=== PATIENT | female | born 1950 | race Caucasian/White ===

== ENCOUNTER 2016-04-11 07:01 | Emergency (ER) | payer BC ==
[2016-04-11] MEDS ORDERED: SODIUM CHLORIDE 0.9% 1,000 ML IV STA (07:50)
[2016-04-11] MEDS ORDERED: KETOROLAC 30 MG/ML 1 ML VIAL IVP STA ×2 (07:50→09:29)
--- NOTE | 2016-04-11 07:54 | ED ---
Abdominal Pain HPI - General Chief Complaint: Abdominal Pain Stated Complaint: Lt Sided Flank Pain Time Seen by Provider: 04/11/16 07:30 Source: patient, RN notes reviewed Mode of arrival: wheelchair Limitations: no limitations - History of Present Illness Initial Comments: This is a 65-year-old female with a history of a cholecystectomy in the past also history of a lap band for many years who states she had the onset at about 4:30 this morning of severe sharp left-sided flank pain and left upper quadrant area pain. She states it was very severe she has some nausea with it. Somewhat better now is currently 7/10. She states she had diaphoretic at the time of the pain onset. She states it doesn't really get any worse with movements or deep breathing. She had no fevers or chills no dysuria no hematuria no cough or phlegm production. Complaint: flank pain - Related Data Home Medications Medication Instructions Recorded Confirmed Ascorbic Acid [Vitamin C] 500 mg PO DAILY 04/11/16 04/11/16 Cholecalciferol [Vitamin D3] 3,000 unit PO DAILY 04/11/16 04/11/16 Cyanocobalamin [Vitamin B-12] 500 mcg PO DAILY 04/11/16 04/11/16 Levothyroxine Sodium [Synthroid] 125 mcg PO DAILY 04/11/16 04/11/16 Multivitamins, Thera [Multivitamin] 1 tab PO DAILY 04/11/16 04/11/16 PARoxetine HCL 30 mg PO DAILY 04/11/16 04/11/16 Swim Ear Drying Aid 4 drops BOTH EARS DAILY PRN 04/11/16 04/11/16 Previous Rx's Medication Instructions Recorded Ibuprofen [Motrin] 800 mg PO Q6HR PRN #20 tab 04/11/16 Tamsulosin HCl [Flomax] 0.4 mg PO DAILY #7 cap.er.24h 04/11/16 Allergies Allergy/AdvReac Type Severity Reaction Status Date / Time sulfamethoxazole Allergy Rash/Hives Verified 04/11/16 07:50 [From Bactrim] trimethoprim [From Bactrim] Allergy Rash/Hives Verified 04/11/16 07:50 Review of Systems ROS Statement: Those systems with pertinent positive or pertinent negative responses have been documented in the HPI. ROS Other: All systems not noted in ROS Statement are negative. Past Medical History Past Medical History: Thyroid Disorder History of Any Multi-Drug Resistant Organisms: None Reported Past Surgical History: Bariatric Surgery, Cholecystectomy, Tonsillectomy Additional Past Surgical History / Comment(s): breast Past Psychological History: Anxiety Smoking Status: Never smoker Past Alcohol Use History: None Reported Past Drug Use History: None Reported General Exam - General Exam Comments Initial Comments: This is a well-developed well-nourished awake alert oriented 3 Limitations: no limitations General appearance: alert, anxious, in distress Head exam: Present: atraumatic, normocephalic, normal inspection Eye exam: Present: normal appearance, PERRL, EOMI. Absent: scleral icterus, conjunctival injection, periorbital swelling ENT exam: Present: normal exam, mucous membranes moist Neck exam: Present: normal inspection. Absent: tenderness, meningismus, lymphadenopathy Respiratory exam: Present: normal lung sounds bilaterally. Absent: respiratory distress, wheezes, rales, rhonchi, stridor Cardiovascular Exam: Present: regular rate, normal rhythm, normal heart sounds. Absent: systolic murmur, diastolic murmur, rubs, gallop, clicks GI/Abdominal exam: Present: soft, tenderness (Slight left flank tenderness), normal bowel sounds. Absent: distended, guarding, rebound, rigid, bruit, pulsatile mass, hernia Rectal exam: Present: deferred Extremities exam: Present: normal inspection, full ROM, normal capillary refill. Absent: tenderness, pedal edema, joint swelling, calf tenderness Back exam: Present: normal inspection, CVA tenderness (L) Neurological exam: Present: alert, oriented X3, CN II-XII intact Psychiatric exam: Present: normal affect, normal mood Skin exam: Present: warm, dry, intact, normal color. Absent: rash Course Vital Signs 04/11/16 07:09 Temperature 97.2 F L Pulse Rate 65 Respiratory 20 Rate Blood Pressure 124/73 O2 Sat by Pulse 100 Oximetry - Reevaluation(s) Reevaluation #1: 04/11/16 09:26 Reevaluation of the patient prior to the discharge reveals she was pain-free after the IV Toradol. Medical Decision Making - Medical Decision Making Patient is pain-free disseminated discuss findings with her. She will be discharged on appropriate medication will follow-up with her doctor did discuss the case with Dr. Holt if the patient is a LAP-BAND patient this has nothing to do with the LAP-BAND. - Lab Data Result diagrams: 04/11/16 07:40 04/11/16 07:40 Lab Results 04/11/16 04/11/16 04/11/16 Range/Units 07:40 07:40 07:40 WBC 11.3 H (3.8-10.6) k/uL RBC 4.63 (3.80-5.40) m/uL Hgb 13.7 (11.4-16.0) gm/dL Hct 43.0 (34.0-46.0) % MCV 93.0 (80.0-100.0) fL MCH 29.6 (25.0-35.0) pg MCHC 31.8 (31.0-37.0) g/dL RDW 13.0 (11.5-15.5) % Plt Count 283 (150-450) k/uL Neutrophils % 80 % Lymphocytes % 13 % Monocytes % 3 % Eosinophils % 3 % Basophils % 1 % Neutrophils # 9.0 H (1.3-7.7) k/uL Lymphocytes # 1.4 (1.0-4.8) k/uL Monocytes # 0.4 (0-1.0) k/uL Eosinophils # 0.3 (0-0.7) k/uL Basophils # 0.1 (0-0.2) k/uL Sodium 146 H (137-145) mmol/L Potassium 4.3 (3.5-5.1) mmol/L Chloride 107 (98-107) mmol/L Carbon Dioxide 26 (22-30) mmol/L Anion Gap 13 mmol/L BUN 19 H (7-17) mg/dL Creatinine 0.70 (0.52-1.04) mg/dL Est GFR (MDRD) Af Amer >60 (>60 ml/min/1.73 sqM) Est GFR (MDRD) Non-Af >60 (>60 ml/min/1.73 sqM) Glucose 105 H (74-99) mg/dL Calcium 9.6 (8.4-10.2) mg/dL Total Bilirubin 0.4 (0.2-1.3) mg/dL AST 22 (14-36) U/L ALT 40 (9-52) U/L Alkaline Phosphatase 61 (38-126) U/L Total Creatine Kinase 33 (30-135) U/L CK-MB (CK-2) 0.7 (0.0-2.4) ng/mL CK-MB (CK-2) Rel Index 2.1 Troponin I <0.012 (0.000-0.034) ng/mL Total Protein 7.9 (6.3-8.2) g/dL Albumin 4.4 (3.5-5.0) g/dL Amylase 98 (30-110) U/L Lipase 169 (23-300) U/L Urine Color Urine Appearance (Clear) Urine pH (5.0-8.0) Ur Specific [place] (1.001-1.035) Urine Protein (Negative) Urine Glucose (UA) (Negative) Urine Ketones (Negative) Urine Blood (Negative) Urine Nitrate (Negative) Urine Bilirubin (Negative) Urine Urobilinogen (<2.0) mg/dL Ur Leukocyte Esterase (Negative) Urine RBC (0-5) /hpf Urine WBC (0-5) /hpf Ur Squamous Epith Cells (0-4) /hpf Urine Mucus (None) /hpf 04/11/16 Range/Units 07:40 WBC (3.8-10.6) k/uL RBC (3.80-5.40) m/uL Hgb (11.4-16.0) gm/dL Hct (34.0-46.0) % MCV (80.0-100.0) fL MCH (25.0-35.0) pg MCHC (31.0-37.0) g/dL RDW (11.5-15.5) % Plt Count (150-450) k/uL Neutrophils % % Lymphocytes % % Monocytes % % Eosinophils % % Basophils % % Neutrophils # (1.3-7.7) k/uL Lymphocytes # (1.0-4.8) k/uL Monocytes # (0-1.0) k/uL Eosinophils # (0-0.7) k/uL Basophils # (0-0.2) k/uL Sodium (137-145) mmol/L Potassium (3.5-5.1) mmol/L Chloride (98-107) mmol/L Carbon Dioxide (22-30) mmol/L Anion Gap mmol/L BUN (7-17) mg/dL Creatinine (0.52-1.04) mg/dL Est GFR (MDRD) Af Amer (>60 ml/min/1.73 sqM) Est GFR (MDRD) Non-Af (>60 ml/min/1.73 sqM) Glucose (74-99) mg/dL Calcium (8.4-10.2) mg/dL Total Bilirubin (0.2-1.3) mg/dL AST (14-36) U/L ALT (9-52) U/L Alkaline Phosphatase (38-126) U/L Total Creatine Kinase (30-135) U/L CK-MB (CK-2) (0.0-2.4) ng/mL CK-MB (CK-2) Rel Index Troponin I (0.000-0.034) ng/mL Total Protein (6.3-8.2) g/dL Albumin (3.5-5.0) g/dL Amylase (30-110) U/L Lipase (23-300) U/L Urine Color Yellow Urine Appearance Clear (Clear) Urine pH 5.5 (5.0-8.0) Ur Specific [place] 1.020 (1.001-1.035) Urine Protein Trace H (Negative) Urine Glucose (UA) Negative (Negative) Urine Ketones Negative (Negative) Urine Blood Moderate H (Negative) Urine Nitrate Negative (Negative) Urine Bilirubin Negative (Negative) Urine Urobilinogen <2.0 (<2.0) mg/dL Ur Leukocyte Esterase Negative (Negative) Urine RBC >182 H (0-5) /hpf Urine WBC 1 (0-5) /hpf Ur Squamous Epith Cells <1 (0-4) /hpf Urine Mucus Rare H (None) /hpf - Radiology Data Radiology results: report reviewed (I did review the imaging and report or is evidence of a ureterolithiasis as well as nephrolithiasis. 3 mm focus as well as a 6 mm focus in the kidney a 6 mm calculus measuring about 6 mm in the proximal left ureter.), image reviewed Disposition Clinical Impression: Kidney stone on left side, Renal colic on left side Disposition: HOME SELF-CARE Condition: Good Instructions: Flank Pain (ED), How to Strain Your Urine (ED), Renal Colic (ED) , Kidney Stones (ED) Prescriptions: Ibuprofen [Motrin] 800 mg PO Q6HR PRN #20 tab PRN Reason: Pain Tamsulosin HCl [Flomax] 0.4 mg PO DAILY #7 cap.er.24h
[2016-04-11 08:04] LABS: Basophils # (A) 0.1 k/uL (0-0.2); Basophils % (A) 1 %; CH 29.6; Eosinophils # (A) 0.3 k/uL (0-0.7); Eosinophils % (A) 3 %; HDW 2.14; HGB 13.7 gm/dL (11.4-16.0); Luc % (Auto) 1; Lymphocytes # (A) 1.4 k/uL (1.0-4.8); Lymphocytes % (A) 13 %; MCH 29.6 pg (25.0-35.0); MCHC 31.8 g/dL (31.0-37.0); Mean Platelet Volume 7.2; Monocytes # (A) 0.4 k/uL (0-1.0); Monocytes % (A) 3 %; Neutrophils % (A) 80 %; RBC 4.63 m/uL (3.80-5.40); WBC 11.3 k/uL (3.8-10.6); WBC (Perox) 11.26
[2016-04-11 08:18] LABS: Appearance,Urine Clear (Clear); Bilirubin,Urine Negative (Negative); Glucose,Urine (UA) Negative (Negative); Ketones,Urine Negative (Negative); Leukocyte Esterase,Urine Negative (Negative); Mucus,Urine Rare /hpf; Nitrite,Urine Negative (Negative); PH, Urine 5.5 (5.0-8.0); Particle Count 2001; Protein,Urine Trace (Negative); RBC,Urine >182 /hpf (0-5); Squamous Epithelial Cell,Urine <1 /hpf (0-4); UA Billing (MACRO vs. MICRO) MICRO; Urobilinogen,Urine <2.0 mg/dL (<2.0); WBC,Urine 1 /hpf (0-5)
[2016-04-11 08:20] LABS: ALT 40 U/L (9-52); AST 22 U/L (14-36); Alkaline Phosphatase 61 U/L (38-126); Amylase 98 U/L (30-110); Anion Gap 13 mmol/L; Blood Urea Nitrogen 19 mg/dL (7-17); Calcium 9.6 mg/dL (8.4-10.2); Carbon Dioxide 26 mmol/L (22-30); Chloride 107 mmol/L (98-107); Glucose 105 mg/dL (74-99); Non-African American GFR(MDRD) >60 (>60 ml/min/1.73 sqM); Potassium 4.3 mmol/L (3.5-5.1); Sodium 146 mmol/L (137-145); Total Bilirubin 0.4 mg/dL (0.2-1.3); Total Protein 7.9 g/dL (6.3-8.2)
[2016-04-11 08:37] LABS: Creatine Kinase 33 U/L (30-135)
--- NOTE | 2016-04-11 08:50 | CT ---
EXAMINATION TYPE: CT abdomen pelvis wo con DATE OF EXAM: 04/11/2016 8:42 AM COMPARISON: NONE HISTORY: Left sided abdominal pain CT DLP: 317.70 mGycm Automated exposure control for dose reduction was used. TECHNIQUE: Helical acquisition of images from the lung bases through the pelvis. FINDINGS: There is some thickening of the distal esophagus, patient is status post lap band which may cause this appearance of a prominent distal esophageal pouch. LUNG BASES: No significant abnormality is appreciated. AORTA: No significant abnormality is appreciated, retroaortic left renal vein. LIVER/GB: Patient is status post cholecystectomy. Liver unremarkable PANCREAS: No significant abnormality is seen. SPLEEN: No significant abnormality is seen. ADRENALS: No significant abnormality is seen. KIDNEYS: There is left-sided hydronephrosis. Nonobstructive calculi present, 3 mm focus at the lower pole, 6 mm focus midpole. Proximal left ureteral calculus is present measuring approximately 6 mm. Ri ght kidney unremarkable. REPRODUCTIVE ORGANS: No significant abnormality is seen. URINARY BLADDER: No significant abnormality is seen. BOWEL: No significant abnormality is seen. FREE AIR: No Free Air is visible. ASCITES: None visible. PELVIC ADENOPATHY: None visualized. RETROPERITONEAL ADENOPATHY: No Retroperitoneal Adenopathy visible. OSSEOUS STRUCTURES: Degenerative disc changes are present in the lower lumbar spine. There is a spin al curvature. IMPRESSION: PROXIMAL LEFT URETERAL CALCULUS WITH HYDRONEPHROSIS, LEFT-SIDED NEPHROLITHIASIS. POSTOP CHANGES. NONC ONTRAST EXAM. ADDITIONAL FINDINGS ABOVE.
[2016-04-11 08:51] LABS: Creatine Kinase MB 0.7 ng/mL (0.0-2.4); Troponin I <0.012 ng/mL (0.000-0.034)
[2016-04-11] MEDS ORDERED: TAMSULOSIN 0.4 MG CAP.ER.24H PO STA (09:10)
[2016-04-11 09:43] VITALS: BP 114/76; PULSE 66; RESP 16; TEMP 97.1
== END 2016-04-11 10:22 | disposition home or self-care (01) ==
LOC: EC 07:01
DX: N20.0 Calculus of kidney (principal); R10.11 Right upper quadrant pain; E07.9 Disorder of thyroid, unspecified; F41.9 Anxiety disorder, unspecified; Z79.52 Long term (current) use of systemic steroids; Z79.899 Other long term (current) drug therapy; Z88.2 Allergy status to sulfonamides; Z98.84 Bariatric surgery status; Z90.49 Acquired absence of other specified parts of digestive tract
CPT/HCPCS: 99284; 96374; 96376; 96361 ×2; 36415; 80053; 82150; 82550; 82553; 83690; 84484; 85025; 81001; 74176; J1885

== ENCOUNTER → 2016-04-24 | Outpatient (CLI) | payer BC ==
--- NOTE | 2016-04-24 12:04 | XR ---
EXAMINATION TYPE: XR KUB DATE OF EXAM: 04/24/2016 11:55 AM HISTORY: Pain Comparison: 03/13/[address] of the abdomen and pelvis dated 04/11/2016 Single KUB is submitted for interpretation. Findings: Right renal calculi: None Visualized. Right ureteral calculi: None Visualized. Left renal calculi: Suspect left renal calculi as identified on CT with 6 mm calculus mid pole left kidney and 3 mm lower pole calculus. Left ureteral calculi: 5.5 mm calculus is noted at the left L3 level. Pelvic calcifications: None Visualized. Bowel gas pattern is unremarkable. No free air. No mass effects. IMPRESSION: 1. 5.5 mm calculus is noted at the left L3 level.
== END ==
LOC: RADXRMAIN 11:42
PROVIDERS: ATTEND Urology
DX: N20.1 Calculus of ureter (principal)
CPT/HCPCS: 74000

== ENCOUNTER → 2016-05-02 | Outpatient (CLI) | payer BC ==
[2016-05-02 11:05] LABS: EKG EKG PERFORMED
[2016-05-02 11:31] LABS: Basophils # (A) 0.1 k/uL (0-0.2); Basophils % (A) 1 %; CH 29.6; CHCM 31.8; Eosinophils # (A) 0.2 k/uL (0-0.7); Eosinophils % (A) 4 %; HCT 41.7 % (34.0-46.0); HDW 2.19; HGB 13.2 gm/dL (11.4-16.0); Luc # (Auto) 0.16; Luc % (Auto) 3; Lymphocytes # (A) 1.2 k/uL (1.0-4.8); Lymphocytes % (A) 19 %; MCH 29.7 pg (25.0-35.0); MCHC 31.7 g/dL (31.0-37.0); MCV 93.5 fL (80.0-100.0); Mean Platelet Volume 7.2; Monocytes # (A) 0.3 k/uL (0-1.0); Monocytes % (A) 5 %; Neutrophils # (A) 4.3 k/uL (1.3-7.7); Neutrophils % (A) 69 %; RBC 4.46 m/uL (3.80-5.40); WBC 6.2 k/uL (3.8-10.6); WBC (Perox) 6.41
[2016-05-02 11:37] LABS: Partial Thromboplastin Time 23.7 sec (22.0-30.0); Prothrombin Time 9.8 sec (9.0-12.0)
[2016-05-02 11:47] LABS: Blood Urea Nitrogen 22 mg/dL (7-17); Non-African American GFR(MDRD) >60 (>60 ml/min/1.73 sqM)
== END ==
LOC: LABPAT 10:22
PROVIDERS: ATTEND Urology
DX: N20.1 Calculus of ureter (principal)
CPT/HCPCS: 82565; 84520; 85025; 85610; 85730; 93005

== ENCOUNTER 2016-05-08 10:02 | Day surgery (SDC) | payer BC ==
[2016-05-05 10:49] VITALS: BMI 24.3
[~2016-05-08 10:02] MED LIST: DEXAMETHASONE SOD PHOSPHATE 10 MG/ML 1 ML VIAL IV ONE; HYDROmorphone 1 MG/ML 1 ML SYRINGE IVP PRN; LIDOCAINE 1% 20 ML VIAL (10MG/ML) FOR IV START INTRADERMA PRN; ONDANSETRON 4 MG/2 ML VIAL IVP ONE; Pre Op ABX Message 1 EACH MISC MISCELLANE ONE; SCOPOLAMINE 1.5MG/72HR PATCH TRANSDERM ONE
--- NOTE | 2016-05-08 10:08 | XR ---
EXAMINATION TYPE: XR KUB DATE OF EXAM: 05/08/2016 9:55 AM CLINICAL HISTORY: Presurgical study for kidney stones. TECHNIQUE: 2 supine KUB images of the abdomen are obtained. COMPARISON: Abdominal x-ray April 24, [address] abdomen and pelvis April 11, 2016. FINDINGS: There is redemonstration of 7 mm proximal left ureter calculus at level of left L4 transver se process felt slightly progressed distally from recent CT and x-ray. There are 2 small calculi lowe r pole level left kidney measuring up to 5 mm in size redemonstrated. No right-sided renal calculi id entified. Lap band device and angle position redemonstrated and stable. Increase angle redemonstrated. Overall nonobstructive bowel gas pattern. Lung bases are clear. Slight underlying levoconvex scoliotic curvat ure is noted. IMPRESSION: Left-sided nephrolithiasis redemonstrated felt stable with 7 mm proximal ureter calculus slightly pro gressed distally in position since prior studies.
[2016-05-08 10:18] VITALS: RESP 16; TEMP 98
[2016-05-08] MEDS: LACTATED RINGERS 1,000 ML IV SCH ×2 (10:24→10:44)
[2016-05-08] MEDS ORDERED: PROPOFOL 10 MG/ML 20 ML VIAL IV ONE (10:45)
[2016-05-08] MEDS ORDERED: MIDAZOLAM 2 MG/2 ML VIAL ONE (10:45)
[2016-05-08] MEDS ORDERED: fentaNYL (PF) 50 MCG/ML 2 ML AMP ONE (10:45)
--- NOTE | 2016-05-08 11:19 | P.OP ---
Date of Procedure: 05/08/16 Preoperative Diagnosis: Left proximal ureteral stone Postoperative Diagnosis: Same Procedure(s) Performed: Extracorporeal shockwave lithotripsy left, 2500 shocks at energy level IV Anesthesia: DAPHNE HAMLIN Surgeon: Slava Banda Pathology: none sent Condition: stable Disposition: PACU Indications for Procedure: The patient is a 65-year-old female with a 7 mm proximal ureteral stone causing obstruction and pain she comes for shockwave lithotripsy Description of Procedure: Patient was brought to the operating suite and given a sedative anesthetic on the lithotripsy table. The stone was seen in 2 views of fluoroscopy. 2500 shocks at energy level IV administered. The stone appears to fracture. At the end of procedure the patient's awakened and returned recovery room good condition she'll be discharged home upon recovery.
[2016-05-08] MEDS ORDERED: IV FLUID CONTINUATION 1,000 ML IV ONE (11:24)
[2016-05-08 12:28] VITALS: BP 124/65; PULSE 100
== END 2016-05-08 13:06 | disposition home or self-care (01) ==
LOC: ORWHC2ENDO 10:02
PROVIDERS: ATTEND Urology
DX: N20.2 Calculus of kidney with calculus of ureter (principal); E05.90 Thyrotoxicosis, unspecified without thyrotoxic crisis or storm; J45.909 Unspecified asthma, uncomplicated; Z79.1 Long term (current) use of non-steroidal anti-inflammatories (NSAID); Z79.899 Other long term (current) drug therapy; Z88.1 Allergy status to other antibiotic agents; Z88.2 Allergy status to sulfonamides
CPT/HCPCS: 74000; 50590; J2250; J1100; J2405; J3010; J2704

== ENCOUNTER → 2016-05-15 | Outpatient (CLI) | payer BC ==
--- NOTE | 2016-05-15 10:18 | XR ---
EXAMINATION TYPE: XR KUB DATE OF EXAM ORDERED: 05/15/2016 9:45 AM HISTORY: N20.1 L ureteral calculus. COMPARISON: Previous study dated 05/08/2016. FINDINGS: There is a lap band in place, unchanged from previous. There has been a previous cholecyst ectomy. There is a 4.8 mm calculus overlying the lower pole of the left kidney. There is a linear ish cification overlying the psoas shadow which appears to be outside of the expected course of the urete r. No definite right-sided calcifications are seen. There is a mild levoscoliosis. IMPRESSION: LEFT-SIDED NEPHROLITHIASIS.
== END | disposition home or self-care (01) ==
LOC: RADXRMAIN 09:33
PROVIDERS: ATTEND Urology
DX: N20.0 Calculus of kidney (principal)
CPT/HCPCS: 74000

== ENCOUNTER 2016-08-04 04:14 | Emergency (ER) | payer BC ==
[2016-08-04 04:23] VITALS: PULSE 56
[2016-08-04] MEDS ORDERED: SODIUM CHLORIDE 0.9% 1,000 ML IV ONE (04:28)
[2016-08-04] MEDS ORDERED: MORPHINE SULFATE 4 MG/ML SYRINGE IVP STA (04:28)
--- NOTE | 2016-08-04 04:30 | ED ---
Abdominal Pain HPI - General Chief Complaint: Abdominal Pain Stated Complaint: abd pain Time Seen by Provider: 08/04/16 04:22 Source: patient Mode of arrival: ambulatory Limitations: no limitations - History of Present Illness Initial Comments: This is a 65-year-old female with a history of kidney stones and lap band surgery who presents emergency department for abdominal pain. She states it started approximately one week ago however acutely worsened at 2 AM today. She states is located in her left upper and left lower quadrant radiates to her left flank. She states it does not feel like her previous kidney stone that she had in March of this year. She denies any associated nausea or vomiting or diarrhea. No blood in the stool. She states that she did pass quite a bunch of gas earlier. No lightheadedness. She does admit to a small amount of dysuria but no frequency or hematuria. No other complaints. - Related Data Home Medications Medication Instructions Recorded Confirmed Ascorbic Acid [Vitamin C] 500 mg PO DAILY 04/11/16 05/08/16 Cholecalciferol [Vitamin D3] 3,000 unit PO DAILY 04/11/16 05/08/16 Cyanocobalamin [Vitamin B-12] 500 mcg PO DAILY 04/11/16 05/08/16 Levothyroxine Sodium [Synthroid] 125 mcg PO DAILY 04/11/16 05/08/16 Multivitamins, Thera [Multivitamin] 1 tab PO DAILY 04/11/16 05/08/16 PARoxetine HCL 30 mg PO DAILY 04/11/16 05/08/16 Swim Ear Drying Aid 4 drops BOTH EARS DAILY PRN 04/11/16 05/08/16 Loratadine [Claritin] 10 mg PO DAILY PRN 05/05/16 05/08/16 Potassium 99 mg PO DAILY 05/05/16 05/08/16 Previous Rx's Medication Instructions Recorded Ibuprofen [Motrin] 800 mg PO Q6HR PRN #20 tab 04/11/16 HYDROcodone/APAP 5-325MG [[place] 1 tab PO Q4HR PRN #20 tab 05/08/16 5-325] HYDROcodone/APAP 5-325MG [[place] 1 - 2 tab PO Q4H PRN #15 tab 08/04/16 5-325] Allergies Allergy/AdvReac Type Severity Reaction Status Date / Time sulfamethoxazole Allergy Rash/Hives Verified 08/04/16 04:21 [From Bactrim] trimethoprim [From Bactrim] Allergy Rash/Hives Verified 08/04/16 04:21 Review of Systems ROS Statement: Those systems with pertinent positive or pertinent negative responses have been documented in the HPI. ROS Other: All systems not noted in ROS Statement are negative. Past Medical History Past Medical History: Thyroid Disorder History of Any Multi-Drug Resistant Organisms: None Reported Past Surgical History: Bariatric Surgery, Cholecystectomy, Tonsillectomy Additional Past Surgical History / Comment(s): breast Past Psychological History: Anxiety Smoking Status: Never smoker Past Alcohol Use History: None Reported Past Drug Use History: None Reported General Exam - General Exam Comments Initial Comments: Constitutional: Awake alert Appears comfortable Head: Normocephalic atraumatic Eyes: no conjunctival injection No scleral icterus EOMI Neck: No JVD Supple Heart: Regular rate rhythm normal S1-S2 no murmurs Lungs: Clear to auscultation bilaterally No wheezing No rales Abdomen: Soft nondistended tenderness to palpation in the left upper and left lower quadrants with some guarding Extremities: Non edematous DP pulses intact Radial pulses intact Neuro: A&Ox3 No focal neurologic deficits Psych: Appropriate mood and affect Limitations: no limitations Course Vital Signs 08/04/16 04:18 Temperature 97.1 F L Pulse Rate 56 L Respiratory 18 Rate Blood Pressure 154/79 O2 Sat by Pulse 100 Oximetry Medical Decision Making - Medical Decision Making This is a 65-year-old female who presented for left-sided abdominal pain and flank pain. She was found have a 7 mm stone. Her pain was much improved after medications. The patient does not have evidence for urinary tract infection or acute kidney injury. She is going to go home and follow up with Dr. Ward. I gave her [place] for home. She can also use Motrin. The patient has an ALLERGY to Flomax so she can be given this. She is going to follow-up with Dr. Ward's office. - Lab Data Result diagrams: 08/04/16 04:32 08/04/16 04:32 Lab Results 08/04/16 08/04/16 08/04/16 Range/Units 04:32 04:32 04:32 WBC 8.5 (3.8-10.6) k/uL RBC 4.70 (3.80-5.40) m/uL Hgb 13.9 (11.4-16.0) gm/dL Hct 43.7 (34.0-46.0) % MCV 92.9 (80.0-100.0) fL MCH 29.7 (25.0-35.0) pg MCHC 31.9 (31.0-37.0) g/dL RDW 13.5 (11.5-15.5) % Plt Count 298 (150-450) k/uL Neutrophils % 65 % Lymphocytes % 23 % Monocytes % 5 % Eosinophils % 4 % Basophils % 1 % Neutrophils # 5.5 (1.3-7.7) k/uL Lymphocytes # 2.0 (1.0-4.8) k/uL Monocytes # 0.4 (0-1.0) k/uL Eosinophils # 0.4 (0-0.7) k/uL Basophils # 0.1 (0-0.2) k/uL Sodium 142 (137-145) mmol/L Potassium 4.5 (3.5-5.1) mmol/L Chloride 106 (98-107) mmol/L Carbon Dioxide 24 (22-30) mmol/L Anion Gap 12 mmol/L BUN 23 H (7-17) mg/dL Creatinine 0.60 (0.52-1.04) mg/dL Est GFR (MDRD) Af Amer >60 (>60 ml/min/1.73 sqM) Est GFR (MDRD) Non-Af >60 (>60 ml/min/1.73 sqM) Glucose 107 H (74-99) mg/dL Plasma Lactic Acid [place] 1.9 (0.7-2.0) mmol/L Calcium 9.8 (8.4-10.2) mg/dL Total Bilirubin 0.4 (0.2-1.3) mg/dL AST 25 (14-36) U/L ALT 28 (9-52) U/L Alkaline Phosphatase 56 (38-126) U/L Total Protein 7.5 (6.3-8.2) g/dL Albumin 4.5 (3.5-5.0) g/dL Amylase 111 H (30-110) U/L Lipase 270 (23-300) U/L Urine Color Urine Appearance (Clear) Urine pH (5.0-8.0) Ur Specific [place] (1.001-1.035) Urine Protein (Negative) Urine Glucose (UA) (Negative) Urine Ketones (Negative) Urine Blood (Negative) Urine Nitrite (Negative) Urine Bilirubin (Negative) Urine Urobilinogen (<2.0) mg/dL Ur Leukocyte Esterase (Negative) Urine RBC (0-5) /hpf Urine WBC (0-5) /hpf Ur Squamous Epith Cells (0-4) /hpf Urine Bacteria (None) /hpf Hyaline Casts (0-2) /lpf Urine Mucus (None) /hpf 08/04/16 Range/Units 04:32 WBC (3.8-10.6) k/uL RBC (3.80-5.40) m/uL Hgb (11.4-16.0) gm/dL Hct (34.0-46.0) % MCV (80.0-100.0) fL MCH (25.0-35.0) pg MCHC (31.0-37.0) g/dL RDW (11.5-15.5) % Plt Count (150-450) k/uL Neutrophils % % Lymphocytes % % Monocytes % % Eosinophils % % Basophils % % Neutrophils # (1.3-7.7) k/uL Lymphocytes # (1.0-4.8) k/uL Monocytes # (0-1.0) k/uL Eosinophils # (0-0.7) k/uL Basophils # (0-0.2) k/uL Sodium (137-145) mmol/L Potassium (3.5-5.1) mmol/L Chloride (98-107) mmol/L Carbon Dioxide (22-30) mmol/L Anion Gap mmol/L BUN (7-17) mg/dL Creatinine (0.52-1.04) mg/dL Est GFR (MDRD) Af Amer (>60 ml/min/1.73 sqM) Est GFR (MDRD) Non-Af (>60 ml/min/1.73 sqM) Glucose (74-99) mg/dL Plasma Lactic Acid [place] (0.7-2.0) mmol/L Calcium (8.4-10.2) mg/dL Total Bilirubin (0.2-1.3) mg/dL AST (14-36) U/L ALT (9-52) U/L Alkaline Phosphatase (38-126) U/L Total Protein (6.3-8.2) g/dL Albumin (3.5-5.0) g/dL Amylase (30-110) U/L Lipase (23-300) U/L Urine Color Yellow Urine Appearance Clear (Clear) Urine pH 5.5 (5.0-8.0) Ur Specific [place] 1.021 (1.001-1.035) Urine Protein 1+ H (Negative) Urine Glucose (UA) Negative (Negative) Urine Ketones Negative (Negative) Urine Blood Small H (Negative) Urine Nitrite Negative (Negative) Urine Bilirubin Negative (Negative) Urine Urobilinogen <2.0 (<2.0) mg/dL Ur Leukocyte Esterase Trace H (Negative) Urine RBC 34 H (0-5) /hpf Urine WBC 8 H (0-5) /hpf Ur Squamous Epith Cells 1 (0-4) /hpf Urine Bacteria Rare H (None) /hpf Hyaline Casts 7 H (0-2) /lpf Urine Mucus Rare H (None) /hpf Disposition Clinical Impression: Ureterolithiasis Disposition: HOME SELF-CARE Condition: Stable Prescriptions: HYDROcodone/APAP 5-325MG [[place] 5-325] 1 - 2 tab PO Q4H PRN #15 tab PRN Reason: Pain Referrals: Bettina Navarrete MD [Primary Care Provider] - 1-2 days Rubio Ward MD [STAFF PHYSICIAN] - 1-2 days
[2016-08-04 04:47] LABS: Basophils # (A) 0.1 k/uL (0-0.2); Basophils % (A) 1 %; CH 29.3; CHCM 31.7; Eosinophils # (A) 0.4 k/uL (0-0.7); Eosinophils % (A) 4 %; HCT 43.7 % (34.0-46.0); HDW 2.12; HGB 13.9 gm/dL (11.4-16.0); Luc # (Auto) 0.17; Luc % (Auto) 2; Lymphocytes % (A) 23 %; MCH 29.7 pg (25.0-35.0); MCHC 31.9 g/dL (31.0-37.0); MCV 92.9 fL (80.0-100.0); Mean Platelet Volume 6.5; Monocytes # (A) 0.4 k/uL (0-1.0); Monocytes % (A) 5 %; Neutrophils # (A) 5.5 k/uL (1.3-7.7); Neutrophils % (A) 65 %; RDW 13.5 % (11.5-15.5); WBC 8.5 k/uL (3.8-10.6); WBC (Perox) 8.83
[2016-08-04] MEDS ORDERED: ONDANSETRON 4 MG/2 ML VIAL IVP STA (04:49)
[2016-08-04 04:59] LABS: ALT 28 U/L (9-52); AST 25 U/L (14-36); Alkaline Phosphatase 56 U/L (38-126); Amylase 111 U/L (30-110); Anion Gap 12 mmol/L; Blood Urea Nitrogen 23 mg/dL (7-17); Calcium 9.8 mg/dL (8.4-10.2); Carbon Dioxide 24 mmol/L (22-30); Chloride 106 mmol/L (98-107); Glucose 107 mg/dL (74-99); Non-African American GFR(MDRD) >60 (>60 ml/min/1.73 sqM); Potassium 4.5 mmol/L (3.5-5.1); Sodium 142 mmol/L (137-145); Total Bilirubin 0.4 mg/dL (0.2-1.3); Total Protein 7.5 g/dL (6.3-8.2)
--- NOTE | 2016-08-04 05:14 | CT ---
EXAM: CT Abdomen and Pelvis Without Intravenous Contrast CLINICAL HISTORY: LUQ/LLQ Pain, h/o lap band TECHNIQUE: Axial computed tomography images of the abdomen and pelvis without intravenous contrast. CTDI is 6.10 mGy and DLP is 271.40 mGy-cm. This CT exam was performed using one or more of the following dose reduction techniques: automated exposure control, adjustment of the mA and/or kV according to patient size, and/or use of iterative reconstruction technique. COMPARISON: CT abdomen pelvis dated 04/11/2016 FINDINGS: Lower thorax: Moderate amount of fluid noted within the distal esophagus. ABDOMEN: Liver: Unremarkable. Gallbladder and bile ducts: The gallbladder is surgically absent. Pancreas: Unremarkable. Spleen: Unremarkable. Adrenals: Unremarkable. Kidneys and ureters: 7 mm calculi within the distal left ureter which causes mild hydroureteronephrosis. There are additional nonobstructing calculi within both kidneys. Stomach and bowel: Gastric lap band is noted. Appendix: No findings to suggest acute appendicitis. PELVIS: Bladder: Unremarkable. Reproductive: Unremarkable as visualized. ABDOMEN and PELVIS: Intraperitoneal space: Unremarkable. Bones/joints: No acute fracture. No dislocation. Soft tissues: Unremarkable. Vasculature: Vascular calcifications. Lymph nodes: Unremarkable. IMPRESSION: 1. 7 mm calculi within the distal left ureter which causes mild hydroureteronephrosis. 2. There are additional nonobstructing calculi within both kidneys.
[2016-08-04] MEDS ORDERED: KETOROLAC 30 MG/ML 1 ML VIAL IVP STA (05:25)
[2016-08-04 05:26] LABS: Appearance,Urine Clear (Clear); Bacteria,Urine Rare /hpf; Bilirubin,Urine Negative (Negative); Glucose,Urine (UA) Negative (Negative); Ketones,Urine Negative (Negative); Leukocyte Esterase,Urine Trace (Negative); Mucus,Urine Rare /hpf; Nitrite,Urine Negative (Negative); PH, Urine 5.5 (5.0-8.0); Particle Count 2064; Protein,Urine 1+ (Negative); RBC,Urine 34 /hpf (0-5); Specific Gravity,Urine 1.021 (1.001-1.035); Squamous Epithelial Cell,Urine 1 /hpf (0-4); UA Billing (MACRO vs. MICRO) MICRO; Urobilinogen,Urine <2.0 mg/dL (<2.0); WBC,Urine 8 /hpf (0-5)
[2016-08-04 06:09] VITALS: BP 115/64; RESP 16; TEMP 98
== END 2016-08-04 06:10 | disposition home or self-care (01) ==
LOC: EC 04:14
DX: N20.1 Calculus of ureter (principal); E07.9 Disorder of thyroid, unspecified; F41.9 Anxiety disorder, unspecified; R30.0 Dysuria; Z79.899 Other long term (current) drug therapy; Z88.2 Allergy status to sulfonamides; Z90.49 Acquired absence of other specified parts of digestive tract; Z98.84 Bariatric surgery status
CPT/HCPCS: 36415; 80053; 82150; 83605; 83690; 85025; 81001; 87086; 74176; 99284; 96374; 96375 ×2; 96361; J2270; J2405; J1885

== ENCOUNTER 2016-08-05 09:44 | Emergency (ER) | payer BC ==
[2016-08-05] MEDS ORDERED: ONDANSETRON 4 MG/2 ML VIAL IVP STA (09:51)
[2016-08-05] MEDS ORDERED: HYDROmorphone 1 MG/ML 1 ML SYRINGE IVP STA (09:51)
[2016-08-05] MEDS ORDERED: SODIUM CHLORIDE 0.9% 1,000 ML IV STA (09:51)
[2016-08-05] MEDS ORDERED: KETOROLAC 30 MG/ML 1 ML VIAL IVP STA (09:51)
--- NOTE | 2016-08-05 09:57 | ED ---
General Adult HPI - General Chief complaint: Abdominal Pain Stated complaint: revisit kidney stone Time Seen by Provider: 08/05/16 09:51 Source: patient, RN notes reviewed Mode of arrival: ambulatory Limitations: no limitations - History of Present Illness Initial comments: Patient 65-year-old female significant past medical history for kidney stones, who presents emergency room today with a chief complaint of increased left flank plain. Does admit that she was seen here 2 days ago had a CT which did show a 7 mm stone in the left side. She did see her urologist yesterday who told her he was hoping she will be able to pass the stone and if not would do a procedure on Sunday. Patient states increased pain having difficult time sleeping. Does admit to increased nausea vomiting. Denies any other symptoms or complaints at this time. Patient denies any recent fever, chills, shortness of breath, chest pain, numbness or tingling, dysuria or hematuria, constipation or diarrhea, headaches or visual changes, or any other complaints. - Related Data Home Medications Medication Instructions Recorded Confirmed Ascorbic Acid [Vitamin C] 500 mg PO DAILY 04/11/16 08/05/16 Cholecalciferol [Vitamin D3] 3,000 unit PO DAILY 04/11/16 08/05/16 Cyanocobalamin [Vitamin B-12] 500 mcg PO DAILY 04/11/16 08/05/16 Levothyroxine Sodium [Synthroid] 125 mcg PO DAILY 04/11/16 08/05/16 Multivitamins, Thera [Multivitamin] 1 tab PO DAILY 04/11/16 08/05/16 PARoxetine HCL 30 mg PO DAILY 04/11/16 08/05/16 Loratadine [Claritin] 10 mg PO DAILY 05/05/16 08/05/16 Potassium 99 mg PO DAILY 05/05/16 08/05/16 Ibuprofen [Motrin] 800 mg PO BID 08/05/16 08/05/16 Previous Rx's Medication Instructions Recorded Ondansetron Odt [Zofran ODT] 4 mg PO Q8HR PRN #20 tab 08/05/16 Allergies Allergy/AdvReac Type Severity Reaction Status Date / Time sulfamethoxazole Allergy Rash/Hives Verified 08/05/16 11:32 [From Bactrim] tamsulosin [From Flomax] Allergy Itching Verified 08/05/16 11:32 trimethoprim [From Bactrim] Allergy Rash/Hives Verified 08/05/16 11:32 Review of Systems ROS Statement: Those systems with pertinent positive or pertinent negative responses have been documented in the HPI. ROS Other: All systems not noted in ROS Statement are negative. Past Medical History Past Medical History: Thyroid Disorder History of Any Multi-Drug Resistant Organisms: None Reported Past Surgical History: Bariatric Surgery, Cholecystectomy, Tonsillectomy Additional Past Surgical History / Comment(s): breast Past Psychological History: Anxiety Smoking Status: Never smoker Past Alcohol Use History: None Reported Past Drug Use History: None Reported General Exam - General Exam Comments Initial Comments: General: The patient is awake and alert, in moderate distress. Eye: Pupils are equal, round and reactive to light, extra-ocular movements are intact. No nystagmus. There is normal conjunctiva bilaterally. No signs of icterus. Ears, nose, mouth and throat: There are moist mucous membranes and no oral lesions. Neck: The neck is supple, there is no tenderness or JVD. Cardiovascular: There is a regular rate and rhythm. No murmur, rub or gallop is appreciated. Respiratory: Lungs are clear to auscultation, respirations are non-labored, breath sounds are equal. No wheezes, stridor, rales, or rhonchi. Gastrointestinal: No appearance the abdomen. Normal bowel sounds. Abdomen soft on palpation. Patient does have tenderness in the left flank. No rebound tenderness. No guarding. Musculoskeletal: Normal ROM, no tenderness. Strength 5/5. Sensation intact. Pulses equal bilaterally 2+. Neurological: A&O x 3. CN II-XII intact, There are no obvious motor or sensory deficits. Coordination appears grossly intact. Speech is normal. Skin: Skin is warm and dry and no rashes or lesions are noted. Psychiatric: Cooperative, appropriate mood & affect, normal judgment. Limitations: no limitations Course Vital Signs 08/05/16 09:46 Temperature 97.5 F L Pulse Rate 101 H Respiratory 20 Rate Blood Pressure 132/75 O2 Sat by Pulse 99 Oximetry Medical Decision Making - Medical Decision Making Is resting comfortably. Shows no signs of distress. States feeling better. Patient labs reviewed and are unremarkable. Patient will be discharged home with nausea medication she does have pain medicine at home that she can use. Advised return if any symptoms increase or worsen or for any other concerns. - Lab Data Result diagrams: 08/05/16 10:00 08/05/16 10:00 Lab Results 08/05/16 08/05/16 08/05/16 Range/Units 10:00 10:00 11:30 WBC 11.3 H (3.8-10.6) k/uL RBC 4.64 (3.80-5.40) m/uL Hgb 13.8 (11.4-16.0) gm/dL Hct 41.0 (34.0-46.0) % MCV 88.5 (80.0-100.0) fL MCH 29.7 (25.0-35.0) pg MCHC 33.5 (31.0-37.0) g/dL RDW 13.1 (11.5-15.5) % Plt Count 287 (150-450) k/uL Neutrophils % 86 % Lymphocytes % 9 % Monocytes % 4 % Eosinophils % 1 % Basophils % 0 % Neutrophils # 9.6 H (1.3-7.7) k/uL Lymphocytes # 1.0 (1.0-4.8) k/uL Monocytes # 0.4 (0-1.0) k/uL Eosinophils # 0.1 (0-0.7) k/uL Basophils # 0.0 (0-0.2) k/uL Sodium 144 (137-145) mmol/L Potassium 4.8 (3.5-5.1) mmol/L Chloride 108 H (98-107) mmol/L Carbon Dioxide 23 (22-30) mmol/L Anion Gap 13 mmol/L BUN 20 H (7-17) mg/dL Creatinine 0.95 (0.52-1.04) mg/dL Est GFR (MDRD) Af Amer >60 (>60 ml/min/1.73 sqM) Est GFR (MDRD) Non-Af 59 (>60 ml/min/1.73 sqM) Glucose 134 H (74-99) mg/dL Calcium 9.7 (8.4-10.2) mg/dL Total Bilirubin 0.7 (0.2-1.3) mg/dL AST 24 (14-36) U/L ALT 30 (9-52) U/L Alkaline Phosphatase 73 (38-126) U/L Total Protein 7.5 (6.3-8.2) g/dL Albumin 4.5 (3.5-5.0) g/dL Lipase 149 (23-300) U/L Urine Color Yellow Urine Appearance Cloudy H (Clear) Urine pH 5.5 (5.0-8.0) Ur Specific [place] 1.026 (1.001-1.035) Urine Protein Trace H (Negative) Urine Glucose (UA) Negative (Negative) Urine Blood Negative (Negative) Urine Nitrite Negative (Negative) Urine Bilirubin Negative (Negative) Urine Urobilinogen <2.0 (<2.0) mg/dL Ur Leukocyte Esterase Trace H (Negative) Urine RBC 52 H (0-5) /hpf Urine WBC 2 (0-5) /hpf Ur Squamous Epith Cells 2 (0-4) /hpf Urine Mucus Few H (None) /hpf Urine Yeast (Budding) Occasional H (None) /hpf Disposition Clinical Impression: Kidney stone Disposition: HOME SELF-CARE Condition: Good Instructions: Kidney Stones (ED) Additional Instructions: Please use medication as discussed. Please follow-up with Urologist/family doctor in the next 2 days of symptoms have not improved. Please return to emergency room if the symptoms increase or worsen or for any other concerns. Prescriptions: Ondansetron Odt [Zofran ODT] 4 mg PO Q8HR PRN #20 tab PRN Reason: Nausea Referrals: Bettina Navarrete MD [Primary Care Provider] - 1-2 days Rubio Ward MD [STAFF PHYSICIAN] - 1-2 days Time of Disposition: 12:27
[2016-08-05 10:22] LABS: Basophils % (A) 0 %; CH 29.4; CHCM 33.4; Eosinophils # (A) 0.1 k/uL (0-0.7); Eosinophils % (A) 1 %; HDW 2.32; HGB 13.8 gm/dL (11.4-16.0); Luc # (Auto) 0.11; Luc % (Auto) 1; Lymphocytes % (A) 9 %; MCH 29.7 pg (25.0-35.0); MCHC 33.5 g/dL (31.0-37.0); MCV 88.5 fL (80.0-100.0); Mean Platelet Volume 6.3; Monocytes # (A) 0.4 k/uL (0-1.0); Monocytes % (A) 4 %; Neutrophils # (A) 9.6 k/uL (1.3-7.7); Neutrophils % (A) 86 %; RBC 4.64 m/uL (3.80-5.40); RDW 13.1 % (11.5-15.5); WBC 11.3 k/uL (3.8-10.6); WBC (Perox) 11.64
[2016-08-05 10:36] LABS: ALT 30 U/L (9-52); AST 24 U/L (14-36); Alkaline Phosphatase 73 U/L (38-126); Anion Gap 13 mmol/L; Blood Urea Nitrogen 20 mg/dL (7-17); Calcium 9.7 mg/dL (8.4-10.2); Carbon Dioxide 23 mmol/L (22-30); Chloride 108 mmol/L (98-107); Glucose 134 mg/dL (74-99); Non-African American GFR(MDRD) 59 (>60 ml/min/1.73 sqM); Potassium 4.8 mmol/L (3.5-5.1); Sodium 144 mmol/L (137-145); Total Bilirubin 0.7 mg/dL (0.2-1.3); Total Protein 7.5 g/dL (6.3-8.2)
[2016-08-05] MEDS ORDERED: ASPIRIN 325 MG TAB PO STA (10:47)
--- NOTE | 2016-08-05 10:53 | XR ---
EXAMINATION TYPE: XR KUB DATE OF EXAM: 08/05/2016 COMPARISON: 05/15/2016 HISTORY: Pain TECHNIQUE: One view abdominal series FINDINGS: The osseous structures are intact. The bowel gas pattern is nonspecific. Lung bases are clear. LAP- BAND noted. Surgical change right upper quadrant. Fecal debris retained within colon. Scoliotic curva ture of the spine. IMPRESSION: 1. Nonspecific abdomen.
[2016-08-05 12:07] LABS: Appearance,Urine Cloudy (Clear); Bilirubin,Urine Negative (Negative); Glucose,Urine (UA) Negative (Negative); Ketones,Urine 2+ (Negative); Leukocyte Esterase,Urine Trace (Negative); Mucus,Urine Few /hpf; Nitrite,Urine Negative (Negative); PH, Urine 5.5 (5.0-8.0); Particle Count 7723; Protein,Urine Trace (Negative); RBC,Urine 52 /hpf (0-5); Specific Gravity,Urine 1.026 (1.001-1.035); Squamous Epithelial Cell,Urine 2 /hpf (0-4); UA Billing (MACRO vs. MICRO) MICRO; Urobilinogen,Urine <2.0 mg/dL (<2.0); WBC,Urine 2 /hpf (0-5)
[2016-08-05 12:39] VITALS: BP 118/65; PULSE 80; RESP 18; TEMP 97.8
[2016-08-06] MEDS ORDERED: ASPIRIN 325 MG TAB PO SCH (09:00)
== END 2016-08-05 12:38 | disposition home or self-care (01) ==
LOC: EC 09:44
DX: N20.0 Calculus of kidney (principal); E07.9 Disorder of thyroid, unspecified; Z90.49 Acquired absence of other specified parts of digestive tract; Z88.2 Allergy status to sulfonamides; Z88.8 Allergy status to other drugs, medicaments and biological substances; Z79.1 Long term (current) use of non-steroidal anti-inflammatories (NSAID); Z79.899 Other long term (current) drug therapy
CPT/HCPCS: 99283; 96374; 96375 ×2; 96361 ×2; 36415; 80053; 83690; 85025; 81001; 87086; 74000; J2405; J1885; J1170

== ENCOUNTER 2016-08-07 10:07 | Day surgery (SDC) | payer BC ==
[2016-08-07 10:31] VITALS: TEMP 97.5
[2016-08-07 10:41] VITALS: BMI 24.9
[2016-08-07] MEDS ORDERED: SCOPOLAMINE 1.5MG/72HR PATCH TRANSDERM ONE (10:54)
[2016-08-07] MEDS ORDERED: ONDANSETRON 4 MG/2 ML VIAL IVP ONE (10:54)
[2016-08-07] MEDS ORDERED: DEXAMETHASONE SOD PHOSPHATE 10 MG/ML 1 ML VIAL IV ONE (10:54)
[2016-08-07] MEDS ORDERED: LACTATED RINGERS 1,000 ML IV SCH (11:00)
[2016-08-07] MEDS ORDERED: LIDOCAINE 1% 20 ML VIAL (10MG/ML) FOR IV START INTRADERMA ONE (11:10)
--- NOTE | 2016-08-07 11:10 | XR ---
EXAMINATION TYPE: XR KUB DATE OF EXAM: 08/07/2016 10:58 AM CLINICAL HISTORY: Left-sided renal calculus TECHNIQUE: Single supine KUB image of the abdomen is obtained. COMPARISON: Abdominal x-ray from [address] abdomen and pelvis from 3 days ago. FINDINGS: Two small calculi lower pole level left kidney measuring up to 3 mm in size are redemonstra josh. Right-sided upper pole small calculi on CT are less well seen on plain films. The distal 6 mm ca lculus is felt likely stable deep to left hip joint. Overlying lap band redemonstrated. Abnormal phi angle redemonstrated and stable. Cholecystectomy clip s are again seen. Overall nonobstructive bowel gas pattern noted. Levoconvex scoliosis centered at L3 -L4 level. IMPRESSION: Suspect stable 6 mm distal left ureter calculus.
[2016-08-07] MEDS ORDERED: fentaNYL (PF) 50 MCG/ML 2 ML AMP ONE (12:46)
[2016-08-07] MEDS ORDERED: PROPOFOL 10 MG/ML 20 ML VIAL IV ONE (12:46)
[2016-08-07] MEDS ORDERED: LIDOCAINE 1% INJ 10MG/ML (20 ML MDV) ONE (12:46)
[2016-08-07] MEDS ORDERED: MIDAZOLAM 2 MG/2 ML VIAL ONE (12:46)
[2016-08-07 14:01] VITALS: RESP 16
[2016-08-07 14:28] VITALS: BP 113/71; PULSE 68
--- NOTE | 2016-08-08 05:51 | OP ---
DATE OF SERVICE: 08/07/2016 SURGEON: CAIO HO MD PREOPERATIVE DIAGNOSIS: Distal left ureteral calculus. POSTOPERATIVE DIAGNOSIS: Distal left ureteral calculus. OPERATION: Extracorporeal shockwave lithotripsy of distal left ureteral calculus. ANESTHESIA: IV sedation. The patient is a 65-year-old female with a history of urolithiasis who developed severe left flank and left lower quadrant pain last week. She was discovered to have a 3.5 x 6 mm distal left ureteral calculus. The patient continues to have pain and was seen in the emergency room yesterday due to recurrence of the pain. The calculus remains in the distal ureter on a KUB. After reviewing treatment options, the patient has elected to proceed with ESWL. PROCEDURE: The patient was taken the operating suite where adequate intravenous sedation was given. Patient was placed in the supine position on the fluoroscopy table. The distal left ureteral calculus was localized using biplanar fluoroscopy. Lithotripsy was performed using the Dornier compact delta unit. Patient received 3000 shocks at level 6 at a rate of 60 shocks per minute. There appeared to be fragmentation of the calculus. Anesthesia was reversed and the patient was returned to the recovery room, awake and in satisfactory condition. She will be seen back in the office in one week. YONNY
== END 2016-08-07 14:43 | disposition home or self-care (01) ==
LOC: ORWHC2ENDO 10:07
PROVIDERS: ATTEND Urology
DX: N20.2 Calculus of kidney with calculus of ureter (principal); J45.909 Unspecified asthma, uncomplicated; E05.90 Thyrotoxicosis, unspecified without thyrotoxic crisis or storm; F32.9 Major depressive disorder, single episode, unspecified; Z79.899 Other long term (current) drug therapy; Z88.1 Allergy status to other antibiotic agents; Z88.2 Allergy status to sulfonamides; Z88.8 Allergy status to other drugs, medicaments and biological substances
CPT/HCPCS: 74000; 50590; J2250; J1100; J2405; J2001; J3010; J2704

== ENCOUNTER 2016-08-13 23:41 | Inpatient (IN) | payer BC ==
[2016-08-14] MEDS ORDERED: ONDANSETRON 4 MG/2 ML VIAL IVP STA (00:20)
[2016-08-14] MEDS ORDERED: HYDROmorphone 1 MG/ML 1 ML SYRINGE IVP STA ×2 (00:20→02:35)
[2016-08-14] MEDS ORDERED: SODIUM CHLORIDE 0.9% 1,000 ML IV STA ×2 (00:20)
--- NOTE | 2016-08-14 01:43 | ED ---
Abdominal Pain HPI - General Source: patient, RN notes reviewed, old records reviewed Mode of arrival: ambulatory Limitations: no limitations <Kelsie Banks - Last Filed: 08/14/16 05:14> <Serjio Escobar - Last Filed: 08/14/16 05:35> - General Chief Complaint: Abdominal Pain Stated Complaint: pain from kidney stone removal Time Seen by Provider: 08/13/16 23:54 - History of Present Illness Initial Comments: 65-year-old female presents the ED chief complaint of left flank pain and left upper and epigastric pain. Patient reports that she had a kidney stone removed on 08/08/2015 via Shockwave lithotripsy by Dr. Ward. Patient reports she called him on Sunday concerned about the pain. She reports that she is concerned there may be something going on after the surgery. Patient reports that they removed a 7 mm stone. Patient reports is also has a history of lap band surgery. Denies any vomiting. She reports she does feel nauseated. She is also concerned that she's had increased diarrhea. She states that she's had some loss of her bowel control, states that she has had mucus-like stools for the past few days. Patient reports that she continually feels the urge to have to use the bathroom. Denies any difficulty with ambulation. Patient reports that he has no fever or chills. Patient reports her pain is a 10 out of 10. ( Kelsie Banks) - Related Data Home Medications Medication Instructions Recorded Confirmed Ascorbic Acid [Vitamin C] 500 mg PO DAILY 04/11/16 08/07/16 Cholecalciferol [Vitamin D3] 3,000 unit PO DAILY 04/11/16 08/07/16 Cyanocobalamin [Vitamin B-12] 500 mcg PO DAILY 04/11/16 08/07/16 Levothyroxine Sodium [Synthroid] 125 mcg PO DAILY 04/11/16 08/07/16 Multivitamins, Thera [Multivitamin] 1 tab PO DAILY 04/11/16 08/07/16 PARoxetine HCL 30 mg PO DAILY 04/11/16 08/07/16 Loratadine [Claritin] 10 mg PO DAILY 05/05/16 08/07/16 Potassium 99 mg PO DAILY 05/05/16 08/07/16 Ibuprofen [Motrin] 800 mg PO BID 08/05/16 08/07/16 Previous Rx's Medication Instructions Recorded Ondansetron Odt [Zofran ODT] 4 mg PO Q8HR PRN #20 tab 08/05/16 Ciprofloxacin HCl [Cipro] 500 mg PO Q12HR #20 tablet 08/14/16 HYDROcodone/APAP 10-325MG [[place] 1 tab PO Q4HR PRN #15 tab 08/14/16 10-325] metroNIDAZOLE [Flagyl] 500 mg PO BID #20 tab 08/14/16 Allergies Allergy/AdvReac Type Severity Reaction Status Date / Time sulfamethoxazole Allergy Rash/Hives Verified 08/13/16 23:47 [From Bactrim] tamsulosin [From Flomax] Allergy Itching Verified 08/13/16 23:47 trimethoprim [From Bactrim] Allergy Rash/Hives Verified 08/13/16 23:47 Review of Systems ROS Other: All systems not noted in ROS Statement are negative. <Kelsie Banks - Last Filed: 08/14/16 05:14> ROS Other: All systems not noted in ROS Statement are negative. <Serjio Escobar - Last Filed: 08/14/16 05:35> ROS Statement: Those systems with pertinent positive or pertinent negative responses have been documented in the HPI. Past Medical History Past Medical History: GERD/Reflux, Thyroid Disorder Additional Past Medical History / Comment(s): kidney stones History of Any Multi-Drug Resistant Organisms: None Reported Past Surgical History: Bariatric Surgery, Cholecystectomy, Tonsillectomy Additional Past Surgical History / Comment(s): LAP BAND, CYST REMOVED FROM BILATERAL breast, HAND AND MOUTH. ALSO FROM OVARY, lithotripsy Past Anesthesia/Blood Transfusion Reactions: Motion Sickness, Postoperative Nausea & Vomiting (PONV) Past Psychological History: Anxiety Smoking Status: Never smoker Past Alcohol Use History: None Reported Past Drug Use History: None Reported - Past Family History Mother Family Medical History: No Reported History Father Family Medical History: Myocardial Infarction ([place]) <Kelsie Banks - Last Filed: 08/14/16 05:14> General Exam Limitations: no limitations General appearance: alert, in no apparent distress Head exam: Present: atraumatic, normocephalic, normal inspection Eye exam: Present: normal appearance, PERRL, EOMI. Absent: scleral icterus, conjunctival injection, periorbital swelling ENT exam: Present: normal exam, mucous membranes moist Neck exam: Present: normal inspection. Absent: tenderness, meningismus, lymphadenopathy Respiratory exam: Present: normal lung sounds bilaterally. Absent: respiratory distress, wheezes, rales, rhonchi, stridor Cardiovascular Exam: Present: regular rate, normal rhythm, normal heart sounds. Absent: systolic murmur, diastolic murmur, rubs, gallop, clicks GI/Abdominal exam: Present: soft, tenderness (LUQ tenderness, left flank pain to palpation. ), normal bowel sounds. Absent: distended, guarding, rebound, rigid Extremities exam: Present: normal inspection, full ROM, normal capillary refill. Absent: tenderness, pedal edema, joint swelling, calf tenderness Back exam: Present: normal inspection Neurological exam: Present: alert, oriented X3, CN II-XII intact Psychiatric exam: Present: normal affect, normal mood Skin exam: Present: warm, dry, intact, normal color. Absent: rash <Kelsie Banks - Last Filed: 08/14/16 05:14> <eSrjio Escobar - Last Filed: 08/14/16 05:35> - General Exam Comments Initial Comments: 65-year-old female. is crying. (Kelsie Banks) Course <Kelsie Banks - Last Filed: 08/14/16 05:14> <Serjio Escobar - Last Filed: 08/14/16 05:35> Vital Signs 08/13/16 08/14/16 08/14/16 23:44 02:52 05:20 Temperature 99.1 F 97.9 F Pulse Rate 75 75 74 Respiratory 18 16 16 Rate Blood Pressure 146/80 159/84 134/84 O2 Sat by Pulse 100 100 98 Oximetry - Reevaluation(s) Reevaluation #1: 08/14/16 02:36 Patient at this time was evaluated. Patient had a sudden severe belching episode. Patient then became very anxious and was hyperventilating. I discussed slow deep breaths. This patient continued to have multiple episodes of belching. (Kelsie Banks) Reevaluation #2: 08/14/16 04:36 Patient will be discharged to Dr. Escobar of 4:36 AM. (Kelsie Banks) Medical Decision Making - Lab Data Result diagrams: 08/14/16 01:15 08/14/16 01:15 - Radiology Data Radiology results: report reviewed <Kelsie Banks - Last Filed: 08/14/16 05:14> - Lab Data Result diagrams: 08/14/16 01:15 08/14/16 01:15 <Serjoi Escobar - Last Filed: 08/14/16 05:35> - Medical Decision Making 65-year-old female presents the ED chief complaint of left flank pain and left upper and epigastric pain. Patient reports that she had a kidney stone removed on 08/08/2015 via Shockwave lithotripsy by Dr. Ward. Patient reports she called him on Sunday concerned about the pain. She reports that she is concerned there may be something going on after the surgery. Patient reports that they removed a 7 mm stone. Patient reports is also has a history of lap band surgery. Denies any vomiting. She reports she does feel nauseated. She is also concerned that she's had increased diarrhea. Patient's lab work was reviewed. Urinalysis did shows possible mild urinary tract infection with 25 white blood cells. There is the labs do appear to be normal. When I went to reevaluate the patient and discussed these findings with her patient had a severe belching episode. Patient was then becoming anxious and hyperventilating. Patient was started on oxygen and given 1 of Ativan, Reglan, Benadryl as well as pain medication. Discussed the case with Dr. Escobar. Given patient's history of lap band surgery we did order a CAT scan with oral and IV contrast. Patient's CAT scan shows evidence of colitis. Patient was initially stating that she wants to go home however on reevaluation she reports that she wants to be kept in reports that her abdominal pain is worsening again. Discussed this case again with Dr. Escobar. He does recommend that he can admit the patient. We'll do IV hydration and IV antibiotic. (Kelsie Banks) Patient reevaluated by myself, Dr. Escobar. Patient resting comfortably in bed. Patient does have mild to moderate tenderness left flank. Computed tomography scan more consistent with colitis. Case was discussed with Dr. castro, who will admit for Dr. Navarrete. (Serjio Escobar) - Lab Data Lab Results 08/14/16 08/14/16 08/14/16 Range/Units 01:15 01:15 01:35 WBC 10.3 (3.8-10.6) k/uL RBC 4.58 (3.80-5.40) m/uL Hgb 13.4 (11.4-16.0) gm/dL Hct 42.4 (34.0-46.0) % MCV 92.7 (80.0-100.0) fL MCH 29.2 (25.0-35.0) pg MCHC 31.5 (31.0-37.0) g/dL RDW 13.3 (11.5-15.5) % Plt Count 351 (150-450) k/uL Neutrophils % 75 % Lymphocytes % 14 % Monocytes % 7 % Eosinophils % 2 % Basophils % 0 % Neutrophils # 7.8 H (1.3-7.7) k/uL Lymphocytes # 1.5 (1.0-4.8) k/uL Monocytes # 0.7 (0-1.0) k/uL Eosinophils # 0.2 (0-0.7) k/uL Basophils # 0.0 (0-0.2) k/uL Sodium 142 (137-145) mmol/L Potassium 3.9 (3.5-5.1) mmol/L Chloride 105 (98-107) mmol/L Carbon Dioxide 25 (22-30) mmol/L Anion Gap 12 mmol/L BUN 20 H (7-17) mg/dL Creatinine 0.70 (0.52-1.04) mg/dL Est GFR (MDRD) Af Amer >60 (>60 ml/min/1.73 sqM) Est GFR (MDRD) Non-Af >60 (>60 ml/min/1.73 sqM) Glucose 96 (74-99) mg/dL Calcium 9.8 (8.4-10.2) mg/dL Total Bilirubin 0.2 (0.2-1.3) mg/dL AST 16 (14-36) U/L ALT 29 (9-52) U/L Alkaline Phosphatase 70 (38-126) U/L Total Protein 7.4 (6.3-8.2) g/dL Albumin 4.5 (3.5-5.0) g/dL Amylase 85 (30-110) U/L Lipase 200 (23-300) U/L Urine Color Yellow Urine Appearance Cloudy H (Clear) Urine pH 5.5 (5.0-8.0) Ur Specific [place] 1.023 (1.001-1.035) Urine Protein Trace H (Negative) Urine Glucose (UA) Negative (Negative) Urine Ketones Negative (Negative) Urine Blood Negative (Negative) Urine Nitrite Negative (Negative) Urine Bilirubin Negative (Negative) Urine Urobilinogen 2.0 (<2.0) mg/dL Ur Leukocyte Esterase Moderate H (Negative) Urine WBC 25 H (0-5) /hpf Ur Squamous Epith Cells 5 H (0-4) /hpf Calcium Oxalate Crystal Few H (None) /hpf Urine Bacteria Many H (None) /hpf Urine Mucus Rare H (None) /hpf - Radiology Data KUB x-ray Increased finding of the gastric bands just female positioning of her stable from 03/2116. I instructed bowel gas pattern. Moderate amount of retained stool [place] the Suggesting constipation. (Kelsie Banks) Disposition Time of Disposition: 04:57 <Kelsie Banks - Last Filed: 08/14/16 05:14> <Serjio Escobar - Last Filed: 08/14/16 05:35> Clinical Impression: Colitis Disposition: ADMITTED IP TO THIS HOSP Condition: Good Instructions: Colitis (ED) Additional Instructions: Patient advised to complete antibiotic prescriptions. Follow-up with primary care provider. Also patient advised to take a stool softener. Return to the emergency department if any alarming signs or symptoms occur. Prescriptions: Ciprofloxacin HCl [Cipro] 500 mg PO Q12HR #20 tablet HYDROcodone/APAP 10-325MG [[place] 10-325] 1 tab PO Q4HR PRN #15 tab PRN Reason: Pain metroNIDAZOLE [Flagyl] 500 mg PO BID #20 tab Referrals: Bettina Navarrete MD [Primary Care Provider] - 1-2 days
[2016-08-14 01:45] LABS: Basophils % (A) 0 %; CH 29.7; CHCM 32.2; Eosinophils # (A) 0.2 k/uL (0-0.7); Eosinophils % (A) 2 %; HCT 42.4 % (34.0-46.0); HDW 2.13; HGB 13.4 gm/dL (11.4-16.0); Luc # (Auto) 0.16; Luc % (Auto) 2; Lymphocytes # (A) 1.5 k/uL (1.0-4.8); Lymphocytes % (A) 14 %; MCH 29.2 pg (25.0-35.0); MCHC 31.5 g/dL (31.0-37.0); MCV 92.7 fL (80.0-100.0); Mean Platelet Volume 6.3; Monocytes # (A) 0.7 k/uL (0-1.0); Monocytes % (A) 7 %; Neutrophils # (A) 7.8 k/uL (1.3-7.7); Neutrophils % (A) 75 %; RBC 4.58 m/uL (3.80-5.40); RDW 13.3 % (11.5-15.5); WBC 10.3 k/uL (3.8-10.6)
[2016-08-14 01:55] LABS: Appearance,Urine Cloudy (Clear); Bacteria,Urine Many /hpf; Bilirubin,Urine Negative (Negative); Calcium Oxalate Crystals,Urine Few /hpf; Glucose,Urine (UA) Negative (Negative); Ketones,Urine Negative (Negative); Leukocyte Esterase,Urine Moderate (Negative); Mucus,Urine Rare /hpf; Nitrite,Urine Negative (Negative); PH, Urine 5.5 (5.0-8.0); Particle Count 4319; Protein,Urine Trace (Negative); Specific Gravity,Urine 1.023 (1.001-1.035); Squamous Epithelial Cell,Urine 5 /hpf (0-4); UA Billing (MACRO vs. MICRO) MICRO; WBC,Urine 25 /hpf (0-5)
[2016-08-14 02:04] LABS: ALT 29 U/L (9-52); AST 16 U/L (14-36); Alkaline Phosphatase 70 U/L (38-126); Amylase 85 U/L (30-110); Anion Gap 12 mmol/L; Blood Urea Nitrogen 20 mg/dL (7-17); Calcium 9.8 mg/dL (8.4-10.2); Carbon Dioxide 25 mmol/L (22-30); Chloride 105 mmol/L (98-107); Glucose 96 mg/dL (74-99); Non-African American GFR(MDRD) >60 (>60 ml/min/1.73 sqM); Potassium 3.9 mmol/L (3.5-5.1); Sodium 142 mmol/L (137-145); Total Bilirubin 0.2 mg/dL (0.2-1.3); Total Protein 7.4 g/dL (6.3-8.2)
[2016-08-14] MEDS ORDERED: LORazepam 2 MG/ML SYRINGE IV STA (02:35)
[2016-08-14] MEDS ORDERED: METOCLOPRAMIDE 5 MG/ML 2 ML VIAL IVP STA (02:40)
[2016-08-14] MEDS ORDERED: diphenhydrAMINE 50 MG/ML 1 ML VIAL IVP STA (02:40)
--- NOTE | 2016-08-14 02:47 | XR ---
EXAM: XR Abdomen, 1 View CLINICAL HISTORY: Reason: abdominal pain TECHNIQUE: Frontal supine view of the abdomen/pelvis. COMPARISON: Abdominal radiographs 08/07/16, CT abdomen and pelvis 08/04/16 and 04/11/16 FINDINGS: Lower thorax: Imaged lung bases are clear. Intraperitoneal space: No free air. Gastrointestinal tract: Increased Phi angle of the gastric band, suggesting malpositioning. However, this is stable dating back to 04/11/16. Nonobstructive bowel gas pattern. Moderate amount of retained stool in the colon, suggesting constipation. Organs: Cholecystectomy clips. IMPRESSION: 1. Increased Phi angle of the gastric band, suggesting malpositioning. However, this is stable dating back to 04/11/16. 2. Nonobstructive bowel gas pattern. 3. Moderate amount of retained stool in the colon, suggesting constipation.
[2016-08-14] MEDS ORDERED: IOHEXOL 350 MG/ML 25 ML BOTTLE (ORAL USE) PO PRN (02:48)
[2016-08-14] MEDS ORDERED: RX INFO: IV CONTRAST WAS GIVEN 1 EACH MISC MISCELLANE PRN (02:48)
--- NOTE | 2016-08-14 04:42 | CT ---
EXAM: CT Abdomen and Pelvis With Intravenous Contrast CLINICAL HISTORY: Reason: Pain TECHNIQUE: Axial computed tomography images of the abdomen and pelvis with intravenous contrast. Coronal and sagittal reformats were obtained. CTDI is 6.00 MGy and DLP is 395.90 MGy-cm. This CT exam was performed using one or more of the following dose reduction techniques: automated exposure control, adjustment of the mA and/or kV according to patient size, and/or use of iterative reconstruction technique. COMPARISON: CT abdomen and pelvis images without report 08/04/16 FINDINGS: Lower thorax: No acute findings. ABDOMEN: Liver: Unremarkable. No mass. Gallbladder and bile ducts: Gallbladder is surgically absent. Mild biliary prominence is likely due to cholecystectomy status. Pancreas: Unremarkable. No mass. No ductal dilation. Spleen: Unremarkable. No splenomegaly. Adrenals: Unremarkable. No mass. Kidneys and ureters: Previously seen distal left ureteral calculus and left hydronephrosis have resolved. 3 mm nonobstructing left renal calculus. Stomach and bowel: Bowel wall thickening and adjacent inflammatory change extending from the mid descending colon to the rectum, compatible with proctocolitis. Increased PHI angle of the gastric band, suggesting malpositioning but stable since 04/11/16. Unchanged distention of the distal esophagus/gastric pouch with contrast, proximal to the band. Appendix: No findings to suggest acute appendicitis. PELVIS: Bladder: Unremarkable. Reproductive: Unremarkable as visualized. ABDOMEN and PELVIS: Intraperitoneal space: Small amount of free fluid in the pelvis. No free air. Bones/joints: No acute fracture Soft tissues: Small hernia. Vasculature: Unremarkable. No abdominal aortic aneurysm. Lymph nodes: Unremarkable. No enlarged lymph nodes. IMPRESSION: 1. Bowel wall thickening and adjacent inflammatory change extending from the mid descending colon to the rectum, compatible with proctocolitis. 2. Previously seen distal left ureteral calculus and left hydronephrosis have resolved. 3. 3 mm nonobstructing left renal calculus. 4. Increased PHI angle of the gastric band, suggesting malpositioning but stable since 04/11/16.
[2016-08-14] MEDS ORDERED: CIPROFLOXACIN HCL 500 MG TAB PO STA (04:59)
[2016-08-14] MEDS ORDERED: metroNIDAZOLE 500 MG TAB PO STA (04:59)
[2016-08-14] MEDS ORDERED: LEVOFLOXACIN 750MG-D5W PMX 750 MG in DEXTROSE/WATER 1 150ML.BAG IVPB STA (05:15)
[2016-08-14] MEDS ORDERED: BISACODYL 5 MG TABLET.DR PO PRN (05:16)
[2016-08-14] MEDS ORDERED: ACETAMINOPHEN TAB 325 MG TAB PO PRN (05:16)
[2016-08-14] MEDS ORDERED: NALOXONE 0.4 MG/ML 1 ML VIAL IV PRN (05:16)
[2016-08-14] MEDS ORDERED: LORazepam 2 MG/ML SYRINGE IV PRN (05:16)
[2016-08-14 06:34] VITALS: BMI 24.0
[2016-08-14] MEDS: metroNIDAZOLE-NS PMX 500 MG in SALINE 1 100ML.BAG IVPB STA ×2 (07:37→09:09)
[2016-08-14] MEDS: PANTOPRAZOLE 40 MG/10 ML VIAL IV SCH (08:29)
[2016-08-14] MEDS: PARoxetine 10 MG TAB PO SCH (08:29)
[2016-08-14] MEDS: POTASSIUM CHLORIDE ER 10 MEQ TAB.ER.PRT PO SCH (08:29)
[2016-08-14] MEDS: LORATADINE 10 MG TAB PO SCH (08:30)
[2016-08-14] MEDS: LEVOTHYROXINE 125 MCG TAB PO SCH (08:30)
[2016-08-14] MEDS: SODIUM CHLORIDE 0.9% 1,000 ML IV SCH ×3 (08:34→21:58)
[2016-08-14] MEDS: ONDANSETRON 4 MG/2 ML VIAL IVP PRN (12:25)
[2016-08-14] MEDS: HYDROcodone/APAP 5-325MG 1 EACH TAB PO PRN (12:46)
[2016-08-14] MEDS: ASCORBIC ACID 500 MG TAB PO SCH (12:47)
[2016-08-14] MEDS: HYDROmorphone 1 MG/ML 1 ML SYRINGE IV PRN ×3 (14:08→21:58)
[2016-08-14] MEDS ORDERED: metroNIDAZOLE 500 MG TAB PO SCH (16:00)
[2016-08-14] MEDS: metroNIDAZOLE-NS PMX 500 MG in SALINE 1 100ML.BAG IVPB SCH ×2 (16:38→23:45)
[2016-08-14] MEDS: PIPERACILLIN-TAZOBACTAM 3.375 GM in DEXTROSE/WATER 1 50ML.BAG IVPB SCH ×2 (17:41→23:48)
--- NOTE | 2016-08-14 18:03 | P.CNPUL ---
History of Present Illness Consult date: 08/14/16 Chief complaint: Abdominal pain History of present illness: A 65-year-old male patient, a primary of Dr. Navarrete, came in to the ED today for left lower quadrant pain. The patient has been having difficulties with mucoid and frequent loose bowel movements for the past 7-10 days. She's been having abdominal cramping along with some pain in the left lower quadrant area along with some nausea without vomiting. Denies having any fever or chills. Her symptoms have gotten worse and for that reason she presented to the ED. Upon arrival she had no fever or chills and she was hemodynamic is stable however her pain was quite extensive and she was complaining of pain which was 10 out of 10 in severity. Note that she has history of nephrolithiasis and she has undergone a shock wave lithotripsy by Dr. Todd on 08/08/2015. She was not given any antibiotics. No history of any complicated urinary tract infections and based on that no antibiotic use. Note that the white cell count at time of admission was 10.3. Hemoglobin was 13.4. Electrodes are all within normal limits. Lipase was at 200. The urine analysis showed a white cell count of 25 along with calcium oxalate crystals and many bacteria. No diverticulosis. No previous known colonoscopies. The patient has a LAP-BAND and this has been done by Dr. Conte and the patient had successful weight loss. CAT scan of the abdomen was done and the burst department and the patient was found to have evidence of bowel wall thickening in the descending colon to the rectum consistent with proctocolitis. Previously described hydronephrosis on the left ureteral stone had recovered. Review of Systems All systems: negative Constitutional: Denies chills, Denies fever Eyes: denies blurred vision, denies pain Ears, nose, mouth and throat: Denies headache, Denies sore throat Cardiovascular: Denies chest pain, Denies shortness of breath Respiratory: Denies cough Gastrointestinal: Denies abdominal pain, Denies diarrhea, Denies nausea, Denies vomiting Genitourinary: Denies dysuria, Denies hematuria Musculoskeletal: Denies myalgias Integumentary: Denies pruritus, Denies rash Neurological: Denies numbness, Denies weakness Psychiatric: Denies anxiety, Denies depression Endocrine: Denies fatigue, Denies weight change Past Medical History Past Medical History: GERD/Reflux, Thyroid Disorder Additional Past Medical History / Comment(s): Nephro Lithiasis status post shock wave lithotripsy, hypothyroidism History of Any Multi-Drug Resistant Organisms: None Reported Past Surgical History: Bariatric Surgery, Cholecystectomy, Orthopedic Surgery, Tonsillectomy Additional Past Surgical History / Comment(s): LAP BAND, CYST REMOVED FROM BILATERAL breast, HAND AND MOUTH. ALSO FROM OVARY, lithotripsy, left knee replacement Past Anesthesia/Blood Transfusion Reactions: Motion Sickness, Postoperative Nausea & Vomiting (PONV) Past Psychological History: Anxiety Smoking Status: Never smoker - Past Family History Mother Family Medical History: No Reported History Father Family Medical History: Myocardial Infarction ([place]) Medications and Allergies Home Medications Medication Instructions Recorded Confirmed Type Ascorbic Acid [Vitamin C] 500 mg PO DAILY 04/11/16 08/14/16 History Cyanocobalamin [Vitamin B-12] 500 mcg PO DAILY 04/11/16 08/14/16 History Levothyroxine Sodium [Synthroid] 125 mcg PO DAILY 04/11/16 08/14/16 History Multivitamins, Thera [Multivitamin] 1 tab PO DAILY 04/11/16 08/14/16 History PARoxetine HCL 30 mg PO DAILY 04/11/16 08/14/16 History Loratadine [Claritin] 10 mg PO DAILY 05/05/16 08/14/16 History Potassium 99 mg PO DAILY 05/05/16 08/14/16 History Ibuprofen [Motrin] 800 mg PO BID PRN 08/05/16 08/14/16 History Allergies Allergy/AdvReac Type Severity Reaction Status Date / Time sulfamethoxazole Allergy Rash/Hives Verified 08/14/16 08:32 [From Bactrim] tamsulosin [From Flomax] Allergy Itching Verified 08/14/16 08:32 trimethoprim [From Bactrim] Allergy Rash/Hives Verified 08/14/16 08:32 Physical Exam Vitals: Vital Signs Temp Pulse Pulse Resp BP BP Pulse Ox 08/14/16 15:00 97.9 F 71 16 111/59 96 08/14/16 07:00 98.2 F 61 16 112/58 100 08/14/16 06:26 97.9 F 69 16 140/71 100 08/14/16 05:20 97.9 F 74 16 134/84 98 08/14/16 02:52 75 16 159/84 100 08/13/16 23:44 99.1 F 75 18 146/80 100 Intake and Output 08/14/16 08/14/16 08/14/16 06:59 14:59 22:59 Intake Total 240 Balance 240 Intake: Intake, IV Titration 240 Amount Sodium Chloride 0.9% 1, 240 000 ml @ 120 mls/hr IV . Q8H20M [facility] Rx#:[id number] Other: Voiding Method Toilet Weight 63.503 kg The patient appeared well nourished and normally developed. Vital signs as documented. Head exam is unremarkable. No scleral icterus or corneal arcus noted. Neck is without jugular venous distension, thyromegaly, or carotid bruits. Carotid upstrokes are brisk bilaterally. Lungs are clear to auscultation and percussion. Cardiac exam reveals the PMI to be normally sized and situated. Rhythm is regular. First and second heart sounds normal. No murmurs, rubs or gallops. Abdominal exam reveals direct tenderness in the left lower quadrant area. No rebound tenderness. Bowel sounds are hypoactive. No organomegaly.. Extremities are nonedematous and both femoral and pedal pulses are normal. Results - Laboratory Findings CBC and BMP: 08/14/16 01:15 08/14/16 01:15 Abnormal lab findings: Abnormal Labs 08/14/16 08/14/16 08/14/16 01:15 01:15 01:35 Neutrophils # 7.8 H BUN 20 H Urine Appearance Cloudy H Urine Protein Trace H Ur Leukocyte Esterase Moderate H Urine WBC 25 H Ur Squamous Epith Cells 5 H Calcium Oxalate Crystal Few H Urine Bacteria Many H Urine Mucus Rare H Assessment and Plan Plan: Assessment 1 left lower quadrant pain along with evidence of diffuse colitis/bowel wall thickening extending from the mid descending colon to the rectum and this is compatible with proctocolitis. Rule out underlying diverticulitis/diverticular disease. Rule out C. diff colitis. 2 nephrolithiasis with recent shock wave lithotripsy. The patient's most recent CAT scan showed that the previously seen distally left ureteral calculus and the left-sided hydronephrosis has resolved. The patient has a 3 mm nonobstructive calculus in the left kidney 3 history of obesity with previous gastric band/LAP-BAND 4 hypothyroidism 5 anxiety/depression 6 osteoarthritis 7 left-sided hydronephrosis, recovered Plan We'll check a lactic acid level. Broaden the antibiotic coverage to include a combination of IV Zosyn and IV Flagyl. Zosyn to cover gram-negative and anaerobes in the setting of proctocolitis. Flagyl to cover C. diff pending stool analysis for C. diff by PCR. Meanwhile we'll also consult general surgery regarding the above-mentioned. We'll hydrate the patient. Monitor pain and provide adequate pain control. Heparin subcu for DVT prophylaxis. Check baseline lactic acid level.
--- NOTE | 2016-08-14 19:31 | P.HPIM ---
History of Present Illness H&P Date: 08/14/16 Mrs. Che with recent history of left ureteral calculus status post lithotripsy comes in to the hospital with severe left-sided abdominal pain that has been ongoing for the last 4 days. Patient states that she has been having watery diarrhea with some associated pain during evacuation. Patient has noted some blood during wiping States to have history of hemorrhoids in the past Patient has had an antibiotic treatment over 8-9 days ago A computed tomography scan of the abdomen revealed inflammation along the left colon with significant proctocolitis Patient does not have any history of inflammatory disease Denies having fevers headaches blurry vision nausea vomiting chest pain. Patient also has a history of a gastric band. It was reviewed as not in appropriate place however patient does not have any symptoms at this time Review of Systems All systems: negative (Noted in HPI) Past Medical History Past Medical History: GERD/Reflux, Thyroid Disorder Additional Past Medical History / Comment(s): Nephro Lithiasis status post shock wave lithotripsy, hypothyroidism History of Any Multi-Drug Resistant Organisms: None Reported Past Surgical History: Bariatric Surgery, Cholecystectomy, Orthopedic Surgery, Tonsillectomy Additional Past Surgical History / Comment(s): LAP BAND, CYST REMOVED FROM BILATERAL breast, HAND AND MOUTH. ALSO FROM OVARY, lithotripsy, left knee replacement Past Anesthesia/Blood Transfusion Reactions: Motion Sickness, Postoperative Nausea & Vomiting (PONV) Past Psychological History: Anxiety Smoking Status: Never smoker - Past Family History Mother Family Medical History: No Reported History Father Family Medical History: Myocardial Infarction ([place]) Medications and Allergies Home Medications Medication Instructions Recorded Confirmed Type Ascorbic Acid [Vitamin C] 500 mg PO DAILY 04/11/16 08/14/16 History Cyanocobalamin [Vitamin B-12] 500 mcg PO DAILY 04/11/16 08/14/16 History Levothyroxine Sodium [Synthroid] 125 mcg PO DAILY 04/11/16 08/14/16 History Multivitamins, Thera [Multivitamin] 1 tab PO DAILY 04/11/16 08/14/16 History PARoxetine HCL 30 mg PO DAILY 04/11/16 08/14/16 History Loratadine [Claritin] 10 mg PO DAILY 05/05/16 08/14/16 History Potassium 99 mg PO DAILY 05/05/16 08/14/16 History Ibuprofen [Motrin] 800 mg PO BID PRN 08/05/16 08/14/16 History Allergies Allergy/AdvReac Type Severity Reaction Status Date / Time sulfamethoxazole Allergy Rash/Hives Verified 08/14/16 08:32 [From Bactrim] tamsulosin [From Flomax] Allergy Itching Verified 08/14/16 08:32 trimethoprim [From Bactrim] Allergy Rash/Hives Verified 08/14/16 08:32 Physical Exam Vitals: Vital Signs Temp Pulse Pulse Resp BP BP Pulse Ox 08/14/16 15:00 97.9 F 71 16 111/59 96 08/14/16 07:00 98.2 F 61 16 112/58 100 08/14/16 06:26 97.9 F 69 16 140/71 100 08/14/16 05:20 97.9 F 74 16 134/84 98 08/14/16 02:52 75 16 159/84 100 08/13/16 23:44 99.1 F 75 18 146/80 100 Intake and Output 08/14/16 08/14/16 08/14/16 06:59 14:59 22:59 Intake Total 240 Balance 240 Intake: Intake, IV Titration 240 Amount Sodium Chloride 0.9% 1, 240 000 ml @ 120 mls/hr IV . Q8H20M [facility] Rx#:[id number] Other: Voiding Method Toilet Toilet # Voids 3 Weight 63.503 kg Physical exam Gen. appearance oriented 3 in no distress Neck is supple no JVD Lungs good air entry clear to auscultation no rhonchi or wheezing Heart S1-S2 heard regular rate and rhythm no murmurs appreciated Abdomen itender ness along the left hemiabdomen no rebound tenderness Neurologically cranial nerves II-12 grossly intact no focal motor or sensory deficits noted Skin no abnormalities appreciated Results CBC & Chem 7: 08/14/16 01:15 08/14/16 01:15 Labs: Abnormal Lab Results - Last 24 Hours (Table) 08/14/16 08/14/16 08/14/16 Range/Units 01:15 01:15 01:35 Neutrophils # 7.8 H (1.3-7.7) k/uL BUN 20 H (7-17) mg/dL Urine Appearance Cloudy H (Clear) Urine Protein Trace H (Negative) Ur Leukocyte Esterase Moderate H (Negative) Urine WBC 25 H (0-5) /hpf Ur Squamous Epith Cells 5 H (0-4) /hpf Calcium Oxalate Crystal Few H (None) /hpf Urine Bacteria Many H (None) /hpf Urine Mucus Rare H (None) /hpf Thrombosis Risk Factor Assmnt - Choose All That Apply Any of the Below Risk Factors Present?: Yes Other Risk Factors: Yes Each Risk Factor Represents 2 Points: Age 61-74 years Other congenital or acquired thrombophilia - If yes, enter type in comment: No Thrombosis Risk Factor Assessment Total Risk Factor Score: 2 Thrombosis Risk Factor Assessment Level: Low Risk Assessment and Plan Plan: #1 abdominal pain secondary to proctocolitis which is likely associated with a, Adrianna urinary tract infection #2 external hemorrhoids #3 history of renal calculi with calcium oxalate uria #4 history of gastric band or graft #5 sepsis secondary to urinary tract infection #6 essential hypertension Plan Continue ongoing care. Patient will be started on intra-abdominal coverage with Rocephin and Flagyl Rule out C. diff Sitz bath will be started\\ DVT prophylaxis This was discussed with the patient's primary care physician and the family
[2016-08-14] MEDS: HEPARIN SODIUM,PORCINE 5,000 UNIT/ML 1 ML VIAL SQ SCH ×2 (21:56→23:45)
[2016-08-15] MEDS: HYDROmorphone 1 MG/ML 1 ML SYRINGE IV PRN ×6 (02:41→20:49)
[2016-08-15] MEDS: LEVOTHYROXINE 125 MCG TAB PO SCH (06:05)
[2016-08-15] MEDS: SODIUM CHLORIDE 0.9% 1,000 ML IV SCH ×3 (06:25→20:49)
[2016-08-15] MEDS: ONDANSETRON 4 MG/2 ML VIAL IVP PRN ×2 (06:25→22:33)
--- NOTE | 2016-08-15 08:09 | P.GSCN ---
History of Present Illness Consult date: 08/14/16 Reason for Consult: Colitis History of present illness: This is a 65-year-old female well-known to myself. Patient was admitted to the hospital. She is worked up for abdominal pain found evidence of proctocolitis on CAT scan. Patient states that she has had pain for the last 24-48 hours. The pain is crampy and radiates towards her pelvis Past Medical History Past Medical History: GERD/Reflux, Thyroid Disorder Additional Past Medical History / Comment(s): Nephro Lithiasis status post shock wave lithotripsy, hypothyroidism History of Any Multi-Drug Resistant Organisms: None Reported Past Surgical History: Bariatric Surgery, Cholecystectomy, Orthopedic Surgery, Tonsillectomy Additional Past Surgical History / Comment(s): LAP BAND, CYST REMOVED FROM BILATERAL breast, HAND AND MOUTH. ALSO FROM OVARY, lithotripsy, left knee replacement Past Anesthesia/Blood Transfusion Reactions: Motion Sickness, Postoperative Nausea & Vomiting (PONV) Past Psychological History: Anxiety Smoking Status: Never smoker - Past Family History Mother Family Medical History: No Reported History Father Family Medical History: Myocardial Infarction ([place]) Medications and Allergies Home Medications Medication Instructions Recorded Confirmed Type Ascorbic Acid [Vitamin C] 500 mg PO DAILY 04/11/16 08/14/16 History Cyanocobalamin [Vitamin B-12] 500 mcg PO DAILY 04/11/16 08/14/16 History Levothyroxine Sodium [Synthroid] 125 mcg PO DAILY 04/11/16 08/14/16 History Multivitamins, Thera [Multivitamin] 1 tab PO DAILY 04/11/16 08/14/16 History PARoxetine HCL 30 mg PO DAILY 04/11/16 08/14/16 History Loratadine [Claritin] 10 mg PO DAILY 05/05/16 08/14/16 History Potassium 99 mg PO DAILY 05/05/16 08/14/16 History Ibuprofen [Motrin] 800 mg PO BID PRN 08/05/16 08/14/16 History Allergies Allergy/AdvReac Type Severity Reaction Status Date / Time sulfamethoxazole Allergy Rash/Hives Verified 08/14/16 08:32 [From Bactrim] tamsulosin [From Flomax] Allergy Itching Verified 08/14/16 08:32 trimethoprim [From Bactrim] Allergy Rash/Hives Verified 08/14/16 08:32 Surgical - Exam Vital Signs Temp Pulse Resp BP Pulse Ox 99.1 F 75 18 146/80 100 08/13/16 23:44 08/13/16 23:44 08/13/16 23:44 08/13/16 23:44 08/13/16 23:44 - General well developed, no distress - Eyes PERRL - ENT normal pinna - Neck no masses - Respiratory normal expansion - Cardiovascular Rhythm: regular - Abdomen Moderate tenderness some left-sided abdomen. There is no rebound or guarding. Abdomen: soft Results - Labs 08/14/16 01:15 08/14/16 01:15 - Imaging CT scan - abdomen: report reviewed (Evidence of inflammation of the descending colon to the level rectum.) Assessment and Plan Plan: Left colon colitis. Patient will receive IV antibiotics. We will plan for colonoscopy once stable.
[2016-08-15] MEDS: PARoxetine 10 MG TAB PO SCH (08:14)
[2016-08-15] MEDS: PANTOPRAZOLE 40 MG/10 ML VIAL IV SCH (08:14)
[2016-08-15] MEDS: metroNIDAZOLE-NS PMX 500 MG in SALINE 1 100ML.BAG IVPB SCH ×2 (08:14→15:53)
[2016-08-15] MEDS: HEPARIN SODIUM,PORCINE 5,000 UNIT/ML 1 ML VIAL SQ SCH ×2 (08:15→15:53)
[2016-08-15] MEDS: LORATADINE 10 MG TAB PO SCH ×2 (08:25→13:57)
[2016-08-15] MEDS: POTASSIUM CHLORIDE ER 10 MEQ TAB.ER.PRT PO SCH (08:25)
--- NOTE | 2016-08-15 08:55 | CDI ---
In responding to this query, please exercise your independent professional judgment. The [facility] Coding Staff and Clinical Documentation Specialists appreciate your assistance in clarifying documentation, maintaining compliance with coding guidelines, accurately documenting patients condition and capturing severity of illness. The fact that a question is asked does not imply that any particular answer is desired or expected. Communication forms are a method of clarifying documentation and are not made part of the Legal Health Record. Thank you in advance for your clarification. Last Revision, May 2016 Katelynn Fernández [address] [place] [address] Documentation Clarification Form Date: 08/15/2016 8:33:00 AM From: Yanira Graff RN, CDS Admit Date: 08/14/2016 5:35:00 AM Patient Name: Samara Che Visit Number: [id number] Dr. Jef Denson, 65 year old patient presents for left flank and left upper epigastric pain. Had Lithotripsy performed 08/07/2016 for left ureteral calculus. Admitted for Proctocolitis, Urinary Tract Infection. Per your H&P "patient has had an antibiotic treatment over 8-9 days ago", "abdominal pain secondary to proctocolitis which is likely associated wth a urinary tract infection", " sepsis secondary to urinary tract infection" History/Risk Factors: Gerd, Recent ureteral calculus/hydronephrosis, Obesity, Lap Band Clinical Indicators: WBC 10.3, VS: 99.1 75 18 146/80 100ra, CT ABD: "inflammatory change mid descending colon to rectum c/w proctocolitis, 3mm non obstructing renal calculus", KUB: gastric band suggesting malpositioning stable from 03/2016, nonobstructive bowel gas pattern, moderate amount retained stool in colon suggesting constipation" WBC/Left Shift: no Lactic acid: none Blood cultures: none Treatment: IV Rocephin x1, IV Zosyn, IV Flagyl, NS @120, Surgery consult IV Bolus: Normal Saline x 1 Liter In your professional opinion, please clarify if these findings signify one of the following conditions, whether the condition is POA, and cause, if known: Sepsis, ruled out SIRS, without underlying infectious process Sepsis Unable to determine Other, please specify Present on Admission: Yes No * Identify the (suspected) organism SIRS Criteria: 2 or more of the following may indicate SIRS Temperature < 96.8F(36C) or > 101.0F (38C) Heart Rate > 90 bpm Respiratory Rate > 20 breaths/min or PaCO2 < 32 mmHg White Blood Cell Count > 12,000 or < 4,000 cells/mm3 or > 10% bands Lactate >2.0 mmol/L (>4.0 is equivalent to septic shock) Please document in your progress notes and discharge summary in order to capture severity of illness and risk of mortality. Include clinical findings that support your diagnosis. FYI: Press F11 to launch patient chart. Place X here if this finding has no clinical significance, is not applicable or if you are not able to provide any additional documentation. YONNY
[2016-08-15] MEDS: PIPERACILLIN-TAZOBACTAM 3.375 GM in DEXTROSE/WATER 1 50ML.BAG IVPB SCH ×2 (09:21→16:58)
--- NOTE | 2016-08-15 10:10 | XR ---
EXAMINATION TYPE: XR abdomen acute w cxr, 3 VIEWS DATE OF EXAM ORDERED: 08/15/2016 HISTORY: abdominal pain. COMPARISON: CT scan of the abdomen and pelvis dated 08/14/2016 demonstrating colonic wall thickening a nd nonobstructing calculi.. FINDINGS: The lungs are clear. Pleural spaces are clear. Heart size is upper limits of normal. Within the abdomen, there is a lap band in place. The lap band is slightly more horizontal than usual . There is been a previous cholecystectomy. There is contrast in the colon from a CT scan of the abdomen from yesterday. There is no evidence of obstruction or free air. No unusual calcifications are seen. IMPRESSION: 1. MALPOSITIONING OF THE PATIENT'S LAP BAND. 2. NO ACUTE INTRA-ABDOMINAL ABNORMALITY.
[2016-08-15 10:53] LABS: Anion Gap 11 mmol/L; Calcium 8.7 mg/dL (8.4-10.2); Carbon Dioxide 19 mmol/L (22-30); Chloride 110 mmol/L (98-107); Glucose 114 mg/dL (74-99); Non-African American GFR(MDRD) >60 (>60 ml/min/1.73 sqM); Sodium 140 mmol/L (137-145); Total Bilirubin 0.7 mg/dL (0.2-1.3); Total Protein 6.4 g/dL (6.3-8.2)
[2016-08-15 10:57] LABS: AST 104 U/L (14-36); Alkaline Phosphatase 74 U/L (38-126); Blood Urea Nitrogen 6 mg/dL (7-17); Potassium 3.7 mmol/L (3.5-5.1)
[2016-08-15 10:58] LABS: ALT 115 U/L (9-52)
[2016-08-15 11:12] LABS: Basophils % (A) 0 %; CH 28.7; CHCM 31.5; Eosinophils # (A) 0.1 k/uL (0-0.7); Eosinophils % (A) 1 %; HCT 36.3 % (34.0-46.0); HDW 2.23; HGB 12.2 gm/dL (11.4-16.0); Luc # (Auto) 0.08; Luc % (Auto) 1; Lymphocytes # (A) 0.6 k/uL (1.0-4.8); Lymphocytes % (A) 7 %; MCH 30.8 pg (25.0-35.0); MCHC 33.6 g/dL (31.0-37.0); MCV 91.6 fL (80.0-100.0); Mean Platelet Volume 6.3; Monocytes # (A) 0.4 k/uL (0-1.0); Monocytes % (A) 4 %; Neutrophils # (A) 8.2 k/uL (1.3-7.7); Neutrophils % (A) 88 %; RBC 3.97 m/uL (3.80-5.40); RDW 12.9 % (11.5-15.5); WBC 9.3 k/uL (3.8-10.6); WBC (Perox) 10.58
--- NOTE | 2016-08-15 11:52 | P.PN ---
Subjective A 65-year-old male patient, a primary of Dr. Navarrete, came in to the ED today for left lower quadrant pain. The patient has been having difficulties with mucoid and frequent loose bowel movements for the past 7-10 days. She's been having abdominal cramping along with some pain in the left lower quadrant area along with some nausea without vomiting. Denies having any fever or chills. Her symptoms have gotten worse and for that reason she presented to the ED. Upon arrival she had no fever or chills and she was hemodynamic is stable however her pain was quite extensive and she was complaining of pain which was 10 out of 10 in severity. Note that she has history of nephrolithiasis and she has undergone a shock wave lithotripsy by Dr. Todd on 08/08/2015. She was not given any antibiotics. No history of any complicated urinary tract infections and based on that no antibiotic use. Note that the white cell count at time of admission was 10.3. Hemoglobin was 13.4. Electrodes are all within normal limits. Lipase was at 200. The urine analysis showed a white cell count of 25 along with calcium oxalate crystals and many bacteria. No diverticulosis. No previous known colonoscopies. The patient has a LAP-BAND and this has been done by Dr. Conte and the patient had successful weight loss. CAT scan of the abdomen was done and the burst department and the patient was found to have evidence of bowel wall thickening in the descending colon to the rectum consistent with proctocolitis. Previously described hydronephrosis on the left ureteral stone had recovered. On 08/15/2016 the patient is essentially the same. She still having quite a bit of tenderness in her left lower quadrant area. She is taking only clear liquids. Some mild nausea and no vomiting. No fever. No chills. Repeat blood work today showed a white cell count 9.3. No significant bandemia. Stool for C. diff was negative. Flat abdominal series was done that showed no acute intra-abdominal abnormalities. There is no evidence of any obstruction or any free air. General surgeries on the case. The patient remains on IV Zosyn and Flagyl. Objective - Vital Signs Vital signs: Vital Signs Temp 98.0 F 08/15/16 07:00 Pulse 60 08/15/16 07:00 Resp 18 08/15/16 07:00 BP 103/58 08/15/16 07:00 Pulse Ox 96 08/15/16 07:00 Intake & Output 08/14/16 08/15/16 08/15/16 18:59 06:59 18:59 Intake Total 1350 Output Total 200 Balance 1150 Intake: Intake, IV Titration 990 Amount Piperacillin-Tazobactam 3 50 .375 gm In Dextrose/Water 1 50ml.bag @ 12.5 mls/hr IVPB Q8HR [facility] Rx#: [id number] Sodium Chloride 0.9% 1, 840 000 ml @ 120 mls/hr IV . Q8H20M [facility] Rx#:[id number] metroNIDAZOLE-NS PMX 500 100 mg In Saline 1 100ml.bag @ 100 mls/hr IVPB Q8HR [facility] Rx#:[id number] Oral 360 Output: Urine 200 Other: Voiding Method Toilet Toilet Toilet # Voids 3 2 - Exam The patient appeared well nourished and normally developed. Vital signs as documented. Head exam is unremarkable. No scleral icterus or corneal arcus noted. Neck is without jugular venous distension, thyromegaly, or carotid bruits. Carotid upstrokes are brisk bilaterally. Lungs are clear to auscultation and percussion. Cardiac exam reveals the PMI to be normally sized and situated. Rhythm is regular. First and second heart sounds normal. No murmurs, rubs or gallops. Abdominal exam reveals direct tenderness in the left lower quadrant area. No rebound tenderness. Bowel sounds are hypoactive. No organomegaly.. Extremities are nonedematous and both femoral and pedal pulses are normal. - Labs CBC & Chem 7: 08/15/16 10:19 08/15/16 10:19 Labs: Abnormal Lab Results - Last 24 Hours (Table) 08/15/16 08/15/16 Range/Units 10:19 10:19 Neutrophils # 8.2 H (1.3-7.7) k/uL Lymphocytes # 0.6 L (1.0-4.8) k/uL Chloride 110 H (98-107) mmol/L Carbon Dioxide 19 L (22-30) mmol/L BUN 6 L (7-17) mg/dL Glucose 114 H (74-99) mg/dL AST 104 H (14-36) U/L ALT 115 H (9-52) U/L Microbiology - Last 24 Hours (Table) 08/14/16 22:40 Urine Culture - Preliminary Urine,Clean Catch Assessment and Plan Plan: Assessment 1 left lower quadrant pain along with evidence of diffuse colitis/bowel wall thickening extending from the mid descending colon to the rectum and this is compatible with proctocolitis. Rule out underlying diverticulitis/diverticular disease. C. diff colitis has been ruled out based on a negative stool analysis. 2 nephrolithiasis with recent shock wave lithotripsy. The patient's most recent CAT scan showed that the previously seen distally left ureteral calculus and the left-sided hydronephrosis has resolved. The patient has a 3 mm nonobstructive calculus in the left kidney 3 history of obesity with previous gastric band/LAP-BAND 4 hypothyroidism 5 anxiety/depression 6 osteoarthritis 7 left-sided hydronephrosis, recovered Plan Continued IV antibiotics. General surgery follow-up. Acute abdominal series was noted and there is no evidence of any free air or any bowel obstruction at this point. White cell count is not elevated. The patient remains significantly tender in the left lower quadrant area still. We'll continue to follow.
[2016-08-15] MEDS: ASCORBIC ACID 500 MG TAB PO SCH (13:56)
[2016-08-15] MEDS ORDERED: MELATONIN 5 MG TABLET PO PRN (16:05)
--- NOTE | 2016-08-15 17:42 | P.PN ---
Subjective Mrs. Che with recent history of left ureteral calculus status post lithotripsy comes in to the hospital with severe left-sided abdominal pain that has been ongoing for the last 4 days. Patient states that she has been having watery diarrhea with some associated pain during evacuation. Patient has noted some blood during wiping States to have history of hemorrhoids in the past Patient has had an antibiotic treatment over 8-9 days ago A computed tomography scan of the abdomen revealed inflammation along the left colon with significant proctocolitis Patient does not have any history of inflammatory disease Denies having fevers headaches blurry vision nausea vomiting chest pain. Patient also has a history of a gastric band. It was reviewed as not in appropriate place however patient does not have any symptoms at this time 08/15/2016 Patient continues to have left-sided abdominal pain has loose stools and complains of pain during defecation No nausea chest pain difficulty breathing headaches blurry vision is reported No blood is reported in her stools as well Objective - Vital Signs Vital signs: Vital Signs Temp 97.9 F 08/15/16 14:58 Pulse 67 08/15/16 14:58 Resp 18 08/15/16 14:58 BP 123/58 08/15/16 14:58 Pulse Ox 96 08/15/16 14:58 Intake & Output 08/14/16 08/15/16 08/15/16 18:59 06:59 18:59 Intake Total 1350 Output Total 200 Balance 1150 Intake: Intake, IV Titration 990 Amount Piperacillin-Tazobactam 3 50 .375 gm In Dextrose/Water 1 50ml.bag @ 12.5 mls/hr IVPB Q8HR JANELLE Rx#: [id number] Sodium Chloride 0.9% 1, 840 000 ml @ 120 mls/hr IV . Q8H20M JANELLE Rx#:[id number] metroNIDAZOLE-NS PMX 500 100 mg In Saline 1 100ml.bag @ 100 mls/hr IVPB Q8HR JANELLE Rx#:[id number] Oral 360 Output: Urine 200 Other: Voiding Method Toilet Toilet Toilet # Voids 3 2 - Exam Physical exam Gen. appearance oriented 3 in no distress Neck is supple no JVD Lungs good air entry clear to auscultation no rhonchi or wheezing Heart S1-S2 heard regular rate and rhythm no murmurs appreciated Abdomen soft significant left-sided tenderness no rebound tenderness is appreciated bowel sounds are intact Neurologically cranial nerves II-12 grossly intact no focal motor or sensory deficits noted Skin no abnormalities appreciated - Labs CBC & Chem 7: 08/15/16 10:19 08/15/16 10:19 Labs: Abnormal Lab Results - Last 24 Hours (Table) 08/15/16 08/15/16 Range/Units 10:19 10:19 Neutrophils # 8.2 H (1.3-7.7) k/uL Lymphocytes # 0.6 L (1.0-4.8) k/uL Chloride 110 H (98-107) mmol/L Carbon Dioxide 19 L (22-30) mmol/L BUN 6 L (7-17) mg/dL Glucose 114 H (74-99) mg/dL AST 104 H (14-36) U/L ALT 115 H (9-52) U/L Microbiology - Last 24 Hours (Table) 08/14/16 22:40 Urine Culture - Preliminary Urine,Clean Catch Assessment and Plan Plan: #1 abdominal pain secondary to proctocolitis which is likely associated with urinary tract infection #2 external hemorrhoids #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 Patient will be started on intra-abdominal coverage Rule out C. diff Sitz bath will be started\\ DVT prophylaxis Will need colonoscopy after resolution of acute inflammation
--- NOTE | 2016-08-15 18:47 | P.PN ---
Subjective Principal diagnosis: Colitis The patient states that she still has left-sided abdominal pain. She states her rectal pressure is improved. Objective - Vital Signs Vital signs: Vital Signs Temp 97.9 F 08/15/16 14:58 Pulse 67 08/15/16 14:58 Resp 18 08/15/16 14:58 BP 123/58 08/15/16 14:58 Pulse Ox 96 08/15/16 14:58 Intake & Output 08/14/16 08/15/16 08/15/16 18:59 06:59 18:59 Intake Total 1350 Output Total 200 Balance 1150 Intake: Intake, IV Titration 990 Amount Piperacillin-Tazobactam 3 50 .375 gm In Dextrose/Water 1 50ml.bag @ 12.5 mls/hr IVPB Q8HR JANELLE Rx#: [id number] Sodium Chloride 0.9% 1, 840 000 ml @ 120 mls/hr IV . Q8H20M JANELLE Rx#:[id number] metroNIDAZOLE-NS PMX 500 100 mg In Saline 1 100ml.bag @ 100 mls/hr IVPB Q8HR JANELLE Rx#:[id number] Oral 360 Output: Urine 200 Other: Voiding Method Toilet Toilet Toilet # Voids 3 2 - Constitutional General appearance: Present: cooperative - Gastrointestinal Gastrointestinal Comment(s): Abdomen soft. There is mild left-sided abdominal pain. There is no rebound or guarding. - Labs CBC & Chem 7: 08/15/16 10:19 08/15/16 10:19 Labs: Abnormal Lab Results - Last 24 Hours (Table) 08/15/16 08/15/16 Range/Units 10:19 10:19 Neutrophils # 8.2 H (1.3-7.7) k/uL Lymphocytes # 0.6 L (1.0-4.8) k/uL Chloride 110 H (98-107) mmol/L Carbon Dioxide 19 L (22-30) mmol/L BUN 6 L (7-17) mg/dL Glucose 114 H (74-99) mg/dL AST 104 H (14-36) U/L ALT 115 H (9-52) U/L Microbiology - Last 24 Hours (Table) 08/14/16 22:40 Urine Culture - Preliminary Urine,Clean Catch Assessment and Plan Plan: Colitis. Continue IV antibiotic. We will schedule for outpatient colonoscopy when stable.
[2016-08-16] MEDS: HEPARIN SODIUM,PORCINE 5,000 UNIT/ML 1 ML VIAL SQ SCH ×3 (00:24→15:33)
[2016-08-16] MEDS: metroNIDAZOLE-NS PMX 500 MG in SALINE 1 100ML.BAG IVPB SCH ×3 (00:24→15:33)
[2016-08-16] MEDS: PIPERACILLIN-TAZOBACTAM 3.375 GM in DEXTROSE/WATER 1 50ML.BAG IVPB SCH ×3 (01:38→17:35)
[2016-08-16] MEDS: HYDROmorphone 1 MG/ML 1 ML SYRINGE IV PRN (01:50)
[2016-08-16] MEDS: LEVOTHYROXINE 125 MCG TAB PO SCH (06:13)
[2016-08-16] MEDS: SODIUM CHLORIDE 0.9% 1,000 ML IV SCH ×2 (06:14→17:34)
[2016-08-16] MEDS: PANTOPRAZOLE 40 MG/10 ML VIAL IV SCH (07:30)
[2016-08-16] MEDS: LORATADINE 10 MG TAB PO SCH (07:30)
[2016-08-16] MEDS: PARoxetine 10 MG TAB PO SCH (07:30)
[2016-08-16] MEDS: POTASSIUM CHLORIDE ER 10 MEQ TAB.ER.PRT PO SCH (07:30)
[2016-08-16] MEDS: HYDROcodone/APAP 5-325MG 1 EACH TAB PO PRN ×2 (07:31→15:33)
[2016-08-16] MEDS: ONDANSETRON 4 MG/2 ML VIAL IVP PRN ×2 (07:31→17:44)
[2016-08-16] MEDS: ASCORBIC ACID 500 MG TAB PO SCH (13:05)
--- NOTE | 2016-08-16 14:47 | P.PN ---
Subjective A 65-year-old male patient, a primary of Dr. Navarrete, came in to the ED today for left lower quadrant pain. The patient has been having difficulties with mucoid and frequent loose bowel movements for the past 7-10 days. She's been having abdominal cramping along with some pain in the left lower quadrant area along with some nausea without vomiting. Denies having any fever or chills. Her symptoms have gotten worse and for that reason she presented to the ED. Upon arrival she had no fever or chills and she was hemodynamic is stable however her pain was quite extensive and she was complaining of pain which was 10 out of 10 in severity. Note that she has history of nephrolithiasis and she has undergone a shock wave lithotripsy by Dr. Todd on 08/08/2015. She was not given any antibiotics. No history of any complicated urinary tract infections and based on that no antibiotic use. Note that the white cell count at time of admission was 10.3. Hemoglobin was 13.4. Electrodes are all within normal limits. Lipase was at 200. The urine analysis showed a white cell count of 25 along with calcium oxalate crystals and many bacteria. No diverticulosis. No previous known colonoscopies. The patient has a LAP-BAND and this has been done by Dr. Conte and the patient had successful weight loss. CAT scan of the abdomen was done and the burst department and the patient was found to have evidence of bowel wall thickening in the descending colon to the rectum consistent with proctocolitis. Previously described hydronephrosis on the left ureteral stone had recovered. On 08/15/2016 the patient is essentially the same. She still having quite a bit of tenderness in her left lower quadrant area. She is taking only clear liquids. Some mild nausea and no vomiting. No fever. No chills. Repeat blood work today showed a white cell count 9.3. No significant bandemia. Stool for C. diff was negative. Flat abdominal series was done that showed no acute intra-abdominal abnormalities. There is no evidence of any obstruction or any free air. General surgeries on the case. The patient remains on IV Zosyn and Flagyl. On 08/16/2016 the patient is doing slightly better compared to yesterday. The left side of the abdomen is slightly less tender compared to yesterday. She is having on and off some nausea. No emesis. No fever or chills. No change in mental status. She remains on a combination of IV Zosyn and Flagyl. His custody case with the hospitalist. I thought it reasonable to repeat the stool PCR for C. diff infection. Note that the original stool evaluation was negative. Acute abdominal series from yesterday was nonspecific. The white cell count was done elevated. No all of labs are available from today. General surgeries on the case. Clinically however her abdomen is less tender compared to yesterday. She still producing mucoid bowel movements. Objective - Vital Signs Vital signs: Vital Signs Temp 97.9 F 08/16/16 07:00 Pulse 74 08/16/16 07:00 Resp 16 08/16/16 07:50 BP 132/62 08/16/16 07:00 Pulse Ox 94 L 08/16/16 07:00 Intake & Output 08/15/16 08/16/16 08/16/16 18:59 06:59 18:59 Intake Total 1490 Output Total 50 Balance 1440 Intake: IV 1440 Sodium Chloride 0.9% 1, 1440 000 ml @ 120 mls/hr IV . Q8H20M JANELLE Rx#:[id number] Intake, IV Titration 50 Amount Piperacillin-Tazobactam 3 50 .375 gm In Dextrose/Water 1 50ml.bag @ 12.5 mls/hr IVPB Q8HR JANELLE Rx#: [id number] Output: Emesis 50 Other: Voiding Method Toilet Toilet Toilet # Voids 1 - Exam The patient appeared well nourished and normally developed. Vital signs as documented. Head exam is unremarkable. No scleral icterus or corneal arcus noted. Neck is without jugular venous distension, thyromegaly, or carotid bruits. Carotid upstrokes are brisk bilaterally. Lungs are clear to auscultation and percussion. Cardiac exam reveals the PMI to be normally sized and situated. Rhythm is regular. First and second heart sounds normal. No murmurs, rubs or gallops. Abdominal exam reveals direct tenderness in the left lower quadrant area. No rebound tenderness. Bowel sounds are hypoactive. No organomegaly.. Extremities are nonedematous and both femoral and pedal pulses are normal. - Labs CBC & Chem 7: 08/15/16 10:19 08/15/16 10:19 Labs: Microbiology - Last 24 Hours (Table) 08/14/16 22:40 Urine Culture - Final Urine,Clean Catch Assessment and Plan Plan: Assessment 1 left lower quadrant pain along with evidence of diffuse colitis/bowel wall thickening extending from the mid descending colon to the rectum and this is compatible with proctocolitis. Rule out underlying diverticulitis/diverticular disease. C. diff colitis has been ruled out based on a negative stool analysis. 2 nephrolithiasis with recent shock wave lithotripsy. The patient's most recent CAT scan showed that the previously seen distally left ureteral calculus and the left-sided hydronephrosis has resolved. The patient has a 3 mm nonobstructive calculus in the left kidney 3 history of obesity with previous gastric band/LAP-BAND 4 hypothyroidism 5 anxiety/depression 6 osteoarthritis 7 left-sided hydronephrosis, recovered Plan Continued IV antibiotics. Repeat the stool for C. diff evaluation. The same antibiotic coverage. Clinically somewhat better compared to yesterday. The patient is having episodes of nausea. No vomiting. She is on clear liquids diet. We'll advance diet as tolerated however for today we'll keep her liquid diet still. General surgeries on the case. Check also stool for ova and parasites.
--- NOTE | 2016-08-16 17:52 | P.PN ---
Subjective Mrs. Che with recent history of left ureteral calculus status post lithotripsy comes in to the hospital with severe left-sided abdominal pain that has been ongoing for the last 4 days. Patient states that she has been having watery diarrhea with some associated pain during evacuation. Patient has noted some blood during wiping States to have history of hemorrhoids in the past Patient has had an antibiotic treatment over 8-9 days ago A computed tomography scan of the abdomen revealed inflammation along the left colon with significant proctocolitis Patient does not have any history of inflammatory disease Denies having fevers headaches blurry vision nausea vomiting chest pain. Patient also has a history of a gastric band. It was reviewed as not in appropriate place however patient does not have any symptoms at this time 08/15/2016 Patient continues to have left-sided abdominal pain has loose stools and complains of pain during defecation No nausea chest pain difficulty breathing headaches blurry vision is reported No blood is reported in her stools as well 08/09/1999 Abdominal pain appears to be improved Continues to have bowel movements that are painful Some nauseous reported no fevers headaches chest pain difficulty breathing lower extremity edema or tenderness is reported Objective - Vital Signs Vital signs: Vital Signs Temp 98.1 F 08/16/16 15:00 Pulse 65 08/16/16 15:00 Resp 18 08/16/16 15:00 BP 118/63 08/16/16 15:00 Pulse Ox 100 08/16/16 15:00 Intake & Output 08/15/16 08/16/16 08/16/16 18:59 06:59 18:59 Intake Total 1490 1390 Output Total 50 3 Balance 1440 1387 Intake: IV 1440 700 Sodium Chloride 0.9% 1, 1440 700 000 ml @ 120 mls/hr IV . Q8H20M JANELLE Rx#:[id number] Intake, IV Titration 50 150 Amount Piperacillin-Tazobactam 3 50 50 .375 gm In Dextrose/Water 1 50ml.bag @ 12.5 mls/hr IVPB Q8HR JANELLE Rx#: [id number] metroNIDAZOLE-NS PMX 500 100 mg In Saline 1 100ml.bag @ 100 mls/hr IVPB Q8HR JANELLE Rx#:[id number] Oral 540 Output: Urine 3 Emesis 50 Other: Voiding Method Toilet Toilet Toilet # Voids 1 - Exam Physical exam Gen. appearance oriented 3 in no distress Neck is supple no JVD Lungs good air entry clear to auscultation no rhonchi or wheezing Heart S1-S2 heard regular rate and rhythm no murmurs appreciated Abdomen soft significant left-sided tenderness no rebound tenderness is appreciated bowel sounds are intact Neurologically cranial nerves II-12 grossly intact no focal motor or sensory deficits noted Skin no abnormalities appreciated - Labs CBC & Chem 7: 08/15/16 10:19 08/15/16 10:19 Labs: Microbiology - Last 24 Hours (Table) 08/14/16 22:40 Urine Culture - Final Urine,Clean Catch Assessment and Plan Plan: #1 abdominal pain secondary to proctocolitis which is likely associated with urinary tract infection #2 external hemorrhoids #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 Patient will be started on intra-abdominal coverage Repeat C. diff toxin Flagyl Sitz bath DVT prophylaxis Will need colonoscopy after resolution of acute inflammation
--- NOTE | 2016-08-16 18:47 | P.PN ---
Subjective Principal diagnosis: Colitis The patient feels better. She has less pain in her rectum. She has still has pain on the left side of her abdomen. Her diarrhea slightly improved. Objective - Vital Signs Vital signs: Vital Signs Temp 98.1 F 08/16/16 15:00 Pulse 65 08/16/16 15:00 Resp 18 08/16/16 15:00 BP 118/63 08/16/16 15:00 Pulse Ox 100 08/16/16 15:00 Intake & Output 08/15/16 08/16/16 08/16/16 18:59 06:59 18:59 Intake Total 1490 1390 Output Total 50 3 Balance 1440 1387 Intake: IV 1440 700 Sodium Chloride 0.9% 1, 1440 700 000 ml @ 120 mls/hr IV . Q8H20M JANELLE Rx#:[id number] Intake, IV Titration 50 150 Amount Piperacillin-Tazobactam 3 50 50 .375 gm In Dextrose/Water 1 50ml.bag @ 12.5 mls/hr IVPB Q8HR JANELLE Rx#: [id number] metroNIDAZOLE-NS PMX 500 100 mg In Saline 1 100ml.bag @ 100 mls/hr IVPB Q8HR JANELLE Rx#:[id number] Oral 540 Output: Urine 3 Emesis 50 Other: Voiding Method Toilet Toilet Toilet # Voids 1 - Constitutional General appearance: Present: cooperative - Gastrointestinal Gastrointestinal Comment(s): Abdomen is soft. There is tenderness left lower quadrant. There is no rebound or guarding. - Labs CBC & Chem 7: 08/15/16 10:19 08/15/16 10:19 Labs: Microbiology - Last 24 Hours (Table) 08/14/16 22:40 Urine Culture - Final Urine,Clean Catch Assessment and Plan Plan: Improving acute colitis. Patient wishes to go home and undergo colonoscopy as outpatient. If she improves she'll be discharged home next 24-48 hours. I will scheduled for outpatient colonoscopy next week.
[2016-08-17] MEDS: PIPERACILLIN-TAZOBACTAM 3.375 GM in DEXTROSE/WATER 1 50ML.BAG IVPB SCH ×2 (00:29→11:14)
[2016-08-17] MEDS: metroNIDAZOLE-NS PMX 500 MG in SALINE 1 100ML.BAG IVPB SCH ×2 (00:35→07:28)
[2016-08-17] MEDS: HEPARIN SODIUM,PORCINE 5,000 UNIT/ML 1 ML VIAL SQ SCH ×2 (00:39→07:28)
[2016-08-17] MEDS: ONDANSETRON 4 MG/2 ML VIAL IVP PRN (02:12)
[2016-08-17] MEDS: HYDROcodone/APAP 5-325MG 1 EACH TAB PO PRN (02:12)
[2016-08-17] MEDS: SODIUM CHLORIDE 0.9% 1,000 ML IV SCH ×2 (06:15→11:09)
[2016-08-17] MEDS: LEVOTHYROXINE 125 MCG TAB PO SCH (06:17)
[2016-08-17] MEDS: PARoxetine 10 MG TAB PO SCH (07:29)
[2016-08-17] MEDS: PANTOPRAZOLE 40 MG/10 ML VIAL IV SCH (07:29)
[2016-08-17] MEDS: LORATADINE 10 MG TAB PO SCH (07:29)
[2016-08-17] MEDS: POTASSIUM CHLORIDE ER 10 MEQ TAB.ER.PRT PO SCH (07:29)
[2016-08-17 07:32] LABS: Basophils % (A) 1 %; CH 29.8; CHCM 33.7; Eosinophils # (A) 0.2 k/uL (0-0.7); Eosinophils % (A) 3 %; HCT 35.5 % (34.0-46.0); HDW 2.28; HGB 11.5 gm/dL (11.4-16.0); Luc # (Auto) 0.08; Luc % (Auto) 1; Lymphocytes # (A) 1.3 k/uL (1.0-4.8); Lymphocytes % (A) 19 %; MCH 28.9 pg (25.0-35.0); MCHC 32.5 g/dL (31.0-37.0); MCV 88.8 fL (80.0-100.0); Mean Platelet Volume 7.3; Monocytes # (A) 0.4 k/uL (0-1.0); Monocytes % (A) 5 %; Neutrophils % (A) 72 %; RDW 13.2 % (11.5-15.5); WBC 6.9 k/uL (3.8-10.6); WBC (Perox) 7.57
[2016-08-17 07:57] VITALS: BP 120/60; PULSE 75; RESP 18; TEMP 98.1
[2016-08-17 08:09] LABS: ALT 52 U/L (9-52); AST 25 U/L (14-36); Alkaline Phosphatase 59 U/L (38-126); Anion Gap 13 mmol/L; Blood Urea Nitrogen 3 mg/dL (7-17); Calcium 8.7 mg/dL (8.4-10.2); Carbon Dioxide 22 mmol/L (22-30); Chloride 106 mmol/L (98-107); Glucose 75 mg/dL (74-99); Non-African American GFR(MDRD) >60 (>60 ml/min/1.73 sqM); Potassium 3.3 mmol/L (3.5-5.1); Sodium 141 mmol/L (137-145); Total Bilirubin 0.5 mg/dL (0.2-1.3); Total Protein 5.8 g/dL (6.3-8.2)
[2016-08-17] MEDS ORDERED: POTASSIUM CHLORIDE ER 20 MEQ TAB.ER PO STA (11:23)
[2016-08-17] MEDS: ASCORBIC ACID 500 MG TAB PO SCH (13:46)
--- NOTE | 2016-08-17 16:40 | P.PN ---
Subjective A 65-year-old male patient, a primary of Dr. Navarrete, came in to the ED today for left lower quadrant pain. The patient has been having difficulties with mucoid and frequent loose bowel movements for the past 7-10 days. She's been having abdominal cramping along with some pain in the left lower quadrant area along with some nausea without vomiting. Denies having any fever or chills. Her symptoms have gotten worse and for that reason she presented to the ED. Upon arrival she had no fever or chills and she was hemodynamic is stable however her pain was quite extensive and she was complaining of pain which was 10 out of 10 in severity. Note that she has history of nephrolithiasis and she has undergone a shock wave lithotripsy by Dr. Todd on 08/08/2015. She was not given any antibiotics. No history of any complicated urinary tract infections and based on that no antibiotic use. Note that the white cell count at time of admission was 10.3. Hemoglobin was 13.4. Electrodes are all within normal limits. Lipase was at 200. The urine analysis showed a white cell count of 25 along with calcium oxalate crystals and many bacteria. No diverticulosis. No previous known colonoscopies. The patient has a LAP-BAND and this has been done by Dr. Conte and the patient had successful weight loss. CAT scan of the abdomen was done and the burst department and the patient was found to have evidence of bowel wall thickening in the descending colon to the rectum consistent with proctocolitis. Previously described hydronephrosis on the left ureteral stone had recovered. On 08/15/2016 the patient is essentially the same. She still having quite a bit of tenderness in her left lower quadrant area. She is taking only clear liquids. Some mild nausea and no vomiting. No fever. No chills. Repeat blood work today showed a white cell count 9.3. No significant bandemia. Stool for C. diff was negative. Flat abdominal series was done that showed no acute intra-abdominal abnormalities. There is no evidence of any obstruction or any free air. General surgeries on the case. The patient remains on IV Zosyn and Flagyl. On 08/16/2016 the patient is doing slightly better compared to yesterday. The left side of the abdomen is slightly less tender compared to yesterday. She is having on and off some nausea. No emesis. No fever or chills. No change in mental status. She remains on a combination of IV Zosyn and Flagyl. His custody case with the hospitalist. I thought it reasonable to repeat the stool PCR for C. diff infection. Note that the original stool evaluation was negative. Acute abdominal series from yesterday was nonspecific. The white cell count was done elevated. No all of labs are available from today. General surgeries on the case. Clinically however her abdomen is less tender compared to yesterday. She still producing mucoid bowel movements. On 08/17/2016 the patient is feeling given much better. Stool was again checked for C. diff and was negative. The patient's pain has subsided. No fever. No chills. No leukocytosis. The rest of the blood work is within normal limits. The patient is tolerating diet and she is gradually advancing her diet. Objective - Vital Signs Vital signs: Vital Signs Temp 98.1 F 08/17/16 07:00 Pulse 75 08/17/16 07:00 Resp 18 08/17/16 07:00 BP 120/60 08/17/16 07:00 Pulse Ox 98 08/17/16 07:00 Intake & Output 08/16/16 08/17/16 08/17/16 18:59 06:59 18:59 Intake Total 1390 1200 612.5 Output Total 3 60 Balance 1387 1140 612.5 Weight 63.503 kg Intake: IV 700 960 500 Sodium Chloride 0.9% 1, 700 960 500 000 ml @ 120 mls/hr IV . Q8H20M JANELLE Rx#:[id number] Intake, IV Titration 150 112.5 Amount Piperacillin-Tazobactam 3 50 12.5 .375 gm In Dextrose/Water 1 50ml.bag @ 12.5 mls/hr IVPB Q8HR JANELLE Rx#: [id number] metroNIDAZOLE-NS PMX 500 100 100 mg In Saline 1 100ml.bag @ 100 mls/hr IVPB Q8HR JANELLE Rx#:[id number] Oral 540 240 Output: Urine 3 Stool 60 Other: Voiding Method Toilet Toilet Toilet # Voids 3 - Exam The patient appeared well nourished and normally developed. Vital signs as documented. Head exam is unremarkable. No scleral icterus or corneal arcus noted. Neck is without jugular venous distension, thyromegaly, or carotid bruits. Carotid upstrokes are brisk bilaterally. Lungs are clear to auscultation and percussion. Cardiac exam reveals the PMI to be normally sized and situated. Rhythm is regular. First and second heart sounds normal. No murmurs, rubs or gallops. Abdominal exam reveals direct tenderness in the left lower quadrant area. No rebound tenderness. Bowel sounds are hypoactive. No organomegaly.. Extremities are nonedematous and both femoral and pedal pulses are normal. - Labs CBC & Chem 7: 08/17/16 06:56 08/17/16 06:56 Labs: Abnormal Lab Results - Last 24 Hours (Table) 08/17/16 Range/Units 06:56 Potassium 3.3 L (3.5-5.1) mmol/L BUN 3 L (7-17) mg/dL Total Protein 5.8 L (6.3-8.2) g/dL Albumin 3.2 L (3.5-5.0) g/dL Microbiology - Last 24 Hours (Table) 08/16/16 21:10 Stool for WBCs - Final Stool 08/14/16 22:40 Urine Culture - Final Urine,Clean Catch Assessment and Plan Plan: Assessment 1 left lower quadrant pain along with evidence of diffuse colitis/bowel wall thickening extending from the mid descending colon to the rectum and this is compatible with proctocolitis. Rule out underlying diverticulitis/diverticular disease. C. diff colitis has been ruled out based on a negative stool analysis. 2 nephrolithiasis with recent shock wave lithotripsy. The patient's most recent CAT scan showed that the previously seen distally left ureteral calculus and the left-sided hydronephrosis has resolved. The patient has a 3 mm nonobstructive calculus in the left kidney 3 history of obesity with previous gastric band/LAP-BAND 4 hypothyroidism 5 anxiety/depression 6 osteoarthritis 7 left-sided hydronephrosis, recovered Plan Patient is improved significantly. The patient will be discharged home on a combination of Cipro and Flagyl. To be followed up by Dr. Carreon from general surgery. Gradually advance diet as tolerated.
--- NOTE | 2016-08-20 11:57 | DS ---
The patient is admitted with colitis, possibility of infectious colitis. The patient has ( ) because of which the patient will be discharged on Augmentin for seven days. The patient's abdominal pain improved but still there. The patient has hemorrhoids, because of which I am discharging her on Anusol cream. The patient will be discharged today. The patient was seen and examined on the day of discharge. Vital signs stable. ( ). Abdominal exam: Minimal left lower quadrant tenderness still appreciated. The patient has proctocolitis. The patient will need outpatient colonoscopy. ASSESSMENT AND PLAN: 1. Abdominal pain secondary to proctocolitis, probably infectious colitis. Maybe the origin of associated urinary tract infection which cannot be ruled out. 2. Hemorrhoids. 3. Ureteral calculi in the past. 4. Gastric band surgery. 5. Sepsis, secondary to urinary tract infection on admission. 6. Essential hypertension. 7. The patient's Clostridium difficile is negative. The patient will be discharged today. Please refer to my depart summary for further details of discharge. Activity as tolerated. Cardiac diet. Follow up with Dr. Bettina Navarrete September 26 at 1:00 p.m., Dr. Clifford Holt in about a week. Spent greater than 35 minutes in total discharge process. The patient declined to take potassium supplementation. MTDD
== END 2016-08-17 14:15 | disposition home or self-care (01) | DRG 872 ==
LOC: EC 23:41 → 5MS5E 08-14 05:35
PROVIDERS: ADMIT Internal Medicine; ATTEND Internal Medicine
DX: A41.9 Sepsis, unspecified organism (principal); N39.0 Urinary tract infection, site not specified; A09 Infectious gastroenteritis and colitis, unspecified; K64.4 Residual hemorrhoidal skin tags; K21.9 Gastro-esophageal reflux disease without esophagitis; I10 Essential (primary) hypertension; E03.9 Hypothyroidism, unspecified; M19.91 Primary osteoarthritis, unspecified site; F32.9 Major depressive disorder, single episode, unspecified; F41.9 Anxiety disorder, unspecified; Z96.652 Presence of left artificial knee joint; Z87.442 Personal history of urinary calculi; Z98.84 Bariatric surgery status; Z90.49 Acquired absence of other specified parts of digestive tract; Z79.899 Other long term (current) drug therapy
CPT/HCPCS: 36415; 74000; 74022; 74177; 80053; 81001; 82150; 82272; 83605; 83690; 85025; 87086; 87324; 89055; 96361; 96365; 96375; 96376; 99285

== ENCOUNTER 2016-08-21 03:46 | Emergency (ER) | payer BC ==
[2016-08-21 03:53] VITALS: RESP 18
[2016-08-21] MEDS ORDERED: MORPHINE SULFATE 4 MG/ML SYRINGE IV STA (05:05)
[2016-08-21] MEDS ORDERED: ONDANSETRON 4 MG/2 ML VIAL IVP STA (05:05)
[2016-08-21] MEDS ORDERED: SODIUM CHLORIDE 0.9% 500 ML IV STA (05:05)
[2016-08-21 05:32] LABS: Basophils # (A) 0.1 k/uL (0-0.2); Basophils % (A) 1 %; CH 29.4; CHCM 33.3; Eosinophils # (A) 0.1 k/uL (0-0.7); Eosinophils % (A) 2 %; HDW 2.38; HGB 12.5 gm/dL (11.4-16.0); Luc # (Auto) 0.11; Luc % (Auto) 2; Lymphocytes # (A) 1.2 k/uL (1.0-4.8); Lymphocytes % (A) 17 %; MCH 29.2 pg (25.0-35.0); MCHC 32.8 g/dL (31.0-37.0); MCV 88.8 fL (80.0-100.0); Mean Platelet Volume 6.5; Monocytes # (A) 0.4 k/uL (0-1.0); Monocytes % (A) 6 %; Neutrophils # (A) 5.4 k/uL (1.3-7.7); Neutrophils % (A) 73 %; RBC 4.28 m/uL (3.80-5.40); RDW 13.7 % (11.5-15.5); WBC 7.4 k/uL (3.8-10.6); WBC (Perox) 7.36
[2016-08-21 05:44] LABS: Appearance,Urine Cloudy (Clear); Bilirubin,Urine Negative (Negative); Glucose,Urine (UA) Negative (Negative); Ketones,Urine 2+ (Negative); Leukocyte Esterase,Urine Small (Negative); Mucus,Urine Many /hpf; Nitrite,Urine Negative (Negative); Particle Count 14418; Protein,Urine 1+ (Negative); RBC,Urine 5 /hpf (0-5); Specific Gravity,Urine 1.022 (1.001-1.035); Squamous Epithelial Cell,Urine 3 /hpf (0-4); UA Billing (MACRO vs. MICRO) MICRO; Uric Acid Crystals,Urine Many /hpf; WBC,Urine 11 /hpf (0-5)
[2016-08-21 05:52] LABS: ALT 63 U/L (9-52); AST 36 U/L (14-36); Alkaline Phosphatase 52 U/L (38-126); Amylase 68 U/L (30-110); Anion Gap 14 mmol/L; Blood Urea Nitrogen 16 mg/dL (7-17); Calcium 9.4 mg/dL (8.4-10.2); Carbon Dioxide 26 mmol/L (22-30); Chloride 108 mmol/L (98-107); Glucose 112 mg/dL (74-99); Non-African American GFR(MDRD) >60 (>60 ml/min/1.73 sqM); Sodium 148 mmol/L (137-145); Total Bilirubin 0.5 mg/dL (0.2-1.3); Total Protein 6.9 g/dL (6.3-8.2)
[2016-08-21] MEDS ORDERED: KETOROLAC 30 MG/ML 1 ML VIAL IVP STA (05:52)
[2016-08-21] MEDS ORDERED: POTASSIUM BICARB-CITRIC ACID 25 MEQ TABLET.EFF PO STA (06:48)
[2016-08-21] MEDS ORDERED: DICYCLOMINE 20 MG TAB PO STA (07:01)
--- NOTE | 2016-08-21 07:01 | ED ---
Abdominal Pain HPI - General Chief Complaint: Abdominal Pain Stated Complaint: left side pain Time Seen by Provider: 08/21/16 04:28 Source: patient Mode of arrival: ambulatory Limitations: no limitations - Related Data Home Medications Medication Instructions Recorded Confirmed Ascorbic Acid [Vitamin C] 500 mg PO DAILY 04/11/16 08/14/16 Cyanocobalamin [Vitamin B-12] 500 mcg PO DAILY 04/11/16 08/14/16 Levothyroxine Sodium [Synthroid] 125 mcg PO DAILY 04/11/16 08/14/16 Multivitamins, Thera [Multivitamin] 1 tab PO DAILY 04/11/16 08/14/16 PARoxetine HCL 30 mg PO DAILY 04/11/16 08/14/16 Loratadine [Claritin] 10 mg PO DAILY 05/05/16 08/14/16 Potassium 99 mg PO DAILY 05/05/16 08/14/16 Ibuprofen [Motrin] 800 mg PO BID PRN 08/05/16 08/14/16 Previous Rx's Medication Instructions Recorded HYDROcodone/APAP 10-325MG [[place] 1 tab PO Q4HR PRN #15 tab 08/14/16 10-325] Amoxic-Pot Clav 875-125Mg 1 tab PO Q12HR #14 tablet 08/17/16 [Augmentin 875-125] Hydrocortisone Suppository 25 mg RECTAL BID #30 supp 08/17/16 [Anusol-Hc] Dicyclomine [Bentyl] 20 mg PO QID #15 tablet 08/21/16 Potassium Chloride ER [K-Dur 20] 20 meq PO DAILY #7 tab 08/21/16 Allergies Allergy/AdvReac Type Severity Reaction Status Date / Time sulfamethoxazole Allergy Rash/Hives Verified 08/21/16 03:53 [From Bactrim] tamsulosin [From Flomax] Allergy Itching Verified 08/21/16 03:53 trimethoprim [From Bactrim] Allergy Rash/Hives Verified 08/21/16 03:53 Review of Systems ROS Statement: Those systems with pertinent positive or pertinent negative responses have been documented in the HPI. ROS Other: All systems not noted in ROS Statement are negative. 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 ALSO FROM OVARY, lithotripsy, left knee replacement Past Anesthesia/Blood Transfusion Reactions: Motion Sickness, Postoperative Nausea & Vomiting (PONV) Past Psychological History: Anxiety Smoking Status: Never smoker Past Alcohol Use History: None Reported Past Drug Use History: None Reported - Past Family History Mother Family Medical History: No Reported History Father Family Medical History: Myocardial Infarction ([place]) General Exam Limitations: no limitations Course Vital Signs 08/21/16 08/21/16 08/21/16 03:51 04:35 05:05 Temperature 96.8 F L Pulse Rate 102 H Respiratory 18 Rate Blood Pressure 123/71 157/89 143/79 O2 Sat by Pulse 100 Oximetry 08/21/16 06:01 Temperature Pulse Rate 61 Respiratory 18 Rate Blood Pressure 127/91 O2 Sat by Pulse 99 Oximetry Medical Decision Making - Lab Data Result diagrams: 08/21/16 04:25 08/21/16 04:25 Lab Results 08/21/16 08/21/16 08/21/16 Range/Units 04:25 04:25 04:25 WBC 7.4 (3.8-10.6) k/uL RBC 4.28 (3.80-5.40) m/uL Hgb 12.5 (11.4-16.0) gm/dL Hct 38.0 (34.0-46.0) % MCV 88.8 (80.0-100.0) fL MCH 29.2 (25.0-35.0) pg MCHC 32.8 (31.0-37.0) g/dL RDW 13.7 (11.5-15.5) % Plt Count 419 (150-450) k/uL Neutrophils % 73 % Lymphocytes % 17 % Monocytes % 6 % Eosinophils % 2 % Basophils % 1 % Neutrophils # 5.4 (1.3-7.7) k/uL Lymphocytes # 1.2 (1.0-4.8) k/uL Monocytes # 0.4 (0-1.0) k/uL Eosinophils # 0.1 (0-0.7) k/uL Basophils # 0.1 (0-0.2) k/uL Sodium 148 H (137-145) mmol/L Potassium 3.0 L* (3.5-5.1) mmol/L Chloride 108 H (98-107) mmol/L Carbon Dioxide 26 (22-30) mmol/L Anion Gap 14 mmol/L BUN 16 (7-17) mg/dL Creatinine 0.58 (0.52-1.04) mg/dL Est GFR (MDRD) Af Amer >60 (>60 ml/min/1.73 sqM) Est GFR (MDRD) Non-Af >60 (>60 ml/min/1.73 sqM) Glucose 112 H (74-99) mg/dL Plasma Lactic Acid Maciel 1.1 (0.7-2.0) mmol/L Calcium 9.4 (8.4-10.2) mg/dL Total Bilirubin 0.5 (0.2-1.3) mg/dL AST 36 (14-36) U/L ALT 63 H (9-52) U/L Alkaline Phosphatase 52 (38-126) U/L Total Protein 6.9 (6.3-8.2) g/dL Albumin 4.1 (3.5-5.0) g/dL Amylase 68 (30-110) U/L Lipase 160 (23-300) U/L Urine Color Urine Appearance (Clear) Urine pH (5.0-8.0) Ur Specific Luke (1.001-1.035) Urine Protein (Negative) Urine Glucose (UA) (Negative) Urine Ketones (Negative) Urine Blood (Negative) Urine Nitrite (Negative) Urine Bilirubin (Negative) Urine Urobilinogen (<2.0) mg/dL Ur Leukocyte Esterase (Negative) Urine RBC (0-5) /hpf Urine WBC (0-5) /hpf Ur Squamous Epith Cells (0-4) /hpf Uric Acid Crystals (None) /hpf Hyaline Casts (0-2) /lpf Urine Mucus (None) /hpf 08/21/16 Range/Units 04:28 WBC (3.8-10.6) k/uL RBC (3.80-5.40) m/uL Hgb (11.4-16.0) gm/dL Hct (34.0-46.0) % MCV (80.0-100.0) fL MCH (25.0-35.0) pg MCHC (31.0-37.0) g/dL RDW (11.5-15.5) % Plt Count (150-450) k/uL Neutrophils % % Lymphocytes % % Monocytes % % Eosinophils % % Basophils % % Neutrophils # (1.3-7.7) k/uL Lymphocytes # (1.0-4.8) k/uL Monocytes # (0-1.0) k/uL Eosinophils # (0-0.7) k/uL Basophils # (0-0.2) k/uL Sodium (137-145) mmol/L Potassium (3.5-5.1) mmol/L Chloride (98-107) mmol/L Carbon Dioxide (22-30) mmol/L Anion Gap mmol/L BUN (7-17) mg/dL Creatinine (0.52-1.04) mg/dL Est GFR (MDRD) Af Amer (>60 ml/min/1.73 sqM) Est GFR (MDRD) Non-Af (>60 ml/min/1.73 sqM) Glucose (74-99) mg/dL Plasma Lactic Acid Maciel (0.7-2.0) mmol/L Calcium (8.4-10.2) mg/dL Total Bilirubin (0.2-1.3) mg/dL AST (14-36) U/L ALT (9-52) U/L Alkaline Phosphatase (38-126) U/L Total Protein (6.3-8.2) g/dL Albumin (3.5-5.0) g/dL Amylase (30-110) U/L Lipase (23-300) U/L Urine Color Yellow Urine Appearance Cloudy H (Clear) Urine pH 6.0 (5.0-8.0) Ur Specific Luke 1.022 (1.001-1.035) Urine Protein 1+ H (Negative) Urine Glucose (UA) Negative (Negative) Urine Ketones 2+ H (Negative) Urine Blood Negative (Negative) Urine Nitrite Negative (Negative) Urine Bilirubin Negative (Negative) Urine Urobilinogen 4.0 (<2.0) mg/dL Ur Leukocyte Esterase Small H (Negative) Urine RBC 5 (0-5) /hpf Urine WBC 11 H (0-5) /hpf Ur Squamous Epith Cells 3 (0-4) /hpf Uric Acid Crystals Many H (None) /hpf Hyaline Casts 7 H (0-2) /lpf Urine Mucus Many H (None) /hpf Disposition Clinical Impression: Abdominal pain, Colitis Disposition: HOME SELF-CARE Condition: Fair Instructions: Abdominal Pain (ED) Prescriptions: Dicyclomine [Bentyl] 20 mg PO QID #15 tablet Potassium Chloride ER [K-Dur 20] 20 meq PO DAILY #7 tab Referrals: Bettina Navarrete MD [Primary Care Provider] - 1-2 days
[2016-08-21 07:14] VITALS: BP 122/76; PULSE 74; TEMP 98.3
[2016-08-21] MEDS ORDERED: POTASSIUM CHLORIDE ER 20 MEQ TAB.ER PO STA (07:15)
== END 2016-08-21 07:10 | disposition home or self-care (01) ==
LOC: EC 03:46
DX: K52.9 Noninfective gastroenteritis and colitis, unspecified (principal); E03.9 Hypothyroidism, unspecified; F41.9 Anxiety disorder, unspecified; Z90.49 Acquired absence of other specified parts of digestive tract; Z88.2 Allergy status to sulfonamides; Z88.8 Allergy status to other drugs, medicaments and biological substances; Z79.899 Other long term (current) drug therapy
CPT/HCPCS: 99284; 96374; 96375; 96361; 36415; 80053; 82150; 83605; 83690; 85025; 81001; J2405; J1885

== ENCOUNTER 2016-08-27 21:04 | Emergency (ER) | payer BC ==
[2016-08-27 21:11] VITALS: BP 129/77; PULSE 90; RESP 24; TEMP 96.7
[2016-08-27] MEDS ORDERED: ONDANSETRON 4 MG/2 ML VIAL IVP STA (21:12)
[2016-08-27] MEDS ORDERED: DICYCLOMINE 10 MG/ML 2 ML AMP IM STA (21:31)
[2016-08-27] MEDS ORDERED: SODIUM CHLORIDE 0.9% 500 ML IV STA (21:31)
[2016-08-27] MEDS ORDERED: SODIUM CHLORIDE 0.9% 1,000 ML IV STA ×2 (21:31)
[2016-08-27] MEDS ORDERED: LORazepam 2 MG/ML SYRINGE IV STA (21:31)
[2016-08-27] MEDS ORDERED: PANTOPRAZOLE 40 MG/10 ML VIAL IVP STA (21:32)
[2016-08-27] MEDS ORDERED: KETOROLAC 30 MG/ML 1 ML VIAL IVP STA (21:32)
--- NOTE | 2016-08-27 21:35 | ED ---
General Adult HPI - General Chief complaint: Nausea/Vomiting/Diarrhea Stated complaint: Nausea/Vomiting Time Seen by Provider: 08/27/16 21:31 Source: patient, EMS, RN notes reviewed, old records reviewed Mode of arrival: EMS Limitations: no limitations - History of Present Illness Initial comments: This is a 65-year-old female ER for evaluation. Patient was asleep reevaluation of abdominal pain, nausea, anxiety. Patient has history of anxiety , patient currently going to bowel prep for colonoscopy, is very concerned and nervous results as well as not feeling while doing the bowel prep. She feels nauseous feels like she is not vomit. - Related Data Home Medications Medication Instructions Recorded Confirmed Levothyroxine Sodium [Synthroid] 125 mcg PO QAM 04/11/16 08/28/16 PARoxetine HCL 30 mg PO QAM 04/11/16 08/28/16 Loratadine [Claritin] 10 mg PO DAILY 05/05/16 08/28/16 Potassium Chloride [K-Tab ER] 10 meq PO BID 08/28/16 08/28/16 Allergies Allergy/AdvReac Type Severity Reaction Status Date / Time sulfamethoxazole Allergy Rash/Hives Verified 08/27/16 21:05 [From Bactrim] tamsulosin [From Flomax] Allergy Itching Verified 08/27/16 21:05 trimethoprim [From Bactrim] Allergy Rash/Hives Verified 08/27/16 21:05 citric acid [From Prepopik] AdvReac Nausea & Verified 08/28/16 09:38 Vomiting magnesium oxide AdvReac Nausea & Verified 08/28/16 09:38 [From Prepopik] Vomiting sodium picosulfate AdvReac Nausea & Verified 08/28/16 09:38 [From Prepopik] Vomiting Review of Systems ROS Statement: Those systems with pertinent positive or pertinent negative responses have been documented in the HPI. ROS Other: All systems not noted in ROS Statement are negative. 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 ALSO FROM OVARY , lithotripsy, left knee replacement Past Anesthesia/Blood Transfusion Reactions: Motion Sickness, Postoperative Nausea & Vomiting (PONV) Past Psychological History: Anxiety Smoking Status: Never smoker Past Alcohol Use History: None Reported Past Drug Use History: Marijuana - Past Family History Mother Family Medical History: No Reported History Father Family Medical History: Myocardial Infarction ([place]) General Exam Limitations: no limitations General appearance: alert, in no apparent distress, anxious Head exam: Present: atraumatic, normocephalic, normal inspection Eye exam: Present: normal appearance, PERRL, EOMI. Absent: scleral icterus, conjunctival injection, periorbital swelling ENT exam: Present: normal exam, mucous membranes moist Neck exam: Present: normal inspection. Absent: tenderness, meningismus, lymphadenopathy Respiratory exam: Present: normal lung sounds bilaterally. Absent: respiratory distress, wheezes, rales, rhonchi, stridor Cardiovascular Exam: Present: regular rate, normal rhythm, normal heart sounds. Absent: systolic murmur, diastolic murmur, rubs, gallop, clicks GI/Abdominal exam: Present: soft, normal bowel sounds. Absent: distended, tenderness, guarding, rebound, rigid Extremities exam: Present: normal inspection, full ROM, normal capillary refill. Absent: tenderness, pedal edema, joint swelling, calf tenderness Back exam: Present: normal inspection Neurological exam: Present: alert, oriented X3, CN II-XII intact Psychiatric exam: Present: normal affect, normal mood Skin exam: Present: warm, dry, intact, normal color. Absent: rash Course Vital Signs 08/27/16 21:05 Temperature 96.7 F L Pulse Rate 90 Respiratory 24 Rate Blood Pressure 129/77 O2 Sat by Pulse 100 Oximetry EKG Findings - EKG Comments: EKG Findings:: EKG shows sinus rhythm rate of 80, DE 180, QRS 82, QTC 492 Medical Decision Making - Medical Decision Making 65 female the ER with anxiety regarding recent urgent colonoscopy tomorrow, patient feeling much better with symptoms treatment and IV hydration, patient would like to be discharged home, lab work is otherwise normal. Patient's rehydrated and okay for discharge - Lab Data Result diagrams: 08/27/16 22:00 08/27/16 22:00 Lab Results 08/27/16 08/27/16 08/27/16 Range/Units 22:00 22:00 22:00 WBC 11.9 H (3.8-10.6) k/uL RBC 4.53 (3.80-5.40) m/uL Hgb 13.6 (11.4-16.0) gm/dL Hct 40.9 (34.0-46.0) % MCV 90.4 (80.0-100.0) fL MCH 30.0 (25.0-35.0) pg MCHC 33.2 (31.0-37.0) g/dL RDW 13.4 (11.5-15.5) % Plt Count 428 (150-450) k/uL Neutrophils % 86 % Lymphocytes % 10 % Monocytes % 2 % Eosinophils % 2 % Basophils % 0 % Neutrophils # 10.2 H (1.3-7.7) k/uL Lymphocytes # 1.1 (1.0-4.8) k/uL Monocytes # 0.3 (0-1.0) k/uL Eosinophils # 0.2 (0-0.7) k/uL Basophils # 0.0 (0-0.2) k/uL PT (9.0-12.0) sec INR (<1.1) APTT (22.0-30.0) sec Sodium 143 (137-145) mmol/L Potassium 3.7 (3.5-5.1) mmol/L Chloride 107 (98-107) mmol/L Carbon Dioxide 20 L (22-30) mmol/L Anion Gap 16 mmol/L BUN 16 (7-17) mg/dL Creatinine 0.70 (0.52-1.04) mg/dL Est GFR (MDRD) Af Amer >60 (>60 ml/min/1.73 sqM) Est GFR (MDRD) Non-Af >60 (>60 ml/min/1.73 sqM) Glucose 157 H (74-99) mg/dL Calcium 10.3 H (8.4-10.2) mg/dL Phosphorus 2.0 L (2.5-4.5) mg/dL Magnesium 3.8 H (1.6-2.3) mg/dL Total Bilirubin 0.8 (0.2-1.3) mg/dL AST 24 (14-36) U/L ALT 36 (9-52) U/L Alkaline Phosphatase 66 (38-126) U/L Total Creatine Kinase 43 (30-135) U/L CK-MB (CK-2) 0.8 (0.0-2.4) ng/mL CK-MB (CK-2) Rel Index 1.9 Troponin I <0.012 (0.000-0.034) ng/mL Total Protein 7.1 (6.3-8.2) g/dL Albumin 4.3 (3.5-5.0) g/dL 08/27/16 Range/Units 22:00 WBC (3.8-10.6) k/uL RBC (3.80-5.40) m/uL Hgb (11.4-16.0) gm/dL Hct (34.0-46.0) % MCV (80.0-100.0) fL MCH (25.0-35.0) pg MCHC (31.0-37.0) g/dL RDW (11.5-15.5) % Plt Count (150-450) k/uL Neutrophils % % Lymphocytes % % Monocytes % % Eosinophils % % Basophils % % Neutrophils # (1.3-7.7) k/uL Lymphocytes # (1.0-4.8) k/uL Monocytes # (0-1.0) k/uL Eosinophils # (0-0.7) k/uL Basophils # (0-0.2) k/uL PT 10.2 (9.0-12.0) sec INR 1.0 (<1.1) APTT 20.0 L (22.0-30.0) sec Sodium (137-145) mmol/L Potassium (3.5-5.1) mmol/L Chloride (98-107) mmol/L Carbon Dioxide (22-30) mmol/L Anion Gap mmol/L BUN (7-17) mg/dL Creatinine (0.52-1.04) mg/dL Est GFR (MDRD) Af Amer (>60 ml/min/1.73 sqM) Est GFR (MDRD) Non-Af (>60 ml/min/1.73 sqM) Glucose (74-99) mg/dL Calcium (8.4-10.2) mg/dL Phosphorus (2.5-4.5) mg/dL Magnesium (1.6-2.3) mg/dL Total Bilirubin (0.2-1.3) mg/dL AST (14-36) U/L ALT (9-52) U/L Alkaline Phosphatase (38-126) U/L Total Creatine Kinase (30-135) U/L CK-MB (CK-2) (0.0-2.4) ng/mL CK-MB (CK-2) Rel Index Troponin I (0.000-0.034) ng/mL Total Protein (6.3-8.2) g/dL Albumin (3.5-5.0) g/dL Disposition Clinical Impression: Abdominal pain, Dehydration, Nausea & vomiting, Anxiety Disposition: Left Against Medical Advice Condition: Fair Referrals: Bettina Navarrete MD [Primary Care Provider] - 1-2 days
[2016-08-27 22:13] LABS: Basophils % (A) 0 %; CHCM 32.2; Eosinophils # (A) 0.2 k/uL (0-0.7); Eosinophils % (A) 2 %; HCT 40.9 % (34.0-46.0); HDW 2.37; HGB 13.6 gm/dL (11.4-16.0); Luc # (Auto) 0.07; Luc % (Auto) 1; Lymphocytes # (A) 1.1 k/uL (1.0-4.8); Lymphocytes % (A) 10 %; MCHC 33.2 g/dL (31.0-37.0); MCV 90.4 fL (80.0-100.0); Mean Platelet Volume 6.7; Monocytes # (A) 0.3 k/uL (0-1.0); Monocytes % (A) 2 %; Neutrophils # (A) 10.2 k/uL (1.3-7.7); Neutrophils % (A) 86 %; RBC 4.53 m/uL (3.80-5.40); RDW 13.4 % (11.5-15.5); WBC 11.9 k/uL (3.8-10.6); WBC (Perox) 12.36
[2016-08-27 22:24] LABS: ALT 36 U/L (9-52); AST 24 U/L (14-36); Alkaline Phosphatase 66 U/L (38-126); Anion Gap 16 mmol/L; Blood Urea Nitrogen 16 mg/dL (7-17); Calcium 10.3 mg/dL (8.4-10.2); Carbon Dioxide 20 mmol/L (22-30); Chloride 107 mmol/L (98-107); Glucose 157 mg/dL (74-99); Magnesium 3.8 mg/dL (1.6-2.3); Non-African American GFR(MDRD) >60 (>60 ml/min/1.73 sqM); Sodium 143 mmol/L (137-145); Total Bilirubin 0.8 mg/dL (0.2-1.3); Total Protein 7.1 g/dL (6.3-8.2)
[2016-08-27 22:38] LABS: Prothrombin Time 10.2 sec (9.0-12.0)
[2016-08-27 22:40] LABS: Potassium 3.7 mmol/L (3.5-5.1)
[2016-08-27 22:46] LABS: Creatine Kinase 43 U/L (30-135)
[2016-08-27 22:59] LABS: Creatine Kinase MB 0.8 ng/mL (0.0-2.4); Troponin I <0.012 ng/mL (0.000-0.034)
[2016-08-27] MEDS ORDERED: SODIUM CHLORIDE 0.9% 1,000 ML IV ONE (22:59)
[2016-08-28] MEDS ORDERED: ENOXAPARIN 40 MG/0.4 ML SYRINGE SQ SCH (09:00)
== END 2016-08-27 23:34 | disposition left against medical advice (07) ==
LOC: EC 21:04
DX: R10.9 Unspecified abdominal pain (principal); E86.0 Dehydration; R11.2 Nausea with vomiting, unspecified; R19.7 Diarrhea, unspecified; R41.9 Unspecified symptoms and signs involving cognitive functions and awareness; E03.9 Hypothyroidism, unspecified; K21.9 Gastro-esophageal reflux disease without esophagitis; Z79.899 Other long term (current) drug therapy; Z88.2 Allergy status to sulfonamides; Z88.8 Allergy status to other drugs, medicaments and biological substances; Z87.19 Personal history of other diseases of the digestive system; Z90.49 Acquired absence of other specified parts of digestive tract; Z98.84 Bariatric surgery status
CPT/HCPCS: 36415; 93005; 80053; 82550; 82553; 83735; 84100; 84484; 85025; 85610; 85730; 99284; 96374; 96375 ×3; 96361 ×2; 96372; J2060; J0500; J2405; J1885; C9113

== ENCOUNTER 2016-08-28 08:08 | Day surgery (SDC) | payer BC ==
[2016-08-25 10:36] VITALS: BMI 24.9
[~2016-08-28 08:08] MED LIST changes: -DEXAMETHASONE SOD PHOSPHATE 10 MG/ML 1 ML VIAL IV ONE; -HYDROmorphone 1 MG/ML 1 ML SYRINGE IVP PRN; +LACTATED RINGERS 1,000 ML IV SCH; -LIDOCAINE 1% 20 ML VIAL (10MG/ML) FOR IV START INTRADERMA PRN; -ONDANSETRON 4 MG/2 ML VIAL IVP ONE; -Pre Op ABX Message 1 EACH MISC MISCELLANE ONE; -SCOPOLAMINE 1.5MG/72HR PATCH TRANSDERM ONE
[2016-08-28 09:09] VITALS: TEMP 97
[2016-08-28 09:22] LABS: Glucose,Whole Blood 106 mg/dL (75-99)
[2016-08-28] MEDS ORDERED: LIDOCAINE 1% 20 ML VIAL (10MG/ML) FOR IV START INTRADERMA ONE (09:31)
[2016-08-28] MEDS ORDERED: MIDAZOLAM 2 MG/2 ML VIAL IV ONE (09:32)
--- NOTE | 2016-08-28 09:34 | P.GSHP ---
History of Present Illness H&P Date: 08/28/16 Chief Complaint: Left-sided colitis This a 65-year-old female who presents today for colonoscopy. Patient has had complaints of left-sided abdominal pain. Recent CAT scan shows evidence of left -sided colitis. 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 ALSO FROM OVARY , lithotripsy, left knee replacement Past Anesthesia/Blood Transfusion Reactions: Motion Sickness, Postoperative Nausea & Vomiting (PONV) Past Psychological History: Anxiety Smoking Status: Never smoker Past Alcohol Use History: None Reported Past Drug Use History: Marijuana - Past Family History Mother Family Medical History: No Reported History Father Family Medical History: Myocardial Infarction ([place]) Medications and Allergies Home Medications Medication Instructions Recorded Confirmed Type Levothyroxine Sodium [Synthroid] 125 mcg PO QAM 04/11/16 08/25/16 History Multivitamins, Thera [Multivitamin] 1 tab PO DAILY 04/11/16 08/25/16 History PARoxetine HCL 30 mg PO QAM 04/11/16 08/25/16 History Loratadine [Claritin] 10 mg PO DAILY 05/05/16 08/25/16 History Potassium Chloride ER [K-Dur 20] 20 meq PO BID 08/25/16 08/25/16 History Allergies Allergy/AdvReac Type Severity Reaction Status Date / Time sulfamethoxazole Allergy Rash/Hives Verified 08/27/16 21:05 [From Bactrim] tamsulosin [From Flomax] Allergy Itching Verified 08/27/16 21:05 trimethoprim [From Bactrim] Allergy Rash/Hives Verified 08/27/16 21:05 Surgical - Exam Vital Signs Temp Pulse Resp BP Pulse Ox 97 F L 98 20 186/89 100 08/28/16 09:08 08/28/16 09:08 08/28/16 09:08 08/28/16 09:08 08/28/16 09:08 - General well developed, no distress - Eyes PERRL - ENT normal pinna - Neck no masses - Respiratory normal expansion - Cardiovascular Rhythm: regular - Abdomen Mild left-sided pain Abdomen: soft Results - Labs Abnormal Lab Results - Last 24 Hours (Table) 08/28/16 Range/Units 09:05 POC Glucose (mg/dL) 106 H (75-99) mg/dL Assessment and Plan Plan: Left-sided colitis. We'll perform colonoscopy.
[2016-08-28] MEDS ORDERED: PROPOFOL 10 MG/ML 20 ML VIAL IV ONE (09:38)
[2016-08-28] MEDS ORDERED: MIDAZOLAM 2 MG/2 ML VIAL ONE (09:38)
[2016-08-28] MEDS ORDERED: fentaNYL (PF) 50 MCG/ML 2 ML AMP ONE (09:38)
[2016-08-28] MEDS ORDERED: LIDOCAINE 1% INJ 10MG/ML (20 ML MDV) ONE (09:38)
--- NOTE | 2016-08-28 09:58 | P.OP ---
Date of Procedure: 08/28/16 Preoperative Diagnosis: Colitis Postoperative Diagnosis: Mild inflammatory change of left colon Very poor colonic prep with large amount liquid stool Procedure(s) Performed: Colonoscopy Implants: Anesthesia: MAC Surgeon: Clifford Holt Pathology: other (Left colon) Condition: stable Disposition: PACU Indications for Procedure: Operative Findings: Description of Procedure: The patient's placed on the endoscopy table in the lateral position. She received IV sedation. Digital rectal exam was performed which revealed no abnormalities. The flexible colonoscope was then placed patient anus passed throughout the the colon. In the mid transverse colon there is a large amount of liquid stool. The scope could not be passed beyond this. Scope was withdrawn. The distal transverse colon appeared normal. In the mid descending colon appeared to be some minimal inflammation this area is biopsied. The sigmoid colon appeared mildly edematous. No obvious inflammation was seen. The rectum appeared normal. The scope was withdrawn for patient.
[2016-08-28 10:35] VITALS: RESP 16
[2016-08-28 11:09] VITALS: BP 152/86; PULSE 80
== END 2016-08-28 11:20 | disposition home or self-care (01) ==
LOC: ORWHC2ENDO 08:08
PROVIDERS: ATTEND Surgery
DX: K52.9 Noninfective gastroenteritis and colitis, unspecified (principal); K63.5 Polyp of colon; K21.9 Gastro-esophageal reflux disease without esophagitis; E03.9 Hypothyroidism, unspecified; F41.9 Anxiety disorder, unspecified; J45.909 Unspecified asthma, uncomplicated; F32.9 Major depressive disorder, single episode, unspecified; Z98.84 Bariatric surgery status; Z79.899 Other long term (current) drug therapy; Z88.1 Allergy status to other antibiotic agents; Z88.2 Allergy status to sulfonamides; Z88.8 Allergy status to other drugs, medicaments and biological substances
CPT/HCPCS: 88305; 45380; J2250; J2001; J3010; J2704

== ENCOUNTER 2016-08-28 16:20 | Observation (INO) | payer BC ==
--- NOTE | 2016-08-28 16:42 | ED ---
Abdominal Pain HPI - General Chief Complaint: Abdominal Pain Stated Complaint: Difficulty Breathing Time Seen by Provider: 08/28/16 16:27 Source: patient Mode of arrival: wheelchair Limitations: no limitations - History of Present Illness Initial Comments: Patient is a 65-year-old female presents with a chief complaint of abdominal pain. Patient was in the hospital this morning was supposed to have a colonoscopy but did not get it done secondary to not being able to tolerate the bowel prep, and having an anxiety attack. He states that she has had abdominal pain going on for months. She's been evaluated for this before, but has not been given a specific diagnosis yet as to what is causing her pain. Patient was positive for colonoscopy today however the procedure did not happen. The patient states that her pain today is not any worse than it has been MD Complaint: abdominal pain Onset/Timin -: month(s) Location: diffuse Radiation: none Severity: severe Severity scale (1-10): 10 Quality: cramping, sharp Consistency: constant Improves With: nothing Worsens With: nothing Associated Symptoms: nausea, vomiting, chills - Related Data Home Medications Medication Instructions Recorded Confirmed Levothyroxine Sodium [Synthroid] 125 mcg PO QAM 04/11/16 08/28/16 PARoxetine HCL 30 mg PO QAM 04/11/16 08/28/16 Loratadine [Claritin] 10 mg PO DAILY 05/05/16 08/28/16 Potassium Chloride [K-Tab ER] 10 meq PO BID 08/28/16 08/28/16 Allergies Allergy/AdvReac Type Severity Reaction Status Date / Time sulfamethoxazole Allergy Rash/Hives Verified 08/27/16 21:05 [From Bactrim] tamsulosin [From Flomax] Allergy Itching Verified 08/27/16 21:05 trimethoprim [From Bactrim] Allergy Rash/Hives Verified 08/27/16 21:05 citric acid [From Prepopik] AdvReac Nausea & Verified 08/28/16 09:38 Vomiting magnesium oxide AdvReac Nausea & Verified 08/28/16 09:38 [From Prepopik] Vomiting sodium picosulfate AdvReac Nausea & Verified 08/28/16 09:38 [From Prepopik] Vomiting Review of Systems ROS Statement: Those systems with pertinent positive or pertinent negative responses have been documented in the HPI. ROS Other: All systems not noted in ROS Statement are negative. Respiratory: Reports: dyspnea Gastrointestinal: Reports: abdominal pain, nausea, vomiting Genitourinary: Reports: dysuria Psychiatric: Reports: anxiety Past Medical History Past Medical History: GERD/Reflux, Thyroid Disorder Additional Past Medical History / Comment(s): freq watery stools and loss of control of stools-,Colitis,Nephro Lithiasis status post shock wave lithotripsy, hypothyroidism CAME TO ER LAST NIGHT 08/27 16 FOR ABD PAIN ONLY ABLE TO TAKE PART OF PREP History of Any Multi-Drug Resistant Organisms: None Reported Past Surgical History: Bariatric Surgery, Cholecystectomy, Orthopedic Surgery, Tonsillectomy Additional Past Surgical History / Comment(s): LAP BAND-last fluid fill approx 14 yrs ago, CYST REMOVED FROM BILATERAL breast, HAND AND MOUTH. ALSO FROM OVARY , lithotripsy, left knee replacement Past Anesthesia/Blood Transfusion Reactions: Motion Sickness, Postoperative Nausea & Vomiting (PONV) Past Psychological History: Anxiety Smoking Status: Never smoker Past Alcohol Use History: None Reported Past Drug Use History: Marijuana - Past Family History Mother Family Medical History: No Reported History Father Family Medical History: Myocardial Infarction ([place]) General Exam Limitations: no limitations General appearance: alert, anxious, in distress Head exam: Present: atraumatic, normocephalic Eye exam: Present: normal appearance ENT exam: Present: normal exam Neck exam: Present: normal inspection Respiratory exam: Present: normal lung sounds bilaterally Cardiovascular Exam: Present: normal rhythm, tachycardia GI/Abdominal exam: Present: soft, tenderness (Patient is diffusely tender) Rectal exam: Present: deferred Extremities exam: Present: normal inspection Neurological exam: Present: alert, oriented X3 Psychiatric exam: Present: agitated, anxious Course Vital Signs 08/28/16 08/28/16 08/28/16 16:29 17:35 18:49 Temperature 98.3 F Pulse Rate 119 H 85 91 Respiratory 25 H 18 18 Rate Blood Pressure 143/88 144/85 148/71 O2 Sat by Pulse 99 100 99 Oximetry Medical Decision Making - Medical Decision Making 4:29pm patient presents to room 11 via wheelchair in moderate distress secondary to abdominal pain. The patient was helped over to the cart and continued to writhe in pain saying that her left-sided abdomen hurt. I spoke with Dr. Holt who is familiar with this patient. He states that she was supposed to have a colonoscopy today however she did not tolerate the bowel prep , and that she hadn't anxiety attack and left. This time he is requesting that we obtain a computed tomography scan of the abdomen and pelvis with oral contrast, treat her pain and anxiety, and admit her to the hospital. 6:24pm Laboratory evaluation of this patient shows a leukocytosis of 17,000, with left shift. Likely due to the patient's known colitis. At this time, patient is refusing to take by mouth contrast for computed tomography scan. Patient will be sent for an acute abdominal series, and the need for computed tomography scan can be determined by the inpatient treating team. After analgesia, and nausea control the patient is feeling better. Her vital signs normalized. This case was discussed with Luz Bill, nurse practitioner with Dr. White, who accepts admission of this patient. Initial admission orders have been written, patient is stable for transport to floor. 7:28pm Computed tomography scan reviewed. Compared to study done in July of this year , there are no hyperacute changes. Patient still shows signs of left-sided mild inflammation patient is on Cipro, and Flagyl at home. I started the patient on IV Rocephin, and Flagyl. Patient was made nothing by mouth. - Lab Data Result diagrams: 08/28/16 17:17 08/28/16 17:17 Lab Results 08/28/16 08/28/16 08/28/16 Range/Units 17:17 17:17 18:57 WBC 17.2 H (3.8-10.6) k/uL RBC 4.27 (3.80-5.40) m/uL Hgb 12.9 (11.4-16.0) gm/dL Hct 38.7 (34.0-46.0) % MCV 90.7 (80.0-100.0) fL MCH 30.3 (25.0-35.0) pg MCHC 33.4 (31.0-37.0) g/dL RDW 13.8 (11.5-15.5) % Plt Count 332 (150-450) k/uL Neutrophils % 91 % Lymphocytes % 4 % Monocytes % 4 % Eosinophils % 1 % Basophils % 0 % Neutrophils # 15.6 H (1.3-7.7) k/uL Lymphocytes # 0.6 L (1.0-4.8) k/uL Monocytes # 0.7 (0-1.0) k/uL Eosinophils # 0.2 (0-0.7) k/uL Basophils # 0.0 (0-0.2) k/uL Sodium 143 (137-145) mmol/L Potassium 4.9 (3.5-5.1) mmol/L Chloride 108 H (98-107) mmol/L Carbon Dioxide 20 L (22-30) mmol/L Anion Gap 15 mmol/L BUN 20 H (7-17) mg/dL Creatinine 0.58 (0.52-1.04) mg/dL Est GFR (MDRD) Af Amer >60 (>60 ml/min/1.73 sqM) Est GFR (MDRD) Non-Af >60 (>60 ml/min/1.73 sqM) Glucose 119 H (74-99) mg/dL Calcium 9.1 (8.4-10.2) mg/dL Total Bilirubin 1.3 (0.2-1.3) mg/dL AST 37 H (14-36) U/L ALT 22 (9-52) U/L Alkaline Phosphatase 60 (38-126) U/L Total Protein 7.6 (6.3-8.2) g/dL Albumin 4.4 (3.5-5.0) g/dL Lipase 80 (23-300) U/L Urine Color Yellow Urine Appearance Clear (Clear) Urine pH 6.0 (5.0-8.0) Urine Protein 1+ H (Negative) Urine Glucose (UA) Negative (Negative) Urine Blood Negative (Negative) Urine Nitrite Negative (Negative) Urine Bilirubin 1+ H (Negative) Urine Urobilinogen 3.0 (<2.0) mg/dL Ur Leukocyte Esterase Negative (Negative) Urine RBC 1 (0-5) /hpf Urine WBC 2 (0-5) /hpf Ur Squamous Epith Cells 1 (0-4) /hpf Urine Mucus Few H (None) /hpf Disposition Clinical Impression: Intractable abdominal pain, Colitis, Nausea and vomiting Disposition: ADMITTED IP TO THIS [facility] Referrals: Bettina Navarrete MD [Primary Care Provider] - 1-2 days
[2016-08-28] MEDS ORDERED: IOHEXOL 350 MG/ML 25 ML BOTTLE (ORAL USE) PO PRN (16:44)
[2016-08-28] MEDS ORDERED: ONDANSETRON 4 MG/2 ML VIAL IVP STA (16:44)
[2016-08-28] MEDS ORDERED: MORPHINE SULFATE 10 MG/ML SYRINGE IVP STA (16:44)
[2016-08-28] MEDS ORDERED: ALPRAZolam 0.5 MG TAB PO STA (16:44)
[2016-08-28] MEDS ORDERED: RX INFO: IV CONTRAST WAS GIVEN 1 EACH MISC MISCELLANE PRN (16:44)
[2016-08-28 17:32] LABS: Basophils % (A) 0 %; CH 29.6; CHCM 32.8; Eosinophils # (A) 0.2 k/uL (0-0.7); Eosinophils % (A) 1 %; HCT 38.7 % (34.0-46.0); HDW 2.46; HGB 12.9 gm/dL (11.4-16.0); Luc # (Auto) 0.04; Luc % (Auto) 0; Lymphocytes # (A) 0.6 k/uL (1.0-4.8); Lymphocytes % (A) 4 %; MCH 30.3 pg (25.0-35.0); MCHC 33.4 g/dL (31.0-37.0); MCV 90.7 fL (80.0-100.0); Mean Platelet Volume 7.2; Monocytes # (A) 0.7 k/uL (0-1.0); Monocytes % (A) 4 %; Neutrophils # (A) 15.6 k/uL (1.3-7.7); Neutrophils % (A) 91 %; RBC 4.27 m/uL (3.80-5.40); RDW 13.8 % (11.5-15.5); WBC 17.2 k/uL (3.8-10.6); WBC (Perox) 17.09
[2016-08-28 17:46] LABS: ALT 22 U/L (9-52); AST 37 U/L (14-36); Alkaline Phosphatase 60 U/L (38-126); Anion Gap 15 mmol/L; Blood Urea Nitrogen 20 mg/dL (7-17); Calcium 9.1 mg/dL (8.4-10.2); Carbon Dioxide 20 mmol/L (22-30); Chloride 108 mmol/L (98-107); Glucose 119 mg/dL (74-99); Non-African American GFR(MDRD) >60 (>60 ml/min/1.73 sqM); Potassium 4.9 mmol/L (3.5-5.1); Sodium 143 mmol/L (137-145); Total Bilirubin 1.3 mg/dL (0.2-1.3); Total Protein 7.6 g/dL (6.3-8.2)
[2016-08-28] MEDS ORDERED: NALOXONE 0.4 MG/ML 1 ML VIAL IV PRN (18:19)
[2016-08-28] MEDS ORDERED: metroNIDAZOLE-NS PMX 500 MG in SALINE 1 100ML.BAG IVPB STA (18:26)
[2016-08-28 19:05] LABS: Appearance,Urine Clear (Clear); Bilirubin,Urine 1+ (Negative); Glucose,Urine (UA) Negative (Negative); Ketones,Urine 4+ (Negative); Leukocyte Esterase,Urine Negative (Negative); Mucus,Urine Few /hpf; Nitrite,Urine Negative (Negative); Particle Count 4791; Protein,Urine 1+ (Negative); RBC,Urine 1 /hpf (0-5); Squamous Epithelial Cell,Urine 1 /hpf (0-4); UA Billing (MACRO vs. MICRO) MICRO; WBC,Urine 2 /hpf (0-5)
--- NOTE | 2016-08-28 19:21 | CT ---
EXAMINATION TYPE: CT abdomen pelvis w con DATE OF EXAM: 08/28/2016 COMPARISON: CT August 14, 2016 HISTORY: Pain with nausea and vomiting postcolonoscopy today, prior CT showed evidence of Proctocolit is. CT DLP: 998 mGycm Automated exposure control for dose reduction was used. TECHNIQUE: Helical acquisition of images was performed from the lung bases through the pelvis. CONTRAST: Performed with oral contrast and IV contrast; patient injected with 100 mL of Omnipaque 300. FINDINGS: LUNG BASES: Minimal added groundglass opacity at the left lung base is noted, nonspecific, but correl ate for developing pneumonitis. No other findings. LIVER/GB: No significant abnormality is appreciated. PANCREAS: No significant abnormality is seen. SPLEEN: No significant abnormality is seen. ADRENALS: No significant abnormality is seen. KIDNEYS: No significant abnormality is seen. RETROPERITONEAL ADENOPATHY: None visualized REPRODUCTIVE ORGANS: No significant abnormality is seen URINARY BLADDER: No significant abnormality is seen. PELVIC ADENOPATHY: None visualized. OSSEOUS STRUCTURES: No significant abnormality is seen. BOWEL: The previously seen descending mesocolon inflammatory changes have improved since the time of the August 14, 2016 CT, but there remains circumferential mild mural thickening over the length of the descending colon and rectosigmoid. There is dilation of the cecum and the descending and transverse c olon with the cecum during 9 cm diameter and the transverse colon during approximately 6 cm caliber p roximally and 4.5 cm distally. There is no dilation of the descending colon or rectosigmoid. No pneum atosis and no pneumoperitoneum. IMPRESSION: NO HYPERACUTE PROCESS POSTCOLONOSCOPY. DESCENDING COLON AND RECTOSIGMOID MILD INFLAMMATORY CHANGES NOTED. NONSPECIFIC LEFT LOWER LOBE OPACITY.
[2016-08-28] MEDS: LACTATED RINGERS 1,000 ML IV SCH (19:24)
[2016-08-28 19:39] LABS: Specific Gravity,Urine >1.050 (1.001-1.035)
[2016-08-28] MEDS: MORPHINE SULFATE 4 MG/ML SYRINGE IV PRN (19:55)
--- NOTE | 2016-08-28 20:25 | XR ---
EXAMINATION TYPE: XR KUB DATE OF EXAM: 08/28/2016 COMPARISON: August 14, 2016 radiographs, CT earlier today. HISTORY: Pain. Left-sided kidney stone, colitis TECHNIQUE: 2 standing upright AP views FINDINGS: There is contrast opacification of the upper and lower collecting systems, from the recent intravenous contrast given at the time of CT imaging. There is no obstructive uropathy. Air-fluid levels are noted throughout the colon and ascending and transverse colon and, as well as th e proximal descending colon. There is no pneumatosis. No pneumoperitoneum. This is lung bases and pleural spaces are negative. IMPRESSION: No acute process.
[2016-08-28 23:24] VITALS: BMI 23.1
[2016-08-29] MEDS: MORPHINE SULFATE 4 MG/ML SYRINGE IV PRN ×5 (00:39→20:44)
[2016-08-29] MEDS: ONDANSETRON 4 MG/2 ML VIAL IVP PRN ×2 (09:17→20:44)
[2016-08-29] MEDS: LACTATED RINGERS 1,000 ML IV SCH (12:15)
[2016-08-29] MEDS: LEVOFLOXACIN 500MG-D5W PMX 500 MG in DEXTROSE/WATER 1 100ML.BAG IVPB SCH (12:17)
[2016-08-29] MEDS: metroNIDAZOLE-NS PMX 500 MG in SALINE 1 100ML.BAG IVPB SCH ×3 (13:36→23:52)
[2016-08-29] MEDS: PARoxetine 10 MG TAB PO SCH (16:37)
--- NOTE | 2016-08-29 16:57 | CONS ---
This 65-year-old female patient who has been here a couple of times now. She presented to the emergency department with abdominal pain. The patient apparently recently had a colonoscopy. The colonoscopy was done, I believe, by Dr. Holt. She presents with nausea and pain and cramping. Apparently the prep caused her to have her a lot of distress and difficulty. Patient has been having abdominal discomfort for a long period of time and spent quite a bit of time here recently in the hospital. The patient had a KUB which was unremarkable. The patient also had a CT of the abdomen and pelvis which showed some very mild colitis in descending colon. No perforation or other abnormality. The patient is very tearful. Denies any shortness of breath, cough , wheezing, phlegm production, chest pain, fever, chills or any other complaints for that matter. The patient's home medications include levothyroxine, Paxil, loratadine, potassium chloride. ALLERGIES INCLUDE SULFA, FLOMAX, CITRIC ACID, MAGNESIUM OXIDE AND SODIUM BISULFATE. Medical history includes gastroesophageal reflux disease, hypothyroidism. The patient also has lots of issues with her bowels including symptoms and signs of irritable bowel syndrome and possibly colitis. She also has a previous history of kidney stones status post extracorporeal shockwave lithotripsy. She does have a history of hypothyroidism. Surgical history includes among other things bariatric surgery i.e. lap band procedure, cholecystectomy, tonsillectomy, orthopedic procedures and bilateral breast cyst removal. She has also had left knee replacement. Social history is negative for tobacco or alcohol. She used to smoke marijuana in the past. Family history is positive for myocardial infarction. REVIEW OF SYSTEMS: CONSTITUTIONAL: Negative. NEUROLOGIC: Negative. HEENT: Negative. CARDIOVASCULAR: Negative. PULMONARY: Negative. GI: As above, nausea, abdominal pain and cramping. : Negative. RHEUMATOLOGIC/HEMATOLOGIC: Negative. ENDOCRINOLOGIC: Negative. Current vital signs are reviewed. Temperature is 98.8. Heart rate 77, respiratory rate 18, blood pressure 143/86, mean 105, room air saturation is 97% . Appears in no acute distress. HEENT examination is grossly unremarkable. Mucous membranes are moist. No oral lesions. Neck supple. Full range of motion. No adenopathy or thyromegaly. Neck veins are flat. Cardiovascular examination reveals regular rhythm rate. S1, S2 normal. No S3, S3 or murmur. Lungs reveal clear breath sounds. No wheezes, rhonchi or crackles. Abdomen is soft. There is some tenderness on palpation. Bowel sounds are noted. No masses. Extremities are intact. No cyanosis, clubbing or edema. Skin without rash. Neurological examination is brief, but nonfocal. Lab data includes a white count of 17.2. Hemoglobin, hematocrit and platelet count are all normal. Sodium and potassium are normal. Chloride 108. CO2 is 20. Anion gap is 15. BUN and creatinine were 20 and 0.58. The rest of the labs look okay. ASSESSMENT: 1. Abdominal pain with nausea and vomiting, possibly related to underlying colitis. 2. Rule out functional bowel abnormality such as irritable bowel syndrome. 3. History of kidney stones, status post lithotripsy. 4. Hypothyroidism. 5. Gastroesophageal reflux disease. 6. Status post lap band procedure. PLAN: Will continue to follow. No additional recommendations are made. Lipase was normal. The rest of the labs look pretty good. Some of this could be from dehydration. She did have some mild prerenal azotemia and a very mild anion gap metabolic acidosis. She is getting fluid hydration. No pulmonary issues at this time. Her primary is Dr. Navarrete. YONNY
--- NOTE | 2016-08-29 20:17 | P.GSCN ---
History of Present Illness Consult date: 08/29/16 Reason for Consult: Colitis History of present illness: This a 65-year-old female who is readmitted to the hospital for left lower quadrant abdominal pain. Patient's history of colitis. She was initially diagnosed with colitis approximately 2 and Apley's ago. She underwent colonoscopy today. Patient had pain prior to her colonoscopy. After colonoscopy patient had significant pain. She presented back to the emergency room. She's had a CAT scan which confirms left-sided colitis. 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 ALSO FROM OVARY , lithotripsy, left knee replacement Past Anesthesia/Blood Transfusion Reactions: Motion Sickness, Postoperative Nausea & Vomiting (PONV) Past Psychological History: Anxiety Smoking Status: Never smoker Past Alcohol Use History: None Reported Past Drug Use History: Marijuana - Past Family History Mother Family Medical History: No Reported History Father Family Medical History: Myocardial Infarction ([place]) Medications and Allergies Home Medications Medication Instructions Recorded Confirmed Type Levothyroxine Sodium [Synthroid] 125 mcg PO QAM 04/11/16 08/28/16 History PARoxetine HCL 30 mg PO QAM 04/11/16 08/28/16 History Loratadine [Claritin] 10 mg PO DAILY 05/05/16 08/28/16 History Potassium Chloride [K-Tab ER] 10 meq PO BID 08/28/16 08/28/16 History Allergies Allergy/AdvReac Type Severity Reaction Status Date / Time sulfamethoxazole Allergy Rash/Hives Verified 08/27/16 21:05 [From Bactrim] tamsulosin [From Flomax] Allergy Itching Verified 08/27/16 21:05 trimethoprim [From Bactrim] Allergy Rash/Hives Verified 08/27/16 21:05 citric acid [From Prepopik] AdvReac Nausea & Verified 08/28/16 09:38 Vomiting magnesium oxide AdvReac Nausea & Verified 08/28/16 09:38 [From Prepopik] Vomiting sodium picosulfate AdvReac Nausea & Verified 08/28/16 09:38 [From Prepopik] Vomiting Surgical - Exam Vital Signs Temp Pulse Resp BP Pulse Ox 98.3 F 119 H 25 H 143/88 99 08/28/16 16:29 08/28/16 16:29 08/28/16 16:29 08/28/16 16:29 08/28/16 16:29 - General well developed, no distress - Eyes PERRL - ENT normal pinna - Neck no masses - Respiratory normal expansion - Cardiovascular Rhythm: regular - Abdomen Mild left lower quadrant tenderness. There is no rebound or guarding. Abdomen: soft Results - Labs 08/28/16 17:17 08/28/16 17:17 - Imaging CT scan - abdomen: report reviewed (Left colon inflammation. There is no evidence of perforation or free air.) Assessment and Plan Plan: Left-sided abdominal pain with history of colitis. Patient will be treated medically. We will continue to follow. No surgical intervention is planned.
[2016-08-29] MEDS: POTASSIUM CHLORIDE ER 10 MEQ TAB.ER.PRT PO SCH (20:47)
[2016-08-29 21:59] VITALS: RESP 16
[2016-08-29] MEDS: ALPRAZolam 0.25 MG TAB PO PRN (22:22)
[2016-08-30] MEDS: MORPHINE SULFATE 4 MG/ML SYRINGE IV PRN ×2 (00:58→06:07)
[2016-08-30] MEDS: LACTATED RINGERS 1,000 ML IV SCH ×2 (06:13→10:38)
[2016-08-30] MEDS ORDERED: LEVOTHYROXINE 125 MCG TAB PO SCH (06:30)
[2016-08-30 07:56] LABS: Basophils % (A) 1 %; CH 28.7; CHCM 31.1; Eosinophils # (A) 0.1 k/uL (0-0.7); Eosinophils % (A) 1 %; HCT 36.7 % (34.0-46.0); HDW 2.33; HGB 11.8 gm/dL (11.4-16.0); Hypochromasia Slight; Luc % (Auto) 1; Lymphocytes # (A) 1.3 k/uL (1.0-4.8); Lymphocytes % (A) 15 %; MCH 29.7 pg (25.0-35.0); MCHC 32.1 g/dL (31.0-37.0); MCV 92.6 fL (80.0-100.0); Mean Platelet Volume 6.7; Monocytes # (A) 0.5 k/uL (0-1.0); Monocytes % (A) 6 %; Neutrophils # (A) 6.6 k/uL (1.3-7.7); Neutrophils % (A) 77 %; RBC 3.96 m/uL (3.80-5.40); RDW 13.5 % (11.5-15.5); WBC 8.6 k/uL (3.8-10.6); WBC (Perox) 8.74
[2016-08-30 08:09] LABS: Anion Gap 12 mmol/L; Blood Urea Nitrogen 9 mg/dL (7-17); Calcium 8.7 mg/dL (8.4-10.2); Carbon Dioxide 25 mmol/L (22-30); Chloride 106 mmol/L (98-107); Glucose 74 mg/dL (74-99); Non-African American GFR(MDRD) >60 (>60 ml/min/1.73 sqM); Potassium 3.1 mmol/L (3.5-5.1); Sodium 143 mmol/L (137-145)
[2016-08-30 08:31] VITALS: BP 102/55; PULSE 67; TEMP 97.4
[2016-08-30] MEDS: metroNIDAZOLE-NS PMX 500 MG in SALINE 1 100ML.BAG IVPB SCH (08:44)
[2016-08-30] MEDS: PARoxetine 10 MG TAB PO SCH (08:46)
[2016-08-30] MEDS: POTASSIUM CHLORIDE ER 10 MEQ TAB.ER.PRT PO SCH (08:46)
[2016-08-30] MEDS: ALPRAZolam 0.25 MG TAB PO PRN (08:50)
[2016-08-30] MEDS ORDERED: LORATADINE 10 MG TAB PO SCH (09:00)
--- NOTE | 2016-08-30 10:02 | HP ---
DATE OF SERVICE: 08/29/2016 The chief complaints are abdominal pain as well a nausea and shortness of breath and panic episodes. HISTORY OF PRESENT ILLNESS: This is a 65-year-old woman with a past medical history of multiple medical problems including GERD, hypothyroidism, history of bariatric surgery, cholecystectomy, being followed by Dr. Navarrete in the outpatient setting is complaining of abdominal pain for the past several weeks. The patient was evaluated on multiple occasions. The patient was suppose to have colonoscopy but could not be completed by Dr. Holt. The patient also had panic episodes and patient started hypoventilating. Patient also had significant pain and swelling also. The CAT scan of the abdomen and pelvis was done in the ER which showed a descending colon and rectosigmoid inflammatory bowel changes. Otherwise, there is no history of fever, chills or rigors. No history of headache, loss of consciousness. PAST MEDICAL HISTORY: GERD, hypothyroidism, history of bariatric surgery, cholecystectomy. Medications prior to admission include, home medications are: 1. K-Tab 10 mEq p.o. b.i.d. 2. Paroxetine 30 mg q.a.m. 3. Claritin 10 mg p.o. daily. 4. Synthroid 125 mcg p.o. q.a.m. Allergies are BACTRIM, FLOMAX, CITRIC ACID, MAGNESIUM, SODIUM PHOSPHATE. FAMILY HISTORY: No history of heart disease or strokes in the family. SOCIAL HISTORY: No history of smoking, marijuana.per chart. REVIEW OF SYSTEMS: ENT: No diminished hearing, diminished vision. CARDIOVASCULAR: No angina or palpitations. RESPIRATORY: As mentioned earlier. GI: As mentioned earlier. : No dysuria. NERVOUS SYSTEM: No numbness or weakness. ALLERGY/IMMUNOLOGY: No asthma or hayfever. MUSCULOSKELETAL: As mentioned earlier. DERMATOLOGY: Negative. PSYCHIATRY: As mentioned earlier. ENDOCRINE: Hypothyroidism. CONSTITUTIONAL: As mentioned earlier. PHYSICAL EXAMINATION: Patient is alert and oriented x3. Pulse 77, blood pressure 145/70, respirations 18, temperature is 98.2, pulse ox 97% on room air. HEENT: Conjunctivae normal, oral mucosa moist. NECK: No jugular venous distension, no carotid bruit, no lymph node enlargement. CARDIOVASCULAR SYSTEM: S1, S3, muffled, no S3, no S4. RESPIRATORY: Breath sounds diminished at the bases. A few scattered rhonchi, no crackles. ABDOMEN: Soft, mild diffuse tenderness in the lower part of the abdomen. No guarding, no rigidity, no mass. There are bowel sounds present. No organomegaly. LEGS: No edema, no swelling. NERVOUS SYSTEM: Higher functions as mentioned, moves all 4 limbs, no focal motor deficits. LYMPHATICS: No lymph node enlargement in the neck, groin or axillae. SKIN: No ulcer, rash or bleeding. LABS: WBC is 17.2 and UA noted. ASSESSMENT: 1. Lower abdominal pain, possibly acute colitis with SIRS present on admission. 2. History of panic episodes. 3. History of gastroesophageal reflux disease. 4. Hypothyroidism. 5. History of nephrolithiasis. 6. History of bariatric surgery. 7. History of anxiety. RECOMMENDATION: In this 65-year-old woman who presented with multiple complex medical issues, will monitor the patient closely. Continue with the current medication and symptomatic treatment. I would recommend a broad spectrum IV antibiotic. Surgery and Gastroenterology will be consulted. Home medications will be continued and prognosis guarded because of the multiple complex medical issues and further recommendations to follow. See orders for further details. A copy of this will be forwarded to Dr. Navarrete who is the primary physician. YONNY
--- NOTE | 2016-08-30 10:05 | P.CN ---
Psychiatric Consult - . Consult date: 08/30/16 Consult:: 08/30/16 09:21 DATE OF SERVICE: 07/31/2016 9:55 AM IDENTIFYING DATA: This patient is a 65-year-old female admitted to the medical floor after having severe panic attack along with abdominal pain. . HISTORY OF PRESENT ILLNESS: The patient presents with the patient reports that she is had anxiety lifelong, and has been treated with Paxil for a long time but over the last week she had 3-4 anxiety attacks that scared her and now relates them to the abdominal pain that she was having. She states that she was given Xanax last night and this morning and that she feels better. As stated above patient has been treated with Paxil for a very long time she's taking 30 mg she states that a few months ago they attempted to increase it to 40 but she was too sedated during the daytime. She notes that she had begun to have some more anxiety last few months and wonders if she has become immune to Paxil She denies depression, she denies any past history of priscila/hypomania no history of psychosis and no history of suicide attempts nor suicide ideation. PAST PSYCHIATRIC HISTORY: No psychiatric admissions. She has been on Paxil for years cannot recall the name of other medicines that they tried before that. PAST MEDICAL HISTORY: Currently being treated for colitis. ALLERGIES: Please see record. CHEMICAL DEPENDENCY HISTORY: Patient reports that she does have a medical marijuana card and she uses marijuana daily. She denies use of alcohol, or street drugs i.e. cocaine crack heroin opiates.. FAMILY PSYCHIATRIC HISTORY: States that her father probably had depression but was not treated. States that she had an uncle who had some problems she is not sure but that he had suicide ideation. He never committed suicide but his son her nephew committed suicide. She is not aware of the circumstances. FAMILY CHEMICAL DEPENDENCY HISTORY: None reported. LEGAL HISTORY: None. 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 She enjoyed her job immensely. She is enjoying half-way. MENTAL STATUS EXAM: Patient alert and oriented 3, good eye contact, very pleasant coopertive lady, well groomed in hospital attire.. Speech normal volume, rate and production. Coherent, logical and goal directed thought process. No ERICKSON, no FOI. [No TB/TW/ TI] Denied auditory and visual hallucinations. Denied paranoid ideation, delusions or IOR. Memory [intact] Cognition above average Mood euthymic, affect range normal intensity, congruent with mood. Denies suicidal ideation, denies homicidal ideation. Insight full; Judgment intact for treatment purposes . IMPRESSIONS: 65-year-old female with history of an anxiety disorder for years well treated and managed on a low dose of Paxil 30 mg. In the last few months she has begun noticing increased anxiety and this past week it evidenced itself in 3-4 panic attacks. She was frightened by this she came to the hospital. During this hospital stay they have diagnosed her with colitis which explains the pain and also may explain the panic attacks. PLAN: [We discussed several options and I explained to her that Xanax is highly addictive and then it works quickly but it also goes away quickly and that leads to people taking more of it than they really intended to. She can continue taking it here while she is in the hospital but I recommend that she stop it on outpatient. I would recommend BuSpar 5 mg 3 times a day if she does not have any GI discomfort or increase of her normal GI discomfort and it is not effective she can increase it to 10 mg 3 times a day. She should not stop Paxil there is a significant serotonin withdrawal syndrome that is miserable. So she can take the Paxil and BuSpar together. If BuSpar causes gastric discomfort, she could be given a trial of Celexa low dose 10 mg every morning, along with Paxil and see if that helps the anxiety. I also mentioned to her there is a case report of abdominal pain that was believed to be caused by daily cannabis use and the buildup. .Current day cannabis is extremely high potency and it is theorized that it builds up in the fat tissue and may actually exert some effect besides the psychoactive effects. She might want to consider abstaining for 2 months just to see how she feels without it. Thank you for this consult
[2016-08-30] MEDS: LEVOFLOXACIN 500MG-D5W PMX 500 MG in DEXTROSE/WATER 1 100ML.BAG IVPB SCH (10:56)
--- NOTE | 2016-08-30 11:04 | P.PN ---
Subjective Principal diagnosis: Progress note dated 08/30/2016 65-year-old female who I saw yesterday in consultation. She sees my partner for her primary. She came with abdominal pain nausea and vomiting. This wasn' t feeling well. She had a negative evaluation which included a KUB and also a CT of the abdomen and pelvis. Other than for some mild colitis was no good explanation for her severe symptoms. I'm happy to report that she's feeling much better today. Is able to eat today. Was a bit dehydrated. Not having any abdominal pain and cramping or fever or chills. No nausea vomiting or diarrhea. Feels wonderful. She's been in and out of the hospital recently with these GI complaints. She recently had a colonoscopy by Dr. Holt recently. Objective - Vital Signs Vital signs: Vital Signs Temp 97.4 F L 08/30/16 07:00 Pulse 75 08/30/16 08:00 Resp 16 08/30/16 08:00 BP 102/55 08/30/16 07:00 Pulse Ox 96 08/30/16 07:00 Intake & Output 08/29/16 08/30/16 08/30/16 18:59 06:59 18:59 Intake Total 200 1200 Balance 200 1200 Weight 61.235 kg 61.235 kg Intake: IV 100 600 Lactated Ringers 1,000 ml 600 @ 75 mls/hr IV .[id number] JANELLE Rx#:[id number] Levofloxacin 500Mg-D5w 100 Pmx 500 mg In Dextrose/ Water 1 100ml.bag @ 100 mls/hr IVPB Q24H JANELLE Rx#: [id number] Intake, IV Titration 100 600 Amount Lactated Ringers 1,000 ml 600 @ 75 mls/hr IV .[id number] JANELLE Rx#:[id number] metroNIDAZOLE-NS PMX 500 100 mg In Saline 1 100ml.bag @ 100 mls/hr IVPB Q8HR JANELLE Rx#:[id number] Other: Voiding Method Toilet Toilet # Voids 2 4 1 # Bowel Movements 1 - Exam No acute distress, oriented 3. HEENT examination is grossly unremarkable. Moist. Neck supple. Full range of motion. No adenopathy thyromegaly or neck vein distention. Cardiovascular examination reveals regular rhythm rate. Heart rate 75. S1-S2 normal. No S3-S4 murmur. Lungs are clear breath sounds are equal. No wheezes rhonchi or crackles. Abdomen soft bowel sounds are heard. No masses or tenderness. No distention. Much softer today. Extremities are intact. No cyanosis clubbing or edema. Skin without rash. Neurologic examination is nonfocal. - Labs CBC & Chem 7: 08/30/16 07:29 08/30/16 07:29 Labs: Abnormal Lab Results - Last 24 Hours (Table) 08/30/16 Range/Units 07:29 Potassium 3.1 L (3.5-5.1) mmol/L Assessment and Plan (1) Colitis Status: Acute (2) Intractable abdominal pain Status: Acute (3) Nausea and vomiting Status: Acute (4) Anxiety Status: Acute (5) Colitis Status: Acute (6) Dehydration Status: Acute (7) Kidney stone Status: Acute Plan: Plan The patient's doing well. The trial her on some food today. She still getting IV fluids. Not really having much in way of abdominal pain cramping nausea or vomiting. Feeling much better today just with hydration and antiemetics. We' ll continue to follow. Additional recommendations suggestions are forthcoming. Time with Patient: Less than 30
[2016-08-30] MEDS: POTASSIUM CHLORIDE ER 20 MEQ TAB.ER PO SCH ×2 (13:20→14:55)
--- NOTE | 2016-08-30 19:19 | P.DS ---
Providers Date of admission: 08/28/16 18:19 Expected date of discharge: 08/30/16 Attending physician: Ashley Reynolds Consults: 08/28/16 18:21 Consult Physician Routine Consulting Provider: Clifford Holt Consult Reason/Comments: abdominal pain / colitis Do you want consulting provider notified?: Yes 08/29/16 10:34 Consult Physician Routine Consulting Provider: Stevenson Jay Consult Reason/Comments: knew the pt Do you want consulting provider notified?: Yes 08/29/16 11:51 Consult Physician Routine Consulting Provider: Louann Dougherty Consult Reason/Comments: anxiety Do you want consulting provider notified?: Already Contacted Primary care physician: [facility] Course: Final Diagnoses: 1. Lower abdominal pain possible acute colitis with SIRS present on admission 2. History of anxiety and panic episodes 3. Gastroesophageal reflux disease 4. Hypothyroidism 5. History of bariatric surgery Hospital course: This is a 65-year-old female who presented with lower abdominal pain, possible acute colitis with SIRS, recent colonoscopy with Dr. Holt, and multiple other medical issues. CAT scan reported descending colon and rectosigmoid inflammatory bowel changes. Evaluated/ treated by Dr. Holt, Dr. Jay and psychiatry. Treated with broad-spectrum IV antibiotics. Significant clinical improvement. Cleared by all consults for discharge. Patient is being discharged home in a stable condition with guarded prognosis. The impression and plan of care has been dictated as directed as a scribe. : I performed a H&P examination of this patient and discussed the same with the dictator. I agree with the dictator's note. Any additional findings/opinions/ etc. will be noted. Patient Condition at Discharge: Stable Plan - Discharge Summary New Discharge Prescriptions: New busPIRone HCl [Buspar] 5 mg PO TID #1 tab Ciprofloxacin HCl [Cipro] 500 mg PO Q12HR #14 tablet Citalopram Hydrobromide [CeleXA] 10 mg PO DAILY #30 tab metroNIDAZOLE [Flagyl] 500 mg PO TID #21 tab Continue PARoxetine HCL 30 mg PO QAM Levothyroxine Sodium [Synthroid] 125 mcg PO QAM Loratadine [Claritin] 10 mg PO DAILY Potassium Chloride [K-Tab ER] 10 meq PO BID Discharge Medication List Levothyroxine Sodium [Synthroid] 125 mcg PO QAM 04/11/16 [History] PARoxetine HCL 30 mg PO QAM 04/11/16 [History] Loratadine [Claritin] 10 mg PO DAILY 05/05/16 [History] Potassium Chloride [K-Tab ER] 10 meq PO BID 08/28/16 [History] Ciprofloxacin HCl [Cipro] 500 mg PO Q12HR #14 tablet 08/30/16 [Rx] Citalopram Hydrobromide [CeleXA] 10 mg PO DAILY #30 tab 08/30/16 [Rx] busPIRone HCl [Buspar] 5 mg PO TID #1 tab 08/30/16 [Rx] metroNIDAZOLE [Flagyl] 500 mg PO TID #21 tab 08/30/16 [Rx] Follow up Appointment(s)/Referral(s): [facility], Psychiatry [Other] - 1 Week (Patient to call and make an appointment.) Bettina Navarrete MD [Primary Care Provider] - 09/15/16 1:00 pm Clifford Holt MD [STAFF PHYSICIAN] - 09/08/16 11:20 am Ambulatory/Diagnostic Orders: Complete Blood Count w/diff [LAB.AMB] Time Frame: 3 Days, Location: Determined By Patient Patient Instructions/Handouts: Ciprofloxacin (By mouth), Buspirone (By mouth), Metronidazole (By mouth), Citalopram (By mouth), Acute Nausea and Vomiting (DC) , Acute Abdominal Pain (DC) Discharge Disposition: HOME SELF-CARE
== END 2016-08-30 15:21 | disposition home or self-care (01) ==
LOC: EC 16:20 → 5MS5E 18:19
PROVIDERS: ADMIT Hospitalist; ATTEND Hospitalist
DX: R10.30 Lower abdominal pain, unspecified (principal); F41.9 Anxiety disorder, unspecified; F41.0 Panic disorder [episodic paroxysmal anxiety]; K21.9 Gastro-esophageal reflux disease without esophagitis; E03.9 Hypothyroidism, unspecified; Z98.84 Bariatric surgery status; K51.50 Left sided colitis without complications; E86.0 Dehydration; Z90.49 Acquired absence of other specified parts of digestive tract; Z79.899 Other long term (current) drug therapy; Z88.2 Allergy status to sulfonamides; Z88.8 Allergy status to other drugs, medicaments and biological substances; Z91.048 Other nonmedicinal substance allergy status; Z87.442 Personal history of urinary calculi; Z82.49 Family history of ischemic heart disease and other diseases of the circulatory system
CPT/HCPCS: 96375 ×3; 99285; 96376 ×3; 96365; 96366 ×2; 96367; 36415; 80053; 80048; 83690; 83735; 85025 ×2; 81001; 87324; 74000; 74177; G0378 ×3; J2270 ×4; J2405 ×2; J1956 ×2; J0696; Q9967

== ENCOUNTER → 2016-09-12 | Outpatient (CLI) | payer BC ==
[2016-09-12 11:31] LABS: CH 28.6; CHCM 31.2; HCT 44.2 % (34.0-46.0); HDW 2.27; MCH 29.1 pg (25.0-35.0); MCHC 31.6 g/dL (31.0-37.0); MCV 91.9 fL (80.0-100.0); Mean Platelet Volume 6.8; RDW 13.5 % (11.5-15.5); WBC 6.6 k/uL (3.8-10.6)
[2016-09-12 11:58] LABS: ALT 32 U/L (9-52); AST 18 U/L (14-36); Alkaline Phosphatase 55 U/L (38-126); Anion Gap 14 mmol/L; Blood Urea Nitrogen 13 mg/dL (7-17); Calcium 10.5 mg/dL (8.4-10.2); Carbon Dioxide 24 mmol/L (22-30); Chloride 106 mmol/L (98-107); Glucose 70 mg/dL (74-99); Non-African American GFR(MDRD) >60 (>60 ml/min/1.73 sqM); Potassium 4.6 mmol/L (3.5-5.1); Sodium 144 mmol/L (137-145); Total Bilirubin 0.4 mg/dL (0.2-1.3); Total Protein 7.6 g/dL (6.3-8.2)
== END | disposition home or self-care (01) ==
LOC: LABWHC1 10:59
PROVIDERS: ATTEND Family Medicine
DX: E03.9 Hypothyroidism, unspecified (principal); E87.6 Hypokalemia; R10.9 Unspecified abdominal pain; I25.10 Atherosclerotic heart disease of native coronary artery without angina pectoris; N20.0 Calculus of kidney
CPT/HCPCS: 36415; 80053; 82306; 83970; 84443; 84481; 85027

== ENCOUNTER → 2016-10-06 | Outpatient (CLI) | payer BC ==
--- NOTE | 2016-10-09 09:52 | MM ---
Reason for exam: screening (asymptomatic). Last mammogram was performed 3 years and 7 months ago. History: Patient is postmenopausal and had first child at age 34. Family history of breast cancer in paternal grandmother at age 70. Benign stereotactic core biopsy of the right breast, June 18, 2001. Cyst aspiration of the right breast. Core biopsy of the right breast. Excisional biopsy of the left breast. Excisional biopsy of the right breast. Physical Findings: A clinical breast exam by your physician is recommended on an annual basis and results should be correlated with mammographic findings. MG Screening Mammo w CAD Bilateral CC and MLO view(s) were taken. Prior study comparison: March 18, 2013, bilateral digital screening mammo w/CAD. October 01, 2009, right breast mammogram dig work up. The breast tissue is extremely dense which could obscure a lesion on mammography. Previous mammotome biopsy in the right breast. There is chronic nodularity in the left breast. No significant changes when compared with prior studies. ASSESSMENT: Benign, BI-RAD 2 RECOMMENDATION: Routine screening mammogram of both breasts in 1 year.
== END | disposition home or self-care (01) ==
LOC: RADMAMWWP 13:54
PROVIDERS: ATTEND Family Medicine
DX: Z12.31 Encounter for screening mammogram for malignant neoplasm of breast (principal)

== ENCOUNTER → 2016-10-12 | Outpatient (CLI) | payer BC | END | disposition home or self-care (01) | LOC: LABWHC1 14:20 | PROVIDERS: ATTEND Family Medicine | DX: E83.52 Hypercalcemia (principal) | CPT/HCPCS: 36415; 82310 ==

== ENCOUNTER → 2016-11-07 | Outpatient (CLI) | payer BC ==
[2016-11-13 11:00] LABS: Mis test requested (Blood) PTH- related Protein
== END ==
LOC: LABWHC1 13:25
PROVIDERS: ATTEND Family Medicine
DX: E83.52 Hypercalcemia (principal)
CPT/HCPCS: 36415; 83519

== ENCOUNTER → 2016-11-07 | Outpatient (CLI) | payer BC ==
--- NOTE | 2016-11-07 13:27 | WWHP ---
[facility] - HISTORY AND PHYSICAL DATE OF SERVICE: 11/07/2016 CHIEF COMPLAINT: The patient is here for her routine gynecologic exam. HPI: This is a 65-year-old, G3, P2-0-1-3 with an LMP of 2003. She states she has been having left lower quadrant abdominal pains for several months. She states it started about 6 months ago, but she was hospitalized for this about 2 months ago. She was never given a good explanation for why she is having the pain. The patient had a CT scan of the abdomen and pelvis on 08/28/16, which shows some nonspecific findings including some mild inflammatory changes of the descending colon and rectosigmoid. The patient states she is not having much pain today, but she did have episodes where the pain was quite severe and it was this way when she was hospitalized 2 months ago. PAST MEDICAL HISTORY: Asthma, hypothyroidism, anxiety, and elevated cholesterol as well as a history of kidney stones and osteopenia. MEDICATIONS: 1. Levothyroxine 125 mcg daily. 2. Paroxetine 20 mg daily. 3. Vitamin D3, 3000 units daily. 4. Potassium gluconate 595 mg daily. 5. Multivitamin 1 daily. 6. Lhxg-kzp-ouzcrou allergy medication 1 daily. ALLERGIES: Allergies to BACTRIM, which caused hives and also FLOMAX caused hives and TAMSULOSIN cause pruritus. PAST SURGICAL HISTORY: section x2 and she had a tubal ligation with her last . Also, laparoscopic cholecystectomy, lap band surgery, right breast biopsy, multiple colonoscopies and the most recent one was done in 2017, knee replacement surgery 2012, abdominoplasty 2005, kidney stone surgeries in the past. 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 SOCIAL HISTORY: She denies tobacco and drug use and has about 10 alcoholic drinks per year. She is and is not seeing anybody at this time and is not sexually active. She is retired. FAMILY HISTORY: Family history is unchanged from the 2014 H&P. REVIEW OF SYSTEMS: She lost about 21 pounds over the last 2 years and she states much of this was following her hospitalization and abdominal pains, but she is gaining some of this weight back. She denies respiratory, cardiac or GI problems. PHYSICAL EXAM: Blood pressure 130/79, height 5 feet 3 inches, weight 134 pounds. Temperature 98.5, pulse 101. This is a well-developed, well-nourished, white female, who is alert and oriented x3, in no acute distress. HEENT is within normal limits. NECK: Supple without mass or thyromegaly chest. CHEST AND LUNGS: Clear to auscultation. HEART: Regular rate and rhythm. Breasts are without mass or discharge. There is mild bilateral breast tenderness and she states her breasts have always been somewhat sensitive to palpation. Axillary exam is negative for adenopathy. BACK: Negative for CVA tenderness. ABDOMEN: Soft, nontender, without palpable masses and is consistent with previous abdominoplasty. The lap band port is palpable just above the umbilicus to the left of the midline and this is nontender. PELVIC EXAM: External genitalia reveals [id number] atrophy without lesions. Cervix and vagina reveal htzg-wc-jwefbswd atrophy without lesions. There is no evidence of prolapse. The uterus is mid position, nongravid size and nontender. There are no palpable adnexal masses. However, there is mild left adnexal tenderness with bimanual examination. Rectovaginal exam is negative for mass or tenderness and is negative for occult blood. EXTREMITIES: Nontender. IMPRESSION: 1. A 65-year-old menopausal female with 6 month history of left lower quadrant pain, which is variable. She is having no significant pain at this time, but is slightly tender in the left lower quadrant and in the left adnexal region. 2. History of osteopenia. PLAN: 1. Pap smear was performed. 2. Self breast examination was discussed. 3. Mammogram was recently done on 10/06/2016 and was benign. She will repeat this in 1 year. 4. Pelvic ultrasound will be done today. 5. Osteoporosis prevention was discussed. Bone density testing will be done today. 6. She will also try to pay attention to when she is having the pains and try to determine if it is related to something that she is doing or eating. She thinks it may be related to dairy consumption. 7. She will return in 1 year and p.r.n. MMODL / IJN: [id number] /
--- NOTE | 2016-11-07 13:32 | BD ---
EXAMINATION TYPE: MG DEXA axial skeleton. DATE OF EXAM: 11/07/2016 COMPARISON: 03.18.2013 CLINICAL HISTORY: Z78.0 POST BROOKE w/o HRT M89.9 DISORDER OF THE BONE Height: 62.3 Weight: 133 FRAX RISK QUESTIONS: Alcohol (3 or more units per day): NO Family History (Parent hip fracture): NO Glucocorticoids (More than 3mos): NO (Ex: prednisone, prednisolone, methylprednisolone, dexamethasone, and hydrocortisone). History of Fracture in Adulthood: YES Secondary Osteoporosis: NO 1. Type 1 Diabetes: NO 2. Hyperthyroidism: NO 3. Menopause before 45: NO 4. Malnutrition: NO 5. Chronic liver disease: NO Rheumatoid Arthritis: YES Current Tobacco Use: NO RISK FACTORS HISTORY OF: HX OF BROKEN FOOT > 50 YRS OLD Active: YES Diet low in dairy products/other sources of calcium: A BIT LOW AT THIS TIME Postmenopausal woman: AT AGE 51 Lost more than 2 inches in height since high school: YES Hyperparathyroidism: NO Adrenal Insufficiency: NO MEDICATIONS: Prednisone or other steroids: ALLERGY MEDS DAILY OTC Thyroid Medications: YES, SYNTHROID How Lon YRS Additional Medications: VIT D3, PAROXETINE, Additional History: COLITIS, IBS, ASTHMA, HIATAL HERNIA, REFLUX, HX OF LAP BAND AND TUMMY TUCK EXAM MEASUREMENTS: Bone mineral densitometry was performed using the McPhy System. Bone mineral density as measured about the Lumbar spine is: ----- L1-L4(G/cm2): 1.215 T Score Values are as follows: ----- L1: -0.6 ----- L2: -0.6 ----- L3: 1.5 ----- L4: 0.2 ----- L1-L4: 0.3 Bone mineral density has: NO CHANGE 0.0% since study of: 03.18.2013 Bone mineral density about the R hip (g/cm2): 0.817 Bone mineral density about the L hip (g/cm2): 0.835 T Score values are as follows: -----R Neck: -1.4 -----L Neck: -1.1 -----R Total: -1.5 -----L Total: -1.4 Bone mineral density has: Decreased -8.3% since study of: 03.18.2013 FRAX%'S: THERE IS A 14.1% CHANCE FOR A MAJOR OSTEOPOROTIC FX AND A 1.4% OF HIP FX.....PROBABILITY O F FX IN 10 YRS TIME IMPRESSION: Osteopenia (T Score between -2.5 and -1 as noted by T score values There is slightly increased risk of fracture and the patient may be considered for treatment. Re-Screen 2-5 years. FOR BOTH OF HER HIPS ONLY. NOTE: T-SCORE=SD OF THE YOUNG ADULT MEAN.
--- NOTE | 2016-11-07 13:40 | US ---
EXAMINATION TYPE: US transvaginal DATE OF EXAM: 11/07/2016 COMPARISON: NONE CLINICAL HISTORY: R10 Abdominal Pain/R10.2 Pelvic Pain/R68.8 Pelvic Tenderness. Intermittent left pel zac pain x 6 months, prior c-sections TECHNIQUE: Transvaginal (TV) Date of LMP: unknown EXAM MEASUREMENTS: Uterus: 5.8 x 2.9 x 4.0 cm Endometrial Stripe: 0.3 cm Right Ovary: unable to visualize Left Ovary: unable to visualize 1. Uterus: heterogeneous 2. Endometrium: appears wnl 3. Right Ovary: Obscured by overlying bowel gas 4. Left Ovary: Obscured by overlying bowel gas 5. Bilateral Adnexa: peristalsing bowel 6. Posterior cul-de-sac: peristalsing bowel seen IMPRESSION: No significant abnormality is seen.
== END | disposition home or self-care (01) ==
LOC: WWCWWP 11:18
PROVIDERS: ATTEND Obstetrics & Gynecology
DX: M85.852 Other specified disorders of bone density and structure, left thigh (principal); M85.851 Other specified disorders of bone density and structure, right thigh; R10.2 Pelvic and perineal pain; R10.32 Left lower quadrant pain; Z78.0 Asymptomatic menopausal state
CPT/HCPCS: 76830; 77080

== ENCOUNTER → 2016-12-26 | Outpatient (CLI) | payer MEDICARE ==
[2016-12-26 10:38] LABS: ALT 33 U/L (9-52); AST 19 U/L (14-36); Alkaline Phosphatase 54 U/L (38-126); Anion Gap 9 mmol/L; Blood Urea Nitrogen 17 mg/dL (7-17); Calcium 9.9 mg/dL (8.4-10.2); Carbon Dioxide 31 mmol/L (22-30); Chloride 103 mmol/L (98-107); Glucose 72 mg/dL (74-99); Non-African American GFR(MDRD) >60 (>60 ml/min/1.73 sqM); Potassium 4.7 mmol/L (3.5-5.1); Sodium 143 mmol/L (137-145); Total Bilirubin 0.3 mg/dL (0.2-1.3); Total Protein 7.2 g/dL (6.3-8.2)
== END | disposition home or self-care (01) ==
LOC: LABWHC1 09:35
PROVIDERS: ATTEND Family Medicine
DX: E83.52 Hypercalcemia (principal)
CPT/HCPCS: 36415; 80053

== ENCOUNTER → 2017-03-08 | Outpatient (CLI) | payer MEDICARE ==
[2017-03-08 14:20] LABS: HCT 45.3 % (34.0-46.0); HGB 14.2 gm/dL (11.4-16.0); MCH 28.9 pg (25.0-35.0); MCHC 31.3 g/dL (31.0-37.0); MCV 92.2 fL (80.0-100.0); Mean Platelet Volume 6.5; Platelet Count 272 k/uL (150-450); RBC 4.92 m/uL (3.80-5.40); RDW 13.2 % (11.5-15.5); WBC 4.8 k/uL (3.8-10.6)
[2017-03-08 14:37] LABS: ALT 35 U/L (9-52); AST 22 U/L (14-36); Albumin 4.5 g/dL (3.5-5.0); Alkaline Phosphatase 67 U/L (38-126); Anion Gap 9 mmol/L; Blood Urea Nitrogen 17 mg/dL (7-17); Calcium 10.8 mg/dL (8.4-10.2); Carbon Dioxide 32 mmol/L (22-30); Chloride 105 mmol/L (98-107); Glucose 92 mg/dL (74-99); Potassium 5.6 mmol/L (3.5-5.1); Sodium 146 mmol/L (137-145); Total Bilirubin 0.4 mg/dL (0.2-1.3); Total Protein 7.9 g/dL (6.3-8.2)
== END | disposition home or self-care (01) ==
LOC: LABWHC1 13:55
PROVIDERS: ATTEND Family Medicine
DX: I25.10 Atherosclerotic heart disease of native coronary artery without angina pectoris (principal); R25.2 Cramp and spasm
CPT/HCPCS: 36415; 80053; 84443; 85027

== ENCOUNTER → 2017-03-29 | Outpatient (CLI) | payer MEDICARE ==
[2017-03-29 14:33] LABS: ALT 24 U/L (9-52); AST 23 U/L (14-36); Albumin 4.7 g/dL (3.5-5.0); Alkaline Phosphatase 69 U/L (38-126); Anion Gap 12 mmol/L; Blood Urea Nitrogen 17 mg/dL (7-17); Calcium 10.5 mg/dL (8.4-10.2); Carbon Dioxide 31 mmol/L (22-30); Chloride 105 mmol/L (98-107); Glucose 102 mg/dL (74-99); Potassium 5.6 mmol/L (3.5-5.1); Sodium 148 mmol/L (137-145); Total Bilirubin 0.4 mg/dL (0.2-1.3)
== END | disposition home or self-care (01) ==
LOC: LABWHC1 13:28
PROVIDERS: ATTEND Family Medicine
DX: E87.5 Hyperkalemia (principal); E83.52 Hypercalcemia
CPT/HCPCS: 36415; 80053

== ENCOUNTER → 2017-05-11 | Outpatient (CLI) | payer MEDICARE ==
[2017-05-11 10:58] LABS: HCT 42.7 % (34.0-46.0); MCH 27.6 pg (25.0-35.0); MCHC 30.4 g/dL (31.0-37.0); MCV 90.6 fL (80.0-100.0); Mean Platelet Volume 6.9; Platelet Count 292 k/uL (150-450); RBC 4.71 m/uL (3.80-5.40); RDW 13.2 % (11.5-15.5); WBC 6.1 k/uL (3.8-10.6)
[2017-05-11 11:22] LABS: ALT 16 U/L (9-52); AST 17 U/L (14-36); Alkaline Phosphatase 56 U/L (38-126); Blood Urea Nitrogen 17 mg/dL (7-17); Calcium 9.5 mg/dL (8.4-10.2); Carbon Dioxide 29 mmol/L (22-30); Cholesterol 192 mg/dL (<200); Glucose 79 mg/dL (74-99); HDL Cholesterol 59 mg/dL (40-60); LDL Cholesterol,Calculated 109 mg/dL (0-99); Potassium 4.8 mmol/L (3.5-5.1); Sodium 143 mmol/L (137-145); Total Bilirubin 0.2 mg/dL (0.2-1.3); Triglycerides 122 mg/dL (<150)
[2017-05-11 11:23] LABS: Anion Gap 10 mmol/L; Chloride 104 mmol/L (98-107)
== END | disposition home or self-care (01) ==
LOC: LABWHC1 10:27
PROVIDERS: ATTEND Family Medicine
DX: E87.5 Hyperkalemia (principal); E87.0 Hyperosmolality and hypernatremia; E83.52 Hypercalcemia
CPT/HCPCS: 36415; 80053; 80061; 82306; 85027; 86665

== ENCOUNTER → 2017-07-23 | Outpatient (CLI) | payer MEDICARE ==
[2017-07-23 13:37] VITALS: BP 125/66; PULSE 59; RESP 16; TEMP 98.3; BMI 25.4
--- NOTE | 2017-07-23 16:10 | P.HPBAR ---
Bariatric H&P - History & Physicial H&P Date: 07/23/17 History & Physicial: Visit/CC: Band Follow-up Patient initial contact: Initial weight: 106.594 kg Initial weight in pounds: 235.00 Height: 5 ft 4 in Initial BMI: 40.3 Last weight: Current weight: 67.188 kg Current weight in pounds: 148.13 Current BMI: 25.4 [place] body weight (based on NIH guidelines): 54.431 kg Excess body weight loss: 75.5% The patient is a 66 year-old F who presents for Bariatric Assessment. Patient presents today for lab band follow up. She has some complaints of mild GERD. She's had no significant dysphagia. 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 ALSO FROM OVARY , lithotripsy, left knee replacement Past Anesthesia/Blood Transfusion Reactions: Motion Sickness, Postoperative Nausea & Vomiting (PONV) Past Psychological History: Anxiety Smoking Status: Never smoker Past Alcohol Use History: None Reported Past Drug Use History: Marijuana Additional Drug Use History / Comment(s): pt states she uses occasional marijuana - Past Family History Mother Family Medical History: No Reported History Father Family Medical History: Myocardial Infarction ([place]) Surgical - Exam Vital Signs Temp Pulse Resp BP 98.3 F 59 L 16 125/66 07/23/17 13:34 07/23/17 13:34 07/23/17 13:34 07/23/17 13:34 - General well developed, no distress - Eyes PERRL - ENT normal pinna - Neck no masses - Cardiovascular Rhythm: regular - Abdomen Abdomen: soft, non tender Bariatric Assessment & Plan Plan: The patient is doing well from her LAP-BAND. She has some minimal GERD. She is managing this with Pepcid when necessary. She will follow-up in 3 months. Bariatric Checklist Checklist: Plan: Checklist: EGD: 1. Hiatal hernia: 2. H. Pylori: HgbA1c: Vitamin D: Smoking: Never smoker Primary care physician referral: Psychiatry clearance: Cardiology clearance: Sleep study: Diet journal: VTE risk score: VTE risk level: Rehab needs at discharge:
== END | disposition home or self-care (01) ==
LOC: BARWHC3 12:51
PROVIDERS: ATTEND Surgery
DX: Z48.815 Encounter for surgical aftercare following surgery on the digestive system (principal); K21.9 Gastro-esophageal reflux disease without esophagitis; Z98.84 Bariatric surgery status
CPT/HCPCS: 99211

== ENCOUNTER 2018-04-22 12:14 | Emergency (ER) | payer MEDICARE ==
[2018-04-22 12:24] VITALS: RESP 18
[2018-04-22] MEDS ORDERED: SODIUM CHLORIDE 0.9% 500 ML 500 ML IV STA (13:13)
[2018-04-22] MEDS ORDERED: KETOROLAC 30 MG/ML 1 ML VIAL IVP STA (13:13)
[2018-04-22] MEDS ORDERED: ONDANSETRON 4 MG/2 ML VIAL IVP STA (13:13)
--- NOTE | 2018-04-22 13:17 | ED ---
General Adult HPI - General Chief complaint: Nausea/Vomiting/Diarrhea Stated complaint: nausea, bowel problems Time Seen by Provider: 04/22/18 12:20 Source: patient, RN notes reviewed Mode of arrival: ambulatory Limitations: no limitations - History of Present Illness Initial comments: This is a 67-year-old female presents emergency department stating that she has had pain in her right lower quadrant and right CVA area for about 6 days. Patient states she has also had urinary frequency to the point where she did not make to the bathroom. Patient states she also had an episode of diarrhea that lasted a few days and the diarrhea was so strong and cramping her so much she was unable to make it occasionally to the bathroom as well. Patient states she has not had diarrhea or any stools over the last couple of days. Patient states she is very nauseated but has not vomited. Patient denies any fever chills. Patient denies any blood in the stool. Patient states she has a history of kidney stones. Patient denies any chest pain difficulty breathing or shortness of breath. - Related Data Home Medications Medication Instructions Recorded Confirmed Levothyroxine Sodium [Synthroid] 125 mcg PO QAM 04/11/16 04/22/18 Acetaminophen [Tylenol Arthritis] 650 mg PO ONCE 04/22/18 04/22/18 Allergy Relief 1 tab PO DAILY 04/22/18 04/22/18 Ascorbic Acid [Vitamin C] 500 mg PO DAILY 04/22/18 04/22/18 Cholecalciferol [Vitamin D3] 1,000 unit PO DAILY 04/22/18 04/22/18 Fiber Powder Supplement 3 - 4 tsp PO DAILY 04/22/18 04/22/18 Ibuprofen [Motrin Ib] 200 mg PO DAILY 04/22/18 04/22/18 L.acidoph,Paracasei, B.lactis 1 cap PO DAILY 04/22/18 04/22/18 [Probiotic] Loperamide HCl [Imodium A-D] 2 mg PO ONCE 04/22/18 04/22/18 Magnesium 200 mg PO DAILY 04/22/18 04/22/18 PARoxetine [Paxil] 20 mg PO DAILY 04/22/18 04/22/18 Tart Vincent 1,200 mg PO DAILY 04/22/18 04/22/18 Previous Rx's Medication Instructions Recorded Ketorolac [Toradol] 10 mg PO Q6HR #15 tab 04/22/18 Allergies Allergy/AdvReac Type Severity Reaction Status Date / Time sulfamethoxazole Allergy Rash/Hives Verified 04/22/18 12:32 [From Bactrim] tamsulosin [From Flomax] Allergy Itching Verified 04/22/18 12:32 trimethoprim [From Bactrim] Allergy Rash/Hives Verified 04/22/18 12:32 citric acid [From Prepopik] AdvReac Nausea & Verified 04/22/18 12:32 Vomiting magnesium oxide AdvReac Nausea & Verified 04/22/18 12:32 [From Prepopik] Vomiting sodium picosulfate AdvReac Nausea & Verified 04/22/18 12:32 [From Prepopik] Vomiting Review of Systems ROS Statement: Those systems with pertinent positive or pertinent negative responses have been documented in the HPI. ROS Other: All systems not noted in ROS Statement are negative. 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 ALSO FROM OVARY , lithotripsy, left knee replacement Past Anesthesia/Blood Transfusion Reactions: Motion Sickness, Postoperative Nausea & Vomiting (PONV) Past Psychological History: Anxiety Smoking Status: Never smoker Past Alcohol Use History: None Reported Past Drug Use History: Marijuana - Past Family History Mother Family Medical History: No Reported History Father Family Medical History: Myocardial Infarction ([place]) General Exam - General Exam Comments Initial Comments: GENERAL: Patient is well-developed and well-nourished. Patient is nontoxic and well- hydrated and is in mild distress. ENT: Neck is soft and supple. No significant lymphadenopathy is noted. Oropharynx is clear. Moist mucous membranes. Neck has full range of motion without eliciting any pain. EYES: The sclera were anicteric and conjunctiva were pink and moist. Extraocular movements were intact and pupils were equal round and reactive to light. Eyelids were unremarkable. PULMONARY: Unlabored respirations. Good breath sounds bilaterally. No audible rales rhonchi or wheezing was noted. CARDIOVASCULAR: There is a regular rate and rhythm without any murmurs gallops or rubs. ABDOMEN: Patient has right lower quadrant pain with rebound SKIN: Skin is clear with no lesions or rashes and otherwise unremarkable. NEUROLOGIC: Patient is alert and oriented x3. Cranial nerves II through XII are grossly intact. Motor and sensory are also intact. Normal speech, volume and content. Symmetrical smile. Straight leg test is normal bilaterally MUSCULOSKELETAL: Normal extremities with adequate strength and full range of motion. No lower extremity swelling or edema. No calf tenderness. LYMPHATICS: No significant lymphadenopathy is noted PSYCHIATRIC: Normal psychiatric evaluation. Patient Limitations: no limitations Course Vital Signs 04/22/18 12:21 Temperature 98 F Pulse Rate 85 Respiratory 18 Rate Blood Pressure 125/80 O2 Sat by Pulse 100 Oximetry Medical Decision Making - Medical Decision Making CT of the abdomen and pelvis shows a 7-8 mm right distal ureteral stone. Patient states she had to go to bathroom about when she got up she was unable to make the bathroom and urinated on her pants. Patient's postvoid residual was 23 mL. Rectal exam was normal sphincter tone. Perineum exam had normal sensation I spoke with Dr. Walker about the urinary incontinence and he stated that he has seen this on occasion with people with kidney stones. - Lab Data Result diagrams: 04/22/18 12:44 04/22/18 12:44 Lab Results 04/22/18 04/22/18 04/22/18 Range/Units 12:44 12:44 14:27 WBC 12.2 H (3.8-10.6) k/uL RBC 4.73 (3.80-5.40) m/uL Hgb 13.9 (11.4-16.0) gm/dL Hct 44.1 (34.0-46.0) % MCV 93.3 (80.0-100.0) fL MCH 29.4 (25.0-35.0) pg MCHC 31.5 (31.0-37.0) g/dL RDW 13.0 (11.5-15.5) % Plt Count 333 (150-450) k/uL Neutrophils % 92 % Lymphocytes % 5 % Monocytes % 3 % Eosinophils % 1 % Basophils % 0 % Neutrophils # 11.1 H (1.3-7.7) k/uL Lymphocytes # 0.6 L (1.0-4.8) k/uL Monocytes # 0.3 (0-1.0) k/uL Eosinophils # 0.1 (0-0.7) k/uL Basophils # 0.0 (0-0.2) k/uL Sodium 144 (137-145) mmol/L Potassium (3.5-5.1) mmol/L Chloride 108 H (98-107) mmol/L Carbon Dioxide 25 (22-30) mmol/L Anion Gap 11 mmol/L BUN 18 H (7-17) mg/dL Creatinine 0.81 (0.52-1.04) mg/dL Est GFR (CKD-EPI)AfAm 88 (>60 ml/min/1.73 sqM) Est GFR (CKD-EPI)NonAf 76 (>60 ml/min/1.73 sqM) Glucose 129 H (74-99) mg/dL Calcium 9.7 (8.4-10.2) mg/dL Total Bilirubin 0.6 (0.2-1.3) mg/dL AST 31 (14-36) U/L ALT 28 (9-52) U/L Alkaline Phosphatase 67 (38-126) U/L Total Protein 8.7 H (6.3-8.2) g/dL Albumin 4.7 (3.5-5.0) g/dL Amylase 104 (30-110) U/L Lipase 73 (23-300) U/L Urine Color Yellow Urine Appearance Cloudy H (Clear) Urine pH 5.5 (5.0-8.0) Ur Specific [place] 1.019 (1.001-1.035) Urine Protein 1+ H (Negative) Urine Glucose (UA) Negative (Negative) Urine Ketones 1+ H (Negative) Urine Blood Large H (Negative) Urine Nitrite Negative (Negative) Urine Bilirubin Negative (Negative) Urine Urobilinogen <2.0 (<2.0) mg/dL Ur Leukocyte Esterase Small H (Negative) Urine RBC >182 H (0-5) /hpf Urine WBC 18 H (0-5) /hpf Urine Mucus Moderate H (None) /hpf Disposition Clinical Impression: Kidney stone on right side Disposition: HOME SELF-CARE Condition: Good Prescriptions: Ketorolac [Toradol] 10 mg PO Q6HR #15 tab Is patient prescribed a controlled substance at d/c from ED?: No Referrals: Nicole Soria MD [Primary Care Provider] - 1-2 days Time of Disposition: 16:04
[2018-04-22 13:35] LABS: Basophils % (A) 0 %; Eosinophils # (A) 0.1 k/uL (0-0.7); Eosinophils % (A) 1 %; HCT 44.1 % (34.0-46.0); HGB 13.9 gm/dL (11.4-16.0); Lymphocytes # (A) 0.6 k/uL (1.0-4.8); Lymphocytes % (A) 5 %; MCH 29.4 pg (25.0-35.0); MCHC 31.5 g/dL (31.0-37.0); MCV 93.3 fL (80.0-100.0); Mean Platelet Volume 6.2; Monocytes # (A) 0.3 k/uL (0-1.0); Monocytes % (A) 3 %; Neutrophils # (A) 11.1 k/uL (1.3-7.7); Neutrophils % (A) 92 %; Platelet Count 333 k/uL (150-450); RBC 4.73 m/uL (3.80-5.40); WBC 12.2 k/uL (3.8-10.6)
[2018-04-22 13:56] LABS: Albumin 4.7 g/dL (3.5-5.0); Calcium 9.7 mg/dL (8.4-10.2); Total Bilirubin 0.6 mg/dL (0.2-1.3); Total Protein 8.7 g/dL (6.3-8.2)
[2018-04-22 14:35] LABS: Appearance,Urine Cloudy (Clear); Bilirubin,Urine Negative (Negative); Blood,Urine Large (Negative); Color,Urine Yellow; Glucose,Urine (UA) Negative (Negative); Ketones,Urine 1+ (Negative); Leukocyte Esterase,Urine Small (Negative); Mucus,Urine Moderate /hpf; Nitrite,Urine Negative (Negative); PH, Urine 5.5 (5.0-8.0); Protein,Urine 1+ (Negative); RBC,Urine >182 /hpf (0-5); Specific Gravity,Urine 1.019 (1.001-1.035); Urobilinogen,Urine <2.0 mg/dL (<2.0); WBC,Urine 18 /hpf (0-5)
--- NOTE | 2018-04-22 14:58 | CT ---
EXAMINATION TYPE: CT abdomen pelvis w con DATE OF EXAM: 04/22/2018 COMPARISON: CT 08/28/2016 HISTORY: Abdominal pain-right sided CT DLP: 507.9 mGycm Automated exposure control for dose reduction was used. TECHNIQUE: Helical acquisition of images from the lung bases through the pelvis have been completed. CONTRAST: Performed without Oral Contrast and with IV Contrast, patient injected with 100 mL of Isovue 300. FINDINGS: Patient is post lap band. Distal esophagus is somewhat patulous. LUNG BASES: No significant abnormality is appreciated. AORTA: No significant abnormality is appreciated. LIVER/GB: No significant abnormality is appreciated. Patient is post cholecystectomy. PANCREAS: No significant abnormality is seen. SPLEEN: No significant abnormality is seen. ADRENALS: No significant abnormality is seen. KIDNEYS: Right-sided hydronephrosis, decreased nephrogram is noted. There is a distal right ureteral calculus measuring approximately 7 to 8 mm by 4 x 4 mm in size. There is right-sided hydroureter. Non obstructive left renal calculus is present at the lower pole which is punctate. REPRODUCTIVE ORGANS: not well appreciated BOWEL: No significant abnormality is seen. FREE AIR: No Free Air visible. ASCITES: None visible. PELVIC ADENOPATHY: None visualized. RETROPERITONEAL ADENOPATHY: No Retroperitoneal Adenopathy visible. URINARY BLADDER: No significant abnormality is seen. OSSEOUS STRUCTURES: Degenerative disc changes are present in lower lumbar spine, there is a spinal c urvature. IMPRESSION: DISTAL RIGHT URETERAL CALCULUS IS OBSTRUCTIVE.
[2018-04-22] MEDS ORDERED: FUROSEMIDE 10 MG/ML 4 ML VIAL IV STA (15:31)
[2018-04-22 16:23] VITALS: BP 121/79; PULSE 66; TEMP 97.9
== END 2018-04-22 16:23 | disposition home or self-care (01) ==
LOC: EC 12:14
DX: N20.2 Calculus of kidney with calculus of ureter (principal); E03.9 Hypothyroidism, unspecified; F41.9 Anxiety disorder, unspecified; Z88.2 Allergy status to sulfonamides; Z88.8 Allergy status to other drugs, medicaments and biological substances; Z79.1 Long term (current) use of non-steroidal anti-inflammatories (NSAID); Z79.890 Hormone replacement therapy; Z79.899 Other long term (current) drug therapy; Z87.19 Personal history of other diseases of the digestive system; Z98.84 Bariatric surgery status; Z90.49 Acquired absence of other specified parts of digestive tract; Z98.890 Other specified postprocedural states; Z96.652 Presence of left artificial knee joint; Z53.8 Procedure and treatment not carried out for other reasons
CPT/HCPCS: 99284; 96374; 96375; 36415; 80053; 82150; 83690; 85025; 81001; 74177; J2405; J1885; Q9967

== ENCOUNTER → 2018-05-09 | Outpatient (CLI) | payer MEDICARE ==
--- NOTE | 2018-05-09 14:00 | US ---
EXAMINATION TYPE: US kidneys/renal and bladder DATE OF EXAM: 05/09/2018 COMPARISON: CT 05/02/2018 CLINICAL HISTORY: 67-year-old female N13.30 Unspecified hydronephrosis. TECHNIQUE: Multiple sonographic images of the kidneys and bladder are obtained. FINDINGS: EXAM MEASUREMENTS: Right Kidney: 12.3 x 4.2 x 4.9cm Left Kidney: 10.6 x 5.4 x 5.3cm Right Kidney: echogenic foci noted measuring 0.2 x 0.2 x 0.2cm. Persistent moderate right-sided hydro nephrosis. Left Kidney: multiple echogenic foci noted, largest measuring 0.2 x 0.2 x 0.1cm Bladder: not fully distended, patient states she always feels full IMPRESSION: 1. Persistent moderate right-sided hydronephrosis. Likely secondary to persistent distal right ureter al calculus as seen on CT. 2. Under distention the bladder limits evaluation. Note that the patient reports that she always feel s that the bladder is full.
== END | disposition home or self-care (01) ==
LOC: RADUSWWP 09:31
PROVIDERS: ATTEND Urology
DX: N13.30 Unspecified hydronephrosis (principal); Z88.1 Allergy status to other antibiotic agents; Z88.2 Allergy status to sulfonamides; Z88.8 Allergy status to other drugs, medicaments and biological substances
CPT/HCPCS: 76770

== ENCOUNTER → 2019-01-07 | Outpatient (CLI) | payer MEDICARE ==
[2019-01-07 10:02] VITALS: BP 119/78; PULSE 77; RESP 18; TEMP 18; BMI 25.2
--- NOTE | 2019-01-07 11:20 | P.HPOB ---
History of Present Illness H&P Date: 01/07/19 Chief Complaint: The patient is here for her routine gynecologic exam and ma mmogram. This is a 68-year-old with an LMP of 2003. The patient is without gynecologic complaints. Review of Systems She has gained about 13 pounds over the last 2 years. This was after weight loss of 21 pounds during the prior 2 years. She denies respiratory, cardiac and G.I. problems. She denies maltreatment or problems with falling. : she denies any significant problems with urinary leakage. 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 Osteopenia. PAST THERAPY MANAGER HISTORY: She has no history of STDs. History of Any Multi-Drug Resistant Organisms: None Reported Past Surgical History: Bariatric Surgery, Cholecystectomy, Orthopedic Surgery, Tonsillectomy Additional Past Surgical History / Comment(s): LAP BAND. CYST REMOVED FROM BILATERAL breast, HAND AND MOUTH. ALSO FROM OVARY, lithotripsy, left knee replacement. Colonoscopy ([id number]). Past Anesthesia/Blood Transfusion Reactions: Motion Sickness, Postoperative Nausea & Vomiting (PONV) Past Psychological History: Anxiety Smoking Status: Never smoker Past Alcohol Use History: None Reported Past Drug Use History: Marijuana Additional Drug Use History / Comment(s): pt states she uses medical marijuana. Additional History: She is and is not seeing anybody at this time and is not sexually active. She is retired. - Past Family History Mother Family Medical History: No Reported History Father Family Medical History: Myocardial Infarction ([place]) Additional Family Medical History / Comment(s): Paternal grandmother had breast cancer. Medications and Allergies Home Medications Medication Instructions Recorded Confirmed Type Levothyroxine Sodium [Synthroid] 125 mcg PO QAM 04/11/16 01/07/19 History Acetaminophen [Tylenol Arthritis] 650 mg PO ONCE 04/22/18 01/07/19 History Allergy Relief 1 tab PO DAILY 04/22/18 01/07/19 History Ascorbic Acid [Vitamin C] 500 mg PO DAILY 04/22/18 01/07/19 History Cholecalciferol [Vitamin D3] 1,000 unit PO DAILY 04/22/18 01/07/19 History Fiber Powder Supplement 3 - 4 tsp PO DAILY 04/22/18 01/07/19 History Ibuprofen [Motrin Ib] 200 mg PO DAILY 04/22/18 01/07/19 History L.acidoph,Paracasei, B.lactis 1 cap PO DAILY 04/22/18 01/07/19 History [Probiotic] Loperamide HCl [Imodium A-D] 2 mg PO ONCE 04/22/18 01/07/19 History Magnesium 200 mg PO DAILY 04/22/18 01/07/19 History PARoxetine [Paxil] 20 mg PO DAILY 04/22/18 01/07/19 History Tart Vincent 1,200 mg PO DAILY 04/22/18 01/07/19 History Allergies Allergy/AdvReac Type Severity Reaction Status Date / Time sulfamethoxazole Allergy Rash/Hives Verified 01/07/19 10:03 [From Bactrim] tamsulosin [From Flomax] Allergy Itching Verified 01/07/19 10:03 trimethoprim [From Bactrim] Allergy Rash/Hives Verified 01/07/19 10:03 citric acid [From Prepopik] AdvReac Nausea & Verified 01/07/19 10:03 Vomiting magnesium oxide AdvReac Nausea & Verified 01/07/19 10:03 [From Prepopik] Vomiting sodium picosulfate AdvReac Nausea & Verified 01/07/19 10:03 [From Prepopik] Vomiting Exam Vital Signs Temp Pulse Resp BP Pulse Ox 01/07/19 09:57 18 F L 77 18 119/78 100 Intake and Output 01/06/19 01/07/19 01/07/19 22:59 06:59 14:59 Other: Weight 66.678 kg Height 5 feet 3 inches, weight 147 pounds, BMI 26.0. This is a well-developed well-nourished white female who is alert and oriented times 3 in no acute distress. HEENT: Within normal limits. NECK: Supple without mass or thyromegaly. CHEST AND LUNGS: Clear to auscultation. HEART: Regular rate. Intermittent premature beats amongst several regular beats. Approximately 10 and noted and a 1 minute period. BREASTS: Are without mass or discharge. AXILLARY EXAM: Negative for adenopathy. BACK: Negative for CVA tenderness. ABDOMEN: Soft, nontender. The lap band port is palpable in the left upper quadrant. This is nontender. There are no other palpable masses. PELVIC EXAM: Normal external genitalia with mild atrophy. Cervix and vagina appear normal mild atrophy. There is no unusual discharge. There is no evidence of prolapse. The uterus is anterior, nongravid size and nontender. There are no palpable adnexal masses or tenderness. RECTAL EXAM: Rectovaginal exam is negative for mass or tenderness and is negative for occult blood. EXTREMITIES: Nontender. IMPRESSION: 1. 68-year-old menopausal female with normal gynecologic exam. 2. History of osteopenia 3. Intermittent premature heartbeats. Suspect PVCs. The patient is asymptomatic. PLAN: 1. Pap smears have been discontinued. She is greater than 65 and has no history of Pap smear problems. She has had adequate screening. 2. Self breast awareness was discussed with the patient. 3. Screening mammogram will be done today. 4. 12-lead EKG will be done today. She will follow up with her primary care physician or internet merchant if additional follow-up is needed. 5. Osteoporosis prevention was discussed. I have stressed the importance of adequate calcium, vitamin D and regular exercise. Recommended amounts of calcium and vitamin D were also discussed. She will repeat the bone density test in 1 year. 6. She did receive her flu shot this fall. 7. The patient was advised to return in 1-2 years for her well woman examination.
--- NOTE | 2019-01-08 10:45 | P.PN ---
Progress Note - Text Progress Note Date: 01/08/19 OUTPATIENT FOLLOW-UP NOTE TEST(S)/RESULTS: EKG done on 01/07/2019 showing sinus rhythm with occasional premature ventricular complexes METHOD OF NOTIFICATION: The patient was notified by phone. PATIENT COMMENTS: The patient has not been experiencing cardiac symptoms. DIAGNOSIS: Frequent PVCs noted by auscultation on routine exam. DISCUSSION: We discussed how there can be different causes for PVCs and did the degree of concern varies with the frequency and cause for the PVCs. PLAN: The patient will follow up with Dr. Soria, her primary care physician. The EKG and my H&P from 01/07/2019 will be faxed to Dr. Soria.
--- NOTE | 2019-01-08 12:07 | MM ---
Reason for exam: screening (asymptomatic). Last mammogram was performed 2 years and 3 months ago. History: Patient is postmenopausal and had first child at age 34. Family history of breast cancer in paternal grandmother at age 70. Benign stereotactic core biopsy of the right breast, June 18, 2001. Cyst aspiration of the right breast. Core biopsy of the right breast. Excisional biopsy of the left breast. Excisional biopsy of the right breast. Physical Findings: A clinical breast exam by your physician is recommended on an annual basis and results should be correlated with mammographic findings. MG Screening Mammo w CAD Bilateral CC and MLO view(s) were taken. Prior study comparison: October 06, 2016, bilateral MG screening mammo w CAD. March 18, 2013, bilateral digital screening mammo w/CAD. The breast tissue is heterogeneously dense. This may lower the sensitivity of mammography. There are benign appearing round calcifications bilaterally. Previous mammotome biopsy in the right breast. There is chronic nodularity in the left breast. There is no discrete abnormality. ASSESSMENT: Benign, BI-RAD 2 RECOMMENDATION: Routine screening mammogram of both breasts in 1 year.
== END | disposition home or self-care (01) ==
LOC: WWCWWP 09:46
PROVIDERS: ATTEND Obstetrics & Gynecology
DX: Z12.31 Encounter for screening mammogram for malignant neoplasm of breast (principal)
CPT/HCPCS: 77067

== ENCOUNTER → 2019-01-07 | Outpatient (CLI) | payer MEDICARE | END | disposition home or self-care (01) | LOC: LABWHC1 11:31 | PROVIDERS: ATTEND Obstetrics & Gynecology | DX: I49.9 Cardiac arrhythmia, unspecified (principal) | CPT/HCPCS: 36415; 93005 ==

== ENCOUNTER → 2019-05-14 | Outpatient (CLI) | payer MEDICARE ==
--- NOTE | 2019-05-14 15:43 | CT ---
EXAMINATION TYPE: CT abdomen pelvis wo con DATE OF EXAM: 05/14/2019 COMPARISON: 04/22/2018 HISTORY: 68-year-old female left flank pain CT DLP: 252.8 mGycm. Automated exposure control for dose reduction was used. TECHNIQUE: Contiguous axial scanning of the abdomen and pelvis without IV contrast. Coronal and sagit chrissie reconstructions performed. FINDINGS: Some questionable soft tissue thickening at the GE junction. Prominent fluid within the visualized di stal esophagus. A lap band device is present with similar orientation as compared to 2019. Heart normal size without pericardial effusion. Strandy atelectasis or scarring in the lower lungs. Noncontrast appearance of the liver, adrenal glands, right kidney, spleen with inferior splenule, alvarado creas shows no gross abnormality. Cholecystectomy clips. Nonobstructive 3 mm left renal calculus, axial image 28. Punctate 2 mm nonobstructive left lower pole renal calculus, axial image 42. There is mild to moderate left-sided hydronephrosis and mild hydrour eter. 6 mm obstructive calculus distal left ureter, axial image 102. No dilated small bowel, free fluid, or free air. No mesenteric or retroperitoneal lymphadenopathy. Mild overall stool burden. No pericolonic inflammatory change. Bladder is nondistended anteverted uterus. Neither ovary clearly delineated from adjacent nonopacifie d bowel loops. No abnormal fluid collection in the pelvis or pelvic lymphadenopathy. Bones: Mild degenerative changes both hips. Moderate to advanced degenerative disc disease L3-S1 leve ls. Grade 1 anterolisthesis L2-L4 with hypertrophic facet arthropathy. IMPRESSION: 1. A 6 mm calculus at the distal left ureter with [id number] obstructive uropathy. A couple ad ditional nonobstructive left renal calculi measuring up to 3 mm. 2. A lap band is present. It has a horizontal orientation which is unchanged from 2019. 3. Questionable soft tissue thickening at the GE junction could represent an underlying hiatal herni a. Esophagitis or neoplasm are also considerations. Correlate with patient's symptoms. Direct visuali zation is indicated. Prominent fluid within the visualized distal esophagus could reflect gastroesoph ageal reflux or esophageal dysmotility.
== END | disposition home or self-care (01) ==
LOC: RADCTMAIN 15:04
PROVIDERS: ATTEND Urology
DX: N20.2 Calculus of kidney with calculus of ureter (principal); N13.9 Obstructive and reflux uropathy, unspecified; R31.1 Benign essential microscopic hematuria; Z87.442 Personal history of urinary calculi; Z88.2 Allergy status to sulfonamides; Z88.8 Allergy status to other drugs, medicaments and biological substances; Z88.1 Allergy status to other antibiotic agents
CPT/HCPCS: 74176

== ENCOUNTER → 2019-06-27 | Outpatient (CLI) | payer MEDICARE ==
--- NOTE | 2019-06-27 11:58 | US ---
EXAMINATION TYPE: US kidneys/renal and bladder DATE OF EXAM: 06/27/2019 COMPARISON: Anal ultrasound dated 05/09/2018 CLINICAL HISTORY: Left hydronephrosis N13.30. Past ureteroscopy and lithotripsy. EXAM MEASUREMENTS: Right Kidney: 10.2 x 3.8 x 4.4 cm Left Kidney: 10.0 x 3.9 x 4.4 cm Right Kidney: No hydronephrosis or masses seen. Resolution of the previously seen moderate hydronephr osis. Left Kidney: echogenic foci noted, possible stones, no hydronephrosis Bladder: patient has lap band and was unable to drink enough water to fill her bladder, not distended IMPRESSION: 1. Resolution the previously seen moderate right hydronephrosis. No right-sided hydronephrosis remain s. 2. Nondistention of the urinary bladder, incomplete evaluation. 3. Punctate echogenic foci are seen of the left kidney suggesting small nonobstructing calculi. No le ft-sided hydronephrosis.
== END | disposition home or self-care (01) ==
LOC: RADUSWWP 10:47
PROVIDERS: ATTEND Urology
DX: N13.30 Unspecified hydronephrosis (principal); Z88.1 Allergy status to other antibiotic agents; Z88.2 Allergy status to sulfonamides; Z88.8 Allergy status to other drugs, medicaments and biological substances
CPT/HCPCS: 76770

== ENCOUNTER → 2020-03-24 | Outpatient (CLI) | payer MEDICARE ==
[2020-03-24 11:38] VITALS: PULSE 75; RESP 18; TEMP 97.9
--- NOTE | 2020-03-24 12:43 | P.HPOB ---
History of Present Illness H&P Date: 03/24/20 Chief Complaint: The patient is here for her routine gynecologic exam and ma mmogram. This is a 69-year-old with an LMP of 2003. The patient states she has had an occasional low abdominal cramps during the past 2 months. She states it is not every day and lasts for just seconds. She denies any postmenopausal bleeding. The cramping does not seem to be associated with urination or bowel movements or any other particular activity. She is otherwise without compla ints. Review of Systems Weight has been stable. She denies respiratory, cardiac and G.I. problems. She denies maltreatment or problems with falling. : she denies any significant problems with urinary leakage, but occasionally has to get to the bathroom right away if her bladder gets full. 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 Osteopenia. 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 History of Any Multi-Drug Resistant Organisms: None Reported Past Surgical History: Bariatric Surgery, Cholecystectomy, Orthopedic Surgery, Tonsillectomy Additional Past Surgical History / Comment(s): LAP BAND. CYST REMOVED FROM BILATERAL breast, HAND AND MOUTH. ALSO FROM OVARY, lithotripsy, left knee replacement. Abdominoplasty. Colonoscopy 2017(next after 5yr). Past Anesthesia/Blood Transfusion Reactions: Motion Sickness, Postoperative Nausea & Vomiting (PONV) Past Psychological History: Anxiety Smoking Status: Never smoker Past Alcohol Use History: Occasional (0-4 per month) Past Drug Use History: Marijuana Additional Drug Use History / Comment(s): pt states she uses medical marijuana. Additional History: She is and is not seeing anybody at this time and is not sexually active. She is retired. - Past Family History Mother Family Medical History: No Reported History Father Family Medical History: Myocardial Infarction ([place]) Additional Family Medical History / Comment(s): Paternal grandmother had breast cancer. Medications and Allergies Home Medications Medication Instructions Recorded Confirmed Type Levothyroxine Sodium [Synthroid] 100 mcg PO QAM 04/11/16 03/24/20 History Acetaminophen [Tylenol Arthritis] 650 mg PO ONCE 04/22/18 03/24/20 History Allergy Relief 1 tab PO DAILY 04/22/18 03/24/20 History Ascorbic Acid [Vitamin C] 500 mg PO DAILY 04/22/18 03/24/20 History Cholecalciferol [Vitamin D3] 1,000 unit PO DAILY 04/22/18 03/24/20 History Fiber Powder Supplement 3 - 4 tsp PO DAILY 04/22/18 03/24/20 History L.acidoph,Paracasei, B.lactis 1 cap PO DAILY 04/22/18 03/24/20 History [Probiotic] Magnesium 200 mg PO DAILY 04/22/18 03/24/20 History PARoxetine [Paxil] 20 mg PO DAILY 04/22/18 03/24/20 History Tart Vincent 1,200 mg PO DAILY 04/22/18 03/24/20 History Ascorbic Acid/Elderberry Fruit 50 mg PO DAILY 03/24/20 03/24/20 History [Elderberry-Vit C 50-100 mg Chw] Optimized Folate L-Methylfolat 1,000 mcg PO DAILY 03/24/20 03/24/20 History Potassium Gluconate 595 mg PO DAILY 03/24/20 03/24/20 History Allergies Allergy/AdvReac Type Severity Reaction Status Date / Time sulfamethoxazole Allergy Rash/Hives Verified 03/24/20 11:44 [From Bactrim] tamsulosin [From Flomax] Allergy Itching Verified 03/24/20 11:44 trimethoprim [From Bactrim] Allergy Rash/Hives Verified 03/24/20 11:44 citric acid [From Prepopik] AdvReac Nausea & Verified 03/24/20 11:44 Vomiting magnesium oxide AdvReac Nausea & Verified 03/24/20 11:44 [From Prepopik] Vomiting sodium picosulfate AdvReac Nausea & Verified 03/24/20 11:44 [From Prepopik] Vomiting Exam Vital Signs Temp Pulse Resp Pulse Ox 03/24/20 11:29 97.9 F 75 18 100 Intake and Output 03/23/20 03/24/20 03/24/20 22:59 06:59 14:59 Other: Weight 65.771 kg Height 5 feet 2 inches, weight 145 pounds, BMI 26.5. This is a well-developed well-nourished white female who is alert and oriented times 3 in no acute distress. HEENT: Within normal limits. NECK: Supple without mass or thyromegaly. CHEST AND LUNGS: Clear to auscultation. HEART: Regular rate and rhythm. BREASTS: Are without mass or discharge. AXILLARY EXAM: Negative for adenopathy. BACK: Negative for CVA tenderness. ABDOMEN: Soft, nontender, and is consistent with previous abdominoplasty. There is a palpable lap band port in the epigastric region which is nontender. There are no other palpable abdominal masses. PELVIC EXAM: Normal external genitalia with mild to moderate atrophy. Cervix and vagina appear normal with mild to moderate atrophy. The cervix is anterior. There is no unusual discharge. There is no evidence of prolapse. The uterus is retroverted, nongravid size and nontender. There are no palpable adnexal masses or tenderness. RECTAL EXAM: Rectovaginal exam is negative for mass or tenderness and is negative for occult blood. EXTREMITIES: Nontender. IMPRESSION: 1. 69-year-old menopausal female with normal gynecologic exam. 2. Infrequent brief low abdominal cramps with no significant physical findings at this time. 3. History of osteopenia. PLAN: 1. Pap smears have been discontinued since she is greater than 65 with adequate screening in the past. 2. Self breast awareness was discussed with the patient. 3. Screening mammogram will be done today. 4. The patient will keep track of the low abdominal cramping and if it is persisting or worsening, she was instructed to call and we can further evaluate this possibly with pelvic ultrasound. She states it is not very bothersome and she is not very concerned about it. 5. Osteoporosis prevention was discussed. I have stressed the importance of adequate calcium, vitamin D and regular exercise. Recommended amounts of calcium and vitamin D were also discussed. I recommended bone density testing since her last one was done in 2017. The order slip was given to the patient for this. 6. The patient was advised to return in 1-2 years for her well woman examination and as needed.
--- NOTE | 2020-03-29 09:38 | MM ---
Reason for exam: screening (asymptomatic). Last mammogram was performed 1 year and 2 months ago. History: Patient is postmenopausal and had first child at age 34. Family history of breast cancer in paternal grandmother at age 70. Benign stereotactic core biopsy of the right breast, June 18, 2001. Cyst aspiration of the right breast. Core biopsy of the right breast. Excisional biopsy of the left breast. Excisional biopsy of the right breast. Physical Findings: A clinical breast exam by your physician is recommended on an annual basis and results should be correlated with mammographic findings. MG 3D Screening Mammo W/Cad Bilateral CC and MLO view(s) were taken. Prior study comparison: January 07, 2019, bilateral MG screening mammo w CAD. October 06, 2016, bilateral MG screening mammo w CAD. The breast tissue is heterogeneously dense. This may lower the sensitivity of mammography. There are benign appearing round calcifications bilaterally. Previous mammotome biopsy in the right breast. There is no discrete abnormality. ASSESSMENT: Benign, BI-RAD 2 RECOMMENDATION: Routine screening mammogram of both breasts in 1 year.
== END | disposition home or self-care (01) ==
LOC: WWCWWP 11:17
PROVIDERS: ATTEND Obstetrics & Gynecology
DX: Z12.31 Encounter for screening mammogram for malignant neoplasm of breast (principal)
CPT/HCPCS: 77063; 77067

== ENCOUNTER → 2020-04-02 | Outpatient (CLI) | payer MEDICARE ==
--- NOTE | 2020-04-02 16:00 | BD ---
EXAMINATION TYPE: Axial Bone Density DATE OF EXAM: 04/02/2020 COMPARISON: 11/07/2016 CLINICAL HISTORY: Height: 61.7 IN Weight: 141 LBS FRAX RISK QUESTIONS: History of Fracture in Adulthood: RT FOOT FX APPROX AGE 58 Secondary Osteoporosis: Rheumatoid Arthritis: YES RISK FACTORS HISTORY OF: Active: YES Postmenopausal woman: AGE 54 Lost more than 2 inches in height since high school: YES APPROX 3" MEDICATIONS: Thyroid Medications: YES Which medication: Levothyroxine How Lon YEARS Additional Medications: VIT D, ALLERGY RELIEF, LEVOTHYROXINE, [AXIL, PROBIOTIC, MAGNESIUM, FIBER POWD ER, TART MASCORRO, TYLENOL, B12, VIT C, POTASSIUM GLUCONATE, ELDERBERRY, FOLATE EXAM MEASUREMENTS: Bone mineral densitometry was performed using the [employer]spot System. Bone mineral density as measured about the Lumbar spine is: ----- L1-L4(G/cm2): 1.216 T Score Values are as follows: ----- L2: -0.6 ----- L3: 1.4 ----- L4: 0.5 ----- L1-L4: 0.3 Bone mineral density has: Increased 0.7% since study of: 11/07/2016 Bone mineral density about the R hip (g/cm2): 0.806 Bone mineral density about the L hip (g/cm2): 0.813 T Score values are as follows: -----R Neck: -1.7 -----L Neck: -1.6 -----R Total: -1.8 -----L Total: -1.6 Bone mineral density has: Decreased -3.5% since study of: 11/07/2016 IMPRESSION: Osteopenia NOTE: T-SCORE=SD OF THE YOUNG ADULT MEAN.
== END | disposition home or self-care (01) ==
LOC: RADBDWWP 12:35
PROVIDERS: ATTEND Obstetrics & Gynecology
DX: M85.80 Other specified disorders of bone density and structure, unspecified site (principal); Z78.0 Asymptomatic menopausal state
CPT/HCPCS: 77080

== ENCOUNTER → 2021-01-19 | Outpatient (CLI) | payer MEDICARE ==
--- NOTE | 2021-01-19 19:54 | MR ---
EXAMINATION TYPE: MR cervical spine wo con DATE OF EXAM: 01/19/2021 COMPARISON: None HISTORY: Cervicalgia CONTRAST: Performed utilizing 0 mL intravenous gadolinium contrast. TECHNIQUE: Multiplanar multiecho imaging on a 3.0 Bev magnet is performed through the cervical spin e. FINDINGS: The craniovertebral junction is normal. Vertebral body alignment is normal. There is dis c desiccation throughout the cervical spine. Disc space narrowing is present C3-4 through C7-T1. C7-T1: No focal disc herniation or significant disc bulge is evident. No spinal canal stenosis or n eural foraminal stenosis is present. C6-7: Broad-based disc bulge with mild anterior thecal sac compression. No AP spinal canal stenosis i s present. No cord contact. Foramen are patent.. C5-6: Large broad disc bulging is present with moderate anterior thecal sac compression. This is acco mpanied by endplate spurring. This has moderate anterior thecal sac compression. Cord contact is pres ent. AP spinal canal stenosis may be present measuring 0.8 cm. Cord deformity may have some mild ante rior cord compression. C4-5: Broad-based disc bulge is present with mild ventral thecal sac compression. This comes in close approximation with the spinal cord. No cord deformity is evident.. C3-4: Broad-based disc bulge is present with anterior thecal sac compression. No cord contact or cord deformity is evident.. C2-3: No focal disc herniation or significant disc bulge is evident. No spinal canal stenosis or namita ral foraminal stenosis is present. IMPRESSIONS: 1. Multilevel disc bulging is greatest at the C5-6 level with moderate anterior thecal sac compressio n. Some cord contact and mild cord deformity is present. AP spinal canal stenosis is present. 2. Additional milder disc bulging present C3-4 through C6-7 with moderate anterior thecal sac impress ion.
== END | disposition home or self-care (01) ==
LOC: RADMRIMAIN 11:56
PROVIDERS: ATTEND Otolaryngology
DX: M50.223 Other cervical disc displacement at C6-C7 level (principal)
CPT/HCPCS: 72141

== ENCOUNTER 2021-02-09 09:23 | Emergency (ER) | payer MEDICARE ==
[2021-02-09 09:29] VITALS: BP 133/70; PULSE 78; RESP 18; TEMP 97.9
[2021-02-09] MEDS ORDERED: SODIUM CHLORIDE 0.9% 1,000 ML IV STA (10:08)
[2021-02-09] MEDS ORDERED: ASPIRIN 81 MG PO STA (10:09)
[2021-02-09] MEDS ORDERED: LORazepam 0.5 MG TAB PO STA (10:09)
[2021-02-09 10:44] LABS: Basophils % (A) 1 %; Eosinophils # (A) 0.2 k/uL (0-0.7); Eosinophils % (A) 3 %; HCT 41.5 % (34.0-46.0); HGB 13.1 gm/dL (11.4-16.0); Lymphocytes # (A) 0.6 k/uL (1.0-4.8); Lymphocytes % (A) 8 %; MCH 29.2 pg (25.0-35.0); MCHC 31.6 g/dL (31.0-37.0); MCV 92.3 fL (80.0-100.0); Mean Platelet Volume 7.8; Monocytes # (A) 0.4 k/uL (0-1.0); Monocytes % (A) 5 %; Neutrophils # (A) 6.3 k/uL (1.3-7.7); Neutrophils % (A) 83 %; Platelet Count 259 k/uL (150-450); RBC 4.49 m/uL (3.80-5.40); RDW 13.2 % (11.5-15.5); WBC 7.7 k/uL (3.8-10.6)
[2021-02-09 11:02] LABS: ALT 17 U/L (4-34); African American GFR (CKD) >90 (>60 ml/min/1.73 sqM); Albumin 4.3 g/dL (3.5-5.0); Anion Gap 9 mmol/L; Blood Urea Nitrogen 15 mg/dL (7-17); Calcium 9.4 mg/dL (8.4-10.2); Carbon Dioxide 23 mmol/L (22-30); Chloride 105 mmol/L (98-107); Glucose 121 mg/dL (74-99); Non-African American GFR(CKD) >90 (>60 ml/min/1.73 sqM); Sodium 137 mmol/L (137-145); Total Bilirubin 0.6 mg/dL (0.2-1.3); Total Protein 7.6 g/dL (6.3-8.2)
--- NOTE | 2021-02-09 11:19 | XR ---
EXAMINATION TYPE: XR chest 2V DATE OF EXAM: 02/09/2021 COMPARISON: Chest x-ray 02/19/2011 HISTORY: Syncope TECHNIQUE: Frontal and lateral views of the chest are obtained. FINDINGS: There is no focal air space opacity, pleural effusion, or pneumothorax seen. The cardiac silhouette size is within normal limits. Lap band shows a somewhat transverse orientation similar to prior exam. Prominent lung volume may be indicative of underlying COPD. There is thoracic spondylosi s. Aorta is dense. The osseous structures are intact. IMPRESSION: No acute cardiopulmonary process.
[2021-02-09 11:26] LABS: AST 28 U/L (14-36); Alkaline Phosphatase 70 U/L (38-126); Magnesium 1.8 mg/dL (1.6-2.3); Potassium 4.4 mmol/L (3.5-5.1)
[2021-02-09 12:26] LABS: INR 0.9 (<1.2); Partial Thromboplastin Time 22.3 sec (22.0-30.0); Prothrombin Time 9.5 sec (9.0-12.0)
--- NOTE | 2021-02-09 12:41 | ED ---
General Adult HPI - General Chief complaint: Syncope Stated complaint: syncope Time Seen by Provider: 02/09/21 09:39 Source: EMS, RN notes reviewed, old records reviewed Mode of arrival: EMS Limitations: no limitations - History of Present Illness Initial comments: Patient is a 70-year-old female who presents as a Department complaining of a syncopal episode at her eye doctor's office earlier today. Patient states she had just received an Eye Puffer test, and felt warm, flushed, and became diaphoretic. She passed out in the chair. She was out momentarily per staff, nonradiating consciousness. She states she has been dealing with upper respirat ory illness over the last few days. She is fully vaccinated for COVID-19 and received a booster shot. She describes a mild nonproductive cough with no sore throat, fevers, chills. No known sick contacts. Denies any nausea, vomiting. Denies any abdominal pain. She currently feels fine. She denies any current chest pain or chest pain during the episode earlier. She denies any history of blood clots. She is no other acute complaints at this time. She states she does get anxious sometimes, he does feel slightly anxious now. Has no other acute complaints at this time. - Related Data Home Medications Medication Instructions Recorded Confirmed Levothyroxine Sodium [Synthroid] 100 mcg PO QAM 04/11/16 03/24/20 Acetaminophen [Tylenol Arthritis] 650 mg PO ONCE 04/22/18 03/24/20 Allergy Relief 1 tab PO DAILY 04/22/18 03/24/20 Ascorbic Acid [Vitamin C] 500 mg PO DAILY 04/22/18 03/24/20 Cholecalciferol [Vitamin D3] 1,000 unit PO DAILY 04/22/18 03/24/20 Fiber Powder Supplement 3 - 4 tsp PO DAILY 04/22/18 03/24/20 L.acidoph,Paracasei, B.lactis 1 cap PO DAILY 04/22/18 03/24/20 [Probiotic] Magnesium 200 mg PO DAILY 04/22/18 03/24/20 PARoxetine [Paxil] 20 mg PO DAILY 04/22/18 03/24/20 Tart Vincent 1,200 mg PO DAILY 04/22/18 03/24/20 Ascorbic Acid/Elderberry Fruit 50 mg PO DAILY 03/24/20 03/24/20 [Elderberry-Vit C 50-100 mg Chw] Optimized Folate L-Methylfolat 1,000 mcg PO DAILY 03/24/20 03/24/20 Potassium Gluconate [Potassium 595 mg PO DAILY 03/24/20 03/24/20 Gluconate ER] Allergies Allergy/AdvReac Type Severity Reaction Status Date / Time sulfamethoxazole Allergy Rash/Hives Verified 02/09/21 09:25 [From Bactrim] tamsulosin [From Flomax] Allergy Itching Verified 02/09/21 09:25 trimethoprim [From Bactrim] Allergy Rash/Hives Verified 02/09/21 09:25 citric acid [From Prepopik] AdvReac Nausea & Verified 02/09/21 09:25 Vomiting magnesium oxide AdvReac Nausea & Verified 02/09/21 09:25 [From Prepopik] Vomiting sodium picosulfate AdvReac Nausea & Verified 02/09/21 09:25 [From Prepopik] Vomiting Review of Systems ROS Statement: Those systems with pertinent positive or pertinent negative responses have been documented in the HPI. Review of Systems: CONST: Denies fever EYES: Denies blurry vision ENT: Endorses nasal congestion C/V: Denies Chest pain RESP: Denies shortness of breath GI: Denies abdominal pain : Denies dysuria SKIN: Denies rash. MSK: Denies joint pain. NEURO: Denies headache ROS Other: All systems not noted in ROS Statement are negative. 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 History of Any Multi-Drug Resistant Organisms: None Reported Past Surgical History: Bariatric Surgery, Cholecystectomy, Orthopedic Surgery, Tonsillectomy Additional Past Surgical History / Comment(s): LAP BAND. CYST REMOVED FROM BILATERAL breast, HAND AND MOUTH. ALSO FROM OVARY, lithotripsy, left knee replacement. Abdominoplasty. Colonoscopy 2017(next after 5yr). Past Anesthesia/Blood Transfusion Reactions: Motion Sickness, Postoperative Nausea & Vomiting (PONV) Past Psychological History: Anxiety Smoking Status: Never smoker Past Alcohol Use History: Occasional Past Drug Use History: Marijuana - Past Family History Mother Family Medical History: No Reported History Father Family Medical History: Myocardial Infarction ([place]) Additional Family Medical History / Comment(s): Paternal grandmother had breast cancer. General Exam - General Exam Comments Initial Comments: General: Appears in no acute distress. HEAD: Normal with no signs of head trauma. EYES: PERRLA, EOMI, conjunctiva normal, no discharge. ENT: Hearing grossly intact, normal oropharynx. RESPIRATORY: Clear breath sounds bilaterally. No wheezes, rales, or rhonchi. C/V: Regular rate and rhythm. S1 and S2 auscultated, no edema, peripheral pulses 2+ and intact throughout ABD: Abd is soft, nontender, nondistended EXT: Normal range of motion, no obvious deformity SKIN: No rashes or lesions observed on exposed skin. NEURO: Alert and oriented x 4. Cranial nerves II-XII intact. No focal sensory o r strength deficits. NIH is 0. GCS is 15. Limitations: no limitations Course Vital Signs 02/09/21 09:25 Temperature 97.9 F Pulse Rate 78 Respiratory 18 Rate Blood Pressure 133/70 O2 Sat by Pulse 98 Oximetry Medical Decision Making - Medical Decision Making Patient is a 70-year-old female presents with department after a syncopal episode. She has been having URI symptoms. No other acute complaints at this time. After her normal baseline status at this time. I did recommend that based on her age, as well as "so we obtain a cardiac workup. She is low risk for pulmonary was him and recommended that we also obtain a screening D-dimer t est which was in agreement this plan. Patient will be Covid swabbed as well for her URI symptoms as well as obtain basic labs and chest x-ray. She was in agreement this plan. She'll be given aspirin as well as a small dose of Ativan and fluid hydration while she is here in the department. EKG shows no signs of acute ischemia. Laboratory studies are remarkable for a normal d-dimer, negative troponin, negative Covid swabbed. Remainder of her labs are unremarkable. Chest x-ray reveals no acute cardiopulmonary process. On reevaluation, patient feels back to her baseline. Denies any acute complaints at this time. We did discuss the results of her laboratory studies and imaging. I do believe it is safe for her to be discharged home. Patient's heart score is low at 3 and Jackson Syncope score is low risk. Patient was in agreement with this plan. I did recommend that she obtain follow-up with cardiology, for baseline exam and she was in agreement this plan. She'll be given contact information. I instructed the patient to follow up with their PCP in the next 3 days. I provided contact information for follow up with Dr. Neff of cardiology. I explained that the patient should return to the emergency department if they experience any worsening symptoms. Strict return precautions were discussed with the patient. The patient expressed understanding of these instructions. I answered all questions that the patient had. The patient was discharged home in good Condition with their prescriptions and follow up information. - Lab Data Result diagrams: 02/09/21 10:30 02/09/21 10:30 Lab Results 02/09/21 02/09/21 02/09/21 Range/Units 10:30 10:30 10:30 WBC 7.7 (3.8-10.6) k/uL RBC 4.49 (3.80-5.40) m/uL Hgb 13.1 (11.4-16.0) gm/dL Hct 41.5 (34.0-46.0) % MCV 92.3 (80.0-100.0) fL MCH 29.2 (25.0-35.0) pg MCHC 31.6 (31.0-37.0) g/dL RDW 13.2 (11.5-15.5) % Plt Count 259 (150-450) k/uL MPV 7.8 Neutrophils % 83 % Lymphocytes % 8 % Monocytes % 5 % Eosinophils % 3 % Basophils % 1 % Neutrophils # 6.3 (1.3-7.7) k/uL Lymphocytes # 0.6 L (1.0-4.8) k/uL Monocytes # 0.4 (0-1.0) k/uL Eosinophils # 0.2 (0-0.7) k/uL Basophils # 0.0 (0-0.2) k/uL PT (9.0-12.0) sec INR (<1.2) APTT (22.0-30.0) sec D-Dimer (<0.60) mg/L FEU Sodium 137 (137-145) mmol/L Potassium 4.4 (3.5-5.1) mmol/L Chloride 105 (98-107) mmol/L Carbon Dioxide 23 (22-30) mmol/L Anion Gap 9 mmol/L BUN 15 (7-17) mg/dL Creatinine 0.64 (0.52-1.04) mg/dL Est GFR (CKD-EPI)AfAm >90 (>60 ml/min/1.73 sqM) Est GFR (CKD-EPI)NonAf >90 (>60 ml/min/1.73 sqM) Glucose 121 H (74-99) mg/dL Calcium 9.4 (8.4-10.2) mg/dL Magnesium 1.8 (1.6-2.3) mg/dL Total Bilirubin 0.6 (0.2-1.3) mg/dL AST 28 (14-36) U/L ALT 17 (4-34) U/L Alkaline Phosphatase 70 (38-126) U/L Troponin I <0.012 (0.000-0.034) ng/mL Total Protein 7.6 (6.3-8.2) g/dL Albumin 4.3 (3.5-5.0) g/dL Coronavirus (PCR) (Not Detectd) 02/09/21 02/09/21 Range/Units 10:30 11:46 WBC (3.8-10.6) k/uL RBC (3.80-5.40) m/uL Hgb (11.4-16.0) gm/dL Hct (34.0-46.0) % MCV (80.0-100.0) fL MCH (25.0-35.0) pg MCHC (31.0-37.0) g/dL RDW (11.5-15.5) % Plt Count (150-450) k/uL MPV Neutrophils % % Lymphocytes % % Monocytes % % Eosinophils % % Basophils % % Neutrophils # (1.3-7.7) k/uL Lymphocytes # (1.0-4.8) k/uL Monocytes # (0-1.0) k/uL Eosinophils # (0-0.7) k/uL Basophils # (0-0.2) k/uL PT 9.5 (9.0-12.0) sec INR 0.9 (<1.2) APTT 22.3 (22.0-30.0) sec D-Dimer 0.42 (<0.60) mg/L FEU Sodium (137-145) mmol/L Potassium (3.5-5.1) mmol/L Chloride (98-107) mmol/L Carbon Dioxide (22-30) mmol/L Anion Gap mmol/L BUN (7-17) mg/dL Creatinine (0.52-1.04) mg/dL Est GFR (CKD-EPI)AfAm (>60 ml/min/1.73 sqM) Est GFR (CKD-EPI)NonAf (>60 ml/min/1.73 sqM) Glucose (74-99) mg/dL Calcium (8.4-10.2) mg/dL Magnesium (1.6-2.3) mg/dL Total Bilirubin (0.2-1.3) mg/dL AST (14-36) U/L ALT (4-34) U/L Alkaline Phosphatase (38-126) U/L Troponin I (0.000-0.034) ng/mL Total Protein (6.3-8.2) g/dL Albumin (3.5-5.0) g/dL Coronavirus (PCR) Not Detected (Not Detectd) - EKG Data -: EKG Interpreted by Me EKG Comments: 12-lead Electrocardiogram Interpretation Note EKG was reviewed and interpreted by myself. 12-lead ECG performed at 0937 is interpreted by me as revealing normal sinus rhythm at a rate of 78 beats per minute. [place] is normal. IA interval is 174 ms, QRS duration 74 ms, QTc is 428 ms.. There were no ST or T wave abnormalities to suggest myocardial ischemia or injury. R wave progression across the precordium was satisfactory. By my interpretation this EKG is non-diagnostic for acute ischemia. Disposition Clinical Impression: Syncope, Viral URI Disposition: HOME SELF-CARE Condition: Good Is patient prescribed a controlled substance at d/c from ED?: No Referrals: Nicole Soria MD [Primary Care Provider] - 1-2 days Fernie Neff MD [STAFF PHYSICIAN] - 1-2 days
== END 2021-02-09 13:12 | disposition home or self-care (01) ==
LOC: EC 09:23
DX: R55 Syncope and collapse (principal); J06.9 Acute upper respiratory infection, unspecified; K21.9 Gastro-esophageal reflux disease without esophagitis; E03.9 Hypothyroidism, unspecified; Z20.822 Contact with and (suspected) exposure to COVID-19; Z88.2 Allergy status to sulfonamides; Z88.8 Allergy status to other drugs, medicaments and biological substances; Z79.890 Hormone replacement therapy; Z79.899 Other long term (current) drug therapy
CPT/HCPCS: 36415; 71046; 80053; 83735; 84484; 85025; 85379; 85610; 85730; 87635; 93005; 99284

== ENCOUNTER → 2021-02-21 | Outpatient (CLI) | payer MEDICARE ==
--- NOTE | 2021-02-22 08:00 | ECHOF ---
Referral Reason:syncope MEASUREMENTS -------- HEIGHT: 160.0 cm WEIGHT: 67.1 kg BP: IVSd: 1.3 cm (0.6 - 1.1) LVIDd: 3.7 cm (3.9 - 5.3) LVPWd: 1.5 cm (0.6 - 1.1) IVSs: 1.7 cm LVIDs: 2.7 cm LVPWs: 2.0 cm Ao Diam: 3.4 cm (2.0 - 3.7) AV Cusp: 1.8 cm (1.5 - 2.6) LA Diam: 3.4 cm (2.7 - 3.8) MV EXCURSION: 13.189 mm (> 18.000) MV EF SLOPE: 56 mm/s (70 - 150) EPSS: 0.4 cm MV E Sanjay: 0.59 m/s MV DecT: 182 ms MV A Sanjay: 0.74 m/s MV E/A Ratio: 0.80 RAP: 5.00 mmHg RVSP: 19.78 mmHg FINDINGS -------- This was a technically good study. The left ventricular size is normal. Left ventricular wall thickness is normal. Overall left vent ricular systolic function is normal with, an EF between 55 - 60 %. The right ventricle is normal in size. The left atrial size is normal. The right atrial size is normal. The aortic valve is trileaflet and appears structurally normal. The mitral valve is normal. There is trace mitral regurgitation. The tricuspid valve appears structurally normal. Trace tricuspid regurgitation present. Right regis tricular systolic pressure is normal at < 35 mmHg. There is no pulmonic regurgitation present. The aortic root size is normal. Normal inferior vena cava with normal inspiratory collapse consistent with estimated right atrial pre ssure of 5 mmHg. There is a small, generalized pericardial effusion present. CONCLUSIONS -------- 1. The left ventricular size is normal. 2. Left ventricular wall thickness is normal. 3. Overall left ventricular systolic function is normal with, an EF between 55 - 60 %. 4. There is trace mitral regurgitation. 5. Trace tricuspid regurgitation present. 6. There is a small, generalized pericardial effusion present. [employer]: Karly Valiente RDCS
== END | disposition home or self-care (01) ==
LOC: RADECHMAIN 13:45
PROVIDERS: ATTEND Family Medicine
DX: I08.1 Rheumatic disorders of both mitral and tricuspid valves (principal)
CPT/HCPCS: 93306

== ENCOUNTER 2021-07-02 03:34 | Observation (INO) | payer MEDICARE ==
[2021-07-02] MEDS ORDERED: KETOROLAC 15 MG/ML 1 ML VIAL IVP STA (03:52)
[2021-07-02] MEDS ORDERED: MORPHINE SULFATE 4 MG/ML SYRINGE IV STA (03:52)
[2021-07-02] MEDS ORDERED: ONDANSETRON 4 MG/2 ML VIAL IVP STA (04:12)
[2021-07-02 04:22] LABS: Basophils # (A) 0.1 k/uL (0-0.2); Basophils % (A) 1 %; Eosinophils # (A) 0.4 k/uL (0-0.7); Eosinophils % (A) 3 %; HCT 40.6 % (34.0-46.0); HGB 12.4 gm/dL (11.4-16.0); Lymphocytes # (A) 1.7 k/uL (1.0-4.8); Lymphocytes % (A) 13 %; MCH 27.8 pg (25.0-35.0); MCHC 30.6 g/dL (31.0-37.0); MCV 90.9 fL (80.0-100.0); Mean Platelet Volume 7.2; Monocytes # (A) 0.5 k/uL (0-1.0); Monocytes % (A) 4 %; Neutrophils % (A) 77 %; Platelet Count 327 k/uL (150-450); RBC 4.47 m/uL (3.80-5.40); RDW 13.4 % (11.5-15.5); WBC 12.9 k/uL (3.8-10.6)
[2021-07-02 04:27] LABS: Appearance,Urine Cloudy (Clear); Bilirubin,Urine Negative (Negative); Blood,Urine Large (Negative); Calcium Oxalate Crystals,Urine Occasional /hpf; Color,Urine Yellow; Glucose,Urine (UA) Negative (Negative); Ketones,Urine Trace (Negative); Leukocyte Esterase,Urine Trace (Negative); Mucus,Urine Moderate /hpf; Nitrite,Urine Negative (Negative); PH, Urine 5.5 (5.0-8.0); Protein,Urine 1+ (Negative); RBC,Urine 89 /hpf (0-5); Specific Gravity,Urine 1.032 (1.001-1.035); Squamous Epithelial Cell,Urine 3 /hpf (0-4); WBC,Urine 8 /hpf (0-5)
--- NOTE | 2021-07-02 04:37 | ED ---
Abdominal Pain HPI - General Chief Complaint: Abdominal Pain Stated Complaint: Possible kidney stone Time Seen by Provider: 07/02/21 03:48 Source: patient Mode of arrival: ambulatory - History of Present Illness Initial Comments: Patient is 70-year-old woman who complains of left flank pain that she states is very similar to previous stone pain. Onset was 2 days ago but became severe tonight. Complaint: flank pain Onset/Timin -: days(s) Location: L flank Radiation: none Severity: severe Quality: sharp Consistency: constant Improves With: nothing Worsens With: nothing Associated Symptoms: nausea - Related Data Home Medications Medication Instructions Recorded Confirmed Ascorbic Acid [Vitamin C] 500 mg PO DAILY 04/22/18 07/02/21 Cholecalciferol [Vitamin D3 (25 1,000 unit PO DAILY 04/22/18 07/02/21 Mcg = 1000 Iu)] Fiber Powder Supplement 3 - 4 tsp PO DAILY 04/22/18 07/02/21 PARoxetine [Paxil] 20 mg PO DAILY 04/22/18 07/02/21 Tart Vincent 1,200 mg PO DAILY 04/22/18 07/02/21 Levothyroxine Sodium [Synthroid] 100 mcg PO DAILY 07/02/21 07/02/21 Previous Rx's Medication Instructions Recorded Sennosides-Docusate Sodium 2 each PO BID tab 07/04/21 [Senokot-S] Tamsulosin HCl [Flomax] 0.4 mg PO DAILY #30 cap 07/04/21 Allergies Allergy/AdvReac Type Severity Reaction Status Date / Time sulfamethoxazole Allergy Rash/Hives Verified 07/02/21 11:45 [From Bactrim] tamsulosin [From Flomax] Allergy Itching Verified 07/02/21 11:45 trimethoprim [From Bactrim] Allergy Rash/Hives Verified 07/02/21 11:45 citric acid [From Prepopik] AdvReac Nausea & Verified 07/02/21 11:45 Vomiting magnesium oxide AdvReac Nausea & Verified 07/02/21 11:45 [From Prepopik] Vomiting sodium picosulfate AdvReac Nausea & Verified 07/02/21 11:45 [From Prepopik] Vomiting Review of Systems ROS Statement: Those systems with pertinent positive or pertinent negative responses have been documented in the HPI. ROS Other: All systems not noted in ROS Statement are negative. Constitutional: Denies: fever, chills Respiratory: Denies: cough, dyspnea Cardiovascular: Denies: chest pain, palpitations Gastrointestinal: Reports: as per HPI, abdominal pain, nausea, vomiting. 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 Osteopenia. PAST [employer] IN[employer]ER HISTORY: She has no history of STDs. History of Any Multi-Drug Resistant Organisms: None Reported Past Surgical History: Bariatric Surgery, Cholecystectomy, Orthopedic Surgery, Tonsillectomy Additional Past Surgical History / Comment(s): LAP BAND. CYST REMOVED FROM BILATERAL breast, HAND AND MOUTH. ALSO FROM OVARY, lithotripsy, left knee replacement. Abdominoplasty. Colonoscopy 2017(next after 5yr). Past Anesthesia/Blood Transfusion Reactions: Motion Sickness, Postoperative Nausea & Vomiting (PONV) Past Psychological History: Anxiety Smoking Status: Never smoker Past Alcohol Use History: Occasional Past Drug Use History: Marijuana - Past Family History Mother Family Medical History: No Reported History Father Family Medical History: Myocardial Infarction ([place]) Additional Family Medical History / Comment(s): Paternal grandmother had breast cancer. General Exam General appearance: alert, in no apparent distress Head exam: Present: atraumatic, normocephalic Eye exam: Present: normal appearance. Absent: scleral icterus, conjunctival injection Neck exam: Present: normal inspection Respiratory exam: Present: normal lung sounds bilaterally. Absent: respiratory distress, wheezes, rales, rhonchi, stridor Cardiovascular Exam: Present: regular rate, normal rhythm, normal heart sounds. Absent: systolic murmur, diastolic murmur, rubs, gallop GI/Abdominal exam: Present: soft. Absent: distended, tenderness, guarding, rebound, rigid, mass Extremities exam: Present: normal inspection, normal capillary refill. Absent: joint swelling, calf tenderness Back exam: Present: normal inspection, paraspinal tenderness. Absent: CVA tenderness (R), CVA tenderness (L) Neurological exam: Present: alert Skin exam: Present: warm, dry, intact, normal color. Absent: rash Course Vital Signs 07/02/21 07/02/21 07/02/21 03:37 06:24 08:00 Temperature 97.5 F L Pulse Rate 85 64 68 Respiratory 21 16 18 Rate Blood Pressure 136/77 128/83 130/81 O2 Sat by Pulse 99 100 100 Oximetry Medical Decision Making - Lab Data Result diagrams: 07/04/21 04:30 07/04/21 04:30 Lab Results 07/02/21 07/02/21 07/02/21 Range/Units 04:09 04:09 04:09 WBC 12.9 H (3.8-10.6) k/uL RBC 4.47 (3.80-5.40) m/uL Hgb 12.4 (11.4-16.0) gm/dL Hct 40.6 (34.0-46.0) % MCV 90.9 (80.0-100.0) fL MCH 27.8 (25.0-35.0) pg MCHC 30.6 L (31.0-37.0) g/dL RDW 13.4 (11.5-15.5) % Plt Count 327 (150-450) k/uL MPV 7.2 Neutrophils % 77 % Lymphocytes % 13 % Monocytes % 4 % Eosinophils % 3 % Basophils % 1 % Neutrophils # 10.0 H (1.3-7.7) k/uL Lymphocytes # 1.7 (1.0-4.8) k/uL Monocytes # 0.5 (0-1.0) k/uL Eosinophils # 0.4 (0-0.7) k/uL Basophils # 0.1 (0-0.2) k/uL Sodium 138 (137-145) mmol/L Potassium 3.7 (3.5-5.1) mmol/L Chloride 107 (98-107) mmol/L Carbon Dioxide 18 L (22-30) mmol/L Anion Gap 13 mmol/L BUN 20 H (7-17) mg/dL Creatinine 0.89 (0.52-1.04) mg/dL Est GFR (CKD-EPI)AfAm 77 (>60 ml/min/1.73 sqM) Est GFR (CKD-EPI)NonAf 66 (>60 ml/min/1.73 sqM) Glucose 141 H (74-99) mg/dL Calcium 9.7 (8.4-10.2) mg/dL Total Bilirubin 0.4 (0.2-1.3) mg/dL AST 23 (14-36) U/L ALT 19 (4-34) U/L Alkaline Phosphatase 80 (38-126) U/L Troponin I (0.000-0.034) ng/mL Total Protein 7.4 (6.3-8.2) g/dL Albumin 4.6 (3.5-5.0) g/dL Amylase 153 H (30-110) U/L Lipase 632 H (23-300) U/L Urine Color Yellow Urine Appearance Cloudy H (Clear) Urine pH 5.5 (5.0-8.0) Ur Specific [place] 1.032 (1.001-1.035) Urine Protein 1+ H (Negative) Urine Glucose (UA) Negative (Negative) Urine Ketones Trace H (Negative) Urine Blood Large H (Negative) Urine Nitrite Negative (Negative) Urine Bilirubin Negative (Negative) Urine Urobilinogen 3.0 (<2.0) mg/dL Ur Leukocyte Esterase Trace H (Negative) Urine RBC 89 H (0-5) /hpf Urine WBC 8 H (0-5) /hpf Ur Squamous Epith Cells 3 (0-4) /hpf Calcium Oxalate Crystal Occasional H (None) /hpf Urine Mucus Moderate H (None) /hpf 07/02/21 Range/Units 04:09 WBC (3.8-10.6) k/uL RBC (3.80-5.40) m/uL Hgb (11.4-16.0) gm/dL Hct (34.0-46.0) % MCV (80.0-100.0) fL MCH (25.0-35.0) pg MCHC (31.0-37.0) g/dL RDW (11.5-15.5) % Plt Count (150-450) k/uL MPV Neutrophils % % Lymphocytes % % Monocytes % % Eosinophils % % Basophils % % Neutrophils # (1.3-7.7) k/uL Lymphocytes # (1.0-4.8) k/uL Monocytes # (0-1.0) k/uL Eosinophils # (0-0.7) k/uL Basophils # (0-0.2) k/uL Sodium (137-145) mmol/L Potassium (3.5-5.1) mmol/L Chloride (98-107) mmol/L Carbon Dioxide (22-30) mmol/L Anion Gap mmol/L BUN (7-17) mg/dL Creatinine (0.52-1.04) mg/dL Est GFR (CKD-EPI)AfAm (>60 ml/min/1.73 sqM) Est GFR (CKD-EPI)NonAf (>60 ml/min/1.73 sqM) Glucose (74-99) mg/dL Calcium (8.4-10.2) mg/dL Total Bilirubin (0.2-1.3) mg/dL AST (14-36) U/L ALT (4-34) U/L Alkaline Phosphatase (38-126) U/L Troponin I <0.012 (0.000-0.034) ng/mL Total Protein (6.3-8.2) g/dL Albumin (3.5-5.0) g/dL Amylase (30-110) U/L Lipase (23-300) U/L Urine Color Urine Appearance (Clear) Urine pH (5.0-8.0) Ur Specific [place] (1.001-1.035) Urine Protein (Negative) Urine Glucose (UA) (Negative) Urine Ketones (Negative) Urine Blood (Negative) Urine Nitrite (Negative) Urine Bilirubin (Negative) Urine Urobilinogen (<2.0) mg/dL Ur Leukocyte Esterase (Negative) Urine RBC (0-5) /hpf Urine WBC (0-5) /hpf Ur Squamous Epith Cells (0-4) /hpf Calcium Oxalate Crystal (None) /hpf Urine Mucus (None) /hpf Disposition Clinical Impression: Ureteral stone, Intractable abdominal pain Disposition: ADMITTED IP TO THIS [facility] Condition: Stable Is patient prescribed a controlled substance at d/c from ED?: No
[2021-07-02 04:57] LABS: Albumin 4.6 g/dL (3.5-5.0); Calcium 9.7 mg/dL (8.4-10.2); Potassium 3.7 mmol/L (3.5-5.1); Total Bilirubin 0.4 mg/dL (0.2-1.3); Total Protein 7.4 g/dL (6.3-8.2)
--- NOTE | 2021-07-02 07:39 | CT ---
EXAMINATION TYPE: CT abdomen pelvis wo con DATE OF EXAM: 07/02/2021 COMPARISON: 05/14/2019 HISTORY: 70-year-old Left flank pain CT DLP: 505.9 mGycm. Automated exposure control for dose reduction was used. TECHNIQUE: Contiguous axial scanning of the abdomen and pelvis without IV contrast. Coronal and sagit chrissie reconstructions performed. FINDINGS: Heart normal size without pericardial effusion. Strandy scarring and atelectasis at the lower lungs, increased from prior. No pleural effusion. Redemonstrated horizontal orientation of lap band, unchanged from 05/14/2019. Continued moderate circu mferential thickening distal esophagus. Continued prominent fluid retained in the lower esophagus. In itiation to be referred back to her surgeon for further assessment. Noncontrast appearance of the liver, adrenal glands, right kidney, and pancreas show no gross anomaly . Cholecystectomy clips. An inferior splenule is noted. There is recurrent mild to moderate left-sided hydronephrosis now with a 5 mm stone in the upper left ureter. Additional nonobstructive 4 mm left renal calculus. Perinephric edema on the left likely linda ctive to the obstruction. No dilated small bowel, free fluid, or free air. No mesenteric or retroperitoneal lymphadenopathy. No rmal appendix. Moderate stool right side of the colon. No pericolic inflammatory change. Bladder distended. Uterus anteverted. Small bilateral ovaries. No abnormal fluid collection in pelvis or pelvic lymphadenopathy. Hypertrophic facet arthropathy and Baastrup's disease. Grade 1 anterolisthesis L3-L4. Moderate degene rative disc disease mid to lower lumbar spine. IMPRESSION: 1. A 5 mm stone in the upper left ureter with [id number] obstructive uropathy. Perinephric juarez ma likely reactive to the obstruction. 2. Additional nonobstructive 4 mm left renal calculus. 3. The horizontal orientation of the lap band is unchanged from 05/14/2019. In addition, there is per sistent thickening of the distal esophagus and prominent fluid retained in the visualized lower esoph shree. Findings could reflect underlying neoplasm, collapsed hiatal hernia, or esophagitis. The retain ed fluid in the lower esophagus could be secondary to a relative obstruction or significant gastroeso phageal reflux. Refer the patient to GI or back to their surgeon for further assessment
[2021-07-02] MEDS ORDERED: TAMSULOSIN 0.4 MG CAP.ER.24H PO STA (07:43)
[2021-07-02] MEDS ORDERED: ACETAMINOPHEN TAB 325 MG TAB PO PRN (07:47)
[2021-07-02] MEDS ORDERED: ONDANSETRON 4 MG/2 ML VIAL IVP PRN (07:47)
[2021-07-02] MEDS ORDERED: NALOXONE 0.4 MG/ML 1 ML VIAL IV PRN (07:47)
[2021-07-02] MEDS ORDERED: MORPHINE SULFATE 4 MG/ML SYRINGE IV PRN (07:47)
[2021-07-02] MEDS: SODIUM CHLORIDE 0.9% 1,000 ML IV SCH (07:57)
[2021-07-02] MEDS: TAMSULOSIN 0.4 MG CAP.ER.24H PO SCH (08:40)
[2021-07-02] MEDS: FAMOTIDINE 20 MG TAB PO SCH ×2 (08:41→20:31)
[2021-07-02] MEDS: PARoxetine 20 MG TAB PO SCH (10:15)
[2021-07-02] MEDS: LEVOTHYROXINE 125 MCG TAB PO SCH (10:15)
--- NOTE | 2021-07-02 10:32 | P.HPIM ---
History of Present Illness This is a pleasant 70 years old female with past medical history of GERD and hypothyroidism Presents because of left flank pain with history of kidney stone associated with vomiting. Patient states over the last 2 days she's been having pain in her left side. Her pain mainly in the left lower back with some milder pain in her left shoulder with no history of trauma. Her pain in the lower back is about 4-5/10, however her pain comes to 10 if she moves or presents. [place] like stabbing and radiating to the left inguinal area associated with hematuria and decrease frequency of urination but no burning, no suprapubic tenderness. No chest pain or dyspnea or coughing. No abdominal pain other than above. No diarrhea actually she didn't have bowel movement yesterday. She denies smoking or alcohol, she uses marijuana at times. She is hemodynamically stable She has mild leukocytosis of 12.9, risks of CBC and BMP and liver enzymes are unremarkable. Urine analysis showing hematuria and trace leukocyte esterase and WBCs. CT of the abdomen and pelvis with no contrast: 5 mm stone in the upper left ureter with [id number] obstructive uropathy. Perinephric edema likely reactive to the obstruction. Additional nonobstructive 4 mm left renal calculus. The horizontal orientation of the lap band is unchanged from 2019. There is persistent thickening of the distal esophagus and prominent fluid retention in the visualized lower esophagus. Findings could reflect underlying neoplasm, collapsed hiatal hernia, or esophagitis. The retained fluid in the lower esophagus could be secondary to a relative obstruction or significant gastroesophageal reflux. Effort for patient to GI or back to the neurosurgeon for further assessment Review of Systems CONSTITUTIONAL: No fever, no malaise, no fatigue. HEENT: No recent visual problems or hearing problems. Denied any sore throat. CARDIOVASCULAR: No orthopnea, PND, no palpitations, no syncope. PULMONARY: No shortness of breath, no cough, no hemoptysis. GASTROINTESTINAL: No diarrhea, no nausea, . Normoactive bowel sounds. NEUROLOGICAL: No headaches, no weakness, no numbness. HEMATOLOGICAL: Denies any bleeding or petechiae. GENITOURINARY: Denies any burning micturition, frequency, or urgency. MUSCULOSKELETAL/RHEUMATOLOGICAL: Denies any joint pain, swelling, or any muscle pain. ENDOCRINE: Denies any polyuria or polydipsia. 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 Osteopenia. PAST LONG TERM HISTORY: She has no history of STDs. History of Any Multi-Drug Resistant Organisms: None Reported Past Surgical History: Bariatric Surgery, Cholecystectomy, Orthopedic Surgery, Tonsillectomy Additional Past Surgical History / Comment(s): LAP BAND. CYST REMOVED FROM BILATERAL breast, HAND AND MOUTH. ALSO FROM OVARY, lithotripsy, left knee replacement. Abdominoplasty. Colonoscopy 2017(next after 5yr). Past Anesthesia/Blood Transfusion Reactions: Motion Sickness, Postoperative Nausea & Vomiting (PONV) Past Psychological History: Anxiety Smoking Status: Never smoker Past Alcohol Use History: Occasional Past Drug Use History: Marijuana - Past Family History Mother Family Medical History: No Reported History Father Family Medical History: Myocardial Infarction ([place]) Additional Family Medical History / Comment(s): Paternal grandmother had breast cancer. Medications and Allergies Home Medications Medication Instructions Recorded Confirmed Type Levothyroxine Sodium [Synthroid] 100 mcg PO QAM 04/11/16 03/24/20 History Acetaminophen [Tylenol Arthritis] 650 mg PO ONCE 04/22/18 03/24/20 History Allergy Relief 1 tab PO DAILY 04/22/18 03/24/20 History Ascorbic Acid [Vitamin C] 500 mg PO DAILY 04/22/18 03/24/20 History Cholecalciferol [Vitamin D3] 1,000 unit PO DAILY 04/22/18 03/24/20 History Fiber Powder Supplement 3 - 4 tsp PO DAILY 04/22/18 03/24/20 History L.acidoph,Paracasei, B.lactis 1 cap PO DAILY 04/22/18 03/24/20 History [Probiotic] Magnesium 200 mg PO DAILY 04/22/18 03/24/20 History PARoxetine [Paxil] 20 mg PO DAILY 04/22/18 03/24/20 History Tart Vincent 1,200 mg PO DAILY 04/22/18 03/24/20 History Ascorbic Acid/Elderberry Fruit 50 mg PO DAILY 03/24/20 03/24/20 History [Elderberry-Vit C 50-100 mg Chw] Optimized Folate L-Methylfolat 1,000 mcg PO DAILY 03/24/20 03/24/20 History Potassium Gluconate [Potassium 595 mg PO DAILY 03/24/20 03/24/20 History Gluconate ER] Allergies Allergy/AdvReac Type Severity Reaction Status Date / Time sulfamethoxazole Allergy Rash/Hives Verified 07/02/21 03:40 [From Bactrim] tamsulosin [From Flomax] Allergy Itching Verified 07/02/21 03:40 trimethoprim [From Bactrim] Allergy Rash/Hives Verified 07/02/21 03:40 citric acid [From Prepopik] AdvReac Nausea & Verified 07/02/21 03:40 Vomiting magnesium oxide AdvReac Nausea & Verified 07/02/21 03:40 [From Prepopik] Vomiting sodium picosulfate AdvReac Nausea & Verified 07/02/21 03:40 [From Prepopik] Vomiting Physical Exam Vitals: Vital Signs Temp Pulse Resp BP Pulse Ox 07/02/21 08:00 68 18 130/81 100 07/02/21 06:24 64 16 128/83 100 07/02/21 03:37 97.5 F L 85 21 136/77 99 Intake and Output 07/01/21 07/02/21 07/02/21 22:59 06:59 14:59 Other: Weight 68.946 kg GENERAL: The patient is alert and oriented x3, not in any acute distress. Well developed, well nourished. HEENT: Pupils are round and equally reacting to light. EOMI. No scleral icterus. No conjunctival pallor. Normocephalic, atraumatic. No pharyngeal erythema. No thyromegaly. CARDIOVASCULAR: S1 and S2 present. No murmurs, rubs, or gallops. PULMONARY: Chest is clear to auscultation, no wheezing or crackles. -ABDOMEN: Soft, nontender, nondistended, normoactive bowel sounds. No palpable organomegaly. Left costovertebral angle tenderness MUSCULOSKELETAL: No joint swelling or deformity. EXTREMITIES: No cyanosis, clubbing, or pedal edema. NEUROLOGICAL: Gross neurological examination did not reveal any focal deficits. SKIN: No rashes. No petechiae Results CBC & Chem 7: 07/02/21 04:09 07/02/21 04:09 Labs: Abnormal Lab Results - Last 24 Hours (Table) 07/02/21 07/02/21 07/02/21 Range/Units 04:09 04:09 04:09 WBC 12.9 H (3.8-10.6) k/uL MCHC 30.6 L (31.0-37.0) g/dL Neutrophils # 10.0 H (1.3-7.7) k/uL Carbon Dioxide 18 L (22-30) mmol/L BUN 20 H (7-17) mg/dL Glucose 141 H (74-99) mg/dL Amylase 153 H (30-110) U/L Lipase 632 H (23-300) U/L Urine Appearance Cloudy H (Clear) Urine Protein 1+ H (Negative) Urine Ketones Trace H (Negative) Urine Blood Large H (Negative) Ur Leukocyte Esterase Trace H (Negative) Urine RBC 89 H (0-5) /hpf Urine WBC 8 H (0-5) /hpf Calcium Oxalate Crystal Occasional H (None) /hpf Urine Mucus Moderate H (None) /hpf Assessment and Plan Assessment: Left Renal colic secondary to left kidney stone Left kidney stone, obstructive 5 m the left upper ureter and 4 mm n onobstructive, associated with [id number] obstructive uropathy Acute hematuria secondary to above Thickening of the lower esophagus with possible retained esophageal fluid History of lap band, Hypothyroidism History of GERD Plan: This is a pleasant 70 years old female who presents with left kidney stone , obstructive uropathy and renal colic Pain management IV fluids urology consult Also we will consult surgery team for her esophageal problem. Labs and medication were reviewed.. Continue same treatment. Continue with symptomatic treatment. Resume home medication. Monitor lytes and vitals. DVT and GI prophylaxis. Further recommendations depends on the clinical course of the patient DVT prophylaxis: Subcutaneous heparin GI Prophylaxis: Pepcid PT/OT: Pending Prognosis is guarded
--- NOTE | 2021-07-02 10:55 | P.GSCN ---
History of Present Illness Consult date: 07/02/21 Reason for Consult: Left ureteral stone History of present illness: This is a 70 year old female with history of a 5 mm left-sided midureteral stone, and a 4 mm left-sided renal stone. She presented to the ER secondary to pain in the flank, radiating to left lower quadrant. Indicated her pain was associated with nausea, but denies any vomiting. Denies any dysuria or gross hematuria. Denies any fevers or chills. Does have history of recurrent stone, has required multiple ureteroscopy's in the past by Dr. Ward. Since admission she indicated her pain has improved slightly, but still requiring IV pain medications. Review of Systems - Constitutional Denies chills, Denies fever - EENT Ears, nose, mouth and throat: Denies dysphagia - Cardiovascular Denies chest pain, Denies shortness of breath - Respiratory Denies cough, Denies 7 - Gastrointestinal Reports abdominal pain, Reports nausea - Genitourinary Genitourinary: Reports flank pain, Denies dysuria, Denies hematuria - Integumentary Denies rash, Denies unusual bruising - Neurological Denies headaches, Denies syncope Past Medical History Past Medical History: GERD/Reflux, Thyroid Disorder Additional Past Medical History / Comment(s): Colitis,Nephro Lithiasis status post shock wave lithotripsy, hypothyroidism. Osteopenia. 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 History of Any Multi-Drug Resistant Organisms: None Reported Past Surgical History: Bariatric Surgery, Cholecystectomy, Orthopedic Surgery, Tonsillectomy Additional Past Surgical History / Comment(s): LAP BAND. CYST REMOVED FROM BILATERAL breast, HAND AND MOUTH. ALSO FROM OVARY, lithotripsy, left knee replacement. Abdominoplasty. Colonoscopy 2017(next after 5yr). Past Anesthesia/Blood Transfusion Reactions: Motion Sickness, Postoperative Nausea & Vomiting (PONV) Past Psychological History: Anxiety Smoking Status: Never smoker Past Alcohol Use History: Occasional Past Drug Use History: Marijuana - Past Family History Mother Family Medical History: No Reported History Father Family Medical History: Myocardial Infarction ([place]) Additional Family Medical History / Comment(s): Paternal grandmother had breast cancer. Medications and Allergies Home Medications Medication Instructions Recorded Confirmed Type Levothyroxine Sodium [Synthroid] 100 mcg PO QAM 04/11/16 03/24/20 History Acetaminophen [Tylenol Arthritis] 650 mg PO ONCE 04/22/18 03/24/20 History Allergy Relief 1 tab PO DAILY 04/22/18 03/24/20 History Ascorbic Acid [Vitamin C] 500 mg PO DAILY 04/22/18 03/24/20 History Cholecalciferol [Vitamin D3] 1,000 unit PO DAILY 04/22/18 03/24/20 History Fiber Powder Supplement 3 - 4 tsp PO DAILY 04/22/18 03/24/20 History L.acidoph,Paracasei, B.lactis 1 cap PO DAILY 04/22/18 03/24/20 History [Probiotic] Magnesium 200 mg PO DAILY 04/22/18 03/24/20 History PARoxetine [Paxil] 20 mg PO DAILY 04/22/18 03/24/20 History Tart Vincent 1,200 mg PO DAILY 04/22/18 03/24/20 History Ascorbic Acid/Elderberry Fruit 50 mg PO DAILY 03/24/20 03/24/20 History [Elderberry-Vit C 50-100 mg Chw] Optimized Folate L-Methylfolat 1,000 mcg PO DAILY 03/24/20 03/24/20 History Potassium Gluconate [Potassium 595 mg PO DAILY 03/24/20 03/24/20 History Gluconate ER] Allergies Allergy/AdvReac Type Severity Reaction Status Date / Time sulfamethoxazole Allergy Rash/Hives Verified 07/02/21 03:40 [From Bactrim] tamsulosin [From Flomax] Allergy Itching Verified 07/02/21 03:40 trimethoprim [From Bactrim] Allergy Rash/Hives Verified 07/02/21 03:40 citric acid [From Prepopik] AdvReac Nausea & Verified 07/02/21 03:40 Vomiting magnesium oxide AdvReac Nausea & Verified 07/02/21 03:40 [From Prepopik] Vomiting sodium picosulfate AdvReac Nausea & Verified 07/02/21 03:40 [From Prepopik] Vomiting Surgical - Exam Vital Signs Temp Pulse Resp BP Pulse Ox 97.5 F L 85 21 136/77 99 07/02/21 03:37 07/02/21 03:37 07/02/21 03:37 07/02/21 03:37 07/02/21 03:37 - General no distress, moderate pain - Eyes normal ocular movement, no pale - ENT normal nares, normal mucosa - Respiratory normal expansion, normal respiratory effort - Abdomen Abdomen: soft, non tender - Psychiatric oriented to time, oriented to person, oriented to place Results - Labs 07/02/21 04:09 07/02/21 04:09 Abnormal Lab Results - Last 24 Hours (Table) 07/02/21 07/02/21 07/02/21 Range/Units 04:09 04:09 04:09 WBC 12.9 H (3.8-10.6) k/uL MCHC 30.6 L (31.0-37.0) g/dL Neutrophils # 10.0 H (1.3-7.7) k/uL Carbon Dioxide 18 L (22-30) mmol/L BUN 20 H (7-17) mg/dL Glucose 141 H (74-99) mg/dL Amylase 153 H (30-110) U/L Lipase 632 H (23-300) U/L Urine Appearance Cloudy H (Clear) Urine Protein 1+ H (Negative) Urine Ketones Trace H (Negative) Urine Blood Large H (Negative) Ur Leukocyte Esterase Trace H (Negative) Urine RBC 89 H (0-5) /hpf Urine WBC 8 H (0-5) /hpf Calcium Oxalate Crystal Occasional H (None) /hpf Urine Mucus Moderate H (None) /hpf Diabetes panel 07/02/21 Range/Units 04:09 Sodium 138 (137-145) mmol/L Potassium 3.7 (3.5-5.1) mmol/L Chloride 107 (98-107) mmol/L Carbon Dioxide 18 L (22-30) mmol/L BUN 20 H (7-17) mg/dL Creatinine 0.89 (0.52-1.04) mg/dL Glucose 141 H (74-99) mg/dL Calcium 9.7 (8.4-10.2) mg/dL AST 23 (14-36) U/L ALT 19 (4-34) U/L Alkaline Phosphatase 80 (38-126) U/L Total Protein 7.4 (6.3-8.2) g/dL Albumin 4.6 (3.5-5.0) g/dL Calcium panel 07/02/21 Range/Units 04:09 Calcium 9.7 (8.4-10.2) mg/dL Albumin 4.6 (3.5-5.0) g/dL Pituitary panel 07/02/21 Range/Units 04:09 Sodium 138 (137-145) mmol/L Potassium 3.7 (3.5-5.1) mmol/L Chloride 107 (98-107) mmol/L Carbon Dioxide 18 L (22-30) mmol/L BUN 20 H (7-17) mg/dL Creatinine 0.89 (0.52-1.04) mg/dL Glucose 141 H (74-99) mg/dL Calcium 9.7 (8.4-10.2) mg/dL Adrenal panel 07/02/21 Range/Units 04:09 Sodium 138 (137-145) mmol/L Potassium 3.7 (3.5-5.1) mmol/L Chloride 107 (98-107) mmol/L Carbon Dioxide 18 L (22-30) mmol/L BUN 20 H (7-17) mg/dL Creatinine 0.89 (0.52-1.04) mg/dL Glucose 141 H (74-99) mg/dL Calcium 9.7 (8.4-10.2) mg/dL Total Bilirubin 0.4 (0.2-1.3) mg/dL AST 23 (14-36) U/L ALT 19 (4-34) U/L Alkaline Phosphatase 80 (38-126) U/L Total Protein 7.4 (6.3-8.2) g/dL Albumin 4.6 (3.5-5.0) g/dL Assessment and Plan Assessment: 70-year-old female with a symptomatic 5 mm left-sided midureteral stone, and a 4 mm left-sided renal stone. Discussed with her given her symptoms the option of left-sided ureteroscopy with holmium laser lithotripsy versus medical expulsive therapy. She is interested in proceeding with ureteroscopy. Discussed with her the risk of surgery which includes but not limited to bleeding, infection, injury to the ureter. Discussed also the potential need of placing stent. She understood all the risk and agreed to proceed. At this time keep nothing by mouth past midnight, we'll take to the OR tomorrow for left-sided ureteroscopy with holmium laser.
--- NOTE | 2021-07-02 12:39 | P.GSCN ---
History of Present Illness Consult date: 07/02/21 Reason for Consult: Thickened esophagus, esophagitis History of present illness: This is a 70-year-old female who was admitted to hospital for nephrolithiasis. Patient had a CAT scan performed which shows evidence of thickened esophagus. Patient has a LAP-BAND which was placed approximately 20 years ago. She denies any significant dysphagia. She's maintaining approximately 100 pounds of weight loss. She's had some mild GERD. 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 Osteopenia. 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 History of Any Multi-Drug Resistant Organisms: None Reported Past Surgical History: Bariatric Surgery, Cholecystectomy, Orthopedic Surgery, Tonsillectomy Additional Past Surgical History / Comment(s): LAP BAND. CYST REMOVED FROM BILATERAL breast, HAND AND MOUTH. ALSO FROM OVARY, lithotripsy, left knee replacement. Abdominoplasty. Colonoscopy 2017(next after 5yr). Past Anesthesia/Blood Transfusion Reactions: Motion Sickness, Postoperative Nausea & Vomiting (PONV) Past Psychological History: Anxiety Smoking Status: Never smoker Past Alcohol Use History: Occasional Past Drug Use History: Marijuana - Past Family History Mother Family Medical History: No Reported History Father Family Medical History: Myocardial Infarction ([place]) Additional Family Medical History / Comment(s): Paternal grandmother had breast cancer. Medications and Allergies Home Medications Medication Instructions Recorded Confirmed Type Ascorbic Acid [Vitamin C] 500 mg PO DAILY 04/22/18 07/02/21 History Cholecalciferol [Vitamin D3] 1,000 unit PO DAILY 04/22/18 07/02/21 History Fiber Powder Supplement 3 - 4 tsp PO DAILY 04/22/18 07/02/21 History PARoxetine [Paxil] 20 mg PO DAILY 04/22/18 07/02/21 History Tart Vincent 1,200 mg PO DAILY 04/22/18 07/02/21 History Levothyroxine Sodium [Synthroid] 100 mcg PO DAILY 07/02/21 07/02/21 History Allergies Allergy/AdvReac Type Severity Reaction Status Date / Time sulfamethoxazole Allergy Rash/Hives Verified 07/02/21 11:45 [From Bactrim] tamsulosin [From Flomax] Allergy Itching Verified 07/02/21 11:45 trimethoprim [From Bactrim] Allergy Rash/Hives Verified 07/02/21 11:45 citric acid [From Prepopik] AdvReac Nausea & Verified 07/02/21 11:45 Vomiting magnesium oxide AdvReac Nausea & Verified 07/02/21 11:45 [From Prepopik] Vomiting sodium picosulfate AdvReac Nausea & Verified 07/02/21 11:45 [From Prepopik] Vomiting Surgical - Exam Vital Signs Temp Pulse Resp BP Pulse Ox 97.5 F L 85 21 136/77 99 07/02/21 03:37 07/02/21 03:37 07/02/21 03:37 07/02/21 03:37 07/02/21 03:37 - General well developed, well nourished, no distress - Eyes PERRL - ENT normal pinna - Neck no masses - Respiratory normal expansion - Cardiovascular Rhythm: regular - Abdomen Abdomen: soft, non tender Results - Labs 07/02/21 04:09 07/02/21 04:09 Abnormal Lab Results - Last 24 Hours (Table) 07/02/21 07/02/21 07/02/21 Range/Units 04:09 04:09 04:09 WBC 12.9 H (3.8-10.6) k/uL MCHC 30.6 L (31.0-37.0) g/dL Neutrophils # 10.0 H (1.3-7.7) k/uL Carbon Dioxide 18 L (22-30) mmol/L BUN 20 H (7-17) mg/dL Glucose 141 H (74-99) mg/dL Amylase 153 H (30-110) U/L Lipase 632 H (23-300) U/L Urine Appearance Cloudy H (Clear) Urine Protein 1+ H (Negative) Urine Ketones Trace H (Negative) Urine Blood Large H (Negative) Ur Leukocyte Esterase Trace H (Negative) Urine RBC 89 H (0-5) /hpf Urine WBC 8 H (0-5) /hpf Calcium Oxalate Crystal Occasional H (None) /hpf Urine Mucus Moderate H (None) /hpf Diabetes panel 07/02/21 Range/Units 04:09 Sodium 138 (137-145) mmol/L Potassium 3.7 (3.5-5.1) mmol/L Chloride 107 (98-107) mmol/L Carbon Dioxide 18 L (22-30) mmol/L BUN 20 H (7-17) mg/dL Creatinine 0.89 (0.52-1.04) mg/dL Glucose 141 H (74-99) mg/dL Calcium 9.7 (8.4-10.2) mg/dL AST 23 (14-36) U/L ALT 19 (4-34) U/L Alkaline Phosphatase 80 (38-126) U/L Total Protein 7.4 (6.3-8.2) g/dL Albumin 4.6 (3.5-5.0) g/dL Calcium panel 07/02/21 Range/Units 04:09 Calcium 9.7 (8.4-10.2) mg/dL Albumin 4.6 (3.5-5.0) g/dL Pituitary panel 07/02/21 Range/Units 04:09 Sodium 138 (137-145) mmol/L Potassium 3.7 (3.5-5.1) mmol/L Chloride 107 (98-107) mmol/L Carbon Dioxide 18 L (22-30) mmol/L BUN 20 H (7-17) mg/dL Creatinine 0.89 (0.52-1.04) mg/dL Glucose 141 H (74-99) mg/dL Calcium 9.7 (8.4-10.2) mg/dL Adrenal panel 07/02/21 Range/Units 04:09 Sodium 138 (137-145) mmol/L Potassium 3.7 (3.5-5.1) mmol/L Chloride 107 (98-107) mmol/L Carbon Dioxide 18 L (22-30) mmol/L BUN 20 H (7-17) mg/dL Creatinine 0.89 (0.52-1.04) mg/dL Glucose 141 H (74-99) mg/dL Calcium 9.7 (8.4-10.2) mg/dL Total Bilirubin 0.4 (0.2-1.3) mg/dL AST 23 (14-36) U/L ALT 19 (4-34) U/L Alkaline Phosphatase 80 (38-126) U/L Total Protein 7.4 (6.3-8.2) g/dL Albumin 4.6 (3.5-5.0) g/dL Assessment and Plan Assessment: Nephrolithiasis. Patient is scheduled for some urologic attention for this. Patient has minimal GERD. She will follow-up with the bariatric clinic. She will have an outpatient EGD performed when stable.
[2021-07-02] MEDS: HYDROcodone/APAP 5-325MG 1 EACH TAB PO PRN ×2 (14:46→20:31)
[2021-07-02] MEDS: HEPARIN SODIUM,PORCINE/PF 5,000 UNIT/0.5 ML SYRINGE SQ SCH (20:31)
[2021-07-03] MEDS: DEXTROSE 5%-0.9% NACL 1,000 ML IV SCH ×3 (00:31→20:25)
[2021-07-03] MEDS: LEVOTHYROXINE 125 MCG TAB PO SCH (05:02)
[2021-07-03] MEDS ORDERED: LEVOTHYROXINE 125 MCG TAB PO SCH (06:00)
[2021-07-03] MEDS: SODIUM CHLORIDE 0.9% 1,000 ML IV SCH (06:44)
[2021-07-03] MEDS: TAMSULOSIN 0.4 MG CAP.ER.24H PO SCH (06:45)
[2021-07-03] MEDS: HEPARIN SODIUM,PORCINE/PF 5,000 UNIT/0.5 ML SYRINGE SQ SCH ×2 (06:45→20:22)
[2021-07-03] MEDS: FAMOTIDINE 20 MG TAB PO SCH ×2 (06:45→20:22)
[2021-07-03] MEDS: PARoxetine 20 MG TAB PO SCH (06:45)
[2021-07-03] MEDS ORDERED: ONDANSETRON 4 MG/2 ML VIAL IVP ONE (08:50)
[2021-07-03] MEDS ORDERED: PARoxetine 20 MG TAB PO SCH (09:00)
[2021-07-03 09:14] LABS: African American GFR (CKD) 104.5 (60.0-200.0); Anion Gap 9.7 mmol/L (10.00-18.00); BUN/Creat Ratio 23.33 Ratio (12.00-20.00); Blood Urea Nitrogen 15.4 mg/dL (9.0-27.0); Calcium 8.7 mg/dL (8.7-10.3); Carbon Dioxide 23.7 mmol/L (20.0-27.5); Magnesium 2.3 mg/dL (1.5-2.4); Non-African American GFR(CKD) 90.1 (60.0-200.0); Potassium 4.3 mmol/L (3.5-5.5)
[2021-07-03 09:15] LABS: Basophils # (A) 0.04 X 10*3/uL (0.00-0.10); Basophils % (A) 0.6 %; Eosinophils # (A) 0.32 X 10*3/uL (0.04-0.35); Eosinophils % (A) 5.1 %; HGB 11.5 g/dL (12.0-15.0); Immature Grans, Automated 0.5 %; Lymphocytes # (A) 1.29 X 10*3/uL (0.90-5.00); Lymphocytes % (A) 20.4 %; MCHC 31.1 g/dL (32.0-37.0); MCV 93.2 fL (80.0-97.0); Mean Platelet Volume 10.1 fL (9.5-12.2); Monocytes # (A) 0.63 X 10*3/uL (0.20-1.00); NRBC Per 100 WBC 0 /100 WBCS (0.0-0.0); Neutrophils % (A) 63.4 %; Platelet Count 260 X 10*3/uL (140-440); RBC 3.97 X 10*6/uL (4.10-5.20); RDW 13.7 % (11.5-14.5); WBC 6.31 X 10*3/uL (4.50-10.00)
[2021-07-03] MEDS ORDERED: LIDOCAINE 2% INJ 20 MG/ML (2 ML VIAL) ONE (09:42)
[2021-07-03] MEDS ORDERED: PHENYLEPHRINE-0.9% NACL SYG 1,000 MCG/10 ML SYRINGE ONE (09:42)
[2021-07-03] MEDS ORDERED: MIDAZOLAM 2 MG/2 ML VIAL ONE (09:42)
[2021-07-03] MEDS ORDERED: DEXAMETHASONE SOD PHOSPHATE 4 MG/ML 1 ML VIAL ONE (09:42)
[2021-07-03] MEDS ORDERED: fentaNYL (PF) 50 MCG/ML 2 ML AMP ONE (09:42)
[2021-07-03] MEDS ORDERED: ePHEDrine 50 MG/ML 1 ML VIAL ONE (09:42)
[2021-07-03] MEDS ORDERED: SUCCINYLCHOLINE CHLORIDE 100 MG/5 ML SYR IV ONE (09:42)
[2021-07-03] MEDS ORDERED: PROPOFOL 10 MG/ML 50 ML VIAL IV ONE (09:42)
[2021-07-03] MEDS ORDERED: IV FLUID CONTINUATION 1,000 ML IV ONE (09:45)
--- NOTE | 2021-07-03 10:03 | P.PN ---
Progress Note - Text Progress Note Date: 07/03/21 Patient is undergoing urology procedure today. We will plan for EGD in the a.m.
[2021-07-03] MEDS ORDERED: LACTATED RINGERS 1,000 ML IV ONE (10:15)
--- NOTE | 2021-07-03 10:45 | FL ---
EXAMINATION TYPE: FL guidance operating room DATE OF EXAM: 07/03/2021 FLUOROSCOPY Fluoroscopy time of 5 seconds was used during urologic intervention for ureteral stone. 1 image/s do cument/s the procedure.
--- NOTE | 2021-07-03 10:47 | P.PN ---
Subjective Progress Note Date: 07/03/21 No acute overnight events, still having flank pain has not passed the stone. Objective - Vital Signs Vital signs: Vital Signs Temp 97.5 F L 07/03/21 07:14 Pulse 61 07/03/21 07:14 Resp 18 07/03/21 07:14 BP 149/87 07/03/21 07:14 Pulse Ox 98 07/03/21 07:14 Intake & Output 07/02/21 07/03/21 07/03/21 18:59 06:59 18:59 Intake Total 148 525 5718 Balance 655 980 5885 Weight 68.946 kg Intake: IV 1000 Intake, IV Titration 200 550 Amount Dextrose 5%-0.9% NaCl 1, 450 000 ml @ 75 mls/hr IV . [id number] JANELLE Rx#:[id number] Sodium Chloride 0.9% 1, 200 000 ml @ 20 mls/hr IV . Q24H JANELLE Rx#:[id number] cefTRIAXone 1 gm In 100 Sodium Chloride 0.9% 50 ml @ 100 mls/hr IVPB Q24H JANELLE Rx#:[id number] Oral 650 Other: Voiding Method Toilet Toilet Toilet # Voids 3 # Bowel Movements 0 - Constitutional General appearance: Present: no acute distress - Gastrointestinal General gastrointestinal: Present: soft. Absent: distended, tenderness - Labs CBC & Chem 7: 07/03/21 04:38 07/03/21 04:38 Labs: Abnormal Lab Results - Last 24 Hours (Table) 07/03/21 07/03/21 Range/Units 04:38 04:38 RBC 3.97 L (4.10-5.20) X 10*6/uL Hgb 11.5 L (12.0-15.0) g/dL Hct 37.0 L (37.2-46.3) % MCHC 31.1 L (32.0-37.0) g/dL Anion Gap 9.70 L (10.00-18.00) mmol/L BUN/Creatinine Ratio 23.33 H (12.00-20.00) Ratio Assessment and Plan Assessment: 70-year-old female with a symptomatic 5 mm left-sided midureteral stone, and a 4 mm left-sided renal stone. Discussed with her given her symptoms the option of left-sided ureteroscopy with holmium laser lithotripsy versus medical expulsive therapy. She is interested in proceeding with ureteroscopy. Discussed with her the risk of surgery which includes but not limited to bleeding, infection, injury to the ureter. Discussed also the potential need of placing stent. She understood all the risk and agreed to proceed. will take to the OR for left- sided ureteroscopy with holmium laser.
--- NOTE | 2021-07-03 10:51 | P.OP ---
Date of Procedure: 07/03/21 Preoperative Diagnosis: Left-sided ureteral stone, renal stone Postoperative Diagnosis: Same Procedure(s) Performed: Cystoscopy, left ureteroscopy, holmium laser lithotripsy, stone basketing Implants: None Anesthesia: [id number] Surgeon: Adam Porter Estimated Blood Loss (ml): 1 Pathology: other (Left ureteral stones) Condition: stable Disposition: PACU Indications for Procedure: 70-year-old female with a symptomatic 5 mm left-sided midureteral stone, and a 4 mm left-sided renal stone. Discussed with her given her symptoms the option of left-sided ureteroscopy with holmium laser lithotripsy versus medical expulsive therapy. She is interested in proceeding with ureteroscopy. Discussed with her the risk of surgery which includes but not limited to bleeding, infection, injury to the ureter. Discussed also the potential need of placing stent. She understood all the risk and agreed to proceed. will take to the OR for left- sided ureteroscopy with holmium laser. Operative Findings: Left-sided proximal stone, additional stone in the upper pole Description of Procedure: Patient brought to the operating room, general anesthesia was induced. She was prepped and draped in sterile fashion and placed in dorsal lithotomy position. Cystoscopy fitted with a 21-Occitan sheath was inserted per urethra, cystoscopy was performed which showed no abnormality within the bladder. Attention was then carried to the left ureteral orifice. A semirigid ureteroscope was inserted per urethra and advanced up the left ureteral orifice. The scope was advanced all the way up to the proximal ureter where the stone was encountered. Using the holmium laser the stone was fragmented, sizable fragments were removed using the stone basket. At this time a sensor wire was advanced through the ureteroscope and the ureteroscope was removed with the wire in place. Next an 1113 Occitan access sheath was passed over the wire into the proximal ureter. Next the flexible ureteroscope was inserted through the access sheath, renoscopy was performed which showed an additional stone in the upper pole which was fragmented, fragment was removed using the stone basket. Repeat renoscopy showed no additional stones in the kidney or evidence of any sizable fragments. Pullback ureteroscopy was performed showed no injury to ureter or any ureteral fragments. Of note there was no edema in the ureter thus a stent was not placed. Patient tolerated the procedure well was taken to recovery in stable condition [facility] [place] Report: Procedure Acuity: urgent Stone Size and Location: 5 mm left proximal, 3 mm upper pole Ureteral Dilation: none Ureteral Access Sheath Used: Yes Stone Sent for Analysis: Yes All Stones/Fragments Were Removed with a Basket: yes Complications: none Preoperative Antibiotics Given: Yes Stent Placed: No If Stent Placed, Was String Left Attached: If Stent Placed, When is it to be Removed: Discharge Medications: patient is admitted to the hospital
--- NOTE | 2021-07-03 11:56 | P.PN ---
Subjective This is a pleasant 70 years old female with past medical history of GERD and hypothyroidism Presents because of left flank pain with history of kidney stone associated with vomiting. Patient states over the last 2 days she's been having pain in her left side. Her pain mainly in the left lower back with some milder pain in her left shoulder with no history of trauma. Her pain in the lower back is about 4-5/10, however her pain comes to 10 if she moves or presents. [place] like stabbing and radiating to the left inguinal area associated with hematuria and decrease frequency of urination but no burning, no suprapubic tenderness. No chest pain or dyspnea or coughing. No abdominal pain other than above. No diarrhea actually she didn't have bowel movement yesterday. She denies smoking or alcohol, she uses marijuana at times. She is hemodynamically stable She has mild leukocytosis of 12.9, risks of CBC and BMP and liver enzymes are unremarkable. Urine analysis showing hematuria and trace leukocyte esterase and WBCs. CT of the abdomen and pelvis with no contrast: 5 mm stone in the upper left ureter with [id number] obstructive uropathy. Perinephric edema likely reactive to the obstruction. Additional nonobstructive 4 mm left renal calculus. The horizontal orientation of the lap band is unchanged from 05/14/2019. There is persistent thickening of the distal esophagus and prominent fluid retention in the visualized lower esophagus. Findings could reflect underlying neoplasm, collapsed hiatal hernia, or esophagitis. The retained fluid in the lower esophagus could be secondary to a relative obstruction or significant gastroesophageal reflux. Effort for patient to GI or back to the neurosurgeon for further assessment 07/04/2011 Patient is going for surgery today and urologist on the case. She is planned for cystoscopy, ureteroscopy and possible stone removal She is hemodynamically stable and afebrile. WBC is back to normal at 6.3, hemoglobin 11.5. Rest of CBC, BMP is unremarkable. Creatinine 0.7. She remains on D5 normal saline at 75 mL/h. Also she is on antibiotic as per neurologist Objective - Vital Signs Vital signs: Vital Signs Temp 98.1 F 07/03/21 10:40 Pulse 81 07/03/21 11:00 Resp 16 07/03/21 11:00 BP 119/59 07/03/21 11:00 Pulse Ox 100 07/03/21 11:00 Intake & Output 07/02/21 07/03/21 07/03/21 18:59 06:59 18:59 Intake Total 124 064 2243 Balance 423 836 7230 Weight 68.946 kg Intake: IV 1200 Intake, IV Titration 200 550 Amount Dextrose 5%-0.9% NaCl 1, 450 000 ml @ 75 mls/hr IV . [id number] JANELLE Rx#:[id number] Sodium Chloride 0.9% 1, 200 000 ml @ 20 mls/hr IV . Q24H JANELLE Rx#:[id number] cefTRIAXone 1 gm In 100 Sodium Chloride 0.9% 50 ml @ 100 mls/hr IVPB Q24H JANELLE Rx#:[id number] Oral 650 Other: Voiding Method Toilet Toilet Toilet # Voids 3 # Bowel Movements 0 - Exam GENERAL: The patient is alert and oriented x3, not in any acute distress. Well developed, well nourished. HEENT: Pupils are round and equally reacting to light. EOMI. No scleral icterus. No conjunctival pallor. Normocephalic, atraumatic. No pharyngeal erythema. No thyromegaly. CARDIOVASCULAR: S1 and S2 present. No murmurs, rubs, or gallops. PULMONARY: Chest is clear to auscultation, no wheezing or crackles. -ABDOMEN: Soft, nontender, nondistended, normoactive bowel sounds. No palpable organomegaly. Left costovertebral angle tenderness MUSCULOSKELETAL: No joint swelling or deformity. EXTREMITIES: No cyanosis, clubbing, or pedal edema. NEUROLOGICAL: Gross neurological examination did not reveal any focal deficits. SKIN: No rashes. no petechiae. - Labs CBC & Chem 7: 07/03/21 04:38 07/03/21 04:38 Labs: Abnormal Lab Results - Last 24 Hours (Table) 07/03/21 07/03/21 Range/Units 04:38 04:38 RBC 3.97 L (4.10-5.20) X 10*6/uL Hgb 11.5 L (12.0-15.0) g/dL Hct 37.0 L (37.2-46.3) % MCHC 31.1 L (32.0-37.0) g/dL Anion Gap 9.70 L (10.00-18.00) mmol/L BUN/Creatinine Ratio 23.33 H (12.00-20.00) Ratio Assessment and Plan Assessment: Left Renal colic secondary to left kidney stone Left kidney stone, obstructive 5 m the left upper ureter and 4 mm nonobstructive, associated with [id number] obstructive uropathy Acute hematuria secondary to above Thickening of the lower esophagus with possible retained esophageal fluid History of lap band, Hypothyroidism History of GERD Plan: This is a pleasant 70 years old female who presents with left kidney stone , obstructive uropathy and renal colic Pain management IV fluids urology consult for plan for urological procedure today for her left kidney stone Also we will consult surgery team for her esophageal problem. Plan for EGD on Sunday Labs and medication were reviewed.. Continue same treatment. Continue with symptomatic treatment. Resume home medication. Monitor lytes and vitals. DVT and GI prophylaxis. Further recommendations depends on the clinical course of the patient DVT prophylaxis: Subcutaneous heparin GI Prophylaxis: Pepcid PT/OT: Pending Prognosis is guarded
[2021-07-03] MEDS: HYDROcodone/APAP 5-325MG 1 EACH TAB PO PRN ×2 (11:58→20:21)
[2021-07-03] MEDS: KETOROLAC 15 MG/ML 1 ML VIAL IVP PRN (22:18)
[2021-07-04] MEDS: LEVOTHYROXINE 125 MCG TAB PO SCH (06:07)
[2021-07-04 07:09] LABS: Glucose,Whole Blood 99 mg/dL (75-99)
[2021-07-04] MEDS: SODIUM CHLORIDE 0.9% 1,000 ML IV SCH (08:23)
[2021-07-04] MEDS: FAMOTIDINE 20 MG TAB PO SCH (08:24)
[2021-07-04] MEDS: HEPARIN SODIUM,PORCINE/PF 5,000 UNIT/0.5 ML SYRINGE SQ SCH (08:24)
[2021-07-04] MEDS: PARoxetine 20 MG TAB PO SCH (08:24)
[2021-07-04] MEDS: TAMSULOSIN 0.4 MG CAP.ER.24H PO SCH (08:24)
[2021-07-04] MEDS: KETOROLAC 15 MG/ML 1 ML VIAL IVP PRN (08:30)
[2021-07-04 09:36] LABS: Basophils # (A) 0.04 X 10*3/uL (0.00-0.10); Basophils % (A) 0.4 %; Eosinophils # (A) 0.06 X 10*3/uL (0.04-0.35); Eosinophils % (A) 0.7 %; HCT 34.3 % (37.2-46.3); HGB 10.6 g/dL (12.0-15.0); Immature Grans, Automated 0.3 %; Lymphocytes # (A) 1.12 X 10*3/uL (0.90-5.00); Lymphocytes % (A) 12.3 %; MCH 28.9 pg (27.0-32.0); MCHC 30.9 g/dL (32.0-37.0); MCV 93.5 fL (80.0-97.0); Mean Platelet Volume 10.5 fL (9.5-12.2); Monocytes # (A) 0.89 X 10*3/uL (0.20-1.00); Monocytes % (A) 9.7 %; NRBC Per 100 WBC 0 /100 WBCS (0.0-0.0); Neutrophils % (A) 76.6 %; Platelet Count 267 X 10*3/uL (140-440); RBC 3.67 X 10*6/uL (4.10-5.20); RDW 13.6 % (11.5-14.5); WBC 9.14 X 10*3/uL (4.50-10.00)
[2021-07-04 09:49] LABS: Magnesium 1.9 mg/dL (1.5-2.4)
[2021-07-04 09:57] LABS: African American GFR (CKD) 66.6 (60.0-200.0); BUN/Creat Ratio 11.9 Ratio (12.00-20.00); Blood Urea Nitrogen 11.9 mg/dL (9.0-27.0); Calcium 8.9 mg/dL (8.7-10.3); Non-African American GFR(CKD) 57.4 (60.0-200.0); Potassium 3.8 mmol/L (3.5-5.5)
--- NOTE | 2021-07-04 11:44 | P.PN ---
Subjective Underwent left-sided ureteroscopy yesterday, denies any pain this morning. Objective - Vital Signs Vital signs: Vital Signs Temp 97.9 F 07/04/21 07:23 Pulse 90 07/04/21 07:23 Resp 17 07/04/21 07:23 BP 130/80 07/04/21 07:23 Pulse Ox 97 07/04/21 07:23 Intake & Output 07/03/21 07/04/21 07/04/21 18:59 06:59 18:59 Intake Total 1200 Balance 1200 Intake: IV 1200 Other: Voiding Method Toilet Toilet Toilet # Voids 6 4 # Bowel Movements 0 - Constitutional General appearance: Present: no acute distress - Gastrointestinal General gastrointestinal: Present: soft. Absent: distended, tenderness - Psychiatric Psychiatric: Present: A&O x's 3 - Labs CBC & Chem 7: 07/04/21 04:30 07/04/21 04:30 Labs: Abnormal Lab Results - Last 24 Hours (Table) 07/04/21 07/04/21 Range/Units 04:30 04:30 RBC 3.67 L (4.10-5.20) X 10*6/uL Hgb 10.6 L (12.0-15.0) g/dL Hct 34.3 L (37.2-46.3) % MCHC 30.9 L (32.0-37.0) g/dL Est GFR (CKD-EPI)NonAf 57.4 L (60.0-200.0) BUN/Creatinine Ratio 11.90 L (12.00-20.00) Ratio Assessment and Plan Assessment: 70-year-old female with a symptomatic 5 mm left-sided midureteral stone, and a 4 mm left-sided renal stone. Underwent left-sided ureteroscopy with holmium laser lithotripsy yesterday, doing well -Okay for discharge from urology standpoint, can follow-up as an outpatient in 2 weeks
[2021-07-04] MEDS ORDERED: IV FLUID CONTINUATION 1,000 ML IV ONE (12:20)
[2021-07-04] MEDS ORDERED: PROPOFOL 10 MG/ML 20 ML VIAL IV ONE (12:20)
--- NOTE | 2021-07-04 12:32 | P.OP ---
Date of Procedure: 07/04/21 Preoperative Diagnosis: GERD Postoperative Diagnosis: Mild antral gastritis Retained saliva and esophagus Procedure(s) Performed: EGD Anesthesia: MAC Surgeon: Clifford Holt Pathology: other (Antrum) Condition: stable Disposition: PACU Description of Procedure: The patient's placed on the endoscopy table in the lateral position. She received IV sedation. The gastroscope placed oropharynx passed in the esophagus and stomach. Scope was then placed through the pylorus. The first and second portion of the duodenum appeared normal. Scope was brought back the antrum this was mildly inflamed. A biopsies performed. Scope was unretroflexed meters stomach appeared normal. The patient had previously placed LAP-BAND device. This without evidence of inflammation or erosion. The GE junction was at 47 is. The distal esophagus did not appear to be significantly inflamed. The proximal esophagus appeared normal. Scope withdrawn for patient.
[2021-07-04] MEDS ORDERED: SENNOSIDES-DOCUSATE SODIUM 1 EACH TAB PO SCH (13:00)
--- NOTE | 2021-07-04 13:09 | P.DS ---
Providers Date of admission: 07/02/21 07:47 Expected date of discharge: 07/04/21 Attending physician: Jaxson Berkowitz MD Consults: 07/02/21 07:47 Consult Physician Routine Consulting Provider: Adam Porter Consult Reason/Comments: Hydronephrosis Do you want consulting provider notified?: Yes 07/02/21 10:20 Consult Physician Routine Consulting Provider: Clifford Holt Consult Reason/Comments: Thickened lower esophagus Do you want consulting provider notified?: Yes Primary care physician: [facility] Hospital Course: Final Diagnoses: Left Renal colic secondary to left kidney stone Left kidney stone, obstructive 5 m the left upper ureter and 4 mm nonobstructive, associated with [id number] obstructive uropathy. Status post cystoscopy, left ureteroscopy, lithotripsy with stone basketing Acute hematuria secondary to above Thickening of the lower esophagus with possible retained esophageal fluid History of lap band, Hypothyroidism History of GERD Hospital course: This is a pleasant 70-year-old female with past medical history of kidney stones presented with left kidney stone, obstructive uropathy and renal colic maintained on IV fluids, pain management. Evaluated by urology and underwent cystoscopy, left ureteroscopy, lithotripsy with stone basketing yesterday. Did not require stent placement as there was no edema in the ureter. Tolerated procedure well. Stone analysis with image pending. Spontaneously voiding without difficulty. Scheduled for EGD this morning with surgery. Patient complains of constipation, Senokot S ordered.Patient will be discharged home today in a stable condition with guarded prognosis pending final DC recommendations and clearance per both urology and general surgery. Patient also has been advised to maintain a food journal, reviewed in clinic with assistance of working with a trades helper, regarding potential etiology underlyring the reoccurent kidney stones. The impression and plan of care has been dictated as directed. : I performed a history and examination of this patient, discussed the same with the dictator. I agree with the dictator's note ,documented as a scribe. Any additional findings or plans will be noted. Patient Condition at Discharge: Stable Plan - Discharge Summary Discharge Rx Participant: Yes New Discharge Prescriptions: New Tamsulosin [Flomax] 0.4 mg PO DAILY #30 Sennosides-Docusate Sodium [Senokot-S] 2 each PO BID tab Continue Ascorbic Acid [Vitamin C] 500 mg PO DAILY Tart Vincent 1,200 mg PO DAILY Fiber Powder Supplement 3 - 4 tsp PO DAILY PARoxetine [Paxil] 20 mg PO DAILY Cholecalciferol [Vitamin D3 (25 Mcg = 1000 Iu)] 1,000 unit PO DAILY Levothyroxine Sodium [Synthroid] 100 mcg PO DAILY Discharge Medication List Ascorbic Acid [Vitamin C] 500 mg PO DAILY 04/22/18 [History] Cholecalciferol [Vitamin D3 (25 Mcg = 1000 Iu)] 1,000 unit PO DAILY 04/22/18 [History] Fiber Powder Supplement 3 - 4 tsp PO DAILY 04/22/18 [History] PARoxetine [Paxil] 20 mg PO DAILY 04/22/18 [History] Tart Vincent 1,200 mg PO DAILY 04/22/18 [History] Levothyroxine Sodium [Synthroid] 100 mcg PO DAILY 07/02/21 [History] Sennosides-Docusate Sodium [Senokot-S] 2 each PO BID tab 07/04/21 [Rx] Tamsulosin [Flomax] 0.4 mg PO DAILY #30 07/04/21 [Rx] Follow up Appointment(s)/Referral(s): Adam Porter MD [STAFF PHYSICIAN] [facility] [place] [facility] - 2 Weeks Nicole Soria MD [Primary Care Provider] - 3 Days Activity/Diet/Wound Care/Special Instructions: Antibiotics as per urology recommendations.
[2021-07-04] MEDS: DEXTROSE 5%-0.9% NACL 1,000 ML IV SCH (13:34)
[2021-07-04 14:08] VITALS: BP 145/84; PULSE 76; RESP 18; TEMP 97.6
[2021-07-05] MEDS ORDERED: FAMOTIDINE 20 MG TAB PO SCH (09:00)
== END 2021-07-04 15:40 | disposition home or self-care (01) ==
LOC: EC 03:34 → INTOOBSV 07:47 → 4SSUR 07:47 → UNDODISIN 07-04 15:40
PROVIDERS: ADMIT Family Medicine; ATTEND Family Medicine
PROC: 0TC78ZZ Extirpation of Matter from Left Ureter, Via Natural or Artificial Opening Endoscopic (ICD-10-PCS; principal; 2021-07-03 08:00)
PROC: 0DB78ZX Excision of Stomach, Pylorus, Via Natural or Artificial Opening Endoscopic, Diagnostic (ICD-10-PCS; 2021-07-04)
DX: N13.2 Hydronephrosis with renal and ureteral calculous obstruction (principal); E03.9 Hypothyroidism, unspecified; K21.9 Gastro-esophageal reflux disease without esophagitis; K22.89 Other specified disease of esophagus; K29.70 Gastritis, unspecified, without bleeding; K59.00 Constipation, unspecified; M85.80 Other specified disorders of bone density and structure, unspecified site; F41.9 Anxiety disorder, unspecified; Z79.890 Hormone replacement therapy; Z79.899 Other long term (current) drug therapy; Z88.2 Allergy status to sulfonamides; Z88.8 Allergy status to other drugs, medicaments and biological substances; Z98.84 Bariatric surgery status; Z90.49 Acquired absence of other specified parts of digestive tract; Z96.652 Presence of left artificial knee joint; Z87.42 Personal history of other diseases of the female genital tract; Z87.442 Personal history of urinary calculi; Z98.890 Other specified postprocedural states; Z80.3 Family history of malignant neoplasm of breast; Z82.49 Family history of ischemic heart disease and other diseases of the circulatory system; Z28.310 Unvaccinated for COVID-19
CPT/HCPCS: 96376; 96372; 96374; 96375; 99285; 36415; 93005; 88305; 80053; 80048 ×2; 82150; 83690; 83735 ×2; 84484; 85025 ×3; 81001; 82365; 74176; 43239; 52353; G0378 ×3; C1769; J2250; J2270; J1100; J2405 ×2; J0696 ×2; J3010; J1885 ×3; J2370; J0330; J2704 ×2; J1644 ×2; J2001

== ENCOUNTER → 2021-07-14 | Outpatient (CLI) | payer MEDICARE ==
--- NOTE | 2021-07-15 13:15 | MM ---
Reason for Exam: Screening (asymptomatic). Last mammogram was performed 1 year(s) and 3 month(s) ago. Patient History: Menarche at age 12. First Full-Term at age 34. Late child-bearing (after 30). Postmenopausal. Core Biopsy on the Right side. Cyst Aspiration on the Right side. Excisional Biopsy on the Right side. Excisional Biopsy on the Left side. 06/18/2001, Benign Stereotactic Core Biopsy on the right side. Paternal grandmother had breast cancer, age 70. Risk Values: Fifi 5 year model risk: 3.9%. NCI Lifetime model risk: 11.7%. Film Views: Bilateral CC views were taken. Bilateral MLO views were taken. Left XCCL views were taken. Prior Study Comparison: 10/06/2016 Bilateral Screening Mammogram, [facility]. 01/07/2019 Bilateral Screening Mammogram, [facility]. 03/24/2020 Bilateral Screening Mammogram, [facility]. Tissue Density: The breast tissue is heterogeneously dense. This may lower the sensitivity of mammography. Findings: Analyzed By CAD. There is no suspicious group of microcalcifications or new suspicious mass in either breast. Overall Assessment: Benign, BI-RAD 2 Management: Screening Mammogram of both breasts in 1 year. A clinical breast exam by your physician is recommended on an annual basis and results should be correlated with mammographic findings. Electronically signed and approved by: Jaxson Power M.D. Radiologis
== END | disposition home or self-care (01) ==
LOC: RADMAMWWP 17:26
PROVIDERS: ATTEND Family Medicine
DX: Z12.31 Encounter for screening mammogram for malignant neoplasm of breast (principal); Z78.0 Asymptomatic menopausal state; Z80.3 Family history of malignant neoplasm of breast; Z85.3 Personal history of malignant neoplasm of breast
CPT/HCPCS: 77063; 77067

== ENCOUNTER → 2021-07-27 | Outpatient (CLI) | payer MEDICARE | END | disposition home or self-care (01) | LOC: LABWHC1 11:22 | PROVIDERS: ATTEND Urology | DX: Z53.9 Procedure and treatment not carried out, unspecified reason (principal) ==

== ENCOUNTER → 2021-07-27 | Outpatient (CLI) | payer MEDICARE ==
--- NOTE | 2021-07-27 12:03 | XR ---
EXAMINATION TYPE: XR KUB DATE OF EXAM: 07/27/2021 HISTORY: Pain Comparison: None.Single KUB is submitted for interpretation. Findings: Right renal calculi: None Visualized. Right ureteral calculi: None Visualized. Left renal calculi: None Visualized. Left ureteral calculi: None Visualized. Pelvic calcifications: None Visualized. Bowel gas pattern is unremarkable. No free air. No mass effects. IMPRESSION: 1. No visible radiopaque calculus identified.
== END | disposition home or self-care (01) ==
LOC: RADXRMAIN 11:39
PROVIDERS: ATTEND Urology
DX: R10.9 Unspecified abdominal pain (principal)
CPT/HCPCS: 74018

== ENCOUNTER → 2021-08-01 | Outpatient (CLI) | payer MEDICARE ==
[2021-08-01 13:24] VITALS: BP 149/76; PULSE 72; TEMP 98.5; BMI 26.1
--- NOTE | 2021-08-01 13:26 | P.HPBAR ---
Bariatric H&P - History & Physicial H&P Date: 08/01/21 History & Physicial: Visit/CC: egd f/u Patient initial contact: Initial weight: 106.594 kg Initial weight in pounds: 235.00 Height: 5 ft 4 in Initial BMI: 40.3 Last weight: Current weight: 68.946 kg Current weight in pounds: 152.00 Current BMI: 26.1 [place] body weight (based on NIH guidelines): 54.431 kg Excess body weight loss: 72.1% The patient is a 70 year-old F who presents for Bariatric Assessment. Patient feels well. Her current weight is 152 pounds. Her periods weight was 140 pounds. She's had some minimal GERD. Her GERD is significantly improved since her band was empty. 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 Osteopenia. 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 History of Any Multi-Drug Resistant Organisms: None Reported Past Surgical History: Bariatric Surgery, Cholecystectomy, Orthopedic Surgery, Tonsillectomy Additional Past Surgical History / Comment(s): LAP BAND. CYST REMOVED FROM BILATERAL breast, HAND AND MOUTH. ALSO FROM OVARY, lithotripsy, left knee replacement. Abdominoplasty. Colonoscopy 2017(next after 5yr). Past Anesthesia/Blood Transfusion Reactions: Motion Sickness, Postoperative Nausea & Vomiting (PONV) Past Psychological History: Anxiety Smoking Status: Never smoker Past Alcohol Use History: Occasional Past Drug Use History: Marijuana Additional Drug Use History / Comment(s): pt states she uses medical marijuana. - Past Family History Mother Family Medical History: No Reported History Father Family Medical History: Myocardial Infarction ([place]) Additional Family Medical History / Comment(s): Paternal grandmother had breast cancer. Surgical - Exam Vital Signs Temp Pulse BP 98.5 F 72 149/76 08/01/21 13:20 08/01/21 13:20 08/01/21 13:20 - General well developed, well nourished, no distress - Eyes PERRL - ENT normal pinna - Neck no masses - Respiratory normal expansion - Cardiovascular Rhythm: regular - Abdomen Abdomen: soft, non tender Bariatric Assessment & Plan Plan: Improving morbid obesity. Patient's LAP-BAND was adjusted. She had 1.5 mL added to the band. She'll follow-up in 4 weeks. Bariatric Checklist Checklist: Plan: Checklist: EGD: 1. Hiatal hernia: 2. H. Pylori: HgbA1c: Vitamin D: Smoking: Never smoker Primary care physician referral: Psychiatry clearance: Cardiology clearance: Sleep study: Diet journal: VTE risk score: VTE risk level: Rehab needs at discharge:
== END ==
LOC: BARWHC3 12:50
PROVIDERS: ATTEND Surgery
DX: E66.01 Morbid (severe) obesity due to excess calories (principal); Z46.51 Encounter for fitting and adjustment of gastric lap band; E03.9 Hypothyroidism, unspecified; F41.9 Anxiety disorder, unspecified; Z88.2 Allergy status to sulfonamides; Z88.8 Allergy status to other drugs, medicaments and biological substances; Z68.26 Body mass index [BMI] 26.0-26.9, adult
CPT/HCPCS: 99211

== ENCOUNTER → 2021-10-31 | Outpatient (CLI) | payer MEDICARE ==
[2021-10-31 13:35] VITALS: BP 145/84; PULSE 79; TEMP 98.3; BMI 25.7
--- NOTE | 2021-10-31 14:53 | P.HPBAR ---
Bariatric H&P - History & Physicial H&P Date: 10/31/21 History & Physicial: Visit/CC: lap band f/u Patient initial contact: Initial weight: 106.594 kg Initial weight in pounds: 235.00 Height: 5 ft 4 in Initial BMI: 40.3 Last weight: Current weight: 68.039 kg Current weight in pounds: 150.00 Current BMI: 25.7 [place] body weight (based on NIH guidelines): 54.431 kg Excess body weight loss: 73.9% The patient is a 70 year-old F who presents for Bariatric Assessment. Patient resents today for LAP-BAND follow-up. She's had minimal GERD. Her weight has been stable. She currently weighs 150 pounds. She was previously weight 152 pounds. 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 Osteopenia. 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 History of Any Multi-Drug Resistant Organisms: None Reported Past Surgical History: Bariatric Surgery, Cholecystectomy, Orthopedic Surgery, Tonsillectomy Additional Past Surgical History / Comment(s): LAP BAND. CYST REMOVED FROM BILATERAL breast, HAND AND MOUTH. ALSO FROM OVARY, lithotripsy, left knee replacement. Abdominoplasty. Colonoscopy 2017(next after 5yr). Past Anesthesia/Blood Transfusion Reactions: Motion Sickness, Postoperative Nausea & Vomiting (PONV) Past Psychological History: Anxiety Smoking Status: Never smoker Past Alcohol Use History: Occasional Past Drug Use History: Marijuana Additional Drug Use History / Comment(s): pt states she uses medical marijuana. - Past Family History Mother Family Medical History: No Reported History Father Family Medical History: Myocardial Infarction ([place]) Additional Family Medical History / Comment(s): Paternal grandmother had breast cancer. Surgical - Exam Vital Signs Temp Pulse BP 98.3 F 79 145/84 10/31/21 13:29 10/31/21 13:29 10/31/21 13:29 - General well developed, well nourished, no distress - Eyes PERRL - ENT normal pinna - Neck no masses - Respiratory normal expansion - Cardiovascular Rhythm: regular - Abdomen Abdomen: soft, non tender Bariatric Assessment & Plan Plan: Status post observed. Her weight loss has maintained 100+ pounds of weight loss over the last 20 years. Bariatric Checklist Checklist: Plan: Checklist: EGD: 1. Hiatal hernia: 2. H. Pylori: HgbA1c: Vitamin D: Smoking: Never smoker Primary care physician referral: Dr. Soria Psychiatry clearance: Cardiology clearance: Sleep study: Diet journal: VTE risk score: VTE risk level: Rehab needs at discharge:
== END ==
LOC: BARWHC3 12:48
PROVIDERS: ATTEND Surgery
DX: Z09 Encounter for follow-up examination after completed treatment for conditions other than malignant neoplasm (principal); K21.9 Gastro-esophageal reflux disease without esophagitis; E03.9 Hypothyroidism, unspecified; Z87.39 Personal history of other diseases of the musculoskeletal system and connective tissue; Z98.84 Bariatric surgery status; F41.9 Anxiety disorder, unspecified; Z88.2 Allergy status to sulfonamides; Z88.8 Allergy status to other drugs, medicaments and biological substances
CPT/HCPCS: 99211

== ENCOUNTER → 2022-02-06 | Outpatient (CLI) | payer MEDICARE ==
[2022-02-06 13:43] VITALS: BP 135/84; PULSE 79; TEMP 98.3; BMI 25.9
--- NOTE | 2022-02-06 14:35 | P.HPBAR ---
Bariatric H&P - History & Physicial H&P Date: 02/06/22 History & Physicial: Visit/CC: lap band Patient initial contact: Initial weight: 106.594 kg Initial weight in pounds: 235.00 Height: 5 ft 4 in Initial BMI: 40.3 Last weight: Current weight: 68.492 kg Current weight in pounds: 151.00 Current BMI: 25.9 [place] body weight (based on NIH guidelines): 54.431 kg Excess body weight loss: 73.0% The patient is a 71 year-old F who presents for Bariatric Assessment. She presents today for LAP-BAND follow-up. She's had her LAP-BAND for almost 20 years. Her weight is remain stable. She has some minimal GERD. She denies any dysphagia or abdominal pain. 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 Osteopenia. 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 History of Any Multi-Drug Resistant Organisms: None Reported Past Surgical History: Bariatric Surgery, Cholecystectomy, Orthopedic Surgery, Tonsillectomy Additional Past Surgical History / Comment(s): LAP BAND. CYST REMOVED FROM LELE ATERAL breast, HAND AND MOUTH. ALSO FROM OVARY, lithotripsy, left knee replacement. Abdominoplasty. Colonoscopy 2017(next after 5yr). Past Anesthesia/Blood Transfusion Reactions: Motion Sickness, Postoperative Nausea & Vomiting (PONV) Past Psychological History: Anxiety Smoking Status: Never smoker Past Alcohol Use History: Occasional Past Drug Use History: Marijuana Additional Drug Use History / Comment(s): pt states she uses medical marijuana. - Past Family History Mother Family Medical History: No Reported History Father Family Medical History: Myocardial Infarction ([place]) Additional Family Medical History / Comment(s): Paternal grandmother had breast cancer. Surgical - Exam Vital Signs Temp Pulse BP 98.3 F 79 135/84 02/06/22 13:40 02/06/22 13:40 02/06/22 13:40 - General well developed, well nourished, no distress - Eyes PERRL - ENT normal pinna - Neck no masses - Respiratory normal expansion - Cardiovascular Rhythm: regular - Abdomen Abdomen: soft, non tender Bariatric Assessment & Plan Plan: Resolving morbid obesity. Patient's BMI is 25. Her GERD is minimal and will be observed. She'll follow-up in 4 weeks. Bariatric Checklist Checklist: Plan: Checklist: EGD: 1. Hiatal hernia: 2. H. Pylori: HgbA1c: Vitamin D: Smoking: Never smoker Primary care physician referral: Dr. Soria Psychiatry clearance: Cardiology clearance: Sleep study: Diet journal: VTE risk score: VTE risk level: Rehab needs at discharge:
== END ==
LOC: BARWHC3 13:02
PROVIDERS: ATTEND Surgery
DX: Z48.815 Encounter for surgical aftercare following surgery on the digestive system (principal); Z98.84 Bariatric surgery status; E66.01 Morbid (severe) obesity due to excess calories; K21.9 Gastro-esophageal reflux disease without esophagitis; Z88.2 Allergy status to sulfonamides; Z88.8 Allergy status to other drugs, medicaments and biological substances; E07.9 Disorder of thyroid, unspecified; Z79.890 Hormone replacement therapy; Z68.25 Body mass index [BMI] 25.0-25.9, adult
CPT/HCPCS: 99211

== ENCOUNTER → 2022-07-12 | Outpatient (CLI) | payer MEDICARE ==
--- NOTE | 2022-07-12 14:43 | XR ---
EXAMINATION TYPE: XR abdomen 1V DATE OF EXAM: 07/12/2022 12:06 PM INDICATION: Patient age:Female; 71 years old; Reason for study: N20.0; COMPARISON: 07/27/2021. TECHNIQUE: One radiographic view of the abdomen was obtained. FINDINGS: Gastric lap band has a flattened angle to the spine, angle of 79. The bowel gas pattern is nonspecific without dilated loops of small or large bowel. There is no evidence for organomegaly or p neumoperitoneum. The osseous structures are intact. Multilevel disc degeneration change L3-L4. No a bnormal calcifications are present. Fecal material and gas are demonstrated throughout the colon and rectum. Right upper quadrant cholecystectomy clips. IMPRESSION: Findings compatible with slipped gastric lap band.
== END | disposition home or self-care (01) ==
LOC: RADXRMAIN 11:54
PROVIDERS: ATTEND Urology
DX: N20.0 Calculus of kidney (principal)
CPT/HCPCS: 74018

== ENCOUNTER → 2022-07-13 | Outpatient (CLI) | payer MEDICARE ==
[2022-07-13 09:39] VITALS: BP 144/80; PULSE 76; TEMP 98; BMI 26.2
--- NOTE | 2022-07-13 10:05 | P.HPBAR ---
Bariatric H&P - History & Physicial H&P Date: 07/13/22 History & Physicial: Visit/CC: lap band Patient initial contact: Initial weight: 106.594 kg Initial weight in pounds: 235.00 Height: 5 ft 4 in Initial BMI: 40.3 Last weight: Current weight: 69.218 kg Current weight in pounds: 152.60 Current BMI: 26.2 [place] body weight (based on NIH guidelines): 54.431 kg Excess body weight loss: 71.6% The patient is a 71 year-old F who presents for Bariatric Assessment. This is a 71-year-old female who's had previous LAP-BAND surgery. Patient's had her LAP-BAND for many years. Patient's history of kidney stones. Patient has complaints of left flank pain. She states that the pain feels identical to previous kidney stones. Patient had a abdominal x-ray yesterday. A radial screening her LAP-BAND is slightly flattened and questioning a prolapse of her LAP-BAND. The patient's x-rays were reviewed. Her x-ray from a year ago shows a band in similar position. Patient denies any GERD and dysphagia she's had no nausea or vomiting. She has no epigastric pain. Patient is convinced that she has a kidney stone creating her pain. 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 History of Any Multi-Drug Resistant Organisms: None Reported Past Surgical History: Bariatric Surgery, Cholecystectomy, Orthopedic Surgery, Tonsillectomy Additional Past Surgical History / Comment(s): LAP BAND. CYST REMOVED FROM BILATERAL breast, HAND AND MOUTH. ALSO FROM OVARY, lithotripsy, left knee replacement. Abdominoplasty. Colonoscopy 2017(next after 5yr). Past Anesthesia/Blood Transfusion Reactions: Motion Sickness, Postoperative Nausea & Vomiting (PONV) Past Psychological History: Anxiety Smoking Status: Never smoker Past Alcohol Use History: Occasional Past Drug Use History: Marijuana Additional Drug Use History / Comment(s): pt states she uses medical marijuana. - Past Family History Mother Family Medical History: No Reported History Father Family Medical History: Myocardial Infarction ([place]) Additional Family Medical History / Comment(s): Paternal grandmother had breast cancer. Surgical - Exam Vital Signs Temp Pulse BP 98 F 76 144/80 07/13/22 09:30 07/13/22 09:30 07/13/22 09:30 - General well developed, well nourished, no distress - Eyes PERRL - ENT normal pinna - Neck no masses - Respiratory normal expansion - Cardiovascular Rhythm: regular - Abdomen Is no epigastric tenderness. There is no signs of any peritoneal signs. Abdomen: soft, non tender Bariatric Assessment & Plan Plan: Is unclear the origin of her pain. Patient will have her LAP-BAND emptied. 6 mL. The patient will follow-up in one week. I do not think she has any significant prolapse due to the fact she has no GERD and dysphagia or epigastric pain. The patient will also follow up with her urologist for her left flank pain. Bariatric Checklist Checklist: Plan: Checklist: EGD: 1. Hiatal hernia: 2. H. Pylori: HgbA1c: Vitamin D: Smoking: Never smoker Primary care physician referral: Dr. Soria Psychiatry clearance: Cardiology clearance: Sleep study: Diet journal: VTE risk score: VTE risk level: Rehab needs at discharge:
== END ==
LOC: BARWHC3 09:22
PROVIDERS: ATTEND Surgery
DX: E66.01 Morbid (severe) obesity due to excess calories (principal); Z46.51 Encounter for fitting and adjustment of gastric lap band; K21.9 Gastro-esophageal reflux disease without esophagitis; E03.9 Hypothyroidism, unspecified; Z68.26 Body mass index [BMI] 26.0-26.9, adult; Z88.2 Allergy status to sulfonamides; Z88.1 Allergy status to other antibiotic agents; Z88.8 Allergy status to other drugs, medicaments and biological substances
CPT/HCPCS: 99212

== ENCOUNTER → 2022-07-21 | Outpatient (CLI) | payer MEDICARE ==
--- NOTE | 2022-07-23 20:20 | CT ---
EXAMINATION TYPE: CT abdomen pelvis wo con DATE OF EXAM: 07/21/2022 COMPARISON: 07/02/2021 HISTORY: 71-year-old female R91.8, left flank pain, hx of stones CT DLP: 343.2 mGycm. Automated exposure control for dose reduction was used. TECHNIQUE: Contiguous axial scanning of the abdomen and pelvis without IV contrast. Coronal and sagit chrissie reconstructions performed. FINDINGS: Heart normal size with trace anterior pericardial fluid. Scarring redemonstrated in the lower lungs w ithout pleural effusion. Underlying thickening and possible underlying hiatal hernia distal esophagus. Heart is on the orienta tion of the left and remains unchanged. Noncontrast appearance of the liver, adrenal glands, kidneys, spleen with a inferior splenule, and pa ncreas show no gross abnormality. Pancreas is mildly atrophic. No nephrolithiasis or hydronephrosis. Mildly thickened small bowel loops throughout the abdomen. Mild central maddie mesentery/mesenteric ed ronit is nonspecific. Appendix is visualized containing some inspissated material or tiny calculi. No inflammatory changes. Colon shows no significant stool burden. No pericolonic inflammatory change. No mesenteric or retroperitoneal lymphadenopathy. Bladder is collapsed. Uterus and ovaries not well delineated from adjacent bowel loops. No abnormal f luid collection in the pelvis or pelvic lymphadenopathy. Bones: Advanced spondylotic change lower lumbar spine. Degenerative grade 1 anterolisthesis L3-L4 1 s imilar. Baastrup's disease. IMPRESSION: 1. No nephrolithiasis or hydronephrosis seen. 2. Unchanged horizontal orientation of the patient's lap band. Underlying thickening and possible un derlying hiatal hernia at the distal esophagus also is redemonstrated. Please refer to discussion of the patient's 07/02/2021 CT. 3. Possible mildly thickened small bowel loops throughout and either some maddie mesentery and some n onspecific maddie mesentery. Consider nonspecific enteritis.
== END | disposition home or self-care (01) ==
LOC: RADCTMAIN 15:06
PROVIDERS: ATTEND Urology
DX: N20.1 Calculus of ureter (principal); R91.8 Other nonspecific abnormal finding of lung field; Z87.442 Personal history of urinary calculi
CPT/HCPCS: 74176

== ENCOUNTER → 2022-07-31 | Outpatient (CLI) | payer MEDICARE ==
[2022-07-31 13:24] VITALS: BP 161/96; PULSE 80; TEMP 98; BMI 27.8
--- NOTE | 2022-08-28 11:13 | P.HPBAR ---
Bariatric H&P - History & Physicial H&P Date: 07/31/22 History & Physicial: Visit/CC: lap band Patient initial contact: Initial weight: 106.594 kg Initial weight in pounds: 235.00 Height: 5 ft 4 in Initial BMI: 40.3 Last weight: Current weight: 73.482 kg Current weight in pounds: 162.00 Current BMI: 27.8 [place] body weight (based on NIH guidelines): 54.431 kg Excess body weight loss: 63.4% The patient is a 71 year-old F who presents for Bariatric Assessment. She presents today for LAP-BAND follow-up. She's had complaints of left lower quadrant pain and some mild GERD. Patient has had issues with constipation. 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 Osteopenia. 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 History of Any Multi-Drug Resistant Organisms: None Reported Past Surgical History: Bariatric Surgery, Cholecystectomy, Orthopedic Surgery, Tonsillectomy Additional Past Surgical History / Comment(s): LAP BAND. CYST REMOVED FROM BILATERAL breast, HAND AND MOUTH. ALSO FROM OVARY, lithotripsy, left knee replacement. Abdominoplasty. Colonoscopy 2017(next after 5yr). Past Anesthesia/Blood Transfusion Reactions: Motion Sickness, Postoperative Nausea & Vomiting (PONV) Past Psychological History: Anxiety Smoking Status: Never smoker Past Alcohol Use History: Occasional Past Drug Use History: Marijuana Additional Drug Use History / Comment(s): pt states she uses medical marijuana. - Past Family History Mother Family Medical History: No Reported History Father Family Medical History: Myocardial Infarction ([place]) Additional Family Medical History / Comment(s): Paternal grandmother had breast cancer. Surgical - Exam Vital Signs Temp Pulse BP 98 F 80 161/96 07/31/22 13:16 07/31/22 13:16 07/31/22 13:16 - General well developed, well nourished, no distress - Eyes PERRL - ENT normal pinna - Abdomen Abdomen: soft, non tender Bariatric Assessment & Plan Plan: She'll be observed. Her GERD is minimal and will be observed. Patient will increase her water and fiber intake. Bariatric Checklist Checklist: Plan: Checklist: EGD: 1. Hiatal hernia: 2. H. Pylori: HgbA1c: Vitamin D: Smoking: Never smoker Primary care physician referral: Dr. Soria Psychiatry clearance: Cardiology clearance: Sleep study: Diet journal: VTE risk score: VTE risk level: Rehab needs at discharge:
== END ==
LOC: BARWHC3 12:49
PROVIDERS: ATTEND Surgery
DX: E66.01 Morbid (severe) obesity due to excess calories (principal); K21.9 Gastro-esophageal reflux disease without esophagitis; E03.9 Hypothyroidism, unspecified; M85.80 Other specified disorders of bone density and structure, unspecified site; Z88.5 Allergy status to narcotic agent; Z88.2 Allergy status to sulfonamides; Z88.8 Allergy status to other drugs, medicaments and biological substances; Z79.890 Hormone replacement therapy
CPT/HCPCS: 99211

== ENCOUNTER → 2022-08-14 | Outpatient (CLI) | payer MEDICARE ==
[2022-08-14 13:05] VITALS: BP 113/73; PULSE 66; TEMP 98.2; BMI 28.4
--- NOTE | 2022-08-16 09:37 | P.HPBAR ---
Bariatric H&P - History & Physicial H&P Date: 08/14/22 History & Physicial: Visit/CC: lap band Patient initial contact: Initial weight: 106.594 kg Initial weight in pounds: 235.00 Height: 5 ft 4 in Initial BMI: 40.3 Last weight: Current weight: 75.07 kg Current weight in pounds: 165.50 Current BMI: 28.4 [place] body weight (based on NIH guidelines): 54.431 kg Excess body weight loss: 60.4% The patient is a 71 year-old F who presents for Bariatric Assessment. Patient resents today for LAP-BAND follow-up. She is requesting a fill. She currently feels hungry. She has some minimal left lower quadrant pain. 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 History of Any Multi-Drug Resistant Organisms: None Reported Past Surgical History: Bariatric Surgery, Cholecystectomy, Orthopedic Surgery, Tonsillectomy Additional Past Surgical History / Comment(s): LAP BAND. CYST REMOVED FROM BILATERAL breast, HAND AND MOUTH. ALSO FROM OVARY, lithotripsy, left knee replacement. Abdominoplasty. Colonoscopy 2017(next after 5yr). Past Anesthesia/Blood Transfusion Reactions: Motion Sickness, Postoperative Nausea & Vomiting (PONV) Smoking Status: Never smoker - Past Family History Mother Family Medical History: No Reported History Father Family Medical History: Myocardial Infarction ([place]) Additional Family Medical History / Comment(s): Paternal grandmother had breast cancer. Surgical - Exam Vital Signs Temp Pulse BP 98.2 F 66 113/73 08/14/22 12:57 08/14/22 12:57 08/14/22 12:57 - General well developed, well nourished, no distress - Eyes PERRL - ENT normal pinna - Neck no masses - Respiratory normal expansion - Cardiovascular Rhythm: regular - Abdomen Abdomen: soft, non tender Bariatric Assessment & Plan Plan: Patient's LAP-BAND was adjusted. She had 0.5 mL added to the band. She was ill drink water without difficulty. She'll follow-up in 4 weeks. Bariatric Checklist Checklist: Plan: Checklist: EGD: 1. Hiatal hernia: 2. H. Pylori: HgbA1c: Vitamin D: Smoking: Never smoker Primary care physician referral: Dr. Soria Psychiatry clearance: Cardiology clearance: Sleep study: Diet journal: VTE risk score: VTE risk level: Rehab needs at discharge:
== END ==
LOC: BARWHC3 12:50
PROVIDERS: ATTEND Surgery
DX: E66.01 Morbid (severe) obesity due to excess calories (principal); K21.9 Gastro-esophageal reflux disease without esophagitis; K52.9 Noninfective gastroenteritis and colitis, unspecified; E03.9 Hypothyroidism, unspecified; M85.80 Other specified disorders of bone density and structure, unspecified site; Z68.27 Body mass index [BMI] 27.0-27.9, adult; Z88.2 Allergy status to sulfonamides; Z46.51 Encounter for fitting and adjustment of gastric lap band; Z91.018 Allergy to other foods; Z88.8 Allergy status to other drugs, medicaments and biological substances; Z87.442 Personal history of urinary calculi; Z91.048 Other nonmedicinal substance allergy status; Z79.890 Hormone replacement therapy
CPT/HCPCS: 99212

== ENCOUNTER 2022-08-24 15:08 | Observation (INO) | payer MEDICARE ==
--- NOTE | 2022-08-24 17:42 | ED ---
General Adult HPI - General Source: patient Mode of arrival: ambulatory Limitations: no limitations <Maryuri Walters - Last Filed: 08/24/22 17:50> - General Source: patient, RN notes reviewed, old records reviewed (Previous CT from 1 month ago) Limitations: no limitations <Serjio Escobar - Last Filed: 08/24/22 21:23> - General Chief complaint: Abdominal Pain Stated complaint: Abd pain/recheck Time Seen by Provider: 08/24/22 17:41 - History of Present Illness Initial comments: 71 year old female presents to the emergency department for chief complaint of LLQ pain radiating to the back x1 month. She states that she was diagnosed with diverticulitis about a month ago and was on oral antibiotics for 2 weeks. She reports that she continues to have the pain. (Maryuri Walters) Patient is a pleasant 71-year-old female presenting to the emergency department with concerns of abdominal pain. Onset of symptoms was around 1 month ago. No nausea vomiting. Patient has had some incontinence. Discomfort is left lower abdomen with and does radiate towards the back. Patient has seen her doctor as well as a urologist and her surgeon for this. Patient has been told that is not a kidney stone. Patient has also been told is not her lap band. No fever. (Serjio Escobar) - Related Data Home Medications Medication Instructions Recorded Confirmed PARoxetine [Paxil] 20 mg PO DAILY 04/22/18 08/24/22 Tart Vincent 1 tab PO DAILY 04/22/18 08/24/22 Levothyroxine Sodium [Synthroid] 100 mcg PO DAILY 07/02/21 08/24/22 Cetirizine HCl [Zyrtec] 10 mg PO DAILY 08/01/21 08/24/22 Magnesium 250 mg PO DAILY 08/01/21 08/24/22 Cholecalciferol [Vitamin D3 (25 25 mcg PO DAILY 08/24/22 08/24/22 Mcg = 1000 Iu)] Psyllium Husk 100% [Metamucil 6 gm PO DAILY 08/24/22 08/24/22 Packet] Allergies Allergy/AdvReac Type Severity Reaction Status Date / Time sulfamethoxazole Allergy Rash/Hives Verified 08/24/22 20:10 [From Bactrim] tamsulosin [From Flomax] Allergy Itching Verified 08/24/22 20:10 trimethoprim [From Bactrim] Allergy Rash/Hives Verified 08/24/22 20:10 citric acid [From Prepopik] AdvReac Nausea & Verified 08/24/22 20:10 Vomiting magnesium oxide AdvReac Nausea & Verified 08/24/22 20:10 [From Prepopik] Vomiting sodium picosulfate AdvReac Nausea & Verified 08/24/22 20:10 [From Prepopik] Vomiting Review of Systems ROS Other: All systems not noted in ROS Statement are negative. <Maryuri Walters - Last Filed: 08/24/22 17:50> ROS Other: All systems not noted in ROS Statement are negative. Constitutional: Denies: fever Eyes: Denies: eye pain ENT: Denies: ear pain Respiratory: Denies: cough Cardiovascular: Denies: chest pain Endocrine: Denies: fatigue Gastrointestinal: Reports: as per HPI, abdominal pain Genitourinary: Denies: dysuria Musculoskeletal: Reports: as per HPI Skin: Denies: rash Neurological: Denies: weakness <Serjio Escobar - Last Filed: 08/24/22 21:23> ROS Statement: Those systems with pertinent positive or pertinent negative responses have been documented in the HPI. 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 Osteopenia. 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 History of Any Multi-Drug Resistant Organisms: None Reported Past Surgical History: Bariatric Surgery, Cholecystectomy, Orthopedic Surgery, Tonsillectomy Additional Past Surgical History / Comment(s): LAP BAND. CYST REMOVED FROM BILATERAL breast, HAND AND MOUTH. ALSO FROM OVARY, lithotripsy, left knee replacement. Abdominoplasty. Colonoscopy 2017(next after 5yr). Past Anesthesia/Blood Transfusion Reactions: Motion Sickness, Postoperative Nausea & Vomiting (PONV) Past Psychological History: Anxiety Smoking Status: Never smoker Past Alcohol Use History: None Reported Past Drug Use History: Marijuana - Past Family History Mother Family Medical History: No Reported History Father Family Medical History: Myocardial Infarction (MS) Additional Family Medical History / Comment(s): Paternal grandmother had breast cancer. <Maryuri Walters - Last Filed: 08/24/22 17:50> General Exam Limitations: no limitations <Maryuri Walters - Last Filed: 08/24/22 17:50> Limitations: no limitations General appearance: alert, in no apparent distress Head exam: Present: normocephalic Eye exam: Present: normal appearance Neck exam: Present: normal inspection Respiratory exam: Present: normal lung sounds bilaterally Cardiovascular Exam: Present: regular rate, normal rhythm Expanded Peripheral pulses: 2+: Dorsalis Pedis (R), Dorsalis Pedis (L) GI/Abdominal exam: Present: soft, tenderness (Moderate tenderness left lower abdomen), guarding, normal bowel sounds. Absent: distended, rebound, rigid, pulsatile mass Extremities exam: Present: normal inspection, full ROM. Absent: tenderness Back exam: Present: tenderness (Left lower) Neurological exam: Present: alert. Absent: motor sensory deficit Expanded Sensory exam: Lower Extremity Light Touch: Normal Motor strength exam: RLE: 5, LLE: 5 Psychiatric exam: Present: normal affect, normal mood Skin exam: Present: normal color <Serjio Escobar - Last Filed: 08/24/22 21:23> Course Vital Signs 08/24/22 15:56 Temperature 98.2 F Pulse Rate 76 Respiratory 20 Rate Blood Pressure 169/89 O2 Sat by Pulse 98 Oximetry Medical Decision Making - Lab Data Result diagrams: 08/24/22 18:10 08/24/22 18:10 <Serjio Escobar - Last Filed: 08/24/22 21:23> - Medical Decision Making Was pt. sent in by a medical professional or institution (LULI Yang, GENERATION TECHNOLOGIST, urgent care, hospital, or retirement...) When possible be specific @ -No Did you speak to anyone other than the patient for history (EMS, parent, family, police, friend...)? What history was obtained from this source @ -No Did you review nursing and triage notes (agree or disagree)? Why? @ -I reviewed and agree with nursing and triage notes Were old charts reviewed (outside hosp., previous admission, EMS record, old EKG, old radiological studies, urgent care reports/EKG's, retirement records)? Report findings @ -Review CT report reviewed Differential Diagnosis (chest pain, altered mental status, abdominal pain women, abdominal pain men, vaginal bleeding, weakness, fever, dyspnea, syncope, headache, dizziness, GI bleed, back pain, seizure, CVA, palpatations, mental health, musculoskeletal)? @ -not applicable EKG interpreted by me (3pts min.). @ -As above X-rays interpreted by me (1pt min.). @ -None done CT interpreted by me (1pt min.). @ -Report reviewed U/S interpreted by me (1pt. min.). @ -None done What testing was considered but not performed or refused? (CT, X-rays, U/S, labs)? Why? @ -None What meds were considered but not given or refused? Why? @ -None Did you discuss the management of the patient with other professionals (professionals i.e. Dr., PA, GENERATION TECHNOLOGIST, lab, RT, psych nurse, manager social work, supervisor motor vehicle assembly, teacher, contracting officer, complex case manager)? Give summary @ -Case discussed with Dr. Carr, who will admit Was smoking cessation discussed for >3mins.? @ -No Was critical care preformed (if so, how long)? @ -No Were there social determinants of health that impacted care today? How? (Homelessness, low income, unemployed, alcoholism, drug addiction, transportation, low edu. Level, literacy, decrease access to med. care, penitentiary, rehab)? @ -No Was there de-escalation of care discussed even if they declined (Discuss DNR or withdrawal of care, Hospice)? DNR status @ -No What co-morbidities impacted this encounter? (DM, HTN, Smoking, COPD, CAD, Cancer, CVA, ARF, Chemo, Hep., AIDS, mental health diagnosis, sleep apnea, morbid obesity)? @ -None Was patient admitted / discharged? Hospital course, mention meds given and route, prescriptions, significant lab abnormalities, going to OR and other pertinent info. @ -Patient reevaluated and no improvement despite enema. Patient still feels uncomfortable. Patient will be admitted for further treatment and reevaluation. Undiagnosed new problem with uncertain prognosis? @ -No Drug Therapy requiring intensive monitoring for toxicity (Heparin, Nitro, Insulin, Cardizem)? @ -No Were any procedures done? @ -No Diagnosis/symptom? @ -Abdominal pain Acute, or Chronic, or Acute on Chronic? @ -Acute Uncomplicated (without systemic symptoms) or Complicated (systemic symptoms)? @ -default Side effects of treatment? @ -No Exacerbation, Progression, or Severe Exacerbation? @ -No Poses a threat to life or bodily function? How? (Chest pain, USA, MS, pneumonia, PE, COPD, DKA, ARF, appy, cholecystitis, CVA, Diverticulitis, Homicidal, Suicidal, threat to staff... and all critical care pts) @ -No (Serjio Escobar) - Lab Data Lab Results 08/24/22 08/24/22 08/24/22 Range/Units 18:10 18:10 18:10 WBC 7.6 (3.8-10.6) k/uL RBC 4.38 (3.80-5.40) m/uL Hgb 12.8 (11.4-16.0) gm/dL Hct 40.3 (34.0-46.0) % MCV 91.9 (80.0-100.0) fL MCH 29.3 (25.0-35.0) pg MCHC 31.8 (31.0-37.0) g/dL RDW 13.4 (11.5-15.5) % Plt Count 339 (150-450) k/uL MPV 7.1 Neutrophils % 69 % Lymphocytes % 21 % Monocytes % 6 % Eosinophils % 3 % Basophils % 0 % Neutrophils # 5.2 (1.3-7.7) k/uL Lymphocytes # 1.6 (1.0-4.8) k/uL Monocytes # 0.5 (0-1.0) k/uL Eosinophils # 0.2 (0-0.7) k/uL Basophils # 0.0 (0-0.2) k/uL Sodium 138 (137-145) mmol/L Potassium 4.1 (3.5-5.1) mmol/L Chloride 105 (98-107) mmol/L Carbon Dioxide 25 (22-30) mmol/L Anion Gap 8 mmol/L BUN 13 (7-17) mg/dL Creatinine 0.65 (0.52-1.04) mg/dL Est GFR (CKD-EPI)AfAm >90 (>60 ml/min/1.73 sqM) Est GFR (CKD-EPI)NonAf >90 (>60 ml/min/1.73 sqM) Glucose 85 (74-99) mg/dL Plasma Lactic Acid Maciel 0.9 (0.7-2.0) mmol/L Calcium 9.5 (8.4-10.2) mg/dL Total Bilirubin 0.4 (0.2-1.3) mg/dL AST 28 (14-36) U/L ALT 28 (4-34) U/L Alkaline Phosphatase 83 (38-126) U/L Total Protein 7.8 (6.3-8.2) g/dL Albumin 4.6 (3.5-5.0) g/dL Amylase 84 (30-110) U/L Lipase 114 (23-300) U/L Urine Color Urine Appearance (Clear) Urine pH (5.0-8.0) Ur Specific [place] (1.001-1.035) Urine Protein (Negative) Urine Glucose (UA) (Negative) Urine Ketones (Negative) Urine Blood (Negative) Urine Nitrite (Negative) Urine Bilirubin (Negative) Urine Urobilinogen (<2.0) mg/dL Ur Leukocyte Esterase (Negative) 08/24/22 Range/Units 18:14 WBC (3.8-10.6) k/uL RBC (3.80-5.40) m/uL Hgb (11.4-16.0) gm/dL Hct (34.0-46.0) % MCV (80.0-100.0) fL MCH (25.0-35.0) pg MCHC (31.0-37.0) g/dL RDW (11.5-15.5) % Plt Count (150-450) k/uL MPV Neutrophils % % Lymphocytes % % Monocytes % % Eosinophils % % Basophils % % Neutrophils # (1.3-7.7) k/uL Lymphocytes # (1.0-4.8) k/uL Monocytes # (0-1.0) k/uL Eosinophils # (0-0.7) k/uL Basophils # (0-0.2) k/uL Sodium (137-145) mmol/L Potassium (3.5-5.1) mmol/L Chloride (98-107) mmol/L Carbon Dioxide (22-30) mmol/L Anion Gap mmol/L BUN (7-17) mg/dL Creatinine (0.52-1.04) mg/dL Est GFR (CKD-EPI)AfAm (>60 ml/min/1.73 sqM) Est GFR (CKD-EPI)NonAf (>60 ml/min/1.73 sqM) Glucose (74-99) mg/dL Plasma Lactic Acid Maciel (0.7-2.0) mmol/L Calcium (8.4-10.2) mg/dL Total Bilirubin (0.2-1.3) mg/dL AST (14-36) U/L ALT (4-34) U/L Alkaline Phosphatase (38-126) U/L Total Protein (6.3-8.2) g/dL Albumin (3.5-5.0) g/dL Amylase (30-110) U/L Lipase (23-300) U/L Urine Color Yellow Urine Appearance Clear (Clear) Urine pH 7.0 (5.0-8.0) Ur Specific [place] 1.020 (1.001-1.035) Urine Protein Negative (Negative) Urine Glucose (UA) Negative (Negative) Urine Ketones Negative (Negative) Urine Blood Negative (Negative) Urine Nitrite Negative (Negative) Urine Bilirubin Negative (Negative) Urine Urobilinogen <2.0 (<2.0) mg/dL Ur Leukocyte Esterase Negative (Negative) Disposition <Maryuri Walters - Last Filed: 08/24/22 17:50> Is patient prescribed a controlled substance at d/c from ED?: No Time of Disposition: 21:23 <Serjio Escobar - Last Filed: 08/24/22 21:23> Clinical Impression: Abdominal pain Disposition: HOME SELF-CARE Condition: Stable Referrals: Nicole Soria MD [Primary Care Provider] - 1-2 days
[2022-08-24 18:29] LABS: Basophils % (A) 0 %; Eosinophils # (A) 0.2 k/uL (0-0.7); Eosinophils % (A) 3 %; HCT 40.3 % (34.0-46.0); HGB 12.8 gm/dL (11.4-16.0); Lymphocytes # (A) 1.6 k/uL (1.0-4.8); Lymphocytes % (A) 21 %; MCH 29.3 pg (25.0-35.0); MCHC 31.8 g/dL (31.0-37.0); MCV 91.9 fL (80.0-100.0); Mean Platelet Volume 7.1; Monocytes # (A) 0.5 k/uL (0-1.0); Monocytes % (A) 6 %; Neutrophils # (A) 5.2 k/uL (1.3-7.7); Neutrophils % (A) 69 %; Platelet Count 339 k/uL (150-450); RBC 4.38 m/uL (3.80-5.40); RDW 13.4 % (11.5-15.5); WBC 7.6 k/uL (3.8-10.6)
[2022-08-24 18:41] LABS: ALT 28 U/L (4-34); AST 28 U/L (14-36); African American GFR (CKD) >90 (>60 ml/min/1.73 sqM); Albumin 4.6 g/dL (3.5-5.0); Alkaline Phosphatase 83 U/L (38-126); Amylase 84 U/L (30-110); Anion Gap 8 mmol/L; Blood Urea Nitrogen 13 mg/dL (7-17); Calcium 9.5 mg/dL (8.4-10.2); Carbon Dioxide 25 mmol/L (22-30); Chloride 105 mmol/L (98-107); Glucose 85 mg/dL (74-99); Lipase 114 U/L (23-300); Non-African American GFR(CKD) >90 (>60 ml/min/1.73 sqM); Potassium 4.1 mmol/L (3.5-5.1); Sodium 138 mmol/L (137-145); Total Bilirubin 0.4 mg/dL (0.2-1.3); Total Protein 7.8 g/dL (6.3-8.2)
[2022-08-24] MEDS ORDERED: FAMOTIDINE 20 MG/2 ML VIAL IV STA (19:03)
[2022-08-24] MEDS ORDERED: HYDROmorphone 1 MG/ML 1 ML SYRINGE IVP STA (19:03)
[2022-08-24 19:05] LABS: Appearance,Urine Clear (Clear); Bilirubin,Urine Negative (Negative); Blood,Urine Negative (Negative); Color,Urine Yellow; Glucose,Urine (UA) Negative (Negative); Ketones,Urine Negative (Negative); Leukocyte Esterase,Urine Negative (Negative); Nitrite,Urine Negative (Negative); Protein,Urine Negative (Negative); Urobilinogen,Urine <2.0 mg/dL (<2.0)
--- NOTE | 2022-08-24 19:54 | CT ---
EXAMINATION TYPE: CT abdomen pelvis w con CT DLP: 889.2 mGycm, Automated exposure control for dose reduction was used. DATE OF EXAM: 08/24/2022 7:30 PM COMPARISON: CT abdomen pelvis 07/21/2022 CLINICAL INDICATION:Female, 71 years old with history of abdominal pain; RLQ pain x1 month TECHNIQUE: Axial CT of the abdomen and pelvis. Sagittal and coronal reformats were created on a [employer] workstation. Contrast used:100 mL of Isovue 300 with IV Contrast, Oral contrast used: without Oral Contrast FINDINGS: LOWER CHEST: Unremarkable ABDOMEN LIVER: Unremarkable GALLBLADDER AND BILE DUCTS: The gallbladder is surgically absent. PANCREAS: Unremarkable. SPLEEN: Small splenule is present. ADRENAL GLANDS: Unremarkable. KIDNEYS AND URETERS: No evidence of hydronephrosis or renal calculus. The ureters are unremarkable. PELVIS BLADDER: Unremarkable REPRODUCTIVE: Unremarkable. ABDOMEN & PELVIS STOMACH AND BOWEL: Small hiatal hernia. Persistent horizontal positioning of the gastric lap band wit h small hiatal hernia. Lap band reservoir is embedded within the left upper abdominal superficial sof t tissues. Moderate stool burden within the proximal colon. Appendix is normal in appearance. No evid ence of bowel obstruction. PERITONEUM: No evidence of pneumoperitoneum or free fluid. VASCULATURE: Mild atherosclerotic calcifications are present throughout the abdominal aorta and its b ranches. No evidence of aortic aneurysm. MUSCULOSKELETAL: No acute osseous abnormalities. Mild disc degeneration changes are present throughou t the thoracolumbar spine. Stable grade 1 anterolisthesis of L3 on L4. Baastrup's disease. LYMPH NODES: No gross evidence for lymphadenopathy. SOFT TISSUE/ABDOMINAL WALL: Unremarkable IMPRESSION: 1. No acute intra-abdominal or intrapelvic process. 2. Moderate colonic stool burden without evidence for obstruction.
[2022-08-24] MEDS ORDERED: NALOXONE 0.4 MG/ML 1 ML VIAL IV PRN (21:16)
[2022-08-24] MEDS ORDERED: ONDANSETRON 4 MG/2 ML VIAL IVP STA (21:21)
[2022-08-24] MEDS: SODIUM CHLORIDE 0.9% 1,000 ML IV SCH (21:24)
[2022-08-24] MEDS: LACTULOSE 20 GM/30 ML CUP PO SCH (21:24)
[2022-08-25] MEDS ORDERED: ACETAMINOPHEN TAB 325 MG TAB PO PRN (01:29)
[2022-08-25] MEDS: ONDANSETRON 4 MG/2 ML VIAL IVP PRN ×2 (01:33→20:00)
[2022-08-25] MEDS ORDERED: LORazepam 1 MG TAB PO PRN (02:32)
[2022-08-25 07:09] LABS: ALT 27 U/L (4-34); AST 32 U/L (14-36); African American GFR (CKD) >90 (>60 ml/min/1.73 sqM); Albumin 3.9 g/dL (3.5-5.0); Alkaline Phosphatase 59 U/L (38-126); Anion Gap 7 mmol/L; Blood Urea Nitrogen 11 mg/dL (7-17); Carbon Dioxide 20 mmol/L (22-30); Chloride 108 mmol/L (98-107); Glucose 103 mg/dL (74-99); Non-African American GFR(CKD) >90 (>60 ml/min/1.73 sqM); Sodium 135 mmol/L (137-145); Total Bilirubin 0.6 mg/dL (0.2-1.3); Total Protein 6.9 g/dL (6.3-8.2)
[2022-08-25 07:14] LABS: Potassium 5.8 mmol/L (3.5-5.1)
[2022-08-25 07:17] LABS: Basophils # (A) 0.1 k/uL (0-0.2); Basophils % (A) 1 %; Eosinophils % (A) 1 %; HCT 41.5 % (34.0-46.0); HGB 12.5 gm/dL (11.4-16.0); Hypochromasia Marked; Lymphocytes # (A) 0.9 k/uL (1.0-4.8); Lymphocytes % (A) 13 %; MCH 29.4 pg (25.0-35.0); Mean Platelet Volume 8.5; Monocytes # (A) 0.3 k/uL (0-1.0); Monocytes % (A) 4 %; Neutrophils # (A) 5.7 k/uL (1.3-7.7); Neutrophils % (A) 80 %; Platelet Count 236 k/uL (150-450); RBC 4.24 m/uL (3.80-5.40); RDW 13.1 % (11.5-15.5); WBC 7.1 k/uL (3.8-10.6)
[2022-08-25 07:29] LABS: MCV 97.9 fL (80.0-100.0)
[2022-08-25] MEDS: PANTOPRAZOLE 40 MG/10 ML VIAL IVP SCH (09:56)
[2022-08-25] MEDS: MAGNESIUM OXIDE 400 MG TAB PO SCH (09:57)
[2022-08-25] MEDS: LEVOTHYROXINE 100 MCG TAB PO SCH (09:57)
[2022-08-25] MEDS: polyethylene glycoL 3350 17 GM POWD.PACK PO SCH (09:57)
[2022-08-25] MEDS: busPIRone HCl 5 MG TAB PO SCH ×2 (09:57→20:00)
[2022-08-25] MEDS: NA PHOS,M-B/NA PHOS,DI-BA 133 ML ENEMA RECTAL SCH ×2 (10:27→19:57)
[2022-08-25] MEDS ORDERED: LACTULOSE 20 GM/30 ML CUP PO ONE (11:27)
[2022-08-25] MEDS: SODIUM CHLORIDE 0.9% 1,000 ML IV SCH (11:45)
--- NOTE | 2022-08-25 12:51 | P.GSCN ---
History of Present Illness Consult date: 08/25/22 History of present illness: CHIEF COMPLAINT: Abdominal pain HISTORY OF PRESENT ILLNESS: This is a 71-year-old female who presented to the hospital with complaints of left lower quadrant abdominal pain that radiates to the back 1 month. Patient reports that she was originally diagnosed with diverticulitis and finished a two-week course of antibiotics but still had left lower quadrant pain. She does report there was some mild improvement with the antibiotics. She complains of stool incontinence. She reports that she is passing large amount of stool. Her last colonoscopy was in August 2016 which had shown inflammatory changes in the left colon and was a poor bowel prep. In past surgical history does include lithotripsy for kidney stones, LAP-BAND surgery an d abdominoplasty. Computed tomography scan Of the abdomen and pelvis shows no acute intra-abdominal or intrapelvic process. Moderate colonic stool burden without evidence for obstruction. Patient also reports that she's had all the fluid removed from the LAP-BAND at without any improvement in her abdominal pain. And did have a small amount of fluid put back in the LAP-BAND again no change in the abdominal pain. Patient did receive a Fleet enema in the ER and is scheduled for another one today. The initial Fleet she had no response to. PAST MEDICAL HISTORY: See below PAST SURGICAL HISTORY: See below MEDICATIONS: See below ALLERGIES: See below SOCIAL HISTORY: No illicit drug use. REVIEW OF SYSTEMS: CONSTITUTIONAL: Denies fever or chills. HEENT: Denies blurred vision, vision changes, or eye pain. Denies hemoptysis CARDIOVASCULAR: Denies chest pain or pressure. RESPIRATORY: No shortness of breath. GASTROINTESTINAL: See HPI for pertinent findings HEMATOLOGIC: Denies bleeding disorders. GENITOURINARY: Denies any blood in urine or increased urinary frequency. SKIN: Denies pruitis. Denies rash. PHYSICAL EXAM: VITAL SIGNS: Reviewed GENERAL: Well-developed in no acute distress. HEENT: No sclera icterus. Extraocular movements grossly intact. Moist buccal mucosa. Head is atraumatic, normocephalic. No nasal drainage. ABDOMEN: Soft. Nondistended. Tenderness with palpation of the left lower quadrant NEUROLOGIC: Alert and oriented. Cranial nerves II through XII grossly intact. LABORATORY DATA: WBC 7.1 Hgb 12.5 plt 236 Na 135 K 5.8 cr 0.58 LFTs normal lipase 114 urinalysis negative for infection IMAGING: computed tomography scan abdomen and pelvis no acute intra-abdominal or intrapelvic process. Moderate colonic stool burden without evidence for obstruction ASSESSMENT: 1. Left lower quadrant abdominal pain 2. Constipation with CAT scan showing moderate clonic stool burden without evidence of obstruction PLAN: -Lactulose 30 g 1 -Continue clear liquid diet -Agree with MiraLAX and Fleet enema -Continue supportive care -Continue to monitor Thank you for this consultation Physician Scalp Specialist note has been reviewed by physician. Signing provider agrees with the documented findings, assessment, and plan of care. 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 Osteopenia. 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 History of Any Multi-Drug Resistant Organisms: None Reported Past Surgical History: Bariatric Surgery, Cholecystectomy, Orthopedic Surgery, Tonsillectomy Additional Past Surgical History / Comment(s): LAP BAND. CYST REMOVED FROM BILATERAL breast, HAND AND MOUTH. ALSO FROM OVARY, lithotripsy, left knee replacement. Abdominoplasty. Colonoscopy 2017(next after 5yr). Past Anesthesia/Blood Transfusion Reactions: Motion Sickness, Postoperative Nausea & Vomiting (PONV) Past Psychological History: Anxiety Smoking Status: Never smoker Past Alcohol Use History: None Reported Past Drug Use History: Marijuana - Past Family History Mother Family Medical History: No Reported History Father Family Medical History: Myocardial Infarction (PR) Additional Family Medical History / Comment(s): Paternal grandmother had breast cancer. Medications and Allergies Home Medications Medication Instructions Recorded Confirmed Type PARoxetine [Paxil] 20 mg PO DAILY 04/22/18 08/24/22 History Tart Vincent 1 tab PO DAILY 04/22/18 08/24/22 History Levothyroxine Sodium [Synthroid] 100 mcg PO DAILY 07/02/21 08/24/22 History Cetirizine HCl [Zyrtec] 10 mg PO DAILY 08/01/21 08/24/22 History Magnesium 250 mg PO DAILY 08/01/21 08/24/22 History Cholecalciferol [Vitamin D3 (25 25 mcg PO DAILY 08/24/22 08/24/22 History Mcg = 1000 Iu)] Psyllium Husk 100% [Metamucil 6 gm PO DAILY 08/24/22 08/24/22 History Packet] Allergies Allergy/AdvReac Type Severity Reaction Status Date / Time hydromorphone [From Dilaudid] Allergy Nausea & Verified 08/25/22 01:22 Vomiting sulfamethoxazole Allergy Rash/Hives Verified 08/24/22 20:10 [From Bactrim] tamsulosin [From Flomax] Allergy Itching Verified 08/24/22 20:10 trimethoprim [From Bactrim] Allergy Rash/Hives Verified 08/24/22 20:10 citric acid [From Prepopik] AdvReac Nausea & Verified 08/24/22 20:10 Vomiting magnesium oxide AdvReac Nausea & Verified 08/24/22 20:10 [From Prepopik] Vomiting sodium picosulfate AdvReac Nausea & Verified 08/24/22 20:10 [From Prepopik] Vomiting Surgical - Exam Vital Signs Temp Pulse Resp BP Pulse Ox 98.2 F 76 20 169/89 98 08/24/22 15:56 08/24/22 15:56 08/24/22 15:56 08/24/22 15:56 08/24/22 15:56 Results - Labs 08/25/22 06:09 08/25/22 06:09 Abnormal Lab Results - Last 24 Hours (Table) 08/25/22 08/25/22 Range/Units 06:09 06:09 MCHC 30.0 L (31.0-37.0) g/dL Lymphocytes # 0.9 L (1.0-4.8) k/uL Sodium 135 L (137-145) mmol/L Potassium 5.8 H (3.5-5.1) mmol/L Chloride 108 H (98-107) mmol/L Carbon Dioxide 20 L (22-30) mmol/L Glucose 103 H (74-99) mg/dL Diabetes panel 08/24/22 08/25/22 Range/Units 18:10 06:09 Sodium 138 135 L (137-145) mmol/L Potassium 4.1 5.8 H (3.5-5.1) mmol/L Chloride 105 108 H (98-107) mmol/L Carbon Dioxide 25 20 L (22-30) mmol/L BUN 13 11 (7-17) mg/dL Creatinine 0.65 0.58 (0.52-1.04) mg/dL Glucose 85 103 H (74-99) mg/dL Calcium 9.5 9.0 (8.4-10.2) mg/dL AST 28 32 (14-36) U/L ALT 28 27 (4-34) U/L Alkaline Phosphatase 83 59 (38-126) U/L Total Protein 7.8 6.9 (6.3-8.2) g/dL Albumin 4.6 3.9 (3.5-5.0) g/dL Calcium panel 08/24/22 08/25/22 Range/Units 18:10 06:09 Calcium 9.5 9.0 (8.4-10.2) mg/dL Albumin 4.6 3.9 (3.5-5.0) g/dL Pituitary panel 08/24/22 08/25/22 Range/Units 18:10 06:09 Sodium 138 135 L (137-145) mmol/L Potassium 4.1 5.8 H (3.5-5.1) mmol/L Chloride 105 108 H (98-107) mmol/L Carbon Dioxide 25 20 L (22-30) mmol/L BUN 13 11 (7-17) mg/dL Creatinine 0.65 0.58 (0.52-1.04) mg/dL Glucose 85 103 H (74-99) mg/dL Calcium 9.5 9.0 (8.4-10.2) mg/dL Adrenal panel 08/24/22 08/25/22 Range/Units 18:10 06:09 Sodium 138 135 L (137-145) mmol/L Potassium 4.1 5.8 H (3.5-5.1) mmol/L Chloride 105 108 H (98-107) mmol/L Carbon Dioxide 25 20 L (22-30) mmol/L BUN 13 11 (7-17) mg/dL Creatinine 0.65 0.58 (0.52-1.04) mg/dL Glucose 85 103 H (74-99) mg/dL Calcium 9.5 9.0 (8.4-10.2) mg/dL Total Bilirubin 0.4 0.6 (0.2-1.3) mg/dL AST 28 32 (14-36) U/L ALT 28 27 (4-34) U/L Alkaline Phosphatase 83 59 (38-126) U/L Total Protein 7.8 6.9 (6.3-8.2) g/dL Albumin 4.6 3.9 (3.5-5.0) g/dL
[2022-08-25] MEDS: LACTULOSE 20 GM/30 ML CUP PO SCH (13:01)
--- NOTE | 2022-08-25 15:48 | P.HPIM ---
History of Present Illness H&P Date: 08/25/22 Chief Complaint: Abdominal pain, left lower quadrant This is 71-year-old female with past medical history significant for Lap Band, kidney stones , obstructive uropathy, lithotripsy, ureteroscopy, gastroesophageal reflux disease, hypothyroidism, anxiety, panic attacks present ed to the ER with complaints of severe left lower quadrant pain radiating to bilateral lower back 1 month accompanied by nausea, no emesis, sweats, chills. Reports 2 months ago showed history of kidney stones. Reports recent adjustment in her lap band fluid by Dr. Holt. Completed a two-week course of antibiotics for diverticulitis, with minimal improvement in her left lower quadrant pain, last month. Significantly distraught over loss of her social life over the last 1-2 months due to her incontinence of loose stool and urine-states she hardly goes out anymore because of "fear of having an accident". Denies constipation. Denies suprapubic pain, urinary symptoms, hematuria, frequency or dysuria. Reports left lower quadrant abdominal pain feels like it's "on fire". CT of the abdomen and pelvis reported no acute intra-abdominal or intrapelvic process, moderate colonic stool burden without obstruction. Received a fleets enema in the ER without response. Afebrile, normal WBC. UA negative. Hemoglobin 12.5, platelets 236, renal function stable. Within 6 hours potassium went from 4.1-5.8- recheck ordered. Review of Systems ROS Statement: Those systems with pertinent positive or pertinent negative responses have been documented in the HPI. ROS Other: All systems not noted in ROS Statement are negative. Constitutional: Denies: fever, positive chills Respiratory: Denies: cough, dyspnea Cardiovascular: Denies: chest pain, palpitations Gastrointestinal: Reports: as per HPI, abdominal pain, nausea, no vomiting. Incontinent of urine and stool. Loose stool. Denies: constipation, melena, hematochezia Genitourinary: Denies: dysuria, hematuria Musculoskeletal: Bilateral lower back pain Skin: Denies: rash Neurological: Denies: headache, weakness, numbness Past Medical History Past Medical History: GERD/Reflux, Thyroid Disorder Additional Past Medical History / Comment(s): Colitis,Nephro Lithiasis status post shock wave lithotripsy, hypothyroidism. Osteopenia. 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 History of Any Multi-Drug Resistant Organisms: None Reported Past Surgical History: Bariatric Surgery, Cholecystectomy, Orthopedic Surgery, Tonsillectomy Additional Past Surgical History / Comment(s): LAP BAND. CYST REMOVED FROM BILATERAL breast, HAND AND MOUTH. ALSO FROM OVARY, lithotripsy, left knee replacement. Abdominoplasty. Colonoscopy 2017(next after 5yr). Past Anesthesia/Blood Transfusion Reactions: Motion Sickness, Postoperative Nausea & Vomiting (PONV) Past Psychological History: Anxiety Smoking Status: Never smoker Past Alcohol Use History: None Reported Past Drug Use History: Marijuana - Past Family History Mother Family Medical History: No Reported History Father Family Medical History: Myocardial Infarction ([place]) Additional Family Medical History / Comment(s): Paternal grandmother had breast cancer. Medications and Allergies Home Medications Medication Instructions Recorded Confirmed Type PARoxetine [Paxil] 20 mg PO DAILY 04/22/18 08/24/22 History Tart Vincent 1 tab PO DAILY 04/22/18 08/24/22 History Levothyroxine Sodium [Synthroid] 100 mcg PO DAILY 07/02/21 08/24/22 History Cetirizine HCl [Zyrtec] 10 mg PO DAILY 08/01/21 08/24/22 History Magnesium 250 mg PO DAILY 08/01/21 08/24/22 History Cholecalciferol [Vitamin D3 (25 25 mcg PO DAILY 08/24/22 08/24/22 History Mcg = 1000 Iu)] Psyllium Husk 100% [Metamucil 6 gm PO DAILY 08/24/22 08/24/22 History Packet] Allergies Allergy/AdvReac Type Severity Reaction Status Date / Time hydromorphone [From Dilaudid] Allergy Nausea & Verified 08/25/22 01:22 Vomiting sulfamethoxazole Allergy Rash/Hives Verified 08/24/22 20:10 [From Bactrim] tamsulosin [From Flomax] Allergy Itching Verified 08/24/22 20:10 trimethoprim [From Bactrim] Allergy Rash/Hives Verified 08/24/22 20:10 citric acid [From Prepopik] AdvReac Nausea & Verified 08/24/22 20:10 Vomiting magnesium oxide AdvReac Nausea & Verified 08/24/22 20:10 [From Prepopik] Vomiting sodium picosulfate AdvReac Nausea & Verified 08/24/22 20:10 [From Prepopik] Vomiting Physical Exam Vitals: Vital Signs Temp Pulse Resp BP Pulse Ox 08/25/22 06:21 98.3 F 72 16 133/70 98 08/25/22 01:50 97.9 F 82 16 130/68 98 08/24/22 23:32 70 16 111/67 98 08/24/22 15:56 98.2 F 76 20 169/89 98 Intake and Output 08/24/22 08/25/22 08/25/22 22:59 06:59 14:59 Other: Weight 72.575 kg GENERAL: Alert and oriented x3, Well developed, well nourished. No acute distress. Anxious, teary-eyed. HEENT: Pupils are round and equally reacting to light. EOMI. No scleral icterus. No conjunctival pallor. Normocephalic, atraumatic. No pharyngeal erythema. No thyromegaly. CARDIOVASCULAR: S1 and S2 present. No murmurs, rubs, or gallops. PULMONARY: Unlabored ,Chest is clear to auscultation, no wheezing or crackles. -ABDOMEN: Soft, nondistended, severe left lower quadrant tenderness radiating around to the bilateral lower back with minimal palpation,normoactive bowel sounds. No palpable organomegaly. EXTREMITIES: No cyanosis, clubbing, or pedal edema. NEUROLOGICAL: Gross neurological examination did not reveal any focal deficits. SKIN: Warm and dry, No rashes noted. Results CBC & Chem 7: 08/25/22 06:09 08/25/22 06:09 Labs: Abnormal Lab Results - Last 24 Hours (Table) 08/25/22 08/25/22 Range/Units 06:09 06:09 MCHC 30.0 L (31.0-37.0) g/dL Lymphocytes # 0.9 L (1.0-4.8) k/uL Sodium 135 L (137-145) mmol/L Potassium 5.8 H (3.5-5.1) mmol/L Chloride 108 H (98-107) mmol/L Carbon Dioxide 20 L (22-30) mmol/L Glucose 103 H (74-99) mg/dL Assessment and Plan Assessment: Left lower quadrant abdominal pain radiating around to bilateral lower back. CT reporting moderate colonic stool without obstruction. History of lap band, recent adjustment in fluid reported. History of renal calculi, obstructive uropathy, cystoscopy, ureteroscopy, lithotripsy. Hypothyroidism Gastroesophageal reflux disease Anxiety, panic attacks Plan: Continue on current medication regime ,monitoring and symptomatic treatment. Potassium recheck pending, physician to be notified of results. BuSpar added for anxiety. IV fluid hydration, MiraLAX ordered. General surgery consult in place, recommendations pending. The impression and plan of care has been dictated as directed. : I performed a history and examination of this patient, discussed the same with the dictator. I agree with the dictator's note ,documented as a scribe. Any additional findings or plans will be noted.
[2022-08-26] MEDS: SODIUM CHLORIDE 0.9% 1,000 ML IV SCH ×2 (00:18→12:10)
[2022-08-26] MEDS: LEVOTHYROXINE 100 MCG TAB PO SCH (06:12)
--- NOTE | 2022-08-26 07:15 | P.PN ---
Progress Note - Text Progress Note Date: 08/26/22 The patient states she had a large bowel movement after receiving lactulose yesterday. She states her pain is much improved. She still has some mild left lower quadrant pain. On exam vital signs appear stable. Abdomen soft there is no significant tenderness. Patient was started on regular diet. She'll be discharged home. She'll follow- up in the office as an outpatient.
[2022-08-26 07:34] VITALS: PULSE 94; RESP 14; TEMP 97.3
[2022-08-26 07:39] VITALS: BP 133/84
[2022-08-26] MEDS: PANTOPRAZOLE 40 MG/10 ML VIAL IVP SCH (08:12)
[2022-08-26] MEDS: polyethylene glycoL 3350 17 GM POWD.PACK PO SCH (08:12)
[2022-08-26] MEDS: busPIRone HCl 5 MG TAB PO SCH (08:12)
[2022-08-26] MEDS: MAGNESIUM OXIDE 400 MG TAB PO SCH (08:12)
[2022-08-26] MEDS: NA PHOS,M-B/NA PHOS,DI-BA 133 ML ENEMA RECTAL SCH ×2 (08:12→09:25)
[2022-08-26 09:17] LABS: BUN/Creat Ratio 9.71 Ratio (12.00-20.00); Blood Urea Nitrogen 6.8 mg/dL (9.0-27.0); Calcium 9.1 mg/dL (8.7-10.3); Chloride 108 mmol/L (96-109); Glucose 82 mg/dL (70-110); Potassium 4.4 mmol/L (3.5-5.5); Sodium 141 mmol/L (135-145)
--- NOTE | 2022-08-28 14:42 | P.DS ---
Providers Date of admission: 08/24/22 21:17 Expected date of discharge: 08/26/22 Attending physician: Jaxson Berkowitz MD Consults: 08/25/22 09:21 Consult Physician Routine Consulting Provider: Clifford Holt Consult Reason/Comments: LLQ ABD pain Do you want consulting provider notified?: Yes Primary care physician: Nicole Soria Hospital Course: Final diagnosis Left lower quadrant abdominal pain radiating around to bilateral lower back. CT reporting moderate colonic stool without obstruction. Improved History of lap band, recent adjustment in fluid reported. History of renal calculi, obstructive uropathy, cystoscopy, ureteroscopy, lithotripsy. Hypothyroidism Gastroesophageal reflux disease Anxiety, panic attacks Discharge disposition Patient is being discharged in a stable condition with guarded prognosis to home. Patient will follow-up with Dr. Soria in the outpatient setting upon discharge. Patient is to follow-up with general surgery outpatient as s slava. Total time taken is greater than 35 minutes. Hospital course This is a 71-year-old female who was recently admitted with severe left lower quadrant abdominal pain as well as radiating and increasing with no improvement. Patient was seen and evaluated by general surgery but no plans for surgical intervention was given lactulose as well as an enema and had large bowel movements feeling much improved. Patient continues with some tenderness of the left lower quadrant although reports to feeling significantly improved and wants to go home. Patient has been cleared by surgery for discharge and has an outpatient follow-up appointment. Please refer to consultation note for further HPI. Patient was noted to have colonic stool burden without obstruction. Patient encouraged to follow-up with primary care provider on discharge. Currently no reports of chest pain, shortness of breath, or palpitations. Patient is afebrile. No reports of nausea or vomiting and patient is tolerating diet. Patient will be discharged home today. Patient instructed to follow-up with primary care provider Dr. Soria on discharge. Physical exam: Gen: This is a 71-year-old female who is awake, alert and oriented 3, well- developed, well-nourished HEENT: Head is atraumatic, normocephalic. Pupils equal, round. Sclerae is anicteric. NECK: Supple. No JVD. No lymphadenopathy. No thyromegaly. LUNGS: Clear to auscultation. No wheezes or rhonchi. No intercostal retractions. HEART: Regular rate and rhythm. No murmur. ABDOMEN: Soft. Bowel sounds are present. No masses. Mild tenderness of the left lower quadrant on deep palpation. EXTREMITIES: No pedal edema. No calf tenderness. NEUROLOGICAL: Patient is awake, alert and oriented x3. Cranial nerves 2 through 12 are grossly intact. Please refer to medication reconciliation sheet for a list of medications. The impression and plan of care has been dictated by Cammy Garcia, Nurse Practitioner as directed. Dr. Matilde MD I have performed a history and examination and MDM of this patient, discussed the same with the dictator, and agree with the dictator's assessment and plan as written ,documented as a scribe. Based on total visit time, I have performed more than 50% of the visit. Patient Condition at Discharge: Stable Plan - Discharge Summary New Discharge Prescriptions: New busPIRone HCl [Buspar] 5 mg PO BID #60 tab polyethylene glycoL 3350 [Miralax] 17 gm PO DAILY #30 packet Acetaminophen Tab [Tylenol] 650 mg PO Q6HR PRN tab PRN Reason: Fever And/ Or Pain Continue PARoxetine [Paxil] 20 mg PO DAILY Levothyroxine Sodium [Synthroid] 100 mcg PO DAILY Cetirizine HCl [Zyrtec] 10 mg PO DAILY Magnesium 250 mg PO DAILY Cholecalciferol [Vitamin D3 (25 Mcg = 1000 Iu)] 25 mcg PO DAILY Psyllium Husk 100% [Metamucil Packet] 6 gm PO DAILY Discontinued Tart Vincent 1 tab PO DAILY Discharge Medication List PARoxetine [Paxil] 20 mg PO DAILY 04/22/18 [History] Levothyroxine Sodium [Synthroid] 100 mcg PO DAILY 07/02/21 [History] Cetirizine HCl [Zyrtec] 10 mg PO DAILY 08/01/21 [History] Magnesium 250 mg PO DAILY 08/01/21 [History] Cholecalciferol [Vitamin D3 (25 Mcg = 1000 Iu)] 25 mcg PO DAILY 08/24/22 [History] Psyllium Husk 100% [Metamucil Packet] 6 gm PO DAILY 08/24/22 [History] Acetaminophen Tab [Tylenol] 650 mg PO Q6HR PRN tab 08/26/22 [Rx] busPIRone HCl [Buspar] 5 mg PO BID #60 tab 08/26/22 [Rx] polyethylene glycoL 3350 [Miralax] 17 gm PO DAILY #30 packet 08/26/22 [Rx] Follow up Appointment(s)/Referral(s): Nicole Soria MD [Primary Care Provider] - 1-2 days Clifford Holt MD [STAFF PHYSICIAN] - 1 Week Patient Instructions/Handouts: Constipation (DC), High Fiber Diet (DC) Activity/Diet/Wound Care/Special Instructions: Activity Limited until follow-up Follow-up with primary care provider on discharge follow-up at your scheduled appointment with general surgery CT showed evidence of colonic Stool burden at the proximal colon with no e vidence of bowel obstruction Discharge Disposition: HOME SELF-CARE
== END 2022-08-26 14:45 | disposition home or self-care (01) ==
LOC: EC 15:08 → 6NMEDSUR 21:17
PROVIDERS: ADMIT Family Medicine; ATTEND Family Medicine
DX: R10.32 Left lower quadrant pain (principal); K59.00 Constipation, unspecified; K57.90 Diverticulosis of intestine, part unspecified, without perforation or abscess without bleeding; K21.9 Gastro-esophageal reflux disease without esophagitis; E03.9 Hypothyroidism, unspecified; M85.80 Other specified disorders of bone density and structure, unspecified site; N13.9 Obstructive and reflux uropathy, unspecified; R32 Unspecified urinary incontinence; R15.9 Full incontinence of feces; F41.9 Anxiety disorder, unspecified; F41.0 Panic disorder [episodic paroxysmal anxiety]; Z79.890 Hormone replacement therapy; Z79.899 Other long term (current) drug therapy; Z88.1 Allergy status to other antibiotic agents; Z88.2 Allergy status to sulfonamides; Z88.8 Allergy status to other drugs, medicaments and biological substances; Z87.442 Personal history of urinary calculi; Z98.84 Bariatric surgery status; Z87.19 Personal history of other diseases of the digestive system; Z90.49 Acquired absence of other specified parts of digestive tract; Z96.652 Presence of left artificial knee joint; Z98.890 Other specified postprocedural states; Z80.3 Family history of malignant neoplasm of breast; Z82.49 Family history of ischemic heart disease and other diseases of the circulatory system
CPT/HCPCS: 96376 ×3; 96361 ×3; 96374; 96375 ×2; 99285; 36415; 80053 ×2; 80048; 82150; 83605; 83690; 84132; 85025 ×2; 81003; 74177; G0378 ×3; J2405 ×2; J1170; C9113 ×2; Q9967

== ENCOUNTER → 2022-08-30 | Outpatient (CLI) | payer MEDICARE ==
--- NOTE | 2022-08-31 20:14 | MM ---
Reason for Exam: Screening (asymptomatic). Last mammogram was performed 1 year(s) and 2 month(s) ago. Patient History: Menarche at age 12. First Full-Term at age 34. Late child-bearing (after 30). Postmenopausal. Patient has history of breast feeding. Core Biopsy on the Right side. Cyst Aspiration on the Right side. Excisional Biopsy on the Right side. Excisional Biopsy on the Left side. 06/18/2001, Benign Stereotactic Core Biopsy on the right side. Paternal grandmother had breast cancer, age 70. Risk Values: Fifi 5 year model risk: 3.9%. NCI Lifetime model risk: 11.2%. Prior Study Comparison: 03/18/2013 Bilateral Screening Mammogram, [facility]. 10/06/2016 Bilateral Screening Mammogram, [facility]. 01/07/2019 Bilateral Screening Mammogram, [facility]. 03/24/2020 Bilateral Screening Mammogram, [facility]. 07/14/2021 Bilateral MG 3D screening mammo w/cad, [facility]. Tissue Density: The breast tissue is heterogeneously dense. This may lower the sensitivity of mammography. Findings: Analyzed By CAD. Microclip right breast from prior biopsy. Unchanged intramammary lymph node upper outer quadrant left breast. There is no suspicious group of microcalcifications or new suspicious mass in either breast. Overall Assessment: Benign, BI-RAD 2 Management: Screening Mammogram of both breasts in 1 year. See note below in regards to patient's increased 5 year Fifi score. Patient should continue monthly self-breast exams. A clinical breast exam by your physician is recommended on an annual basis. This exam should not preclude additional follow-up of suspicious palpable abnormalities. Note on Fifi scores and lifetime risk: 1. A Fifi score greater than 3% is considered moderate risk. If this is the case, consider specialist referral to assess eligibility for a risk reducing agent. 2. If overall lifetime risk for the development of breast cancer is 20% or higher, the patient may qualify for future screening with alternating mammogram and breast MRI. Electronically signed and approved by: Kieran Mason M.D. Radiologist
== END | disposition home or self-care (01) ==
LOC: RADMAMWWP 11:08
PROVIDERS: ATTEND Family Medicine
DX: Z12.31 Encounter for screening mammogram for malignant neoplasm of breast (principal); Z78.0 Asymptomatic menopausal state; Z80.3 Family history of malignant neoplasm of breast
CPT/HCPCS: 77063; 77067

== ENCOUNTER → 2022-09-11 | Outpatient (CLI) | payer MEDICARE ==
[2022-09-11 13:07] VITALS: BP 142/67; PULSE 76; TEMP 97.1; BMI 28.6
--- NOTE | 2022-09-15 10:00 | P.HPBAR ---
Bariatric H&P - History & Physicial H&P Date: 09/11/22 History & Physicial: Visit/CC: lap band follow up Patient initial contact: Initial weight: 106.594 kg Initial weight in pounds: 235.00 Height: 5 ft 4 in Initial BMI: 40.3 Last weight: Current weight: 75.75 kg Current weight in pounds: 167.00 Current BMI: 28.6 [place] body weight (based on NIH guidelines): 54.431 kg Excess body weight loss: 59.1% The patient is a 71 year-old F who presents for Bariatric Assessment. Patient resents today for [place] follow-up. Patient states she feels good. Her left lower quadrant pain has improved. She's had minimal GERD. 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 Osteopenia. 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 History of Any Multi-Drug Resistant Organisms: None Reported Past Surgical History: Bariatric Surgery, Cholecystectomy, Orthopedic Surgery, Tonsillectomy Additional Past Surgical History / Comment(s): LAP BAND. CYST REMOVED FROM BILATERAL breast, HAND AND MOUTH. ALSO FROM OVARY, lithotripsy, left knee replacement. Abdominoplasty. Colonoscopy 2017(next after 5yr). Past Anesthesia/Blood Transfusion Reactions: Motion Sickness, Postoperative N ausea & Vomiting (PONV) Past Psychological History: Anxiety Smoking Status: Never smoker Past Alcohol Use History: Occasional Past Drug Use History: Marijuana Additional Drug Use History / Comment(s): pt states she uses medical marijuana. - Past Family History Mother Family Medical History: No Reported History Father Family Medical History: Myocardial Infarction ([place]) Additional Family Medical History / Comment(s): Paternal grandmother had breast cancer. Surgical - Exam Vital Signs Temp Pulse BP 97.1 F L 76 142/67 09/11/22 13:05 09/11/22 13:05 09/11/22 13:05 - General well developed, well nourished - Abdomen Abdomen: soft, non tender Bariatric Assessment & Plan Plan: Patient's band was not adjusted. She'll follow-up in 4 weeks. Her GERD is minimal and will be observed. Her left lower quadrant pain appears to be related to constipation. She'll be following up with her PCP. Bariatric Checklist Checklist: Plan: Checklist: EGD: 1. Hiatal hernia: 2. H. Pylori: HgbA1c: Vitamin D: Smoking: Never smoker Primary care physician referral: Dr. Soria Psychiatry clearance: Cardiology clearance: Sleep study: Diet journal: VTE risk score: VTE risk level: Rehab needs at discharge:
== END ==
LOC: BARWHC3 12:52
PROVIDERS: ATTEND Surgery
DX: K21.9 Gastro-esophageal reflux disease without esophagitis (principal); E66.01 Morbid (severe) obesity due to excess calories; E03.9 Hypothyroidism, unspecified; K59.00 Constipation, unspecified; Z68.28 Body mass index [BMI] 28.0-28.9, adult; Z46.51 Encounter for fitting and adjustment of gastric lap band; Z98.84 Bariatric surgery status; Z88.5 Allergy status to narcotic agent; Z88.2 Allergy status to sulfonamides; Z88.8 Allergy status to other drugs, medicaments and biological substances; Z79.890 Hormone replacement therapy
CPT/HCPCS: 99211

== ENCOUNTER → 2022-10-16 | Outpatient (CLI) | payer MEDICARE ==
[2022-10-16 13:27] VITALS: BP 131/81; PULSE 116; TEMP 97.7; BMI 30.7
--- NOTE | 2022-11-22 11:05 | P.HPBAR ---
Bariatric H&P - History & Physicial H&P Date: 10/16/22 History & Physicial: Visit/CC: lap band Patient initial contact: Initial weight: 106.594 kg Initial weight in pounds: 235.00 Height: 5 ft 4 in Initial BMI: 40.3 Last weight: Current weight: 81.102 kg Current weight in pounds: 178.80 Current BMI: 30.7 [place] body weight (based on NIH guidelines): 54.431 kg Excess body weight loss: 48.8% The patient is a 71 year-old F who presents for Bariatric Assessment. Patient presents today for LAP-BAND follow-up. She is requesting a fill of her LAP- BAND. She currently feels hungry. She is gained 12 pounds since her last visit. 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 Osteopenia. 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 History of Any Multi-Drug Resistant Organisms: None Reported Past Surgical History: Bariatric Surgery, Cholecystectomy, Orthopedic Surgery, Tonsillectomy Additional Past Surgical History / Comment(s): LAP BAND. CYST REMOVED FROM BILATERAL breast, HAND AND MOUTH. ALSO FROM OVARY, lithotripsy, left knee replacement. Abdominoplasty. Colonoscopy 2017(next after 5yr). Past Anesthesia/Blood Transfusion Reactions: Motion Sickness, Postoperative Nausea & Vomiting (PONV) Smoking Status: Never smoker - Past Family History Mother Family Medical History: No Reported History Father Family Medical History: Myocardial Infarction ([place]) Additional Family Medical History / Comment(s): Paternal grandmother had breast cancer. Surgical - Exam Vital Signs Temp Pulse BP 97.7 F 116 H 131/81 10/16/22 13:17 10/16/22 13:17 10/16/22 13:17 - General well developed, well nourished, no distress - Eyes PERRL - ENT normal pinna - Neck no masses - Respiratory normal expansion - Abdomen Abdomen: soft, non tender Bariatric Assessment & Plan Plan: Patient's LAP-BAND was adjusted. She had 1 mL added to the band. She has 5 mL the band. She'll follow-up in 4 weeks. Bariatric Checklist Checklist: Plan: Checklist: EGD: 1. Hiatal hernia: 2. H. Pylori: HgbA1c: Vitamin D: Smoking: Never smoker Primary care physician referral: Dr. Soria Psychiatry clearance: Cardiology clearance: Sleep study: Diet journal: VTE risk score: VTE risk level: Rehab needs at discharge:
== END ==
LOC: BARWHC3 12:56
PROVIDERS: ATTEND Surgery
DX: K21.9 Gastro-esophageal reflux disease without esophagitis (principal); E03.9 Hypothyroidism, unspecified; Z98.84 Bariatric surgery status; Z87.39 Personal history of other diseases of the musculoskeletal system and connective tissue; Z46.51 Encounter for fitting and adjustment of gastric lap band; Z88.5 Allergy status to narcotic agent; Z88.2 Allergy status to sulfonamides; Z91.018 Allergy to other foods; Z88.8 Allergy status to other drugs, medicaments and biological substances; Z88.1 Allergy status to other antibiotic agents; Z79.890 Hormone replacement therapy
CPT/HCPCS: 99212

== ENCOUNTER → 2022-11-27 | Outpatient (CLI) | payer MEDICARE ==
[2022-11-27 10:48] VITALS: BP 154/82; PULSE 73; TEMP 97.9; BMI 31.6
--- NOTE | 2022-11-27 18:08 | P.HPBAR ---
Bariatric H&P - History & Physicial H&P Date: 11/27/22 History & Physicial: Visit/CC: lap band Patient initial contact: Initial weight: 106.594 kg Initial weight in pounds: 235.00 Height: 5 ft 4 in Initial BMI: 40.3 Last weight: Current weight: 83.461 kg Current weight in pounds: 184.00 Current BMI: 31.6 [place] body weight (based on NIH guidelines): 54.431 kg Excess body weight loss: 44.3% The patient is a 71 year-old F who presents for Bariatric Assessment. Patient resents today for LAP-BAND follow-up. She is currently hungry. She's requesting a fill of her band. 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 Osteopenia. 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 History of Any Multi-Drug Resistant Organisms: None Reported Past Surgical History: Bariatric Surgery, Cholecystectomy, Orthopedic Surgery, Tonsillectomy Additional Past Surgical History / Comment(s): LAP BAND. CYST REMOVED FROM BILATERAL breast, HAND AND MOUTH. ALSO FROM OVARY, lithotripsy, left knee replacement. Abdominoplasty. Colonoscopy 2017(next after 5yr). Past Anesthesia/Blood Transfusion Reactions: Motion Sickness, Postoperative Nausea & Vomiting (PONV) Past Psychological History: Anxiety Smoking Status: Never smoker Past Alcohol Use History: None Reported Past Drug Use History: Marijuana Additional Drug Use History / Comment(s): pt states she uses medical marijuana. - Past Family History Mother Family Medical History: No Reported History Father Family Medical History: Myocardial Infarction ([place]) Additional Family Medical History / Comment(s): Paternal grandmother had breast cancer. Surgical - Exam Vital Signs Temp Pulse BP 97.9 F 73 154/82 11/27/22 10:40 11/27/22 10:40 11/27/22 10:40 - General well developed, well nourished, no distress - Eyes PERRL - ENT normal pinna - Neck no masses - Respiratory normal expansion - Cardiovascular Rhythm: regular - Abdomen Abdomen: soft, non tender Bariatric Assessment & Plan Plan: Patient LAP-BAND was just. She had 1 mL in the band. She currently is 7 mL in the band. Bariatric Checklist Checklist: Plan: Checklist: EGD: 1. Hiatal hernia: 2. H. Pylori: HgbA1c: Vitamin D: Smoking: Never smoker Primary care physician referral: Jovana ROCKWELL at Dr. Zambrano office Psychiatry clearance: Cardiology clearance: Sleep study: Diet journal: VTE risk score: VTE risk level: Rehab needs at discharge:
== END ==
LOC: BARWHC3 10:25
PROVIDERS: ATTEND Surgery
DX: E66.01 Morbid (severe) obesity due to excess calories (principal); K21.9 Gastro-esophageal reflux disease without esophagitis; E03.9 Hypothyroidism, unspecified; Z98.84 Bariatric surgery status; Z46.51 Encounter for fitting and adjustment of gastric lap band; Z87.39 Personal history of other diseases of the musculoskeletal system and connective tissue; Z68.31 Body mass index [BMI] 31.0-31.9, adult; Z88.5 Allergy status to narcotic agent; Z88.2 Allergy status to sulfonamides; Z88.1 Allergy status to other antibiotic agents; Z91.018 Allergy to other foods; Z88.8 Allergy status to other drugs, medicaments and biological substances; Z79.890 Hormone replacement therapy
CPT/HCPCS: 99212

== ENCOUNTER → 2022-12-18 | Outpatient (CLI) | payer MEDICARE ==
[2022-12-18 12:28] VITALS: BP 135/78; PULSE 82; TEMP 98.1; BMI 31.6
--- NOTE | 2023-01-02 12:39 | P.HPBAR ---
Bariatric H&P - History & Physicial H&P Date: 12/18/22 History & Physicial: Visit/CC: lap band follow up Patient initial contact: Initial weight: 106.594 kg Initial weight in pounds: 235.00 Height: 5 ft 4 in Initial BMI: 40.3 Last weight: Current weight: 83.461 kg Current weight in pounds: 184.00 Current BMI: 31.6 [place] body weight (based on NIH guidelines): 54.431 kg Excess body weight loss: 44.3% The patient is a 72 year-old F who presents for Bariatric Assessment. Patient presents today for LAP-BAND follow-up. She's requesting a fill of her band. She is currently hungry. 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 Osteopenia. 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 History of Any Multi-Drug Resistant Organisms: None Reported Past Surgical History: Bariatric Surgery, Cholecystectomy, Orthopedic Surgery, Tonsillectomy Additional Past Surgical History / Comment(s): LAP BAND. CYST REMOVED FROM BILATERAL breast, HAND AND MOUTH. ALSO FROM OVARY, lithotripsy, left knee replacement. Abdominoplasty. Colonoscopy 2017(next after 5yr). Past Anesthesia/Blood Transfusion Reactions: Motion Sickness, Postoperative Nausea & Vomiting (PONV) Past Psychological History: Anxiety Smoking Status: Never smoker Past Alcohol Use History: None Reported Past Drug Use History: Marijuana Additional Drug Use History / Comment(s): pt states she uses medical marijuana. - Past Family History Mother Family Medical History: No Reported History Father Family Medical History: Myocardial Infarction ([place]) Additional Family Medical History / Comment(s): Paternal grandmother had breast cancer. Surgical - Exam Vital Signs Temp Pulse BP 98.1 F 82 135/78 12/18/22 12:08 12/18/22 12:08 12/18/22 12:08 - General well developed, well nourished, no distress - Eyes PERRL - ENT normal pinna, normal nares - Neck no masses - Respiratory normal expansion - Cardiovascular Rhythm: regular - Abdomen Abdomen: soft, non tender Bariatric Assessment & Plan Plan: Patient's LAP-BAND was adjusted. She had 0.5 mL added to the band. She'll follow-up in 4 weeks. Bariatric Checklist Checklist: Plan: Checklist: EGD: 1. Hiatal hernia: 2. H. Pylori: HgbA1c: Vitamin D: Smoking: Never smoker Primary care physician referral: Jovana ROCKWELL at Dr. Zambrano office Psychiatry clearance: Cardiology clearance: Sleep study: Diet journal: VTE risk score: VTE risk level: Rehab needs at discharge:
== END ==
LOC: BARWHC3 10:16
PROVIDERS: ATTEND Surgery
DX: K21.9 Gastro-esophageal reflux disease without esophagitis (principal); E66.01 Morbid (severe) obesity due to excess calories; F41.9 Anxiety disorder, unspecified; E03.9 Hypothyroidism, unspecified; Z68.31 Body mass index [BMI] 31.0-31.9, adult; Z46.51 Encounter for fitting and adjustment of gastric lap band; Z98.84 Bariatric surgery status; Z87.39 Personal history of other diseases of the musculoskeletal system and connective tissue; Z87.19 Personal history of other diseases of the digestive system; Z88.5 Allergy status to narcotic agent; Z88.2 Allergy status to sulfonamides; Z88.1 Allergy status to other antibiotic agents; Z88.8 Allergy status to other drugs, medicaments and biological substances; Z91.018 Allergy to other foods
CPT/HCPCS: 99212

== ENCOUNTER → 2023-01-08 | Outpatient (CLI) | payer MEDICARE ==
[2023-01-08 11:07] VITALS: BP 173/92; PULSE 72; TEMP 97.8; BMI 32.2
--- NOTE | 2023-01-09 11:29 | P.HPBAR ---
Bariatric H&P - History & Physicial H&P Date: 01/08/23 History & Physicial: Visit/CC: lap band Patient initial contact: Initial weight: 106.594 kg Initial weight in pounds: 235.00 Height: 5 ft 4 in Initial BMI: 40.3 Last weight: Current weight: 85.275 kg Current weight in pounds: 188.00 Current BMI: 32.2 [place] body weight (based on NIH guidelines): 54.431 kg Excess body weight loss: 40.8% The patient is a 72 year-old F who presents for Bariatric Assessment. Patient's complaints of hunger. She states her band is not working. She states that her fill feels like it has decreased over time. 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 Osteopenia. 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 History of Any Multi-Drug Resistant Organisms: None Reported Past Surgical History: Bariatric Surgery, Cholecystectomy, Orthopedic Surgery, Tonsillectomy Additional Past Surgical History / Comment(s): LAP BAND. CYST REMOVED FROM BILATERAL breast, HAND AND MOUTH. ALSO FROM OVARY, lithotripsy, left knee replacement. Abdominoplasty. Colonoscopy 2017(next after 5yr). Past Anesthesia/Blood Transfusion Reactions: Motion Sickness, Postoperative Nausea & Vomiting (PONV) Past Psychological History: Anxiety Smoking Status: Never smoker Past Alcohol Use History: None Reported Past Drug Use History: Marijuana Additional Drug Use History / Comment(s): pt states she uses medical marijuana. - Past Family History Mother Family Medical History: No Reported History Father Family Medical History: Myocardial Infarction ([place]) Additional Family Medical History / Comment(s): Paternal grandmother had breast cancer. Surgical - Exam Vital Signs Temp Pulse BP 97.8 F 72 173/92 01/08/23 10:59 01/08/23 10:59 01/08/23 10:59 - General well developed, well nourished, no distress - Eyes PERRL - ENT normal pinna - Neck no masses - Respiratory normal expansion - Cardiovascular Rhythm: regular - Abdomen Abdomen: soft, non tender Bariatric Assessment & Plan Plan: Patient's LAP-BAND was just. She appears to have a malfunctioning LAP-BAND port. I discussed patient possibility replacing her LAP-BAND port versus sleeve conversion because of her LAP-BAND malfunction. Patient wishes to undergo conversion of laparoscopic sleeve gastrectomy. We will attempt to obtain insurance authorization for this. Bariatric Checklist Checklist: Plan: Checklist: EGD: 1. Hiatal hernia: 2. H. Pylori: HgbA1c: Vitamin D: Smoking: Never smoker Primary care physician referral: Jovana ROCKWELL at Dr. Zambrano office Psychiatry clearance: Cardiology clearance: Sleep study: Diet journal: VTE risk score: VTE risk level: Rehab needs at discharge:
== END ==
LOC: BARWHC3 10:26
PROVIDERS: ATTEND Surgery
DX: K21.9 Gastro-esophageal reflux disease without esophagitis (principal); M85.80 Other specified disorders of bone density and structure, unspecified site; E03.9 Hypothyroidism, unspecified; Z87.442 Personal history of urinary calculi; Z88.5 Allergy status to narcotic agent; Z88.2 Allergy status to sulfonamides; Z91.018 Allergy to other foods; Z88.6 Allergy status to analgesic agent; Z79.890 Hormone replacement therapy; Z90.49 Acquired absence of other specified parts of digestive tract; T85.8 Other specified complications of internal prosthetic devices, implants and grafts, not elsewhere classified; Y69 Unspecified misadventure during surgical and medical care; Z88.1 Allergy status to other antibiotic agents
CPT/HCPCS: 99212

== ENCOUNTER → 2023-01-17 | Outpatient (CLI) | payer MEDICARE ==
[2023-01-17 10:37] VITALS: BP 157/62; PULSE 97; TEMP 98; BMI 31.2
--- NOTE | 2023-01-22 10:34 | P.HPBAR ---
Bariatric H&P - History & Physicial H&P Date: 01/17/23 History & Physicial: Visit/CC: lap band follow up Patient initial contact: Initial weight: 106.594 kg Initial weight in pounds: 235.00 Height: 5 ft 4 in Initial BMI: 40.3 Last weight: Current weight: 82.554 kg Current weight in pounds: 182.00 Current BMI: 31.2 [place] body weight (based on NIH guidelines): 54.431 kg Excess body weight loss: 46.0% The patient is a 72 year-old F who presents for Bariatric Assessment.Patient has complaints of dysphagia. She is r which is to have some fluid removed from her band. 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 Osteopenia. 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 History of Any Multi-Drug Resistant Organisms: None Reported Past Surgical History: Bariatric Surgery, Cholecystectomy, Orthopedic Surgery, Tonsillectomy Additional Past Surgical History / Comment(s): LAP BAND. CYST REMOVED FROM BILATERAL breast, HAND AND MOUTH. ALSO FROM OVARY, lithotripsy, left knee replacement. Abdominoplasty. Colonoscopy 2017(next after 5yr). Past Anesthesia/Blood Transfusion Reactions: Motion Sickness, Postoperative Nausea & Vomiting (PONV) Past Psychological History: Anxiety Smoking Status: Never smoker Past Alcohol Use History: None Reported Past Drug Use History: Marijuana Additional Drug Use History / Comment(s): pt states she uses medical marijuana. - Past Family History Mother Family Medical History: No Reported History Father Family Medical History: Myocardial Infarction ([place]) Additional Family Medical History / Comment(s): Paternal grandmother had breast cancer. Surgical - Exam Vital Signs Temp Pulse BP 98 F 97 157/62 01/17/23 10:31 01/17/23 10:31 01/17/23 10:31 - General well developed, well nourished, no distress - Eyes PERRL - ENT normal pinna - Neck no masses - Respiratory normal expansion - Cardiovascular Rhythm: regular - Abdomen Abdomen: soft, non tender Bariatric Assessment & Plan Plan: Patient's Lap-Band was adjusted. She had 1 cc removed from the band. She will follow-up in 4 weeks. Bariatric Checklist Checklist: Plan: Checklist: EGD: 1. Hiatal hernia: 2. H. Pylori: HgbA1c: Vitamin D: Smoking: Never smoker Primary care physician referral: Jovana ROCKWELL at Dr. Zambrano office Psychiatry clearance: Cardiology clearance: Sleep study: Diet journal: VTE risk score: VTE risk level: Rehab needs at discharge:
== END ==
LOC: BARWHC3 09:25
PROVIDERS: ATTEND Surgery
DX: E03.9 Hypothyroidism, unspecified (principal); K21.9 Gastro-esophageal reflux disease without esophagitis; F41.9 Anxiety disorder, unspecified; R13.10 Dysphagia, unspecified; F12.90 Cannabis use, unspecified, uncomplicated; Z90.49 Acquired absence of other specified parts of digestive tract; Z98.84 Bariatric surgery status; Z90.89 Acquired absence of other organs; Z98.890 Other specified postprocedural states; Z88.1 Allergy status to other antibiotic agents; Z88.2 Allergy status to sulfonamides; Z46.51 Encounter for fitting and adjustment of gastric lap band; Z91.02 Food additives allergy status; Z88.8 Allergy status to other drugs, medicaments and biological substances; Z88.5 Allergy status to narcotic agent
CPT/HCPCS: 99212

== ENCOUNTER → 2023-01-29 | Outpatient (CLI) | payer MEDICARE ==
[2023-01-29 12:18] VITALS: BP 153/85; PULSE 96; TEMP 98; BMI 32.2
--- NOTE | 2023-01-29 12:28 | P.HPBAR ---
Bariatric H&P - History & Physicial H&P Date: 01/29/23 History & Physicial: Visit/CC: lap band adj Patient initial contact: Initial weight: 106.594 kg Initial weight in pounds: 235.00 Height: 5 ft 4 in Initial BMI: 40.3 Last weight: Current weight: 85.275 kg Current weight in pounds: 188.00 Current BMI: 32.2 [place] body weight (based on NIH guidelines): 54.431 kg Excess body weight loss: 40.8% The patient is a 72 year-old F who presents for Bariatric Assessment. Patient feels hungry. She is gained weight she is gained 6 pounds her last visit. She is requesting a fill of her band. 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 Osteopenia. 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 History of Any Multi-Drug Resistant Organisms: None Reported Past Surgical History: Bariatric Surgery, Cholecystectomy, Orthopedic Surgery, Tonsillectomy Additional Past Surgical History / Comment(s): LAP BAND. CYST REMOVED FROM BILATERAL breast, HAND AND MOUTH. ALSO FROM OVARY, lithotripsy, left knee replacement. Abdominoplasty. Colonoscopy 2017(next after 5yr). Past Anesthesia/Blood Transfusion Reactions: Motion Sickness, Postoperative Nausea & Vomiting (PONV) Past Psychological History: Anxiety Smoking Status: Never smoker Past Alcohol Use History: None Reported Past Drug Use History: Marijuana Additional Drug Use History / Comment(s): pt states she uses medical marijuana. - Past Family History Mother Family Medical History: No Reported History Father Family Medical History: Myocardial Infarction ([place]) Additional Family Medical History / Comment(s): Paternal grandmother had breast cancer. Surgical - Exam Vital Signs Temp Pulse BP 98 F 96 153/85 01/29/23 10:20 01/29/23 10:20 01/29/23 10:20 - General well developed, well nourished, no distress - Eyes PERRL - Abdomen Abdomen: soft, non tender Bariatric Assessment & Plan Plan: Patient LAP-BAND was just. She had 0.5 mL added band. He will follow-up in 4. Bariatric Checklist Checklist: Plan: Checklist: EGD: 1. Hiatal hernia: 2. H. Pylori: HgbA1c: Vitamin D: Smoking: Never smoker Primary care physician referral: Jovana ROCKWELL at Dr. Zambrano office Psychiatry clearance: Cardiology clearance: Sleep study: Diet journal: VTE risk score: VTE risk level: Rehab needs at discharge:
== END ==
LOC: BARWHC3 09:54
PROVIDERS: ATTEND Surgery
DX: K21.9 Gastro-esophageal reflux disease without esophagitis (principal); E66.01 Morbid (severe) obesity due to excess calories; E03.9 Hypothyroidism, unspecified; F41.9 Anxiety disorder, unspecified; F12.90 Cannabis use, unspecified, uncomplicated; M85.80 Other specified disorders of bone density and structure, unspecified site; Z46.51 Encounter for fitting and adjustment of gastric lap band; Z87.442 Personal history of urinary calculi; Z87.19 Personal history of other diseases of the digestive system; Z91.018 Allergy to other foods; Z88.2 Allergy status to sulfonamides; Z88.1 Allergy status to other antibiotic agents; Z88.8 Allergy status to other drugs, medicaments and biological substances; Z88.5 Allergy status to narcotic agent; Z68.32 Body mass index [BMI] 32.0-32.9, adult; Z79.890 Hormone replacement therapy
CPT/HCPCS: 99212

== ENCOUNTER → 2023-02-26 | Outpatient (CLI) | payer MEDICARE ==
[2023-02-26 13:32] VITALS: BP 165/97; PULSE 71; TEMP 97.6; BMI 34.5
--- NOTE | 2023-04-11 08:50 | P.HPBAR ---
Bariatric H&P - History & Physicial H&P Date: 02/26/23 History & Physicial: Visit/CC: lap band F/U Patient initial contact: Initial weight: 106.594 kg Initial weight in pounds: 235.00 Height: 5 ft 2.5 in Initial BMI: 42.3 Last weight: Current weight: 87.09 kg Current weight in pounds: 192.00 Current BMI: 34.5 [place] body weight (based on NIH guidelines): 51.029 kg Excess body weight loss: 35.1% The patient is a 72 year-old F who presents for Bariatric Assessment.Patient presents today for bariatric follow-up. She has complaints of GERD. She is unable to have her Lap-Band adjusted sufficiently for weight loss. She has chronic issues with GERD and the plan is adjusted. 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 Osteopenia. 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 History of Any Multi-Drug Resistant Organisms: None Reported Past Surgical History: Bariatric Surgery, Cholecystectomy, Orthopedic Surgery, Tonsillectomy Additional Past Surgical History / Comment(s): LAP BAND. CYST REMOVED FROM BILATERAL breast, HAND AND MOUTH. ALSO FROM OVARY, lithotripsy, left knee replacement. Abdominoplasty. Colonoscopy 2017(next after 5yr). Past Anesthesia/Blood Transfusion Reactions: Motion Sickness, Postoperative Nausea & Vomiting (PONV) Past Psychological History: Anxiety Smoking Status: Never smoker Past Alcohol Use History: None Reported Past Drug Use History: Marijuana Additional Drug Use History / Comment(s): pt states she uses medical marijuana. - Past Family History Mother Family Medical History: No Reported History Father Family Medical History: Myocardial Infarction ([place]) Additional Family Medical History / Comment(s): Paternal grandmother had breast cancer. Surgical - Exam Vital Signs Temp Pulse BP 97.6 F 71 165/97 02/26/23 13:19 02/26/23 13:19 02/26/23 13:19 - General well developed, well nourished - Eyes PERRL - ENT normal pinna, normal nares - Respiratory normal expansion - Cardiovascular Rhythm: regular - Abdomen Abdomen: soft, non tender Bariatric Assessment & Plan Plan: Patient is attempting to undergo sleeve conversion. The patient will follow- up next month. Once she meets her insurance authorization requirements she will be scheduled for sleeve gastrectomy. Bariatric Checklist Checklist: Plan: Checklist: EGD: 1. Hiatal hernia: 2. H. Pylori: HgbA1c: Vitamin D: Smoking: Never smoker Primary care physician referral: Jovana ROCKWELL at Dr. Zambrano office Psychiatry clearance: Cardiology clearance: Sleep study: Diet journal: VTE risk score: VTE risk level: Rehab needs at discharge:
== END ==
LOC: BARWHC3 10:21
PROVIDERS: ATTEND Surgery
DX: E66.01 Morbid (severe) obesity due to excess calories (principal); K21.9 Gastro-esophageal reflux disease without esophagitis; E03.9 Hypothyroidism, unspecified; K52.9 Noninfective gastroenteritis and colitis, unspecified; M85.88 Other specified disorders of bone density and structure, other site; F12.90 Cannabis use, unspecified, uncomplicated; Z98.84 Bariatric surgery status; Z90.49 Acquired absence of other specified parts of digestive tract; Z98.890 Other specified postprocedural states; Z68.41 Body mass index [BMI] 40.0-44.9, adult; Z88.8 Allergy status to other drugs, medicaments and biological substances; Z88.2 Allergy status to sulfonamides; Z88.1 Allergy status to other antibiotic agents; Z91.048 Other nonmedicinal substance allergy status; Z91.018 Allergy to other foods; Z79.890 Hormone replacement therapy
CPT/HCPCS: 99211

== ENCOUNTER → 2023-03-12 | Outpatient (CLI) | payer MEDICARE ==
--- NOTE | 2023-03-12 10:20 | P.HPBAR ---
Bariatric H&P - History & Physicial H&P Date: 03/12/23 History & Physicial: Visit/CC: Patient initial contact: Initial weight: 106.594 kg Initial weight in pounds: Height: 5 ft 2.5 in Initial BMI: Last weight: Current weight: 89.04 kg Current weight in pounds: 97 Current BMI: [place] body weight (based on NIH guidelines): Excess body weight loss: The patient is a 72 year-old F who presents for Bariatric Assessment. Patient presents today for bariatric follow-up. Patient has had weight gain. She is unable to her band adjusted due to issues with chronic dysphagia related to her LAP-BAND. Her BMI is currently over 35. She is requesting conversion sleeve gastrectomy. 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 Osteopenia. 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 History of Any Multi-Drug Resistant Organisms: None Reported Past Surgical History: Bariatric Surgery, Cholecystectomy, Orthopedic Surgery, Tonsillectomy Additional Past Surgical History / Comment(s): LAP BAND. CYST REMOVED FROM BILATERAL breast, HAND AND MOUTH. ALSO FROM OVARY, lithotripsy, left knee replacement. Abdominoplasty. Colonoscopy 2017(next after 5yr). Past Anesthesia/Blood Transfusion Reactions: Motion Sickness, Postoperative Nausea & Vomiting (PONV) Past Psychological History: Anxiety Smoking Status: Never smoker Past Alcohol Use History: None Reported Past Drug Use History: Marijuana Additional Drug Use History / Comment(s): pt states she uses medical marijuana. - Past Family History Mother Family Medical History: No Reported History Father Family Medical History: Myocardial Infarction ([place]) Additional Family Medical History / Comment(s): Paternal grandmother had breast cancer. Surgical - Exam - General well developed, well nourished, no distress - Eyes PERRL - ENT normal pinna, normal nares Bariatric Assessment & Plan Plan: Morbid obesity, BMI. 35. GERD and dysphagia related to LAP-BAND. Patient will attempt to obtain insurance authorization for conversion sleeve gastrectomy. Bariatric Checklist Checklist: Plan: Checklist: EGD: 1. Hiatal hernia: 2. H. Pylori: HgbA1c: Vitamin D: Smoking: Never smoker Primary care physician referral: Jovana ROCKWELL at Dr. Zambrano office Psychiatry clearance: Cardiology clearance: Sleep study: Diet journal: VTE risk score: VTE risk level: Rehab needs at discharge:
[2023-03-12 10:34] VITALS: BP 165/90; PULSE 99; TEMP 98.3; BMI 35.3
== END ==
LOC: BARWHC3 09:34
PROVIDERS: ATTEND Surgery
DX: K21.9 Gastro-esophageal reflux disease without esophagitis (principal); E66.01 Morbid (severe) obesity due to excess calories; E03.9 Hypothyroidism, unspecified; F41.9 Anxiety disorder, unspecified; R13.19 Other dysphagia; F12.90 Cannabis use, unspecified, uncomplicated; Z87.39 Personal history of other diseases of the musculoskeletal system and connective tissue; Z98.84 Bariatric surgery status; Z68.35 Body mass index [BMI] 35.0-35.9, adult; Z88.5 Allergy status to narcotic agent; Z88.2 Allergy status to sulfonamides; Z88.1 Allergy status to other antibiotic agents; Z91.018 Allergy to other foods; Z88.8 Allergy status to other drugs, medicaments and biological substances
CPT/HCPCS: 99211

== ENCOUNTER → 2023-04-09 | Outpatient (CLI) | payer MEDICARE ==
[2023-04-09 11:15] VITALS: BP 158/84; PULSE 105; TEMP 97.7; BMI 33.6
--- NOTE | 2023-04-09 14:59 | P.HPBAR ---
Bariatric H&P - History & Physicial H&P Date: 04/09/23 History & Physicial: Visit/CC: pre-surg Patient initial contact: Initial weight: 106.594 kg Initial weight in pounds: 235.00 Height: 5 ft 4 in Initial BMI: 40.3 Last weight: Current weight: 88.904 kg Current weight in pounds: 196.00 Current BMI: 33.6 [place] body weight (based on NIH guidelines): 54.431 kg Excess body weight loss: 33.9% The patient is a 72 year-old F who presents for Bariatric Assessment. Patient presents today for bariatric follow-up. Her weight is 196 pounds. She has morbid obese. BMI is 34. Sh she has had issues with adjustments of her Lap- Band due to chronic dysphagia once the Lap-Band was adjusted. Patient is requesting convert to sleeve gastrectomy. 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 Osteopenia. 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 sleep apnea, occasional CPAP use prn. History of Any Multi-Drug Resistant Organisms: None Reported Past Surgical History: Bariatric Surgery, Cholecystectomy, Orthopedic Surgery, Tonsillectomy Additional Past Surgical History / Comment(s): LAP BAND. CYST REMOVED FROM BILATERAL breast, HAND AND MOUTH. ALSO FROM OVARY, lithotripsy, left knee replacement. Abdominoplasty. Colonoscopy 2017(next after 5yr). Past Anesthesia/Blood Transfusion Reactions: Motion Sickness, Postoperative Nausea & Vomiting (PONV) Past Psychological History: Anxiety Smoking Status: Never smoker Past Alcohol Use History: None Reported Past Drug Use History: Marijuana Additional Drug Use History / Comment(s): pt states she uses medical marijuana. - Past Family History Mother Family Medical History: No Reported History Father Family Medical History: Myocardial Infarction ([place]) Additional Family Medical History / Comment(s): Paternal grandmother had breast cancer. Surgical - Exam Vital Signs Temp Pulse BP 97.7 F 105 H 158/84 04/09/23 10:59 04/09/23 10:59 04/09/23 10:59 - General well developed, well nourished, no distress - Eyes PERRL - ENT normal pinna - Neck no masses - Respiratory normal expansion - Cardiovascular Rhythm: regular - Abdomen Abdomen: soft, non tender Bariatric Assessment & Plan Plan: Chronic dysphagia related to Lap-Band adjustments. Patient will have her band removed and converted sleeve gastrectomy once her insurance authorization is complete. Bariatric Checklist Checklist: Plan: Checklist: EGD: 1. Hiatal hernia: 2. H. Pylori: HgbA1c: Vitamin D: Smoking: Never smoker Primary care physician referral: Jovana ROCKWELL at Dr. Zambrano office Psychiatry clearance: Cardiology clearance: Sleep study: Diet journal: VTE risk score: VTE risk level: Rehab needs at discharge:
== END ==
LOC: BARWHC3 10:28
PROVIDERS: ATTEND Surgery
DX: K21.9 Gastro-esophageal reflux disease without esophagitis (principal); E66.01 Morbid (severe) obesity due to excess calories; R13.10 Dysphagia, unspecified; G47.30 Sleep apnea, unspecified; F12.90 Cannabis use, unspecified, uncomplicated; F41.9 Anxiety disorder, unspecified; E03.9 Hypothyroidism, unspecified; Z71.3 Dietary counseling and surveillance; Z87.39 Personal history of other diseases of the musculoskeletal system and connective tissue; Z87.442 Personal history of urinary calculi; Z87.19 Personal history of other diseases of the digestive system; Z98.84 Bariatric surgery status; Z46.51 Encounter for fitting and adjustment of gastric lap band; Z88.5 Allergy status to narcotic agent; Z88.2 Allergy status to sulfonamides; Z88.8 Allergy status to other drugs, medicaments and biological substances; Z91.018 Allergy to other foods; Z88.1 Allergy status to other antibiotic agents; Z68.34 Body mass index [BMI] 34.0-34.9, adult
CPT/HCPCS: 97804; G0463; 99211

== ENCOUNTER → 2023-04-19 | Outpatient (CLI) | payer MEDICARE ==
[2023-04-19 18:16] LABS: Basophils # (A) 0.09 X 10*3/uL (0.00-0.10); Eosinophils # (A) 0.19 X 10*3/uL (0.04-0.35); Eosinophils % (A) 2.1 %; HCT 42.6 % (37.2-46.3); HGB 13.5 g/dL (12.0-15.0); Lymphocytes % (A) 18.7 %; MCHC 31.7 g/dL (32.0-37.0); MCV 91.4 FL (80.0-97.0); Mean Platelet Volume 9.7 FL (9.5-12.2); Monocytes # (A) 0.61 X 10*3/uL (0.20-1.00); Monocytes % (A) 6.7 %; NRBC Per 100 WBC 0 X 10*3/uL (0.00-0.01); Neutrophils # (A) 6.48 X 10*3/uL (1.80-7.70); Neutrophils % (A) 71.2 %; Platelet Count 383 X 10*3/uL (140-440); RBC 4.66 X 10*6/uL (4.10-5.20); RDW 13.9 % (11.5-14.5)
[2023-04-19 18:36] LABS: INR 0.95 sec (0.93-1.11); Prothrombin Time 10.3 sec (9.9-11.9)
[2023-04-19 18:58] LABS: ALT 18 U/L (8-44); AST 14 U/L (13-35); Albumin 4.6 g/dL (3.8-4.9); Albumin/Globulin Ratio 1.44 Ratio (1.60-3.17); Alkaline Phosphatase 81 U/L (41-126); BUN/Creat Ratio 20.12 Ratio (12.00-20.00); Blood Urea Nitrogen 16.1 mg/dL (9.0-27.0); Calcium 10.1 mg/dL (8.7-10.3); Carbon Dioxide 22.4 mmol/L (21.6-31.8); Chloride 103 mmol/L (96-109); Globulin 3.2 g/dL (1.6-3.3); Glucose 96 mg/dL (70-110); Magnesium 2.1 mg/dL (1.5-2.4); Potassium 4.9 mmol/L (3.5-5.5); Sodium 138 mmol/L (135-145); T4, Free (Free Thyroxine) 1.49 ng/dL (0.80-1.80); Total Bilirubin <0.2 mg/dL (0.3-1.2); Total Protein 7.8 g/dL (6.2-8.2)
--- NOTE | 2023-04-19 21:41 | XR ---
EXAMINATION TYPE: XR chest 2V DATE OF EXAM: 04/19/2023 COMPARISON: 02/09/2021 HISTORY: 72-year-old female J06.9 ACUTE UPPER RESPIRATORY INFECTION, UNSPECIFIED TECHNIQUE: Frontal and lateral views FINDINGS: Heart normal size. Mild atherosclerotic arch calcifications. Hyperinflation. Mild interstitial promin ence of the chronic appearance. Prominent rib ends in the lower thorax on either side. No consolidati on or pleural effusion. Slight accentuated mid thoracic kyphosis with mild to moderate degenerative d isc disease here. Lap band device noted. IMPRESSION: COPD and chronic changes. No acute process seen.
== END | disposition home or self-care (01) ==
LOC: LABWHC1 12:50
PROVIDERS: ATTEND Family Medicine
DX: Z01.812 Encounter for preprocedural laboratory examination (principal); J45.20 Mild intermittent asthma, uncomplicated; K58.0 Irritable bowel syndrome with diarrhea; E03.9 Hypothyroidism, unspecified; J44.9 Chronic obstructive pulmonary disease, unspecified; J06.9 Acute upper respiratory infection, unspecified
CPT/HCPCS: 36415; 71046; 80053; 83735; 84439; 84443; 85025; 85610

== ENCOUNTER 2023-05-28 05:53 | Inpatient (IN) | payer MEDICARE ==
[2023-05-28] MEDS: LACTATED RINGERS 1,000 ML IV ONE ×3 (06:23→10:57)
[2023-05-28] MEDS ORDERED: MIDAZOLAM 2 MG/2 ML VIAL IV PRN (07:00)
[2023-05-28] MEDS ORDERED: fentaNYL (PF) 50 MCG/ML 2 ML AMP IV PRN (07:00)
[2023-05-28] MEDS: DEXAMETHASONE SOD PHOSPHATE 4 MG/ML 1 ML VIAL IV ONE (07:14)
[2023-05-28] MEDS: SCOPOLAMINE 1 MG/72 HR PATCH TRANSDERM ONE (07:15)
[2023-05-28] MEDS: ONDANSETRON 4 MG/2 ML VIAL IVP ONE ×2 (07:15→10:21)
[2023-05-28] MEDS: ENOXAPARIN 40 MG/0.4 ML SYRINGE SQ PRN (07:17)
[2023-05-28] MEDS ORDERED: NEOSTIGMINE 1 MG/ML 10 ML VIAL ONE (07:30)
[2023-05-28] MEDS ORDERED: fentaNYL (PF) 50 MCG/ML 2 ML AMP ONE (07:30)
[2023-05-28] MEDS ORDERED: PHENYLEPHRINE 10 MG/ML VIAL ONE (07:30)
[2023-05-28] MEDS ORDERED: GLYCOPYRROLATE 0.2 MG/ML 2 ML VIAL ONE (07:30)
[2023-05-28] MEDS ORDERED: MIDAZOLAM 2 MG/2 ML VIAL ONE (07:30)
[2023-05-28] MEDS ORDERED: SUCCINYLCHOLINE CHLORIDE 200 MG/10 ML VIAL IV ONE (07:30)
[2023-05-28] MEDS ORDERED: ROCURONIUM 10 MG/ML (5 ML VIAL) IV ONE (07:30)
[2023-05-28] MEDS ORDERED: PROPOFOL 10 MG/ML 20 ML VIAL IV ONE (07:30)
--- NOTE | 2023-05-28 07:50 | P.GSHP ---
History of Present Illness H&P Date: 05/28/23 Chief Complaint: dysphagia, morbid obesity this a 72-year-old female who has. History of LAP-BAND surgery. Patient is unable to have her Juan J adjusted due to chronic dysphagia with her LAP-BAND. Patient presents today for removal LAP-BAND conversion to sleeve gastrectomy. Patient reversed surgery including conversion to the stomach liver spleen and issues gastric staple line such as disruption, bleeding and scarring. 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 Osteopenia.. sleep apnea, occasional CPAP use prn. leg cramps frequently History of Any Multi-Drug Resistant Organisms: None Reported Past Surgical History: Bariatric Surgery, Breast Surgery, Cholecystectomy, Orthopedic Surgery, Tonsillectomy Additional Past Surgical History / Comment(s): LAP BAND. CYST REMOVED FROM BILATERAL breast, HAND AND MOUTH. ALSO FROM OVARY, lithotripsy, left knee replacement. Abdominoplasty. Colonoscopy 2016(next after 5yr). cologaard 2022 neg Past Anesthesia/Blood Transfusion Reactions: Motion Sickness, Postoperative Nausea & Vomiting (PONV) Smoking Status: Never smoker - Past Family History Mother Family Medical History: No Reported History Father Family Medical History: Myocardial Infarction ([place]) Additional Family Medical History / Comment(s): Paternal grandmother had breast cancer. Medications and Allergies Home Medications Medication Instructions Recorded Confirmed Type Levothyroxine Sodium [Synthroid] 112 mcg PO DAILY 07/02/21 05/28/23 History Cetirizine HCl [Zyrtec] 10 mg PO DAILY 08/01/21 05/28/23 History Cholecalciferol [Vitamin D3 (25 25 mcg PO DAILY 08/24/22 05/28/23 History Mcg = 1000 Iu)] Acetaminophen Tab [Tylenol] 650 mg PO Q6HR PRN tab 08/26/22 05/28/23 Rx polyethylene glycoL 3350 [Miralax] 17 gm PO DAILY #30 packet 08/26/22 05/28/23 Rx Magnesium Oxide [Magnesium] 400 mg PO DAILY 10/16/22 05/28/23 History PARoxetine [Paxil] 30 mg PO DAILY 11/13/22 05/28/23 History Cyclobenzaprine [Flexeril] 5 mg PO HS PRN 05/23/23 05/28/23 History Tart Vincent Extract 1,200 mg PO DAILY 05/23/23 05/28/23 History lisinopriL [Zestril] 10 mg PO HS 05/23/23 05/28/23 History Allergies Allergy/AdvReac Type Severity Reaction Status Date / Time hydromorphone [From Dilaudid] Allergy Nausea & Verified 08/25/22 01:22 Vomiting sulfamethoxazole Allergy Rash/Hives Verified 08/24/22 20:10 [From Bactrim] tamsulosin [From Flomax] Allergy Itching Verified 08/24/22 20:10 trimethoprim [From Bactrim] Allergy Rash/Hives Verified 08/24/22 20:10 buspirone AdvReac Unknown Verified 05/23/23 13:42 citalopram AdvReac Unknown Verified 05/23/23 13:42 citric acid [From Prepopik] AdvReac Nausea & Verified 08/24/22 20:10 Vomiting magnesium oxide AdvReac Nausea & Verified 08/24/22 20:10 [From Prepopik] Vomiting montelukast [From Singulair] AdvReac Unknown Verified 05/23/23 13:42 sodium picosulfate AdvReac Nausea & Verified 08/24/22 20:10 [From Prepopik] Vomiting Surgical - Exam Vital Signs Temp Pulse Resp BP Pulse Ox 96.8 F L 93 18 148/76 96 05/28/23 07:10 05/28/23 07:10 05/28/23 07:10 05/28/23 07:10 05/28/23 07:10 - General well developed, well nourished, no distress - Eyes PERRL - ENT normal pinna - Neck no masses - Respiratory normal expansion - Cardiovascular Rhythm: regular - Abdomen Abdomen: soft, non tender Assessment and Plan Assessment: dysphagia related to LAP-BAND. Patient will undergo removal LAP-BAND conversion sleeve gastrectomy.
[2023-05-28] MEDS: BUPIVACAINE (PF) 0.25% 30 ML VIAL SQ ONE (08:03)
[2023-05-28] MEDS ORDERED: HYDROmorphone 0.5 MG/0.5 ML SYRINGE IVP PRN (10:25)
[2023-05-28] MEDS ORDERED: SIMETHICONE 80 MG CHEWABLE PO PRN (10:25)
[2023-05-28] MEDS ORDERED: HYOSCYAMINE ORAL DROPS 1.875 MG/15 ML BOTTLE PO PRN (10:25)
[2023-05-28] MEDS ORDERED: NALOXONE 0.4 MG/ML 1 ML VIAL IV PRN (10:25)
[2023-05-28] MEDS ORDERED: diphenhydrAMINE 50 MG/ML 1 ML VIAL IVP PRN (10:25)
[2023-05-28] MEDS ORDERED: ONDANSETRON 4 MG/2 ML VIAL IVP PRN (10:25)
[2023-05-28] MEDS ORDERED: HYDROmorphone 1 MG/ML 1 ML SYRINGE IVP PRN (10:25)
--- NOTE | 2023-05-28 10:25 | P.OP ---
Date of Procedure: 05/28/23 Preoperative Diagnosis: dysphagia Morbid obesity. BMI 36 Postoperative Diagnosis: same Procedure(s) Performed: laparoscopic removal LAP-BAND system Laparoscopic sleeve gastrectomy Anesthesia: BOUBACAR Surgeon: Clifford Holt Estimated Blood Loss (ml): 5 Pathology: other (stomach) Condition: stable Disposition: PACU Description of Procedure: the patient's placed on the operating table in supine position. She received general endotracheal anesthesia. Her abdomen was prepped and draped in usual sterile fashion. She had been placed in dorsal 5 position. The skin was incised and the LAP-BAND port site. Using blunt and sharp dissection with cautery the LAP-BAND port was dissected free. The PEG tube was cut and then the LAP-BAND port was removed. Next using a 5 mm optical trocar under direct visualization the peritoneal cavity. The abdomen was instilled. After adequate insufflation a 5 mm trocar was placed in the right epigastric, left epigastric, right lateral, left lateral position. The original 5 mm trocar was exchanged for a 12 mm trocar at the LAP-BAND port site. The liver tract specimen. The adhesions to the LAP-BAND device were lysed. These were lysed with sharp dissection and the Harmonic scissors. There were adhesions in the left lateral abdominal wall. These were lysed with sharp dissection and the Harmonic scissors. The gastric plication was then taken down using sharp dissection. The LAP-BAND device was then withdrawn from around stomach. Next the short gastric vessels were divided using the Harmonic scissors. And then the omentum was freed off the greater curvature stomach. The dissection occurred approximately 4 cm from the pylorus all the way to the angle of His. Tthe area of the LAP-BAND device had some scar tissue which was lysed with sharp dissection. At this point the 40-Persian bougie dilator was placed and stomach. And then using the JOCELYNN laparoscopic stapler the sleeve gastrectomy performed. A black load was used for the first firing near the pylorus. And then sequential green firings were used to create the sleeve gastrectomy next to the 40-Persian bougie dilator. The gastric remnant was then brought out through the 12 mm trocar site. And then the stomach was insufflated with methylene blue which was inserted via a nasogastric tube into the stomach. 250 mL of methylene blue were placed and stomach. There was no evidence of leak. This point the abdomen was irrigated. There is no bleeding seen. The stomach remnant and was brought out through the 12 mm trocar site this area was then closed with a Eyal Mchugh suture passer. 0 Ethibond sutures used to close the trocar site. The remaining trochars were withdrawn. The abdomen was desufflated. And then the skin was closed interrupted 3-0 Monocryl suture. Dermabond dressing applied. Patient top she will she was sent to recovery in stable condition.
[2023-05-28] MEDS: droPERidol 5 MG/2 ML VIAL IVP ONE (10:32)
[2023-05-28] MEDS: fentaNYL (PF) 50 MCG/ML 2 ML AMP IVP ONE ×2 (10:37→10:53)
[2023-05-28] MEDS: LACTATED RINGERS 1,000 ML IV SCH (10:57)
[2023-05-28] MEDS: KETOROLAC 15 MG/ML 1 ML VIAL IVP SCH (11:52)
[2023-05-28] MEDS: ACETAMINOPHEN IV (For NPO) 1,000 MG in EMPTY BAG 1 BAG IVPB ONE (11:52)
[2023-05-28] MEDS: ALBUTEROL NEBULIZED 2.5 MG/3 ML INHALATION SCH (13:10)
[2023-05-28] MEDS: 0.9% NACL WITH KCL 20 MEQ/L 1,000 ML IV SCH (17:24)
[2023-05-28] MEDS ORDERED: CYCLOBENZAPRINE 5 MG TAB PO PRN (18:01)
[2023-05-28] MEDS: lisinopriL 10 MG TAB PO SCH (21:27)
[2023-05-28] MEDS: ENOXAPARIN 40 MG/0.4 ML SYRINGE SQ SCH (21:27)
[2023-05-28] MEDS: ACETAMINOPHEN TAB 325 MG TAB PO PRN (22:06)
--- NOTE | 2023-05-28 23:39 | P.CONS ---
History of Present Illness - Reason for Consult Consult date: 05/28/23 Medical management Requesting physician: Clifford Holt - Chief Complaint Post gastric sleeve, dysphagia - History of Present Illness HISTORY OF PRESENT ILLNESS: 72-year-old who is to be morbidly obese patient post lap band years ago with known history of obstructive uropathy post lithotripsy history of gastroesophageal reflux syndrome, history of hypothyroidism, hypertension, chronic anxiety and panic attack who has been having severe dysphagia and worsening abdominal discomfort with worsening symptoms. Was seen Dr. Holt and had EGD to have the area around the Lap-Band causing more problem with structure and worsening symptoms his advice was to remove the Lap-Band and converted into sleeve gastrectomy. Procedure was done today successfully patient admitted to the floor has been feeling well able to sip and drink water and Jell-O. Pain is under control able to swallow her medication as well. Patient is hemodynamically stable after surgery. REVIEW OF SYSTEMS: CONSTITUTIONAL: Well-developed no acute respiratory distress. EYES: No icterus sclerae, no conjunctivitis. EARS, NOSE, MOUTH, THROAT, and FACE: No sore throat, lymphadenopathy, carotid bruits or deformity. RESPIRATORY: No SOB cough or wheezes. CARDIOVASCULAR: No CP, Palpitation, PND, Orthopnea, or angina. GASTROINTESTINAL: Post gastric sleeve with slight discomfort around surgical site no dysphagia no nausea or vomiting. GENITOURINARY: Negative for Hematuria or UTI, no kidney stones. INTEGUMENT/BREAST: Negative for any muscular injury with mild osteoarthritis.. HEMATOLOGIC/LYMPHATIC: Negative for bleed or purpura. MUSCULOSKELTAL: Negative for Myalgia or arthralgia. NEURLOGICAL: No LOC, Sz or syncope, blurred vision dizziness or abnormality.. BEHAVIORAL/PSYCH: Negative. ENDOCRINE: Negative. PHYSICAL EXAMINATION: General Appearance: Alert, cooperative, no distress, appears stated age. Neck HEENT: Supple, no lymphadenopathy, no thyroid enlargement, no carotid bruits. Lungs: Clear to auscultation without crackles or wheezes no rhonchi, no deformity. Chest Wall: Chest wall normal expansion with deep inspiration no tenderness and no deformity was found on exam, no costochondral pain or discomfort. Heart: Regular rate and rhythm, S1, S2 normal, no murmur, rub or gallop. Back: Symmetric, no curvature, ROM normal, no CVA tenderness. Abdomen: Soft surgical site looks fine with multi small incision from laparoscopy site none of them is bleeding or draining. Slight discomfort and tenderness around them. Extremities: Extremities normal, atraumatic, no cyanosis or edema. Pulses: 2+ and symmetric. Skin: Skin color, texture, tugor normal, no rashes or lesions. Neurologic: Alert oriented x3 cranial nerves II through XII intact, no motor deficit, no abnormal balance or gait. ASSESSMENT AND PLAN: _Post gastric sleeve: Converted from already Lap-Band with multiple complication causing scarring tissue along with dysphagia and structure, stable postsurgery doing well. _Obesity post bariatric surgery originally lap band years ago and able to have her Lap-Band adjusted due to the chronic dysphagia with her older procedure she ended up converting to gastric sleeve. _Hypertension: Blood pressure is well-controlled on lisinopril 10 mg a day resume medication. _Severe GERD and dysphagia: Has been on PPI with probably continue pantoprazole for short bit of time. _Chronic smoking: Smoking cessation was addressed patient be on nicotine patch. _Hypothyroidism: Resume levothyroxine 25 mcg daily. _Severe allergy: Continue montelukast along with cetirizine 10 mg daily. _Chronic depression: Has been on Paxil 30 mg a day doing well. _GI prophylaxis: Will continue PPI. _DVT prophylaxis: Patient will be on Lovenox. CODE STATUS: Full code. Dr. Holt thank you much for the consult if I can be any further help to please let me know. 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 Osteopenia.. sleep apnea, occasional CPAP use prn. leg cramps frequently History of Any Multi-Drug Resistant Organisms: None Reported Past Surgical History: Bariatric Surgery, Breast Surgery, Cholecystectomy, Orthopedic Surgery, Tonsillectomy Additional Past Surgical History / Comment(s): LAP BAND. CYST REMOVED FROM BILATERAL breast, HAND AND MOUTH. ALSO FROM OVARY, lithotripsy, left knee replacement. Abdominoplasty. Colonoscopy 2016(next after 5yr). cologaard 2022 neg, gastric sleeve 05/28/23 Past Anesthesia/Blood Transfusion Reactions: Motion Sickness, Postoperative Nausea & Vomiting (PONV) Smoking Status: Never smoker - Past Family History Mother Family Medical History: No Reported History Father Family Medical History: Myocardial Infarction ([place]) Additional Family Medical History / Comment(s): Paternal grandmother had breast cancer. Medications and Allergies Home Medications Medication Instructions Recorded Confirmed Type Levothyroxine Sodium [Synthroid] 112 mcg PO DAILY 07/02/21 05/28/23 History Cetirizine HCl [Zyrtec] 10 mg PO DAILY 08/01/21 05/28/23 History Cholecalciferol [Vitamin D3 (25 25 mcg PO DAILY 08/24/22 05/28/23 History Mcg = 1000 Iu)] Acetaminophen Tab [Tylenol] 650 mg PO Q6HR PRN tab 08/26/22 05/28/23 Rx polyethylene glycoL 3350 [Miralax] 17 gm PO DAILY #30 packet 08/26/22 05/28/23 Rx Magnesium Oxide [Magnesium] 400 mg PO DAILY 10/16/22 05/28/23 History PARoxetine [Paxil] 30 mg PO DAILY 11/13/22 05/28/23 History Cyclobenzaprine [Flexeril] 5 mg PO HS PRN 05/23/23 05/28/23 History Tart Vincent Extract 1,200 mg PO DAILY 05/23/23 05/28/23 History lisinopriL [Zestril] 10 mg PO HS 05/23/23 05/28/23 History Allergies Allergy/AdvReac Type Severity Reaction Status Date / Time hydromorphone [From Dilaudid] Allergy Nausea & Verified 05/28/23 11:47 Vomiting sulfamethoxazole Allergy Rash/Hives Verified 05/28/23 11:47 [From Bactrim] tamsulosin [From Flomax] Allergy Itching Verified 05/28/23 11:47 trimethoprim [From Bactrim] Allergy Rash/Hives Verified 05/28/23 11:47 buspirone AdvReac Unknown Verified 05/28/23 11:47 citalopram AdvReac Unknown Verified 05/28/23 11:47 citric acid [From Prepopik] AdvReac Nausea & Verified 05/28/23 11:47 Vomiting magnesium oxide AdvReac Nausea & Verified 05/28/23 11:47 [From Prepopik] Vomiting montelukast [From Singulair] AdvReac Unknown Verified 05/28/23 11:47 sodium picosulfate AdvReac Nausea & Verified 05/28/23 11:47 [From Prepopik] Vomiting Physical Exam Vitals: Vital Signs Temp Pulse Pulse Resp BP Pulse Ox 05/28/23 13:37 89 160/77 98 05/28/23 13:22 97 166/84 99 05/28/23 13:07 94 166/95 100 05/28/23 12:52 87 155/90 93 L 05/28/23 12:38 84 154/89 99 05/28/23 12:22 115 H 168/96 91 L 05/28/23 12:07 82 162/73 98 05/28/23 11:52 74 149/73 94 L 05/28/23 11:38 83 16 126/82 93 L 05/28/23 11:18 89 16 145/67 96 05/28/23 11:03 88 20 145/67 93 L 05/28/23 10:46 84 18 136/71 94 L 05/28/23 10:31 87 18 133/68 98 05/28/23 10:16 85 18 144/68 98 05/28/23 10:01 97.7 F 85 20 147/72 95 05/28/23 07:10 96.8 F L 93 18 148/76 96 Intake and Output 05/28/23 05/28/23 05/28/23 06:59 14:59 22:59 Intake Total 2049 Output Total 25 Balance 2024 Intake: IV 100 2049 Output: Estimated Blood Loss 25 Other: # Voids 1 1 Weight 89.8 kg
[2023-05-29] MEDS: LEVOTHYROXINE 112 MCG TAB PO SCH (05:27)
[2023-05-29] MEDS ORDERED: metroNIDAZOLE-NS PMX 500 MG in SALINE 1 100ML.BAG IVPB SCH (08:00)
[2023-05-29] MEDS ORDERED: PIPERACILLIN-TAZOBACTAM 3.375 GM in SODIUM CHLORIDE 0.9% 100 ML IVPB SCH (08:00)
[2023-05-29] MEDS: polyethylene glycoL 3350 17 GM POWD.PACK PO SCH (08:35)
[2023-05-29] MEDS: LORATADINE 10 MG TAB PO SCH (08:35)
[2023-05-29] MEDS: PARoxetine 10 MG TAB PO SCH (08:35)
[2023-05-29] MEDS: CHOLECALCIFEROL 25 MCG (1000 IU) TABLET PO SCH (08:36)
[2023-05-29] MEDS: MAGNESIUM OXIDE 400 MG TAB PO SCH (08:37)
[2023-05-29 10:28] VITALS: RESP 18
[2023-05-29 10:29] VITALS: BMI 36.2
[2023-05-29 10:48] LABS: Basophils # (A) 0.09 X 10*3/uL (0.00-0.10); Basophils % (A) 0.9 %; Eosinophils # (A) 0.09 X 10*3/uL (0.04-0.35); Eosinophils % (A) 0.9 %; HCT 34.9 % (37.2-46.3); HGB 10.8 g/dL (12.0-15.0); Lymphocytes # (A) 1.17 X 10*3/uL (0.90-5.00); Lymphocytes % (A) 11.5 %; MCH 29.4 pg (27.0-32.0); MCHC 30.9 g/dL (32.0-37.0); MCV 95.1 FL (80.0-97.0); Mean Platelet Volume 9.9 FL (9.5-12.2); Monocytes # (A) 0.91 X 10*3/uL (0.20-1.00); NRBC Per 100 WBC 0 X 10*3/uL (0.00-0.01); Neutrophils # (A) 7.84 X 10*3/uL (1.80-7.70); Neutrophils % (A) 77.4 %; Platelet Count 287 X 10*3/uL (140-440); RBC 3.67 X 10*6/uL (4.10-5.20); RDW 14.1 % (11.5-14.5); WBC 10.13 X 10*3/uL (4.50-10.00)
[2023-05-29 11:02] LABS: Blood Urea Nitrogen 13.9 mg/dL (9.0-27.0); Calcium 8.5 mg/dL (8.7-10.3); Carbon Dioxide 23.2 mmol/L (21.6-31.8); Chloride 111 mmol/L (96-109); Magnesium 1.9 mg/dL (1.5-2.4); Phosphorus 2.8 mg/dL (2.4-5.1); Potassium 5.2 mmol/L (3.5-5.5); Sodium 143 mmol/L (135-145)
--- NOTE | 2023-05-29 12:57 | FL ---
EXAMINATION TYPE: FL UGI DATE OF EXAM: 05/29/2023 CLINICAL HISTORY: Status post gastric sleeve Contrast: Omnipaque 350 50 mL The patient ingested contrast without difficulty. Noted are postsurgical changes of gastric sleeve. There is no evidence for leak. There is at least moderate dilatation of the esophagus luminal narrow ing at the GE junction. This could be related to underlying edema resulting in at least moderate obst ruction. Contrast is noted within the duodenum. IMPRESSION: Post-surgical change of gastric sleeve without evidence for leak at this point in time. At least moderate obstruction at the GE junction with esophageal dilatation.
[2023-05-29] MEDS: PANTOPRAZOLE 40 MG/10 ML VIAL IV SCH (13:24)
--- NOTE | 2023-05-29 14:04 | P.DS ---
Providers Date of admission: 05/28/23 05:53 Expected date of discharge: 05/29/23 Attending physician: Clifford Holt Consults: 05/28/23 10:25 Consult Physician Routine Consulting Provider: Ray Martinez Consult Reason/Comments: medical management Do you want consulting provider notified?: Yes Primary care physician: Iraida Diaz Hospital Course: Discharge diagnosis 1. Morbid obesity 2. Dysphagia 3. BMI 36 Hospital course This is a 72-year-old female with history of morbid obesity and dysphagia. She is status post laparoscopic removal of lap band and laparoscopic sleeve gastrectomy. Patient's upper GI does reveal moderate obstruction. Results were reviewed with Dr. Holt. Patient is tolerating the liquid diet. She reports her pain is controlled. She is having flatus. Denies any vomiting. Has been up and ambulating. She is afebrile. She is stable for discharge. Please refer to chart for any further details. Physician Teacher Music note has been reviewed by physician. Signing provider agrees with the documented findings, assessment, and plan of care. Patient Condition at Discharge: Stable Plan - Discharge Summary Discharge Rx Participant: Yes New Discharge Prescriptions: New Ondansetron Odt [Zofran Odt] 4 mg PO Q8HR PRN #9 tab PRN Reason: Nausea bisacodyL [Dulcolax] 5 mg PO DAILY PRN #10 tab PRN Reason: Constipation Simethicone 40 mg/0.6 ml Drops [Mylicon Drops] 40 mg PO PCHS PRN #30 ml PRN Reason: Gas Omeprazole [PriLOSEC] 40 mg PO DAILY #90 cap HYDROcodone/APAP 5-325MG [[place] 5-325] 1 tab PO Q6HR PRN 2 Days #5 tab PRN Reason: Pain Continue Levothyroxine Sodium [Synthroid] 112 mcg PO DAILY Cetirizine HCl [Zyrtec] 10 mg PO DAILY Cholecalciferol [Vitamin D3 (25 Mcg = 1000 Iu)] 25 mcg PO DAILY Magnesium Oxide [Magnesium] 400 mg PO DAILY PARoxetine [Paxil] 30 mg PO DAILY lisinopriL [Zestril] 10 mg PO HS polyethylene glycoL 3350 [Miralax] 17 gm PO DAILY #30 packet Acetaminophen Tab [Tylenol] 650 mg PO Q6HR PRN tab PRN Reason: Fever And/ Or Pain Tart Vincent Extract 1,200 mg PO DAILY Cyclobenzaprine [Flexeril] 5 mg PO HS PRN PRN Reason: muscle spasms Discharge Medication List Levothyroxine Sodium [Synthroid] 112 mcg PO DAILY 07/02/21 [History] Cetirizine HCl [Zyrtec] 10 mg PO DAILY 08/01/21 [History] Cholecalciferol [Vitamin D3 (25 Mcg = 1000 Iu)] 25 mcg PO DAILY 08/24/22 [History] Acetaminophen Tab [Tylenol] 650 mg PO Q6HR PRN tab 08/26/22 [Rx] polyethylene glycoL 3350 [Miralax] 17 gm PO DAILY #30 packet 08/26/22 [Rx] Magnesium Oxide [Magnesium] 400 mg PO DAILY 10/16/22 [History] PARoxetine [Paxil] 30 mg PO DAILY 11/13/22 [History] Cyclobenzaprine [Flexeril] 5 mg PO HS PRN 05/23/23 [History] Tart Vincent Extract 1,200 mg PO DAILY 05/23/23 [History] lisinopriL [Zestril] 10 mg PO HS 05/23/23 [History] HYDROcodone/APAP 5-325MG [[place] 5-325] 1 tab PO Q6HR PRN 2 Days #5 tab 05/29/23 [Rx] Omeprazole [PriLOSEC] 40 mg PO DAILY #90 cap 05/29/23 [Rx] Ondansetron Odt [Zofran Odt] 4 mg PO Q8HR PRN #9 tab 05/29/23 [Rx] Simethicone 40 mg/0.6 ml Drops [Mylicon Drops] 40 mg PO PCHS PRN #30 ml 05/29/23 [Rx] bisacodyL [Dulcolax] 5 mg PO DAILY PRN #10 tab 05/29/23 [Rx] Follow up [facility]ment(s[facility]Ref[facility] [place] [facility] 1 Week Activity/Diet/Wound Care/Special Instructions: No driving while taking [place] No lifting over 10 pounds Shower daily. No soaking or tub baths for 2 weeks Very light activity until you are reevaluated at your follow up appointment with your surgeon Discharge Disposition: HOME SELF-CARE
[2023-05-29 15:13] VITALS: BP 151/77; PULSE 88; TEMP 98
== END 2023-05-29 15:57 | disposition home or self-care (01) | DRG 621 ==
LOC: 2ORMAIN 05:53 → 4SSUR 10:53
PROVIDERS: ADMIT Surgery; ATTEND Surgery
PROC: 0DP64CZ Removal of Extraluminal Device from Stomach, Percutaneous Endoscopic Approach (ICD-10-PCS; principal; 2023-05-28 07:30)
PROC: 0DB64Z3 Excision of Stomach, Percutaneous Endoscopic Approach, Vertical (ICD-10-PCS; principal; 2023-05-28 07:30)
DX: E66.01 Morbid (severe) obesity due to excess calories (principal); R13.10 Dysphagia, unspecified; Z68.36 Body mass index [BMI] 36.0-36.9, adult; I10 Essential (primary) hypertension; E03.9 Hypothyroidism, unspecified; F32.A Depression, unspecified; K21.9 Gastro-esophageal reflux disease without esophagitis; G47.30 Sleep apnea, unspecified; Z96.652 Presence of left artificial knee joint; M85.80 Other specified disorders of bone density and structure, unspecified site; F41.0 Panic disorder [episodic paroxysmal anxiety]; F17.200 Nicotine dependence, unspecified, uncomplicated; Z71.6 Tobacco abuse counseling; Z71.3 Dietary counseling and surveillance; Z98.84 Bariatric surgery status; Z79.899 Other long term (current) drug therapy; Z79.890 Hormone replacement therapy; Z88.5 Allergy status to narcotic agent; Z88.2 Allergy status to sulfonamides; Z88.8 Allergy status to other drugs, medicaments and biological substances
CPT/HCPCS: 74240; 80051; 82310; 82565; 83735; 84100; 84520; 85025; 86850; 86900; 86901; 88307

== ENCOUNTER → 2023-06-01 | Outpatient (CLI) | payer MEDICARE ==
[2023-06-01 12:16] VITALS: BP 118/72; PULSE 91; RESP 14; TEMP 97.8
== END ==
LOC: BARWHC3 10:04
PROVIDERS: ATTEND Surgery
DX: E66.01 Morbid (severe) obesity due to excess calories (principal); Z53.9 Procedure and treatment not carried out, unspecified reason
CPT/HCPCS: 99211

== ENCOUNTER → 2023-06-11 | Outpatient (CLI) | payer MEDICARE ==
[~2023-06-11] MED LIST changes: -LACTATED RINGERS 1,000 ML IV SCH; +SODIUM CHLORIDE 0.9% 500 ML 500 ML in EMPTY BAG 1 BAG IV PRN
[2023-06-11] MEDS: SODIUM CHLORIDE 0.9% 2,000 ML IV NR (10:16)
[2023-06-11] MEDS: ONDANSETRON 4 MG/2 ML VIAL IVP NR (10:53)
[2023-06-11 11:14] LABS: HCT 44.1 % (34.0-46.0); HGB 13.7 gm/dL (11.4-16.0); MCH 29.3 pg (25.0-35.0); MCHC 31.2 g/dL (31.0-37.0); Mean Platelet Volume 7.8; Platelet Count 507 k/uL (150-450); RBC 4.68 m/uL (3.80-5.40); RDW 13.5 % (11.5-15.5); WBC 12.2 k/uL (3.8-10.6)
[2023-06-11 11:22] VITALS: BMI 32.3
[2023-06-11 11:23] VITALS: BP 138/89; PULSE 110; RESP 16; TEMP 97.5
[2023-06-11 11:24] LABS: ALT 33 U/L (4-34); African American GFR (CKD) >90 (>60 ml/min/1.73 sqM); Anion Gap 18 mmol/L; Blood Urea Nitrogen 24 mg/dL (7-17); Calcium 10.3 mg/dL (8.4-10.2); Carbon Dioxide 14 mmol/L (22-30); Chloride 110 mmol/L (98-107); Glucose 93 mg/dL (74-99); Non-African American GFR(CKD) 82 (>60 ml/min/1.73 sqM); Sodium 142 mmol/L (137-145)
[2023-06-11 11:27] LABS: Albumin 4.8 g/dL (3.5-5.0); Potassium 5.3 mmol/L (3.5-5.1); Total Protein 8.5 g/dL (6.3-8.2)
[2023-06-11 11:28] LABS: AST 34 U/L (14-36); Alkaline Phosphatase 86 U/L (38-126)
== END ==
LOC: PROCWHC3 09:22
PROVIDERS: ATTEND Surgery
DX: E86.0 Dehydration (principal); E66.01 Morbid (severe) obesity due to excess calories; Z71.3 Dietary counseling and surveillance
CPT/HCPCS: 80053; 85027; 97802; 96361; 96374; J2405; G0463; 96360; 96375; 99211

== ENCOUNTER → 2023-06-14 | Outpatient (CLI) | payer MEDICARE ==
[2023-06-14] MEDS: SODIUM CHLORIDE 0.9% 1,000 ML IV NR (13:25)
[2023-06-14] MEDS: ONDANSETRON 4 MG/2 ML VIAL IVP NR (13:25)
[2023-06-14 13:57] VITALS: BP 138/83; PULSE 97; RESP 14; TEMP 97.5
== END ==
LOC: PROCWHC3 13:03
PROVIDERS: ATTEND Surgery
DX: E86.0 Dehydration (principal)
CPT/HCPCS: 96361; 96374; J2405; 96360; 96375

== ENCOUNTER → 2023-06-18 | Outpatient (CLI) | payer MEDICARE ==
[2023-06-18 13:50] VITALS: BP 112/73; PULSE 91; RESP 14; TEMP 97.8; BMI 30.5
--- NOTE | 2023-09-06 12:04 | P.HPBAR ---
Bariatric H&P - History & Physicial H&P Date: 06/18/23 History & Physicial: Visit/CC: follow up with dr. lux Patient initial contact: Initial weight: 106.594 kg Initial weight in pounds: 235.00 Height: 5 ft 4 in Initial BMI: 40.3 Last weight: Current weight: 80.739 kg Current weight in pounds: 178.00 Current BMI: 30.5 [place] body weight (based on NIH guidelines): 54.431 kg Excess body weight loss: 49.5% The patient is a 72 year-old F who presents for Bariatric Assessment. Patient presents today for bariatric follow-up. Patient has been feeling well. She has some minimal gerd. The gerd i stable. 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 Osteopenia.. sleep apnea, occasional CPAP use prn. leg cramps frequently History of Any Multi-Drug Resistant Organisms: None Reported Past Surgical History: Bariatric Surgery, Breast Surgery, Cholecystectomy, Orthopedic Surgery, Tonsillectomy Additional Past Surgical History / Comment(s): LAP BAND. CYST REMOVED FROM BILATERAL breast, HAND AND MOUTH. ALSO FROM OVARY, lithotripsy, left knee replacement. Abdominoplasty. Colonoscopy 2016(next after 5yr). cologaard 2022 neg, gastric sleeve 05/28/23 Past Anesthesia/Blood Transfusion Reactions: Motion Sickness, Postoperative Nausea & Vomiting (PONV) Past Psychological History: Anxiety Smoking Status: Never smoker Past Alcohol Use History: None Reported Past Drug Use History: Marijuana Additional Drug Use History / Comment(s): pt states she uses medical marijuana. edibles refrain x 24 hours prior to surgery - Past Family History Mother Family Medical History: No Reported History Father Family Medical History: Myocardial Infarction ([place]) Additional Family Medical History / Comment(s): Paternal grandmother had breast cancer. Surgical - Exam Vital Signs Temp Pulse Resp BP 97.8 F 91 14 112/73 06/18/23 13:08 06/18/23 13:08 06/18/23 13:08 06/18/23 13:08 Abdomen soft nontender Bariatric Assessment & Plan Plan: The patient is doing well. Her GERD is minimal she will be observed. She will follow-up in 8 weeks. Bariatric Checklist Checklist: Plan: Checklist: EGD: 1. Hiatal hernia: 2. H. Pylori: HgbA1c: Vitamin D: Smoking: Never smoker Primary care physician referral: Jovana ROCKWELL at Dr. Zambrano office Psychiatry clearance: Cardiology clearance: Sleep study: Diet journal: VTE risk score: VTE risk level: Rehab needs at discharge:
== END ==
LOC: BARWHC3 10:19
PROVIDERS: ATTEND Surgery
DX: E66.01 Morbid (severe) obesity due to excess calories (principal); K21.9 Gastro-esophageal reflux disease without esophagitis; Z46.51 Encounter for fitting and adjustment of gastric lap band; Z98.84 Bariatric surgery status; Z88.5 Allergy status to narcotic agent; Z88.2 Allergy status to sulfonamides; Z88.1 Allergy status to other antibiotic agents; Z88.8 Allergy status to other drugs, medicaments and biological substances; Z91.018 Allergy to other foods; Z68.30 Body mass index [BMI] 30.0-30.9, adult
CPT/HCPCS: 99211

== ENCOUNTER → 2023-06-26 | Outpatient (CLI) | payer MEDICARE ==
[2023-06-26 15:54] LABS: HCT 45.8 % (37.2-46.3); HGB 13.9 g/dL (12.0-15.0); MCH 29.3 pg (27.0-32.0); MCHC 30.3 g/dL (32.0-37.0); MCV 96.4 FL (80.0-97.0); Mean Platelet Volume 10.7 FL (9.5-12.2); NRBC Per 100 WBC 0 X 10*3/uL (0.00-0.01); Platelet Count 260 X 10*3/uL (140-440); RBC 4.75 X 10*6/uL (4.10-5.20); RDW 14.5 % (11.5-14.5)
[2023-06-26 16:13] LABS: % Iron Saturation 17.71 (12.00-45.00); ALT 18 U/L (8-44); AST 17 U/L (13-35); Albumin 4.5 g/dL (3.8-4.9); Albumin/Globulin Ratio 1.55 Ratio (1.60-3.17); Alkaline Phosphatase 79 U/L (41-126); BUN/Creat Ratio 19.62 Ratio (12.00-20.00); Blood Urea Nitrogen 15.7 mg/dL (9.0-27.0); Calcium 10.5 mg/dL (8.7-10.3); Chloride 105 mmol/L (96-109); Ferritin 42.4 ng/mL (10.0-291.0); Globulin 2.9 g/dL (1.6-3.3); Glucose 98 mg/dL (70-110); Iron 68 UG/DL (50-170); Magnesium 1.7 mg/dL (1.5-2.4); Potassium 4.1 mmol/L (3.5-5.5); Sodium 145 mmol/L (135-145); Total Bilirubin 0.3 mg/dL (0.3-1.2); Total Iron Binding Capacity 384 UG/DL (228-460); Total Protein 7.4 g/dL (6.2-8.2)
[2023-06-27 10:22] LABS: Zinc, Serum 84 ug/dL (60-130)
== END | disposition home or self-care (01) ==
LOC: LABWHC1 09:28
PROVIDERS: ATTEND Surgery
DX: E66.01 Morbid (severe) obesity due to excess calories (principal); D50.8 Other iron deficiency anemias; E44.0 Moderate protein-calorie malnutrition; E55.9 Vitamin D deficiency, unspecified; T56.894A Toxic effect of other metals, undetermined, initial encounter
CPT/HCPCS: 36415; 80053; 82306; 82607; 82728; 82746; 83540; 83550; 83735; 84255; 84425; 84443; 84590; 84630; 85027

== ENCOUNTER → 2023-07-23 | Outpatient (CLI) | payer MEDICARE ==
[2023-07-23 13:25] VITALS: BMI 31.1
[2023-07-23 13:27] VITALS: BP 112/75; PULSE 82; RESP 14; TEMP 97.5
--- NOTE | 2023-07-24 09:31 | P.HPBAR ---
Bariatric H&P - History & Physicial H&P Date: 07/23/23 History & Physicial: Visit/CC: follow up with dr. lux Patient initial contact: Initial weight: 106.594 kg Initial weight in pounds: 235.00 Height: 5 ft 2 in Initial BMI: 43.0 Last weight: Current weight: 77.111 kg Current weight in pounds: 170.00 Current BMI: 31.1 [place] body weight (based on NIH guidelines): 49.895 kg Excess body weight loss: 52.0% The patient is a 72 year-old F who presents for Bariatric Assessment.patient resents today for [facility] follow-up. She has lost 8 pounds her last visit. She's had some minimal GERD. 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 Osteopenia.. sleep apnea, occasional CPAP use prn. leg cramps frequently History of Any Multi-Drug Resistant Organisms: None Reported Past Surgical History: Bariatric Surgery, Breast Surgery, Cholecystectomy, Orthopedic Surgery, Tonsillectomy Additional Past Surgical History / Comment(s): LAP BAND. CYST REMOVED FROM BILATERAL breast, HAND AND MOUTH. ALSO FROM OVARY, lithotripsy, left knee replacement. Abdominoplasty. Colonoscopy 2016(next after 5yr). cologaard 2022 neg, gastric sleeve 05/28/23 Past Anesthesia/Blood Transfusion Reactions: Motion Sickness, Postoperative Nausea & Vomiting (PONV) Past Psychological History: Anxiety Smoking Status: Never smoker Past Alcohol Use History: None Reported Past Drug Use History: Marijuana Additional Drug Use History / Comment(s): pt states she uses medical marijuana. edibles refrain x 24 hours prior to surgery - Past Family History Mother Family Medical History: No Reported History Father Family Medical History: Myocardial Infarction ([place]) Additional Family Medical History / Comment(s): Paternal grandmother had breast cancer. Surgical - Exam Vital Signs Temp Pulse Resp BP 97.5 F L 82 14 112/75 07/23/23 11:36 07/23/23 11:36 07/23/23 11:36 07/23/23 11:36 - General well developed, well nourished, no distress - Eyes PERRL - ENT normal pinna - Neck no masses - Respiratory normal expansion - Cardiovascular Rhythm: regular - Abdomen Abdomen: soft, non tender Bariatric Assessment & Plan Plan: patient had excellent weight loss excellent. Her GERD is minimal will be observed. Bariatric Checklist Checklist: Plan: Checklist: EGD: 1. Hiatal hernia: 2. H. Pylori: HgbA1c: Vitamin D: Smoking: Never smoker Primary care physician referral: Jovana ROCKWELL at Dr. Zambrano office Psychiatry clearance: Cardiology clearance: Sleep study: Diet journal: VTE risk score: VTE risk level: Rehab needs at discharge:
== END ==
LOC: BARWHC3 09:32
PROVIDERS: ATTEND Surgery
DX: K21.9 Gastro-esophageal reflux disease without esophagitis (principal); E66.01 Morbid (severe) obesity due to excess calories; Z68.31 Body mass index [BMI] 31.0-31.9, adult; Z98.84 Bariatric surgery status; Z88.5 Allergy status to narcotic agent; Z88.2 Allergy status to sulfonamides; Z88.1 Allergy status to other antibiotic agents; Z88.8 Allergy status to other drugs, medicaments and biological substances; Z91.018 Allergy to other foods
CPT/HCPCS: 97803; G0463; 99211

== ENCOUNTER → 2023-10-16 | Outpatient (CLI) | payer MEDICARE ==
--- NOTE | 2023-10-24 07:44 | MM ---
Reason for Exam: Screening (asymptomatic). Last mammogram was performed 1 year(s) and 1 month(s) ago. Patient History: Menarche at age 12. First Full-Term at age 34. Late child-bearing (after 30). Postmenopausal. Patient has history of breast feeding. Core Biopsy on the Right side. Cyst Aspiration on the Right side. Excisional Biopsy on the Right side. Excisional Biopsy on the Left side. 06/18/2001, Benign Stereotactic Core Biopsy on the right side. Paternal grandmother had breast cancer, age 70. Risk Values: Fifi 5 year model risk: 4.0%. NCI Lifetime model risk: 10.7%. Prior Study Comparison: 10/06/2016 Bilateral Screening Mammogram, [facility]. 01/07/2019 Bilateral Screening Mammogram, [facility]. 03/24/2020 Bilateral Screening Mammogram, [facility]. 07/14/2021 Bilateral MG 3D screening mammo w/cad, [facility]. 08/30/2022 Bilateral MG 3D screening mammo w/cad, [facility]. Tissue Density: The breasts are heterogeneously dense, which may obscure small masses. Findings: Analyzed By CAD. Right breast: There is no suspicious group of microcalcifications or new suspicious mass. Left breast: There is no suspicious group of microcalcifications or new suspicious mass. Overall Assessment: Negative, BI-RAD 1 Management: Screening Mammogram of both breasts in [address] [facility] will attempt to contact patient to return for supplemental views and ultrasound if indicated. Patient should continue monthly self-breast exams. A clinical breast exam by your physician is recommended on an annual basis. This exam should not preclude additional follow-up of suspicious palpable abnormalities. Note on Fifi scores and lifetime risk: 1. A Fifi score greater than 3% is considered moderate risk. If this is the case, consider specialist referral to assess eligibility for a risk reducing agent. 2. If overall lifetime risk for the development of breast cancer is 20% or higher, the patient may qualify for future screening with alternating mammogram and breast MRI. Electronically signed and approved by: Stevenson Quijano DO
== END | disposition home or self-care (01) ==
LOC: RADMAMWWP 12:39
PROVIDERS: ATTEND Family Medicine
DX: Z12.31 Encounter for screening mammogram for malignant neoplasm of breast
CPT/HCPCS: 77063; 77067

== ENCOUNTER → 2023-11-09 | Outpatient (CLI) | payer MEDICARE ==
--- NOTE | 2023-11-09 11:14 | FL ---
EXAMINATION TYPE: FL barium swallow DATE OF EXAM: 11/09/2023 11:03 AM COMPARISON: 05/29/2023 CLINICAL INDICATION:Female, 72 years old with history of R13.13 DYSPHAGIA PHARANGEAL PHASE; TECHNIQUE: The procedure was explained and patient history elicited. All patient questions were ans wered prior to start of procedure. Multiple spot fluoroscopic images of the esophagus were obtained a fter the oral ingestion of effervescent crystals and liquid barium as the contrast agent. Fluoroscopic time: 1 minute 5 seconds sec Fluoroscopic images: 0 Radiographs taken: 64 DAP: Not reported [id number] FINDINGS: There is delayed emptying of the barium through the gastroesophageal junction. Multiple swallow attem pts were performed with minimal transit on each swallow attempt. There is mild dilation of the esopha kedar without evidence for abnormal outpouching or mass. 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 No hiatal he rnia visualized. IMPRESSION: 1. Esophageal dysmotility with delayed transit through the gastroesophageal junction. Correlate for achalasia versus stricture. 2. 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 [facility], , 11/09/2023 11:12 AM
--- NOTE | 2023-11-19 21:29 | BD ---
EXAMINATION TYPE: Axial Bone Density DATE OF EXAM: 11/09/2023 CLINICAL HISTORY: 72 years old Female. ICD-10 CODE: R13.13 DYSPHAGIA PHARANGEAL PHASE Height: 62in Weight: 144lb FRAX RISK QUESTIONS: Secondary Osteoporosis: Rheumatoid Arthritis: yes RISK FACTORS HISTORY OF: MEDICATIONS: Thyroid Medications: Which medication: Levothyroxine How Lon years EXAM MEASUREMENTS: Bone mineral densitometry was performed using the [employer] System. Bone mineral density as measured about the Lumbar spine is: ----- L1-L4(G/cm2): 1.191 T Score Values are as follows: ----- L1: -0.2 ----- L2: 0.2 ----- L3: 0.0 ----- L4: 0.2 ----- L1-L4: 0.1 Z Score Values are as follows: ----- L1: 1.5 ----- L2: 1.9 ----- L3: 1.7 ----- L4: 1.8 ----- L1-L4: 1.8 Bone mineral density has: Decreased -2.1% since study of: 04-02-20 Bone mineral density about the R hip (g/cm2): 0.823 Bone mineral density about the L hip (g/cm2): 0.831 T Score values are as follows: -----R Neck: -1.5 -----L Neck: -1.2 -----R Total: -1.5 -----L Total: -1.4 Z Score values are as follows: -----R Neck: 0.2 -----L Neck: 0.5 -----R Total: 0.1 -----L Total: 0.1 Bone mineral density has: Increased 3.9% since study of: 04-02-20 FRAX%s: The graph provided illustrates a 13.6% chance for a major osteoporotic fx and a 2.4% chance f or the hips probability for fx in 10 years time. IMPRESSION: Osteopenia (T Score between -2.5 and -1). There is slightly increased risk of fracture and the patient may be considered for treatment. Re-Screen 2-5 years. NOTE: T-SCORE=SD OF THE YOUNG ADULT MEAN. [facility], , 11/19/2023 9:27 PM
== END | disposition home or self-care (01) ==
LOC: RADBDWWP 09:56
PROVIDERS: ATTEND Family Medicine
DX: R13.13 Dysphagia, pharyngeal phase
CPT/HCPCS: 74220; 77080

== ENCOUNTER 2023-11-15 07:47 | Day surgery (SDC) | payer MEDICARE ==
[~2023-11-15 07:47] MED LIST changes: +LIDOCAINE 1% (10MG/ML) FOR IV START INTRADERMA PRN; -SODIUM CHLORIDE 0.9% 500 ML 500 ML in EMPTY BAG 1 BAG IV PRN
[2023-11-15 08:10] VITALS: RESP 16; TEMP 97.5
[2023-11-15] MEDS: IV FLUID CONTINUATION 1,000 ML IV ONE (08:16)
[2023-11-15] MEDS: LACTATED RINGERS 1,000 ML IV SCH (08:17)
[2023-11-15] MEDS: ONDANSETRON 4 MG/2 ML VIAL IVP STA (08:18)
[2023-11-15] MEDS ORDERED: PROPOFOL 10 MG/ML 20 ML VIAL IV ONE (09:03)
[2023-11-15] MEDS ORDERED: LIDOCAINE 1% INJ 10MG/ML (20 ML MDV) ONE (09:03)
--- NOTE | 2023-11-15 09:08 | P.GSHP ---
History of Present Illness H&P Date: 11/15/23 Chief Complaint: Gerd Is a 72-year-old female who has previous history of sleeve gastrectomy. Patient has complaints of GERD. She plans today for EGD. 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 Osteopenia.. sleep apnea, occasional CPAP use prn. leg cramps frequently diverticulitis, History of Any Multi-Drug Resistant Organisms: None Reported Past Surgical History: Bariatric Surgery, Breast Surgery, Cholecystectomy, Joint Replacement, Orthopedic Surgery, Tonsillectomy Additional Past Surgical History / Comment(s): LAP BAND. CYST REMOVED FROM BILATERAL breast, HAND AND MOUTH. ALSO FROM OVARY, lithotripsy, left knee replacement. Abdominoplasty. Colonoscopy 2016(next after 5yr). cologard 2022 neg, lap band removed, gastric sleeve 05/28/23 mri cervical spine knee replacement Past Anesthesia/Blood Transfusion Reactions: Motion Sickness, Postoperative Nausea & Vomiting (PONV) Smoking Status: Never smoker - Past Family History Mother Family Medical History: No Reported History Father Family Medical History: Myocardial Infarction ([place]) Additional Family Medical History / Comment(s): Paternal grandmother had breast cancer. Medications and Allergies Home Medications Medication Instructions Recorded Confirmed Type Levothyroxine Sodium [Synthroid] 112 mcg PO DAILY 07/02/21 11/15/23 History Cetirizine HCl [Zyrtec] 10 mg PO DAILY 08/01/21 11/15/23 History PARoxetine [Paxil] 30 mg PO DAILY 11/13/22 11/15/23 History Tart Vincent Extract 1,200 mg PO HS 05/23/23 11/15/23 History ALPRAZolam [Xanax] 0.25 mg PO DAILY 11/05/23 11/15/23 History Acetaminophen Tab [Tylenol] 500 mg PO Q6HR PRN 11/05/23 11/15/23 History Albuterol Inhaler [Ventolin Hfa 1 - 2 puff INHALATION Q6H PRN 11/05/23 11/15/23 History Inhaler] Calcium Citrate/Vitamin D3 4 tab PO DAILY 11/05/23 11/15/23 History [Calcium Cit-Vit D3 500 mg Chew] Meclizine [Antivert] 1 tab PO DAILY PRN 11/05/23 11/15/23 History Mv-Min/Folic/K1/Lycopen/Lutein 1 tab PO DAILY 11/05/23 11/15/23 History [Centrum Adults 50 Plus Minis] Omeprazole 40 mg PO DAILY 11/05/23 11/15/23 History Rosuvastatin Calcium [Crestor] 5 mg PO HS 11/05/23 11/15/23 History buPROPion HCL [buPROPion HCL Xl] 1 tab PO DAILY 11/05/23 11/15/23 History polyethylene glycoL 3350 [Miralax] 17 gm PO DAILY PRN 11/05/23 11/15/23 History Allergies Allergy/AdvReac Type Severity Reaction Status Date / Time montelukast [From [facility]] AdvReac Unknown Verified 11/15/23 08:01 Surgical - Exam Vital Signs Temp Pulse Resp BP Pulse Ox 97.5 F L 86 16 120/78 98 11/15/23 08:10 11/15/23 08:10 11/15/23 08:10 11/15/23 08:10 11/15/23 08:10 - General well developed, well nourished, no distress - Eyes PERRL - ENT normal pinna, normal nares - Neck no masses - Respiratory normal expansion - Cardiovascular Rhythm: regular - Abdomen Abdomen: soft, non tender Assessment and Plan Assessment: Gerd. Will perform EGD.
--- NOTE | 2023-11-15 09:16 | P.OP ---
Date of Procedure: 11/15/23 Preoperative Diagnosis: Gerd Postoperative Diagnosis: Gerd Procedure(s) Performed: EGD Anesthesia: MAC Surgeon: Clifford Holt Pathology: other (Antrum, esophagus) Condition: stable Disposition: PACU Description of Procedure: Patient was placed on the endoscopy table in the lateral position. She received IV sedation. The gas was placed oropharynx passed in the esophagus to the stomach. Scope was placed through the pylorus. The first and second portion of the duodenum appeared normal. Scope was then brought back to the antrum and this. Mildly Flaim. A biopsy performed. Scope was then withdrawn. Patient previous gastric sleeve. There is no evidence of obstruction distally. The GE junction was at 40 cm. The distal esophagus appeared flan. A biopsy performed. The proximal esophagus appeared normal. Scope withdrawn the patient.
[2023-11-15 09:48] VITALS: BP 123/77; PULSE 70
== END 2023-11-15 10:39 | disposition home or self-care (01) ==
LOC: ORWHC2ENDO 07:47
PROVIDERS: ATTEND Surgery
DX: K21.9 Gastro-esophageal reflux disease without esophagitis
CPT/HCPCS: 43239; 88305; 88313

== ENCOUNTER → 2023-11-26 | Outpatient (CLI) | payer MEDICARE ==
[2023-11-26 10:41] VITALS: BP 138/76; PULSE 94; RESP 16; TEMP 97.8; BMI 25.0
--- NOTE | 2023-11-26 12:04 | P.HPBAR ---
Bariatric H&P - History & Physicial H&P Date: 11/26/23 History & Physicial: Visit/CC: f/u sleeve Patient initial contact: Initial weight: 106.594 kg Initial weight in pounds: 235.00 Height: 5 ft 4 in Initial BMI: 40.3 Last weight: Current weight: 66.224 kg Current weight in pounds: 146.00 Current BMI: 25.0 [place] body weight (based on NIH guidelines): 54.431 kg Excess body weight loss: 77.3% The patient is a 72 year-old F who presents for Bariatric Assessment. Patient presents today for sleeve gastrectomy follow-up. She has minimal complaints of GERD. She states she feels well otherwise. 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 Osteopenia.. sleep apnea, occasional CPAP use prn. leg cramps frequently History of Any Multi-Drug Resistant Organisms: None Reported Past Surgical History: Bariatric Surgery, Breast Surgery, Cholecystectomy, Orthopedic Surgery, Tonsillectomy Additional Past Surgical History / Comment(s): LAP BAND. CYST REMOVED FROM BILATERAL breast, HAND AND MOUTH. ALSO FROM OVARY, lithotripsy, left knee replacement. Abdominoplasty. Colonoscopy 2016(next after 5yr). cologaard 2022 neg, gastric sleeve 05/28/23 Past Anesthesia/Blood Transfusion Reactions: Motion Sickness, Postoperative Nausea & Vomiting (PONV) Past Psychological History: Anxiety Smoking Status: Never smoker Past Alcohol Use History: None Reported Past Drug Use History: Marijuana Additional Drug Use History / Comment(s): pt states she uses medical marijuana. edibles refrain x 24 hours prior to surgery - Past Family History Mother Family Medical History: No Reported History Father Family Medical History: Myocardial Infarction ([place]) Additional Family Medical History / Comment(s): Paternal grandmother had breast cancer. Surgical - Exam Vital Signs Temp Pulse Resp BP 97.8 F 94 16 138/76 11/26/23 10:32 11/26/23 10:32 11/26/23 10:32 11/26/23 10:32 - General well developed, well nourished, no distress - Eyes PERRL - ENT normal pinna - Neck no masses - Respiratory normal expansion - Cardiovascular Rhythm: regular - Abdomen Abdomen: soft, non tender Bariatric Assessment & Plan Plan: Status post sleeve gastric. Patient is gerd is minimal Museux. She will follow-up in 4 weeks. Bariatric Checklist Checklist: Plan: Checklist: EGD: 1. Hiatal hernia: 2. H. Pylori: HgbA1c: Vitamin D: Smoking: Never smoker Primary care physician referral: Dr. Diaz Psychiatry clearance: Cardiology clearance: Sleep study: Diet journal: VTE risk score: VTE risk level: Rehab needs at discharge:
== END | disposition home or self-care (01) ==
LOC: BARWHC3 10:24
PROVIDERS: ATTEND Surgery
DX: E66.01 Morbid (severe) obesity due to excess calories
CPT/HCPCS: 99211

== ENCOUNTER → 2024-01-07 | Outpatient (CLI) | payer MEDICARE ==
[2024-01-07 11:03] VITALS: BP 132/87; PULSE 81; RESP 16; TEMP 97.7; BMI 24.5
--- NOTE | 2024-01-07 11:52 | P.HPBAR ---
Bariatric H&P - History & Physicial H&P Date: 01/07/24 History & Physicial: Visit/CC: f/u Patient initial contact: Initial weight: 106.594 kg Initial weight in pounds: 235.00 Height: 5 ft 4 in Initial BMI: 40.3 Last weight: Current weight: 64.864 kg Current weight in pounds: 143.00 Current BMI: 24.5 [place] body weight (based on NIH guidelines): 54.431 kg Excess body weight loss: 80.0% The patient is a 73 year-old F who presents for Bariatric Assessment. Patient presents today for bariatric follow-up. She has complaints of minimal gerd. She otherwise feels well. She is lost 3 pound since her last visit. 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 Osteopenia.. sleep apnea, occasional CPAP use prn. leg cramps frequently History of Any Multi-Drug Resistant Organisms: None Reported Past Surgical History: Bariatric Surgery, Breast Surgery, Cholecystectomy, Orthopedic Surgery, Tonsillectomy Additional Past Surgical History / Comment(s): LAP BAND. CYST REMOVED FROM BILATERAL breast, HAND AND MOUTH. ALSO FROM OVARY, lithotripsy, left knee replacement. Abdominoplasty. Colonoscopy 2016(next after 5yr). cologaard 2022 neg, gastric sleeve 05/28/23 Past Anesthesia/Blood Transfusion Reactions: Motion Sickness, Postoperative Nausea & Vomiting (PONV) Past Psychological History: Anxiety Smoking Status: Never smoker Past Alcohol Use History: None Reported Past Drug Use History: Marijuana Additional Drug Use History / Comment(s): pt states she uses medical marijuana. edibles refrain x 24 hours prior to surgery - Past Family History Mother Family Medical History: No Reported History Father Family Medical History: Myocardial Infarction ([place]) Additional Family Medical History / Comment(s): Paternal grandmother had breast cancer. Surgical - Exam Vital Signs Temp Pulse Resp BP 97.7 F 81 16 132/87 01/07/24 10:56 01/07/24 10:56 01/07/24 10:56 01/07/24 10:56 - General well developed, well nourished, no distress - Eyes PERRL - ENT normal pinna - Neck no masses - Respiratory normal expansion - Cardiovascular Rhythm: regular - Abdomen Abdomen: soft, non tender Bariatric Assessment & Plan Plan: Patient is doing well. Her gerd is minimal and will be observed. Bariatric Checklist Checklist: Plan: Checklist: EGD: 1. Hiatal hernia: 2. H. Pylori: HgbA1c: Vitamin D: Smoking: Never smoker Primary care physician referral: Dr. Diaz Psychiatry clearance: Cardiology clearance: Sleep study: Diet journal: VTE risk score: VTE risk level: Rehab needs at discharge:
== END ==
LOC: BARWHC3 10:34
PROVIDERS: ATTEND Surgery
DX: Z48.815 Encounter for surgical aftercare following surgery on the digestive system (principal); K21.9 Gastro-esophageal reflux disease without esophagitis; Z98.84 Bariatric surgery status; Z88.2 Allergy status to sulfonamides; Z88.1 Allergy status to other antibiotic agents; Z88.8 Allergy status to other drugs, medicaments and biological substances; Z91.018 Allergy to other foods
CPT/HCPCS: 99211

== ENCOUNTER → 2024-03-10 | Outpatient (CLI) | payer MEDICARE ==
[2024-03-10 11:09] VITALS: BP 146/84; PULSE 89; RESP 16; TEMP 97.9; BMI 24.7
--- NOTE | 2024-03-10 16:59 | P.HPBAR ---
Bariatric H&P - History & Physicial H&P Date: 03/10/24 History & Physicial: Visit/CC: f/u Patient initial contact: Initial weight: 106.594 kg Initial weight in pounds: 235.00 Height: 5 ft 4 in Initial BMI: 40.3 Last weight: Current weight: 65.317 kg Current weight in pounds: 144.00 Current BMI: 24.7 [place] body weight (based on NIH guidelines): 54.431 kg Excess body weight loss: 79.1% The patient is a 73 year-old F who presents for Bariatric Assessment. Patient presents today for bariatric follow-up. She has had minimal gerd. Her weight loss has been stable. She has no significant abdominal complaints. 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 Osteopenia.. sleep apnea, occasional CPAP use prn. leg cramps frequently History of Any Multi-Drug Resistant Organisms: None Reported Past Surgical History: Bariatric Surgery, Breast Surgery, Cholecystectomy, Orthopedic Surgery, Tonsillectomy Additional Past Surgical History / Comment(s): LAP BAND. CYST REMOVED FROM BILATERAL breast, HAND AND MOUTH. ALSO FROM OVARY, lithotripsy, left knee replacement. Abdominoplasty. Colonoscopy 2016(next after 5yr). cologaard 2022 neg, gastric sleeve 05/28/23 Past Anesthesia/Blood Transfusion Reactions: Motion Sickness, Postoperative Nausea & Vomiting (PONV) Past Psychological History: Anxiety Smoking Status: Never smoker Past Alcohol Use History: None Reported Past Drug Use History: Marijuana Additional Drug Use History / Comment(s): pt states she uses medical marijuana. edibles refrain x 24 hours prior to surgery - Past Family History Mother Family Medical History: No Reported History Father Family Medical History: Myocardial Infarction ([place]) Additional Family Medical History / Comment(s): Paternal grandmother had breast cancer. Surgical - Exam Vital Signs Temp Pulse Resp BP 97.9 F 89 16 146/84 03/10/24 10:56 03/10/24 10:56 03/10/24 10:56 03/10/24 10:56 - General well developed, well nourished, no distress - Eyes PERRL - ENT normal pinna - Neck no masses - Respiratory normal expansion - Cardiovascular Rhythm: regular - Abdomen Abdomen: soft, non tender Bariatric Assessment & Plan Plan: Resolving morbid V obesity. Patient's gerd is minimal. She will follow-up in 4 weeks. Bariatric Checklist Checklist: Plan: Checklist: EGD: 1. Hiatal hernia: 2. H. Pylori: HgbA1c: Vitamin D: Smoking: Never smoker Primary care physician referral: Dr. Diaz Psychiatry clearance: Cardiology clearance: Sleep study: Diet journal: VTE risk score: VTE risk level: Rehab needs at discharge:
== END ==
LOC: BARWHC3 10:29
PROVIDERS: ATTEND Surgery
DX: K44.9 Diaphragmatic hernia without obstruction or gangrene (principal); B96.81 Helicobacter pylori [H. pylori] as the cause of diseases classified elsewhere; Z88.2 Allergy status to sulfonamides; Z88.1 Allergy status to other antibiotic agents; Z88.8 Allergy status to other drugs, medicaments and biological substances
CPT/HCPCS: 99211

== ENCOUNTER → 2024-05-05 | Outpatient (CLI) | payer MEDICARE ==
--- NOTE | 2024-05-05 11:46 | P.HPBAR ---
Bariatric H&P - History & Physicial H&P Date: 05/05/24 History & Physicial: Visit/CC: Patient initial contact: Initial weight: 106.594 kg Initial weight in pounds: Height: 5 ft 4 in Initial BMI: Last weight: Current weight: 67.132 kg Current weight in pounds: Current BMI: [place] body weight (based on NIH guidelines): Excess body weight loss: The patient is a 73 year-old F who presents for Bariatric Assessment. Patient presents today for Peritrate follow-up. Patient has had minimal plaints of gerd. She otherwise feels well. 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 Osteopenia.. sleep apnea, occasional CPAP use prn. leg cramps frequently History of Any Multi-Drug Resistant Organisms: None Reported Past Surgical History: Bariatric Surgery, Breast Surgery, Cholecystectomy, Orthopedic Surgery, Tonsillectomy Additional Past Surgical History / Comment(s): LAP BAND. CYST REMOVED FROM BILATERAL breast, HAND AND MOUTH. ALSO FROM OVARY, lithotripsy, left knee replacement. Abdominoplasty. Colonoscopy 2016(next after 5yr). cologaard 2022 neg, gastric sleeve 05/28/23 Past Anesthesia/Blood Transfusion Reactions: Motion Sickness, Postoperative Nausea & Vomiting (PONV) Past Psychological History: Anxiety Smoking Status: Never smoker Past Alcohol Use History: None Reported Past Drug Use History: Marijuana Additional Drug Use History / Comment(s): pt states she uses medical marijuana. edibles refrain x 24 hours prior to surgery - Past Family History Mother Family Medical History: No Reported History Father Family Medical History: Myocardial Infarction ([place]) Additional Family Medical History / Comment(s): Paternal grandmother had breast cancer. Surgical - Exam - General well developed, well nourished, no distress - Eyes PERRL - ENT normal pinna - Neck no masses - Respiratory normal expansion - Cardiovascular Rhythm: regular - Abdomen Abdomen: soft, non tender Bariatric Assessment & Plan Plan: Patient is gerd is minimal and will observe. She will follow-up in 3 months. Bariatric Checklist Checklist: Plan: Checklist: EGD: 1. Hiatal hernia: 2. H. Pylori: HgbA1c: Vitamin D: Smoking: Never smoker Primary care physician referral: Dr. Diaz Psychiatry clearance: Cardiology clearance: Sleep study: Diet journal: VTE risk score: VTE risk level: Rehab needs at discharge:
[2024-05-05 12:36] VITALS: BP 123/67; PULSE 68; TEMP 98.1; BMI 25.4
== END ==
LOC: BARWHC3 10:26
PROVIDERS: ATTEND Surgery
DX: K21.9 Gastro-esophageal reflux disease without esophagitis (principal); Z88.2 Allergy status to sulfonamides; Z88.8 Allergy status to other drugs, medicaments and biological substances; Z91.018 Allergy to other foods; Z91.048 Other nonmedicinal substance allergy status; Z88.1 Allergy status to other antibiotic agents
CPT/HCPCS: 99211